=== PATIENT | male | born 1940 | race Caucasian/White ===

== ENCOUNTER 2017-09-17 17:07 | Emergency (ER) | payer MEDICARE, OTHER, SELFPAY ==
[2017-09-17 17:09] VITALS: BP 180/98; PULSE 87; RESP 18; TEMP 36.3; O2SAT 99; BMI 24.8
--- NOTE | 2017-09-17 17:24 | CT_ITS ---
CT facial bones wo con CLINICAL INDICATION: Facial pain and swelling/laceration following injury ITS.REASON: fall ORDERING PHYSICIAN: Ulises Melara MD PATIENT AGE: 77 years COMPARISON: None TECHNIQUE:Axial, sagittal, and coronal images are generated and reviewed without contrast FINDINGS: Comminuted nasal bone fracture is present with mild depression of the fracture fragments. The nasal bones are slightly angled toward the left. The left nasal bone slightly displaced laterally at the nasal maxillary junction There is buckling of the bony nasal septum with the mid anterior aspect of the nasal septum deviated toward the left and mid to posterior aspect of the nasal septum deviated toward the right Intermixed soft tissue and gas density noted in the nasal canals bilaterally consistent with blood somewhat more prominent on the left. Small air-fluid level present in left maxillary sinus. Mucosal thickening involves the maxillary sinuses. There are degenerative changes of the TMJs. The orbits are unremarkable. IMPRESSION: Comminuted nasal bone fracture mildly displaced with buckle fracture of the nasal septum
--- NOTE | 2017-09-17 17:25 | CT_ITS ---
CT cervical spine wo con INDICATION: Neck pain following injury ITS.REASON: fall ORDERING PHYSICIAN: Ulises Melara MD PATIENT AGE: 77 years COMPARISON: None TECHNIQUE: Axial images are obtained without contrast. Sagittal and coronal reformatted images are reviewed as well. FINDINGS: Normal alignment. No fracture or dislocation. There is multilevel spondylosis with degenerative disc disease and facet hypertrophic change. C2-C3: Mild degenerative disc disease. C3-C4: Degenerative disc disease with uncovertebral hypertrophy and bilateral foraminal narrowing. C4-C5: Degenerative disc disease with uncovertebral hypertrophy and bilateral foraminal narrowing. The facets appear fused at C4-C5. C5-C6: Degenerative disc disease with facet hypertrophy and right-sided foraminal narrowing. C6-C7 degenerative disc disease. C7-T1: 3 mm anterolisthesis of C7. Lung apices are clear. IMPRESSION: 1. No acute fracture. 2. Multilevel cervical spondylosis with degenerative disc disease and facet arthritic changes as detailed above
--- NOTE | 2017-09-17 17:27 | CT_ITS ---
CT head/brain wo con HISTORY: Headache/pain, laceration, contusion following injury, abrasion ITS.REASON: fall ORDERING PHYSICIAN: Ulises Melara MD PATIENT AGE: 77 years COMPARISON: None TECHNIQUE: Axial images obtained without contrast. Brain and bone windows reviewed. FINDINGS: No midline shift, mass effect, intracranial hemorrhage, hydrocephalus, or extra-axial fluid collection is evident. There is atrophy with chronic ischemic gliotic changes. The calvarium has an unremarkable appearance. No mastoid effusion. Mucosal thickening is present in the ethmoid sinuses.. IMPRESSION: No acute intracranial findings. Mild sinus disease.
--- NOTE | 2017-09-17 17:29 | HMH.EDFALL ---
ED Disposition Clinical Impression: Nasal fracture Qualifiers: Encounter type: initial encounter Fracture type: closed Qualified Code(s): S02.2XXA - Fracture of nasal bones, initial encounter for closed fracture Disposition: Home, Self-Care Condition on Discharge: Good Instructions: DI for Nose Fracture Additional Instructions: Tylenol for pain. Ice pack to the nose 20 minutes 3-4 times a day. Keep head of bed elevated for first 3 nights. Use Afrin spray 1 spray in each nostril every 12 hours for 3 days. Return to the emergency department if any heavy bleeding. Prescriptions: Amoxicillin [Amoxicillin 500mg Cap] 500 mg PO TID #30 cap Referrals: Shubham Watkins MD [Primary Care Provider] - Tobias Arteaga MD [Staff Physician] - 3 days (call on wednesday for earliest available appointment) - Critical Care Critical Care Time: No Attestation: On 09/17/17, the high probability of a clinically significant, sudden or life threatening deterioration of the following system(s) required my full and direct attention, intervention and personal management. The time I documented below is in addition to time spent performing reported procedures but includes the following listed in this critical care notation. Medical Decision Making Vital Signs: 09/17/17 17:09 Temperature 97.4 F L Temperature Source Temporal Artery Scan Pulse Rate [Right Brachial] 87 Respiratory Rate 18 Blood Pressure [Right Arm] 180/98 Blood Pressure Mean [Right Arm] 125 Blood Pressure Source [Right Arm] Manual Cuff/ Auscultation Blood Pressure Position [Right Arm] Sitting 02 Sat by Pulse Oximetry 99 Oxygen Delivery Method Room Air Orders (Tests/Meds): ED MEDICATIONS Discontinued Medications Generic Name Dose Route Start Last Admin Trade Name Freq PRN Reason Stop Dose Admin Oxymetazoline HCl 1 ml 09/17/17 17:55 09/17/17 18:16 Afrin Nasal [place] 15ml NS 09/17/17 17:56 1 spray ONCE ONE Administration - CT Data CT Scan: Head, C-Spine, Other (facial) Time Received: 18:[address] Reviewed: Yes: I have viewed the radiologist's interpretation Findings Narrative: Head: No acute process. Mild sinus disease. Cervical spine: No acute fracture or dislocation. Degenerative changes. Facial bone: Comminuted nasal fracture with a buckle fracture of the nasal septum. - Mehul Inquiry Pt receiving controlled substance: No Fall HPI - General Chief Complaint: Fall Stated Complaint: S/P FALL/NOSE BLEED Mode of Arrival: Family Vehicle Limitations: No Limitations Description of Symptoms (Recalled from ER Triage Doc. by RN): S/P FALL AND HIT NOSE. ALSO C/O NOSE BLEED - History of Present Illness HPI Narrative: The patient tripped and fell and hit his nose. He felt it pop. He has some slight bleeding from the nostrils. Nasal congestion bilaterally. No loss of consciousness. No headache. No neck pain. No other injuries. He is on Coumadin, gets his pro time checked regularly. No recent problems. - Related Data Home Medications Medication Instructions Recorded Confirmed aspirin 81 mg tablet,delayed 81 mg PO QDAY 09/14/17 09/17/17 release finasteride 5 mg tablet 5 mg PO QDAY 09/14/17 09/17/17 metoprolol tartrate 50 mg tablet 50 mg PO BID 09/14/17 09/17/17 nitroglycerin 0.4 mg sublingual 0.4 mg SUBLINGUAL Q5M PRN 09/14/17 09/17/17 tablet tamsulosin 0.4 mg capsule 0.4 mg PO DAILY cap 09/14/17 09/17/17 warfarin 2.5 mg tablet 2.5 mg PO QDAY 09/14/17 09/17/17 Isosorbide Mononitrate [Imdur 30mg 30 mg PO DAILY 09/17/17 09/17/17 ER tablet] Lisinopril [Lisinopril 5mg Tablet] 5 mg PO DAILY 09/17/17 09/17/17 Previous Rx's Medication Instructions Recorded Amoxicillin [Amoxicillin 500mg 500 mg PO TID #30 cap 09/17/17 Cap] Allergies Allergy/AdvReac Type Severity Reaction Status Date / Time No Known Allergies Allergy Verified 09/17/17 17:22 [facility] History I have reviewed the patient's
--- NOTE | 2017-09-17 17:43 | PC.NURSE ---
TO RADIOLOGY PER W/C FOR CT HEAD
[2017-09-17 18:56] VITALS: BP 160/100; PULSE 82; RESP 20; TEMP 36.6; O2SAT 96
== END 2017-09-17 18:57 | disposition home or self-care (01) ==
PROVIDERS: Emergency Provider Emergency Medicine; Family Provider Family Medicine; PCP Family Medicine
DX: S02.2XXA Fracture of nasal bones, initial encounter for closed fracture (principal); W19.XXXA Unspecified fall, initial encounter
CPT/HCPCS: 70450; 70486; 72125; 99282

== ENCOUNTER 2017-11-10 23:13 | Inpatient (IN) | payer MEDICARE, OTHER, SELFPAY ==
[2017-11-10 23:14] VITALS: BP 204/148; PULSE 91; RESP 14; TEMP 36.5; O2SAT 97; BMI 25.6
--- NOTE | 2017-11-10 23:22 | PC.NURSE ---
dr Vasquez speaking with .
--- NOTE | 2017-11-10 23:23 | PC.NURSE ---
Aspirin and Nitro given.
[2017-11-10 23:25] VITALS: BP 168/140; O2SAT 96
--- NOTE | 2017-11-10 23:26 | XR_ITS ---
XR chest portable HISTORY: ITS.REASON: chest pain ORDERING PHYSICIAN: Shubham Watkins MD PATIENT AGE: 77 years COMPARISON: 01/18/2017 FINDINGS: There is cardiomegaly without failure. There is mild chronic coarsening of the bronchovascular markings. No lobar consolidation or collapse. No acute bony anomalies. IMPRESSION: Cardiomegaly with chronic changes. No acute finding.
[2017-11-10 23:32] LABS: Basophils # 0.1 K/mm3 (0-0.2); Basophils % 1.3 % (0.1-2.0); Eosinophils # 0.4 K/mm3 (0.0-0.4); Eosinophils % 3.6 % (0.1-12.0); Lymphocytes % 28.9 K/mm3 (10-50); Mean Corpuscular HGB Conc 32.7 g/dL (31.8-35.4); Mean Corpuscular Hemoglobin 30.4 pg (27.0-31.2); Mean Corpuscular Volume 93.1 fl (80-94); Mean Platelet Volume 6.7 fl (7.4-10.4); Monocytes # 0.6 K/mm3 (0.1-1.0); Monocytes % 5.8 % (1.7-9.3); Neutrophils # 6.2 K/mm3 (1.8-7.8); Neutrophils % 60.4 % (37.0-80.0); Platelet Count 329 K/mm3 (142-424); Red Blood Count 5.26 M/mm3 (4.60-6.20); Red Cell Distribution Width 13.5 % (11.5-17.5); White Blood Count 10.3 K/mm3 (4.8-10.8)
--- NOTE | 2017-11-10 23:34 | HMH.EDCP ---
ED Disposition Clinical Impression: Hypertensive crisis STEMI (ST elevation myocardial infarction) Qualifiers: Involved coronary artery: unspecified coronary artery Qualified Code(s): I21.3 - ST elevation (STEMI) myocardial infarction of unspecified site A-fib Qualifiers: Atrial fibrillation type: chronic Qualified Code(s): I48.2 - Chronic atrial fibrillation Disposition: Admitted As Inpatient Condition on Discharge: Good Referrals: Shubham Watkins MD [Primary Care Provider] - - Critical Care Critical Care Time: Yes Attestation: On , the high probability of a clinically significant, sudden or life threatening deterioration of the following system(s) required my full and direct attention, intervention and personal management. The time I documented below is in addition to time spent performing reported procedures but includes the following listed in this critical care notation. Total Critical Care Time: 60 Vital system(s) involved:: Circulatory Failure My critical care processes included: Assessment & monitoring of V/S, Initial and Re-exams, Data Review/Interpretation, Coordinating Care, Medication Orders and management, Documentation Medical Decision Making - Medical Records Medical records reviewed: Yes: I reviewed the patient's medical records. - Mehul Inquiry Pt receiving controlled substance: No Vital Signs: 11/10/17 23:14 11/10/17 23:25 11/10/17 23:51 Temperature 97.7 F Temperature Source Temporal Artery Scan Pulse Rate [Right Brachial] 91 H 94 H Respiratory Rate 14 18 Blood Pressure [Right Arm] 204/148 168/140 162/123 Blood Pressure Mean [Right Arm] 166 149 136 Blood Pressure Source [Right Arm] Manual Cuff/ Auscultation Automatic Cuff Blood Pressure Position [Right Arm] Sitting Sitting 02 Sat by Pulse Oximetry 97 96 99 Oxygen Delivery Method Room Air Nasal Cannula Oxygen Flow Rate (LPM) 2 2 11/10/17 23:58 Temperature Temperature Source Pulse Rate [Right Brachial] 86 Respiratory Rate 17 Blood Pressure [Right Arm] 179/119 Blood Pressure Mean [Right Arm] 139 Blood Pressure Source [Right Arm] Blood Pressure Position [Right Arm] 02 Sat by Pulse Oximetry 99 Oxygen Delivery Method Nasal Cannula Oxygen Flow Rate (LPM) 2 - Lab Data Lab results reviewed: Yes: I reviewed the patient's lab results. Lab Results 11/10/17 23:23: WBC 10.3, RBC 5.26, Hgb 16.0, Hct 49.0, MCV 93.1, MCH 30.4, MCHC 32.7, RDW 13.5, Plt Count 329, MPV 6.7 L, Neut % (Auto) 60.4, Lymph % (Auto) 28.9, [place] % (Auto) 5.8, Eos % (Auto) 3.6, Baso % (Auto) 1.3, Neut # (Auto) 6.2, Lymph # (Auto) 3.0, [place] # (Auto) 0.6, Eos # (Auto) 0.4, Baso # (Auto) 0.1 11/10/17 23:23: PT 26.1 H, INR 2.39 H, APTT 34.8 H 11/10/17 23:23: Sodium 138, Potassium 3.8, Chloride 104, Carbon Dioxide 25, Anion Gap 12.8, BUN 17, Creatinine 1.22, Estimated Creat Clear 63, Estimated GFR 58 L, Est GFR ( Amer) 70, Glucose 153 H, Total Creatine Kinase 34 L, CK-MB (CK-2) 0.6, CK-MB (CK-2) Rel Index 1.8, Troponin I < 0.02 Result diagrams: 11/10/17 23:23 11/10/17 23:23 Orders (Tests/Meds): ED MEDICATIONS Generic Name Dose Route Start Last Admin Trade Name Freq PRN Reason Stop Dose Admin Nitroglycerin/Dextrose 250 mls @ 3 mls/hr 11/10/17 23:45 11/10/17 23:35 Nitroglycerin 50mg/250ml D5w IV 12/10/17 23:44 10 mcg/min .Q24H AIXA 3 mls/hr Protocol Administration 10 MCG/MIN Discontinued Medications Generic Name Dose Route Start Last Admin Trade Name Freq PRN Reason Stop Dose Admin Aspirin 325 mg 11/10/17 23:30 11/10/17 23:20 Aspirin 325mg Tablet PO 11/10/17 23:31 325 mg ONCE ONE Administration Heparin Sodium (Porcine) 8,600 unit 11/11/17 00:08 Heparin Sodium 5,000 Units/Ml Vial 100 unit/kg (8600 unit) 11/11/17 00:09 IV ONCE ONE Nitroglycerin 0.4 mg 11/10/17 23:42 11/10/17 23:22 Nitrostat 0.4mg Sl Tablet SL 11/10/17 23:43 1 tab ONCE ONE Administration Ticagrel
--- NOTE | 2017-11-10 23:36 | PC.NURSE ---
EVENT SALES MANAGER NOTIFIED TO CONTACT DR. BAUM FOR STAT READ EKG AT 2330 PER RT- NT.
[2017-11-10 23:41] LABS: Activated Partial Thrombo Time 34.8 seconds (23.6-34.0); INR 2.39 (0.9-1.1); Prothrombin Time 26.1 seconds (9.4-11.8)
--- NOTE | 2017-11-10 23:44 | ED_ITS ---
ED Disposition Clinical Impression: Hypertensive crisis STEMI (ST elevation myocardial infarction) Qualifiers: Involved coronary artery: unspecified coronary artery Qualified Code(s): I21.3 - ST elevation (STEMI) myocardial infarction of unspecified site A-fib Qualifiers: Atrial fibrillation type: chronic Qualified Code(s): I48.2 - Chronic atrial fibrillation Disposition: Admitted As Inpatient Condition on Discharge: Good Referrals: Shubham Watkins MD [Primary Care Provider] - - Critical Care Critical Care Time: Yes Attestation: On , the high probability of a clinically significant, sudden or life threatening deterioration of the following system(s) required my full and direct attention, intervention and personal management. The time I documented below is in addition to time spent performing reported procedures but includes the following listed in this critical care notation. Total Critical Care Time: 60 Vital system(s) involved:: Circulatory Failure My critical care processes included: Assessment & monitoring of V/S, Initial and Re-exams, Data Review/Interpretation, Coordinating Care, Medication Orders and management, Documentation Medical Decision Making - Medical Records Medical records reviewed: Yes: I reviewed the patient's medical records. - Mehul Inquiry Pt receiving controlled substance: No Vital Signs: 11/10/17 23:14 11/10/17 23:25 11/10/17 23:51 Temperature 97.7 F Temperature Source Temporal Artery Scan Pulse Rate [Right Brachial] 91 H 94 H Respiratory Rate 14 18 Blood Pressure [Right Arm] 204/148 168/140 162/123 Blood Pressure Mean [Right Arm] 166 149 136 Blood Pressure Source [Right Arm] Manual Cuff/ Auscultation Automatic Cuff Blood Pressure Position [Right Arm] Sitting Sitting 02 Sat by Pulse Oximetry 97 96 99 Oxygen Delivery Method Room Air Nasal Cannula Oxygen Flow Rate (LPM) 2 2 11/10/17 23:58 Temperature Temperature Source Pulse Rate [Right Brachial] 86 Respiratory Rate 17 Blood Pressure [Right Arm] 179/119 Blood Pressure Mean [Right Arm] 139 Blood Pressure Source [Right Arm] Blood Pressure Position [Right Arm] 02 Sat by Pulse Oximetry 99 Oxygen Delivery Method Nasal Cannula Oxygen Flow Rate (LPM) 2 - Lab Data Lab results reviewed: Yes: I reviewed the patient's lab results. Lab Results 11/10/17 23:23: WBC 10.3, RBC 5.26, Hgb 16.0, Hct 49.0, MCV 93.1, MCH 30.4, MCHC 32.7, RDW 13.5, Plt Count 329, MPV 6.7 L, Neut % (Auto) 60.4, Lymph % (Auto ) 28.9, [place] % (Auto) 5.8, Eos % (Auto) 3.6, Baso % (Auto) 1.3, Neut # (Auto) 6.2, Lymph # (Auto) 3.0, [place] # (Auto) 0.6, Eos # (Auto) 0.4, Baso # (Auto) 0.1 11/10/17 23:23: PT 26.1 H, INR 2.39 H, APTT 34.8 H 11/10/17 23:23: Sodium 138, Potassium 3.8, Chloride 104, Carbon Dioxide 25, Anion Gap 12.8, BUN 17, Creatinine 1.22, Estimated Creat Clear 63, Estimated GFR 58 L, Est GFR ( Amer) 70, Glucose 153 H, Total Creatine Kinase 34 L, CK-MB (CK-2) 0.6, CK-MB (CK-2) Rel Index 1.8, Troponin I < 0.02 Result diagrams: 11/10/17 23:23 11/10/17 23:23 Orders (Tests/Meds): ED MEDICATIONS Generic Name Dose Route Start Last Admin Trade Name Freq PRN Reason Stop Dose Admin Nitroglycerin/Dextrose 250 mls @ 3 mls/hr 11/10/17 23:45 11/10/17 23:35 Nitroglycerin 50mg/250ml D5w IV 12/10/17 23:4
--- NOTE | 2017-11-10 23:46 | PC.NURSE ---
Titrated Nitro gtt from 10mcg/kg to 15mcg/kg per MD verbal order. Pt VS at this time: BP: 177/130; P 92; R 18; Sat %: 98% on 2L NC. Pt rating pain 5/10
[2017-11-10 23:51] VITALS: BP 162/123; PULSE 94; RESP 18; O2SAT 99
[2017-11-10 23:57] LABS: Anion Gap 12.8 mEq/L (5-15); Blood Urea Nitrogen 17 mg/dL (7-18); CKMB Relative Index 1.8 U/L (0-4.0); Carbon Dioxide 25 mmol/L (21.0-32.0); Chloride 104 mmol/L (98-107); Creatine Kinase 34 U/L (39-308); Creatine Kinase MB 0.6 ng/ml (0.0-3.6); Creatinine Clearance Estimated 63 mL/min (0-300); Creatinine,Serum 1.22 mg/dL (0.70-1.30); Estimated Glomerular Filt Rate 58 ml/min (>60); GFR (African American) 70 ML/MIN (>60); Glucose 153 mg/dL (74-106); Potassium 3.8 mmoL/L (3.5-5.1); Sodium 138 mmol/L (136-145); Troponin I < 0.02 ng/ml (0.00-0.06)
[2017-11-10 23:58] VITALS: BP 179/119; PULSE 86; RESP 17; O2SAT 99
[2017-11-11] VITALS (41 sets, daily range): BP systolic 106–182; BP diastolic 69–139; PULSE 66–101; RESP 16–24; TEMP 36.4–37; O2SAT 90–99; BMI 25.2
--- NOTE | 2017-11-11 | PC.NURSE ---
Titrated Nitro gtt from 15mcg/kg to 20mcg/kg per MD verbal order. Pt VS at this time: BP: 179/119; P 86; R 17; Sat %: 99% on 2L NC. Pt rating pain 5/10
--- NOTE | 2017-11-11 00:02 | PC.NURSE ---
Md notified that patient stated his pain was worsening despite Nitro gtt being increased to 20mcg/kg. MD speaking to Dr Anthony at this time
--- NOTE | 2017-11-11 00:05 | PC.NURSE ---
Stemi alert called [phone]
--- NOTE | 2017-11-11 00:14 | IR_ITS ---
CARDIAC CATHETERIZATION DATE OF CATHETERIZATION:11/11/2017 1:29 AM PROCEDURES: 1. Left heart catheterization 2. Left ventriculogram 3. Selective coronary angiogram 4. Thrombectomy to the proximal LAD followed by drug-eluting stent deployment to the proximal and mid LAD in a noncontiguous manner 5. Drug-eluting stent deployment to the proximal ramus intermedius 6. Drug-eluting stent deployment to the proximal mid dominant right coronary artery INDICATION FOR TEST: 1. Acute anterior ST elevation myocardial infarction 2. Coronary artery disease 3. Critical disease in the proximal to mid dominant right coronary artery 4. Critical disease in the proximal to mid ramus intermedius 5. Acute ST elevation myocardial infarction involving the proximal LAD with severe mid LAD disease Informed consent was obtained prior to the procedure. COMPLICATIONS: None ESTIMATED BLOOD LOSS: Less than 10 ml. TECHNIQUE: One percent lidocaine used to anesthetize the right anterior aspect of the wrist. The right radial artery was accessed via the Seldinger technique. A 6 [place] sheath was placed in the right radial artery. 2.5 mg of verapamil, 800 mcg of nitroglycerin were given through the arterial sheath. The trap catheter was also used to perform left heart catheterization left ventriculogram and selective coronary angiogram. Patient received Brilinta 180 mg orally in the emergency department along with 8600 units of heparin intravenously. The ACT measured out of range. An Evocha left guide catheter was used intubate the left main artery and a choice PT extra-support wire was placed through the occlusion into the distal LAD. A Punumbra aspiration catheter was placed in the proximal LAD used to aspirate a thrombus restoring YVES I flow up to YVES-3 flow. Following this a 3.5 x 38 mm resolute Soren stent was deployed at 20 tayla reducing the stenosis to 0%. An additional 3.5 x 8 mm resolute Baxter stent was placed distal to the stent and deployed at 20 tayla further reducing the stenosis. This severe mid LAD stenosis was present therefore a 2.5 x 18 mm resolute Soren stent was deployed at 26 tayla reducing the stenosis to 0%. The wire was in placed into the critically tight ramus intermedius and a 2.25 x 34 mm resolute Baxter stent was deployed at 22 tayla reducing this critical stenosis to 0%. The same guide catheter was used intubate the right coronary artery demonstrating a critical 90% stenosis in the proximal to mid right coronary artery. Primary stenting cannot be performed therefore 2.5 x 12 mm noncompliant balloon was deployed at 20 tayla predilate in the stenosis. Following this a 4 mm x 30 mm resolute Soren stent was deployed at 20 tayla reducing the stenosis to 0%. YVES-3 flow was present down the ramus intermedius and the right coronary artery before and after the procedure. Following this the guide catheter was used to perform left ventriculogram and left heart catheterization. At the end of the procedure the sheath was removed good hemostasis was achieved using TR banding patient transferred to the postop holding area in stable condition ANGIOGRAPHIC RESULTS: 1. The left main artery is normal 2. The left anterior descending artery has a proximal critical subtotal occlusion producing YVES I flow followed by a 50% stenosis followed by an additional mid vessel 80% stenosis. 3. The ramus intermedius is a large vessel and has proximal 50 followed by an additional 90% stenosis 4. The circumflex artery is nondominant yet still a large vessel and has proximal 40% stenoses giving rise to 2 obtuse marginal arteries. The second obtuse marginal arteries very large tortuous and has 20% stenoses. The third obtuse marginal artery is proximally occluded and appears to be at least medium in size 5. The right coronary
--- NOTE | 2017-11-11 00:22 | PC.NURSE ---
pt stuart groin shaved.
[2017-11-11 02:15] LABS: CATHL Activated Clotting Time > 400 SEC (74-125)
--- NOTE | 2017-11-11 03:55 | PC.NURSE ---
Cath report given by Cait Gardiner RN approximately 0230, pt had 5 stents: 3-LAD, 1-Ramus, 1-RCA and one balloon. Upon receiving pt to floor, assessment negative except for blood pressure being elevated. Nitro drip at 20mcg upon arrival, blood pressure continues to be elevated see vital signs, but most current 174/109. Nitro drip increased 0300 - from 6ml/hr to 9ml/hr, 0335 - from 9ml/hr to 12ml/hr, 0355 - from 12 ml/hr to 15ml/hr. Air removed from tracelet per order with a decrease currently of 4 with no s/s of bleeding noted. pt is resting quietly with minimal amount of chest pain. Discussed admission folder and [facility] notebook during admission with no questions. Education concerning no use of right arm, pillow placed to rest wrist on for comfort. Granddaughter Monika who was with pt until moments ago left to go home, however voiced she would be returning. Will continue to monitor pt and adjust Nitro drip per protocol. Advised pt of staff availability with call light in pt's hand.
--- NOTE | 2017-11-11 05:18 | PC.NURSE ---
Right hand is warm and pink with 2+ pulses bilaterally. Blood pressure slowly coming down with Nitro drip increasing per protocol. Pt is resting with slight snore noted. Remains controlled afib on tele monitor. Pt alert, pleasant and cooperative with care. Post op vital signs continue, current BP 144/94 with Nitro drip at 70 mcg/kg/min - 21ml/hr. Family returned with pt's phone position classifier and left again per pt request. Will continue to monitor and pt remained safe this shift.
--- NOTE | 2017-11-11 07:23 | HMH.PHAVTE ---
[facility] VTE Monitoring - Patient Demographics Admission date: 11/11/17 Report Date: 11/11/17 Time: 07:24 Allergies/Adverse Reactions: Patient Allergies No Known Allergies Allergy (Verified 11/10/17 23:23) Height: 1.83 m Weight: 84.623 kg Patient Problems: Current Active Problems STEMI (ST elevation myocardial infarction) (Acute) Hypertensive crisis (Acute) A-fib (Acute) - VTE Risk Labs: VTE Related Lab Results Hgb 16.0 g/dL (14.1-18.0) 11/10/17 23:23 Hct 49.0 % (42.0-52.0) 11/10/17 23:23 Plt Count 329 K/mm3 (142-424) 11/10/17 23:23 PT 26.1 seconds (9.4-11.8) H 11/10/17 23:23 INR 2.39 (0.9-1.1) H 11/10/17 23:23 APTT 34.8 seconds (23.6-34.0) H 11/10/17 23:23 BUN 17 mg/dL (7-18) 11/10/17 23:23 Creatinine 1.22 mg/dL (0.70-1.30) 11/10/17 23:23 Estimated Creat Clear 63 mL/min (0-300) 11/10/17 23:23 Was VTE Risk Assessment Performed: Yes VTE Score: 4 VTE Risk Level: Low Risk - Prophylaxis VTE Prophylaxis Ordered?: Yes Types of VTE Prophylaxis: TEDS Knee High Location of Applied Device: Bilateral Lower Extremeties - VTE Diagnosis Confirmed Treatment or plan recommended: Continue Current Treatment
--- NOTE | 2017-11-11 07:24 | PC.NURSE ---
Bedside report given with Joanne Myers RN leaving pt safe and stable.
[2017-11-11 08:14] LABS: Anion Gap 12.2 mEq/L (5-15); Blood Urea Nitrogen 15 mg/dL (7-18); Carbon Dioxide 21 mmol/L (21.0-32.0); Chloride 104 mmol/L (98-107); Creatinine Clearance Estimated 66 mL/min (0-300); Creatinine,Serum 1.15 mg/dL (0.70-1.30); Estimated Glomerular Filt Rate 62 ml/min (>60); GFR (African American) 75 ML/MIN (>60); Glucose 156 mg/dL (74-106); Potassium 4.2 mmoL/L (3.5-5.1); Sodium 133 mmol/L (136-145)
[2017-11-11 08:18] LABS: Basophils # 0.1 K/mm3 (0-0.2); Basophils % 0.8 % (0.1-2.0); Eosinophils # 0.1 K/mm3 (0.0-0.4); Eosinophils % 0.5 % (0.1-12.0); Lymphocytes # 1.5 K/mm3 (0.7-4.5); Lymphocytes % 12.5 K/mm3 (10-50); Mean Corpuscular HGB Conc 32.7 g/dL (31.8-35.4); Mean Corpuscular Hemoglobin 30.6 pg (27.0-31.2); Mean Corpuscular Volume 93.6 fl (80-94); Monocytes # 0.4 K/mm3 (0.1-1.0); Monocytes % 3.5 % (1.7-9.3); Neutrophils # 9.9 K/mm3 (1.8-7.8); Neutrophils % 82.7 % (37.0-80.0); Platelet Count 264 K/mm3 (142-424); Red Blood Count 4.38 M/mm3 (4.60-6.20); Red Cell Distribution Width 13.6 % (11.5-17.5)
[2017-11-11 08:24] LABS: Hemoglobin 13.4 g/dL (14.1-18.0)
--- NOTE | 2017-11-11 08:35 | HMH.HP ---
*Admission Date: 11/11/17 *Chief complaint: CP *History of present illness: Mr. Petersen is a 77-year-old male with a history of previous [place] and stent placement. States he was playing cards at 10:30 PM last night when he began having severe midsternal chest pain and pressure. He became short of breath. He took a nitroglycerin and this did not help, therefore he drove himself to the emergency room. He was evaluated in the ER and found to have an ST elevation [place]. Dr. Anthony was called and the patient was taken emergently to the Galley Worker where 5 stents were placed. This a.m. he feels better. He states his chest pain has almost completely resolved. He is no longer short of breath. Of note he had a heart cath with stents placed in 02/2008, an angioplasty of the ramus intermedius in 01/2009, and a heart cath with stent placement by Dr. Nicholson on 03/10/12. He is in chronic afib and is on coumadin therapy. 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 No: Pacemaker Amputation: No Fractures: No Comment: cystoscopy iwth TURP - *Social History Educational Level: Completed High School Smoking Status: Light tobacco smoker Tobacco Type: smokeless tobacco Alcohol Intake: never Occupational Status: retired Household Members: spouse - Psychiatric History Expresses thoughts of harming self/others: None Suicide Plan Description: No Plan *Family Hx:: Cancer, Heart Attack Review of Systems - Constitutional Reports fever(s), Reports weakness, Denies body ache(s) - Eyes Denies blurry vision, Denies double vision - ENT Denies nasal congestion, Denies sore throat - *Cardiovascular Reports chest pain, Reports shortness of breath, Reports rapid, pounding, or irregular heartbeat - *Respiratory Reports cough, Reports shortness of breath - *Gastrointestinal Reports nausea, Denies abdominal pain, Denies loose stools, Denies vomiting - *Genitourinary Denies painful urination - *Musculoskeletal Denies joint pain - *Neurologic Reports weakness, Denies dizziness, Denies headache(s), Denies seizure-like activity Meds Home Medications Medication Instructions Recorded Confirmed Type aspirin 81 mg tablet,delayed 81 mg PO DAILY 09/14/17 11/11/17 History release finasteride 5 mg tablet 5 mg PO DAILY 09/14/17 11/11/17 History metoprolol tartrate 50 mg tablet 50 mg PO BID 09/14/17 11/10/17 History nitroglycerin 0.4 mg sublingual 0.4 mg SUBLINGUAL Q5MINP PRN 09/14/17 11/11/17 History tablet tamsulosin 0.4 mg capsule 0.4 mg PO DAILY cap 09/14/17 11/11/17 History Isosorbide Mononitrate [Imdur 30mg 30 mg PO DAILY 09/17/17 11/10/17 History ER tablet] Lisinopril [Lisinopril 5mg Tablet] 2.5 mg PO DAILY 09/17/17 11/11/17 History Warfarin Sodium 2.5 mg PO SUTUTHSA 11/11/17 11/11/17 History Warfarin Sodium 5 mg PO MOWEFR 11/11/17 11/11/17 History Allergies Allergy/AdvReac Type Severity Reaction Status Date / Time No Known Allergies Allergy Verified 11/10/17 23:23 Exam Vital signs and Labs for Last 24 Hours: Temp Pulse Resp BP Pulse Ox 97.5 F L 78 20 106/73 98 11/11/17 05:55 11/11/17 07:55 11/11/17 07:55 11/11/17 07:55 11/11/17 07:55 Laboratory Results - last 24 hr 11/11/17 00:53: Activated Clotting Time > 400 H* 11/11/17 07:56: WBC 12.0 H, RBC 4.38 L, Hgb 13.4 L D, Hct 41.0 L, MCV 93.6, MCH 30.6, MCHC 32.7, RDW 13.6, Plt Count 264, MPV 7.0 L, Neut % (Auto) 82.7 H, Lymph % (Auto) 12.5, [place] % (Auto) 3.5, Eos % (Auto) 0.5, Baso % (Auto) 0.8, Neut # (Auto) 9.9 H, Lymph # (Auto) 1.5, [place] # (Auto) 0.4, Eos # (Auto) 0.1,
--- NOTE | 2017-11-11 08:39 | P.HP_ITS ---
*Admission Date: 11/11/17 *Chief complaint: CP *History of present illness: Mr. Petersen is a 77-year-old male with a history of previous [place] and stent placement. States he was playing cards at 10:30 PM last night when he began having severe midsternal chest pain and pressure. He became short of breath. He took a nitroglycerin and this did not help, therefore he drove himself to the emergency room. He was evaluated in the ER and found to have an ST elevation [place]. Dr. Anthony was called and the patient was taken emergently to the Scuba Dive Training Instructor where 5 stents were placed. This a.m. he feels better. He states his chest pain has almost completely resolved. He is no longer short of breath. Of note he had a heart cath with stents placed in 02/2008, an angioplasty of the ramus intermedius in 01/2009, and a heart cath with stent placement by Dr. Nicholson on 03/10/12. He is in chronic afib and is on coumadin therapy. 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 No: Pacemaker Amputation: No Fractures: No Comment: cystoscopy iwth TURP - *Social History Educational Level: Completed High School Smoking Status: Light tobacco smoker Tobacco Type: smokeless tobacco Alcohol Intake: never Occupational Status: retired Household Members: spouse - Psychiatric History Expresses thoughts of harming self/others: None Suicide Plan Description: No Plan *Family Hx:: Cancer, Heart Attack Review of Systems - Constitutional Reports fever(s), Reports weakness, Denies body ache(s) - Eyes Denies blurry vision, Denies double vision - ENT Denies nasal congestion, Denies sore throat - *Cardiovascular Reports chest pain, Reports shortness of breath, Reports rapid, pounding, or irregular heartbeat - *Respiratory Reports cough, Reports shortness of breath - *Gastrointestinal Reports nausea, Denies abdominal pain, Denies loose stools, Denies vomiting - *Genitourinary Denies painful urination - *Musculoskeletal Denies joint pain - *Neurologic Reports weakness, Denies dizziness, Denies headache(s), Denies seizure-like activity Meds Home Medications Medication Instructions Recorded Confirmed Type aspirin 81 mg tablet,delayed 81 mg PO DAILY 09/14/17 11/11/17 History release finasteride 5 mg tablet 5 mg PO DAILY 09/14/17 11/11/17 History metoprolol tartrate 50 mg tablet 50 mg PO BID 09/14/17 11/10/17 History nitroglycerin 0.4 mg sublingual 0.4 mg SUBLINGUAL Q5MINP PRN 09/14/17 11/11/17 History tablet tamsulosin 0.4 mg capsule 0.4 mg PO DAILY cap 09/14/17 11/11/17 History Isosorbide Mononitrate [Imdur 30mg 30 mg PO DAILY 09/17/17 11/10/17 History ER tablet] Lisinopril [Lisinopril 5mg Tablet] 2.5 mg PO DAILY 09/17/17 11/11/17 History Warfarin Sodium 2.5 mg PO SUTUTHSA 11/11/17 11/11/17 History Warfarin Sodium 5 mg PO MOWEFR 11/11/17 11/11/17 History Allergies Allergy/AdvReac Type Severity Reaction Status Date / Time No Known Allergies Allergy Verified 11/10/17 23:23 Exam Vital signs and Labs for Last 24 Hours:
--- NOTE | 2017-11-11 08:54 | XR_ITS ---
XR chest portable HISTORY: Abnormal breath sounds ITS.REASON: rales right lung ORDERING PHYSICIAN: Shubham Watkins MD PATIENT AGE: 77 years COMPARISON: None available FINDINGS: There is continued mild cardiomegaly without failure. The lungs are clear bilaterally. No lobar consolidation or collapse. No acute bony anomalies. IMPRESSION: Cardiomegaly otherwise negative
--- NOTE | 2017-11-11 08:58 | HMH.CNCARD ---
History of Present Illness Consult date: 11/11/17 Requesting physician: Shubham Watkins Consult reason: chest pain Chief complaint: chest pain Additional Medical History:: 1. Coronary artery disease with previous history of myocardial infarction and stent placement. Previous angioplasty and stenting 2007 and 2011 to the ramus and circumflex arteries. Previous netting inspector are Dr. Rodrigues and Dr. Nicholson. A. Anterior ST elevation [place], 11/10/2017 B. Cardiac catheterization 11/10/2017: ANGIOGRAPHIC RESULTS: 1. The left main artery is normal 2. The left anterior descending artery has a proximal critical subtotal occlusion producing YVES I flow followed by a 50% stenosis followed by an additional mid vessel 80% stenosis. 3. The ramus intermedius is a large vessel and has proximal 50 followed by an additional 90% stenosis 4. The circumflex artery is nondominant yet still a large vessel and has proximal 40% stenoses giving rise to 2 obtuse marginal arteries. The second obtuse marginal arteries very large tortuous and has 20% stenoses. The third obtuse marginal artery is proximally occluded and appears to be at least medium in size 5. The right coronary artery is a large caliber dominant vessel and has an ostial 30-40% stenosis followed by a proximal 30% stenosis followed by a very focal greater than 90% stenosis. 6. The FERNANDEZ ventriculogram reveals left ventricular dilatation with severe anterior apical hypokinesis. Estimated ejection fraction is 30-35% 7. The left ventricular end-diastolic pressure 25 mmHg IMPRESSION: 1. Acute anterior ST elevation myocardial infarction 2. Successful stenting of the proximal and mid LAD critical disease reduced to 0% with 3 drug-eluting stents in a noncontiguous manner as described above 3. Critical disease in a large ramus intermedius with successful stenting of the ramus intermedius critical disease reduced to 0% with 1 drug-eluting stent 4. Critical disease in the proximal to mid large dominant right coronary artery with successful stenting of this right coronary artery critical disease reduced to 0% with 1 drug-eluting stent 5. Left ventricular dilatation with regional wall motion abnormality as described above 6. Elevated LVEDP PLAN: 1. Brilinta 90 mg twice a day plus aspirin 81 mg a day for 30 days and then discontinue the aspirin but continued to Brilinta 90 mg twice a day 2. Continue Coumadin for chronic atrial fibrillation goal INR between 1.8 and 2.5 3. Cardiac rehabilitation 4. Carvedilol for hypertension 5. Lisinopril should be started and up titrated as soon is possible 6. Lipitor 80 mg daily with a goal LDL 55 7. Avoidance of tobacco products 8. An echocardiogram should be obtained tomorrow or Kash to better assess ejection fraction and determine if patient requires a lifevest 2. Hypertension 3. Hyperlipidemia 4. Arthritis 5. Chronic atrial fibrillation since at least 2009 with chronic Coumadin therapy. History of present illness: Mr. Petersen is a 77-year-old male with a history of previous [place] and stent placement. States he was playing cards at 10:30 PM last night when he began having severe midsternal chest pain and pressure. He became short of breath. He took a nitroglycerin and this did not help, therefore he drove himself to the emergency room. He was evaluated in the ER and found to have an ST elevation [place]. Dr. Anthony was called and the patient was taken emergently to the Metal Rolling Mill Operator where 5 stents were placed. This a.m. he feels better. He states his chest pain has almost completely resolved. He is no longer short of breath. Of note he had a heart cath with stents placed in 02/2008, an angioplasty of the ramus intermedius in 01/2009, and a heart cath with stent placement by Dr. Nicholson on 03/10/12. He is in chronic afib and is on coumadin therapy. The above per Dipika Gordillo PA-C for Dr. Watkins. [facility] History Medical History: Reports:: Arrhythmia, At
--- NOTE | 2017-11-11 09:01 | P.CONS_ITS ---
History of Present Illness Consult date: 11/11/17 Requesting physician: Shubham Watkins Consult reason: chest pain Chief complaint: chest pain Additional Medical History:: 1. Coronary artery disease with previous history of myocardial infarction and stent placement. Previous angioplasty and stenting 2007 and 2011 to the ramus and circumflex arteries. Previous cooker cleaner are Dr. Rodrigues and Dr. Nicholson. A. Anterior ST elevation [place], 11/10/2017 B. Cardiac catheterization 11/10/2017: ANGIOGRAPHIC RESULTS: 1. The left main artery is normal 2. The left anterior descending artery has a proximal critical subtotal occlusion producing YVES I flow followed by a 50% stenosis followed by an additional mid vessel 80% stenosis. 3. The ramus intermedius is a large vessel and has proximal 50 followed by an additional 90% stenosis 4. The circumflex artery is nondominant yet still a large vessel and has proximal 40% stenoses giving rise to 2 obtuse marginal arteries. The second obtuse marginal arteries very large tortuous and has 20% stenoses. The third obtuse marginal artery is proximally occluded and appears to be at least medium in size 5. The right coronary artery is a large caliber dominant vessel and has an ostial 30-40% stenosis followed by a proximal 30% stenosis followed by a very focal greater than 90% stenosis. 6. The FERNANDEZ ventriculogram reveals left ventricular dilatation with severe anterior apical hypokinesis. Estimated ejection fraction is 30-35% 7. The left ventricular end-diastolic pressure 25 mmHg IMPRESSION: 1. Acute anterior ST elevation myocardial infarction 2. Successful stenting of the proximal and mid LAD critical disease reduced to 0% with 3 drug-eluting stents in a noncontiguous manner as described above 3. Critical disease in a large ramus intermedius with successful stenting of the ramus intermedius critical disease reduced to 0% with 1 drug-eluting stent 4. Critical disease in the proximal to mid large dominant right coronary artery with successful stenting of this right coronary artery critical disease reduced to 0% with 1 drug-eluting stent 5. Left ventricular dilatation with regional wall motion abnormality as described above 6. Elevated LVEDP PLAN: 1. Brilinta 90 mg twice a day plus aspirin 81 mg a day for 30 days and then discontinue the aspirin but continued to Brilinta 90 mg twice a day 2. Continue Coumadin for chronic atrial fibrillation goal INR between 1.8 and 2.5 3. Cardiac rehabilitation 4. Carvedilol for hypertension 5. Lisinopril should be started and up titrated as soon is possible 6. Lipitor 80 mg daily with a goal LDL 55 7. Avoidance of tobacco products 8. An echocardiogram should be obtained tomorrow or Kash to better assess ejection fraction and determine if patient requires a lifevest 2. Hypertension 3. Hyperlipidemia 4. Arthritis 5. Chronic atrial fibrillation since at least 2009 with chronic Coumadin therapy. History of present illness: Mr. Petersen is a 77-year-old male with a history of previous [place] and stent placement. States he was playing cards at 10:30 PM last night when he began having severe midsternal chest pain and pressure. He became short of breath. He took a nitroglycerin and this did not help, therefore he drove himself to the emergency room. He was evaluated in the ER and found to have an ST elevation [place]. Dr. Anthony was called and the patient was taken emergently to the Chemistry Quality Control Technician where 5 stents were placed. This a.m. he feels better. He states his chest pain has almost completely resolved. He is no longer short of breath. Of note he had a heart cath w
--- NOTE | 2017-11-11 09:09 | CA_ITS ---
PROCEDURE: 2-D M-mode and color Doppler study INDICATIONS FOR THE TEST: Chest pain COPD Heart Murmur Tobacco Smoking Palpitations Fatigue Syncope Edema Hypertension Diabetes Mellitus Rheumatic Fever SOB S[place]AGO Obesity Hyperlipidemia Family History HD Additional History CAD STEMI STENTS CHRONIC AF PATIENT INFORMATION HEIGHT: 72 WEIGHT:186 GENDER: Male B/P:110/69 2-D/M-MODE INTERPRETATION: 2-D MEASUREMENTS OBSERVED VALUES IN CMS Right Ventricular Dimension (RVDd) 3.1 Interventricular Septum (Thickness)(IVsd) 1.3 Left Ventricular Internal Dimensions(LVIDd) 5.2 Left Ventricular Posterior Wall (Thickness)(LVPWd) 1.4 Aortic Root 3.5 Aortic Cusp Separation 1.6 Left Atrial Dimensions (LAD) 5.0 2D 1. Atrium is moderately enlarged, left ventricle is normal size, mild concentric left ventricular hypertrophy, visually estimated ejection fraction approximately 40%, there is marked hypokinesis involving mid to distal septum, anterior and anteroapical wall. 2. The right atrium and right ventricle are mildly enlarged with normal contractility. 3. The aortic valve is minimally thickened and fibrosed. 4. The mitral and tricuspid valve leaflets are minimally thickened. 5. The pulmonic valve is poorly visualized 6. No significant pericardial effusion noted. DOPPLER INTERROGATION: Doppler interrogation of the aortic, mitral and tricuspid valvular presence of moderate mitral and mild tricuspid regurgitation, tricuspid and jet velocity insufficient for calculation of the right ventricular systolic pressure. CONCLUSION: 1. Moderately enlarged left atrium, normal left ventricular size, mild concentric left ventricular hypertrophy, visually estimated ejection fraction approximately 40% with segmental wall motion abnormality described above. 2. Mildly enlarged right atrium and right ventricle, contractility of the right ventricle is normal. 3. Moderate mitral and mild tricuspid 4. No significant pericardial effusion noted.
--- NOTE | 2017-11-11 15:54 | SW/DCPLANNER ---
Visited this patient this afternoon to discuss discharge plans. Patient stated that he lives at home with his and he is the caregiver for his . I have discussed the option of home health for this patient and patient did not feel this was necessary. Patient did ask if home health could see his and I explained to patient that home health order would be for him but they could follow up with wifes family doctor to discuss home health. I also explained the benefits of home health services to this patient and services were again denied. I will follow up with this patient at time of discharge to assist with any needs/new orders.
--- NOTE | 2017-11-11 19:03 | PC.NURSE ---
Patient resting majority of the shift. Denies any pain or discomfort at this time. No complaints voiced entire shift. Cardiac Cath site. clean, dry and intact.
[2017-11-12] VITALS (10 sets, daily range): BP systolic 104–126; BP diastolic 54–70; PULSE 70–98; RESP 14–24; TEMP 36.8–37.1; O2SAT 96–98
--- NOTE | 2017-11-12 05:10 | PC.NURSE ---
Nitro drip difficult to titrate for consistent blood pressure. See titration for specifics. Pt remains asymptomatic when BP is high, wnl, or slightly low. Reported his blood pressure does that at home, one time I'll take it and it's fine, then the next time it's high, I don't know why. No c/o pain or any discomfort, voiding well per urinal, sat on side of the bed earlier. Removed R radial cath site dressing with incision remaining closed with no signs of bleeding, pulses palpable, right hand warm and pink. Nothing acute to report this shift and pt remained safe and stable.
--- NOTE | 2017-11-12 07:04 | PC.NURSE ---
Shift report given to Cait Myers RN leaving pt safe and stable.
--- NOTE | 2017-11-12 08:20 | P.PN_ITS ---
Internal Medicine - PN: Subj *Date: 11/12/17 *Time: 08:17 Interval history: Patient is feeling much better today. He denies any pain. He is eating and sleeping well. Exam Vital signs and Labs for Last 24 Hours: Temp Pulse Resp BP Pulse Ox 98.7 F 98 H 19 126/65 98 11/12/17 04:59 11/12/17 06:49 11/12/17 05:59 11/12/17 06:49 11/12/17 05:59 Laboratory Results - last 24 hr 11/11/17 07:56: WBC 12.0 H, RBC 4.38 L, Hgb 13.4 L D, Hct 41.0 L, MCV 93.6, MCH 30.6, MCHC 32.7, RDW 13.6, Plt Count 264, MPV 7.0 L, Neut % (Auto) 82.7 H, Lymph % (Auto) 12.5, [place] % (Auto) 3.5, Eos % (Auto) 0.5, Baso % (Auto) 0.8, Neut # (Auto) 9.9 H, Lymph # (Auto) 1.5, [place] # (Auto) 0.4, Eos # (Auto) 0.1, Baso # (Auto) 0.1 I & O for Last 24 hours: Intake & Output 11/09/17 11/10/17 11/11/17 11/12/17 11:59 11:59 11:59 11:59 Intake Total 498 / 498 1419.2 / 1419.2 Output Total 550 / 550 2775 / 2775 Balance -52 / -52 -1355.8 / -1355.8 Weight 186 lb 9 oz 188 lb 5 oz - Constitutional no acute distress - *Routine Respiratory Exam Present: rales (faint bibasilar) - *Routine Cardiovascular Exam Present: irregularly irregular - *Routine Abdominal Exam Present: soft, normoactive bowel sounds. Absent: tenderness - *Routine Extremities Exam Absent: edema Assessment and Plan (1) STEMI (ST elevation myocardial infarction) Current visit: Yes Status: Acute Qualifiers: Involved coronary artery: unspecified coronary artery Qualified Code(s): I21.3 - ST elevation (STEMI) myocardial infarction of unspecified site Category: Medical Code(s): I21.3 - ST elevation (STEMI) myocardial infarction of unspecified site (2) Hypertensive crisis Current visit: Yes Status: Acute Category: Medical Code(s): I16.9 - Hypertensive crisis, unspecified (3) A-fib Current visit: Yes Status: Chronic Qualifiers: Atrial fibrillation type: chronic Qualified Code(s): I48.2 - Chronic atrial fibrillation Category: Medical Code(s): I48.91 - Unspecified atrial fibrillation (4) Status post coronary artery stent placement Current visit: Yes Status: Acute Category: Surgical Code(s): Z95.5 - Presence of coronary angioplasty implant and graft (5) Rales 2/[address] up posterior chest wall on right side Current visit: Yes Status: Acute Category: Medical Code(s): R09.89 - Other specified symptoms and signs involving the circulatory and respiratory systems - Assessment and plan all Dx Assessment and Plan for all problems:: Patient's ejection fraction was 40%. Cardiology is comfortable with him being discharged home today. They will see him back next week. See cardiology note for discharge medications.
--- NOTE | 2017-11-12 08:33 | HMH.PNCARD ---
Subjective Date: 11/12/17 Time: 08:33 Principal diagnosis: STEMI Interval history: Feeling better. No chest pains. Wants to go home. Echo shows EF of 40% with wall motion abnormalities consistent with location of STEMI. Exam Vital signs and Labs for Last 24 Hours: Temp Pulse Resp BP Pulse Ox 98.7 F 98 H 19 126/65 98 11/12/17 04:59 11/12/17 06:49 11/12/17 05:59 11/12/17 06:49 11/12/17 05:59 I & O for Last 24 hours: Intake & Output 11/09/17 11/10/17 11/11/17 11/12/17 11:59 11:59 11:59 11:59 Intake Total 498 / 498 1419.2 / 1419.2 Output Total 550 / 550 2775 / 2775 Balance -52 / -52 -1355.8 / -1355.8 Weight 186 lb 9 oz 188 lb 5 oz - *Routine Respiratory Exam Present: CTA bilaterally - *Routine Cardiovascular Exam Present: RRR Progress Note: A&P (1) STEMI (ST elevation myocardial infarction) Status: Acute Current Visit: Yes (2) Hypertensive crisis Status: Acute Current Visit: Yes (3) A-fib Status: Chronic Current Visit: Yes (4) Status post coronary artery stent placement Status: Acute Current Visit: Yes (5) Rales 2/3 way up posterior chest wall on right side Status: Acute Current Visit: Yes Assessment and Plan for All Diagnoses:: Home meds: ASA 81 mg daily Brilinta 90 mg BID atorvastatin 40 mg daily lisinopril 20 mg BID coreg 25 mg BID resume warfarin as before Follow up in office next week.
--- NOTE | 2017-11-13 14:08 | [facility].DCSUM ---
General - General Admission date: 11/11/17 Discharge date: 11/12/17 HPI HPI: Mr. Petersen is a 77-year-old male with a history of previous CA and stent placement. He states he was playing cards at 10:30 PM last night when he began having severe midsternal chest pain and pressure. He became short of breath. He took a nitroglycerin and this did not help, therefore he drove himself to the emergency room. He was evaluated in the ER and found to have an ST elevation CA. Dr. Anthony was called and the patient was taken emergently to the [facility] where 5 stents were placed. This a.m. he feels better. He states his chest pain has almost completely resolved. He is no longer short of breath. Of note he had a heart cath with stents placed in 02/2008, an angioplasty of the ramus intermedius in 01/2009, and a heart cath with stent placement by Dr. Nicholson on 03/10/12. He is in chronic afib and is on coumadin therapy. Hospital Course Hospital Course: The patient had some rales in his lungs after stenting, therefore a CXR was ordered as was lasix. The CXR showed cardiomegaly but was otherwise negative. He had an echo showing an EF of 40%. It was recommended by cardiology that patient stay for 48 hours for observation due to an anterior STEMI and potential for post CA sudden cardiac from an arrhythmia. The patient did well throughout his stay and was stable to be discharged home on ASA 81 mg daily, Brilinta 90 mg BID, atorvastatin 40 mg daily, lisinopril 20 mg BID, coreg 25 mg BID, and coumadin. He will f/u with Cardiology and with Dr. Watkins. Objective Vital signs: Temp Pulse Resp BP Pulse Ox 98.3 F 90 19 126/65 98 11/12/17 08:00 11/12/17 08:00 11/12/17 05:59 11/12/17 06:49 11/12/17 05:59 Narrative: - Constitutional no acute distress - *Routine HEENT Exam Head: Present: normocephalic, atraumatic Eye: Present: EOMI, PERRL ENT: Present: mucous membranes moist - *Routine Neck Exam Present: supple, full ROM. Absent: carotid bruit - *Routine Respiratory Exam Present: rales (right posterior chest) - *Routine Cardiovascular Exam Present: irregularly irregular - *Routine Abdominal Exam Present: soft, normoactive bowel sounds. Absent: tenderness - *Routine Extremities Exam Absent: edema - *Routine Skin Exam Present: intact - *Routine Neurological Exam Present: alert, oriented X3 DS: Diagnosis - Discharge Diagnosis (1) STEMI (ST elevation myocardial infarction) Status: Acute (2) Hypertensive crisis Status: Acute (3) A-fib Status: Chronic (4) Status post coronary artery stent placement Status: Acute (5) Rales 2/3 way up posterior chest wall on right side Status: Acute Discharge Plan - Patient Discharge Instructions Patient Instructions: Coumadin Vitamin K/ Diet, Coumadin Therapy Booklet - Follow up Plan Disposition: Home, Self-Custodial Medications: Home Medications Medication Instructions Recorded Confirmed Type aspirin 81 mg tablet,delayed 81 mg PO DAILY 09/14/17 11/11/17 History release finasteride 5 mg tablet 5 mg PO DAILY 09/14/17 11/11/17 History nitroglycerin 0.4 mg sublingual 0.4 mg SUBLINGUAL Q5MINP PRN 09/14/17 11/11/17 History tablet tamsulosin 0.4 mg capsule 0.4 mg PO DAILY cap 09/14/17 11/11/17 History Isosorbide Mononitrate [Imdur 30mg 30 mg PO DAILY 09/17/17 11/10/17 History ER tablet] Warfarin Sodium 2.5 mg PO SUTUTHSA 11/11/17 11/11/17 History Warfarin Sodium 5 mg PO MOWEFR 11/11/17 11/11/17 History Prescriptions/Medication Reconciliation: New Ticagrelor [Brilinta 90mg Tablet] 90 mg PO BID #60 tablet Atorvastatin Calcium [Lipitor 40mg Tablet] 80 mg PO HS #30 tablet Carvedilol [Coreg 25mg Tablet] 25 mg PO BID #60 tablet Lisinopril [Zestril 20mg tab] 20 mg PO BID #60 tablet Continue aspirin 81 mg tablet,delayed release 81 mg PO DAILY finasteride 5 mg tablet 5 mg PO DAILY nitrogl
--- NOTE | 2017-11-13 14:16 | P.DS_ITS ---
General - General Admission date: 11/11/17 Discharge date: 11/12/17 HPI HPI: Mr. Petersen is a 77-year-old male with a history of previous AL and stent placement. He states he was playing cards at 10:30 PM last night when he began having severe midsternal chest pain and pressure. He became short of breath. He took a nitroglycerin and this did not help, therefore he drove himself to the emergency room. He was evaluated in the ER and found to have an ST elevation AL. Dr. Anthony was called and the patient was taken emergently to the [facility] where 5 stents were placed. This a.m. he feels better. He states his chest pain has almost completely resolved. He is no longer short of breath. Of note he had a heart cath with stents placed in 02/2008, an angioplasty of the ramus intermedius in 01/2009, and a heart cath with stent placement by Dr. Nicholson on 03/10/12. He is in chronic afib and is on coumadin therapy. Hospital Course Hospital Course: The patient had some rales in his lungs after stenting, therefore a CXR was ordered as was lasix. The CXR showed cardiomegaly but was otherwise negative. He had an echo showing an EF of 40%. It was recommended by cardiology that patient stay for 48 hours for observation due to an anterior STEMI and potential for post AL sudden cardiac from an arrhythmia. The patient did well throughout his stay and was stable to be discharged home on ASA 81 mg daily , Brilinta 90 mg BID, atorvastatin 40 mg daily, lisinopril 20 mg BID, coreg 25 mg BID, and coumadin. He will f/u with Cardiology and with Dr. Watkins. Objective Vital signs: Temp Pulse Resp BP Pulse Ox 98.3 F 90 19 126/65 98 11/12/17 08:00 11/12/17 08:00 11/12/17 05:59 11/12/17 06:49 11/12/17 05:59 Narrative: - Constitutional no acute distress - *Routine HEENT Exam Head: Present: normocephalic, atraumatic Eye: Present: EOMI, PERRL ENT: Present: mucous membranes moist - *Routine Neck Exam Present: supple, full ROM. Absent: carotid bruit - *Routine Respiratory Exam Present: rales (right posterior chest) - *Routine Cardiovascular Exam Present: irregularly irregular - *Routine Abdominal Exam Present: soft, normoactive bowel sounds. Absent: tenderness - *Routine Extremities Exam Absent: edema - *Routine Skin Exam Present: intact - *Routine Neurological Exam Present: alert, oriented X3 DS: Diagnosis - Discharge Diagnosis (1) STEMI (ST elevation myocardial infarction) Status: Acute (2) Hypertensive crisis Status: Acute (3) A-fib Status: Chronic (4) Status post coronary artery stent placement Status: Acute (5) Rales 2/3 way up posterior chest wall on right side Status: Acute Discharge Plan - Patient Discharge Instructions Patient Instructions: Coumadin Vitamin K/ Diet, Coumadin Therapy Booklet - Follow up Plan Disposition: Home, Self-[facility] Medications: Home Medications Medication Instructions Recorded Confirmed Type aspirin 81 mg tablet,delayed 81 mg PO DAILY 09/14/17 11/11/17 History release finasteride 5 mg tablet 5 mg PO DAILY 09/14/17 11/11/17 History nitroglycerin 0.4 mg sublingual 0.4 mg SUBLINGUAL Q5MINP PRN 09/14/17 11/11/17 History tablet tamsulosin 0.4 mg capsule 0.4 mg PO DAILY cap 09/14/17 11/11/17 History Isosorbide Mononitrate [Imdur 30mg 30 mg PO DAILY 09/17/17 11/10/17 History ER tablet]
== END 2017-11-12 10:15 | disposition home or self-care (01) | DRG 246 ==
LOC: ER 23:59 → 2ND 11-11 00:29
PROVIDERS: Internal Medicine; Admitting Provider Family Medicine; Emergency Provider Emergency Medicine; Family Provider Family Medicine; PCP Family Medicine; Visit Provider Family Medicine
PROC: 027237Z Dilation of Coronary Artery, Three Arteries with Four or More Drug-eluting Intraluminal Devices, Percutaneous Approach (ICD-10-PCS; principal; 2017-11-11 23:20)
DX: I21.02 ST elevation (STEMI) myocardial infarction involving left anterior descending coronary artery (principal); I25.10 Atherosclerotic heart disease of native coronary artery without angina pectoris; I25.2 Old myocardial infarction; I48.2 Chronic atrial fibrillation; Z95.5 Presence of coronary angioplasty implant and graft; Z79.01 Long term (current) use of anticoagulants; Z72.0 Tobacco use
CPT/HCPCS: 36415; 71045; 80048; 82550; 82553; 84484; 85025; 85347; 85610; 85730; 92928; 93005; 93041; 93306; 93458; 96365; 96367; 96374; 96375; 96376; 99152; 99153; 99284; C1725; C1769; C1876; C9600; J1644; Q9967

== ENCOUNTER → 2017-11-25 07:43 | Outpatient (CLI) | payer MEDICARE, OTHER, SELFPAY ==
--- NOTE | 2017-11-25 07:48 | AS_ITS ---
Renal Arterial Duplex Indications: 405.91 Unspecified renovascular hypertension. IMPRESSIONS 1. The right renal artery appears normal. 2. The left renal artery appears normal. 3. No evidence of renal artery stenosis, bilaterally. Complete renal arterial duplex. Duplex scan and Doppler flow study including spectral analysis, color and delgado scale imaging. Height: Height: 182.9cm. Height: 72in. Weight: Weight: 85.7kg. Weight: 188.6lb. Body mass index: BMI: 25.6kg/m^2. Body surface area: BSA: 2.1m^2. Location: Vascular laboratory. Patient status: Outpatient. Tables: Arterial flow: + +--------+--------+ Location V sys V ed + +--------+--------+ Right renal - proximal 111cm/s 44.6cm/s + +--------+--------+ Right renal - mid 46.4cm/s 22cm/s + +--------+--------+ Right renal - distal 67cm/s 20cm/s + +--------+--------+ Left renal - proximal 107cm/s 32cm/s + +--------+--------+ Left renal - mid 70.6cm/s 22.1cm/s + +--------+--------+ Left renal - distal 37.9cm/s 13.7cm/s + +--------+--------+ Right renal - Origin 100cm/s 35cm/s + +--------+--------+ Left renal - Origin 86cm/s 24cm/s + +--------+--------+ Aorta - Mid 77cm/s 8cm/s + +--------+--------+ Artery mapping: + +--------+ Location Diameter + +--------+ Abdominal aorta - mid 2mm + +--------+ Renal anatomy: + +------+-----+ Left Right + +------+-----+ Long axis 10.8cm 8.2cm + +------+-----+ Short axis 3.5cm 4.4cm + +------+-----+ Velocity ratios: + +-----+ V sys + +-----+ Right renal/aortic 1.4 + +-----+ Left renal/aortic 1.4 + +-----+ (Report amended ) Electronically signed by: Van Leija [id number]
== END ==
PROVIDERS: Family Provider Family Medicine; PCP Family Medicine; Visit Provider Internal Medicine
DX: I10 Essential (primary) hypertension (principal); I48.91 Unspecified atrial fibrillation
CPT/HCPCS: 93976

== ENCOUNTER 2017-11-25 12:43 | Outpatient (RCR) | payer MEDICARE, OTHER, SELFPAY | END 2017-11-25 12:44 | disposition home or self-care (01) | LOC: PT 12:43 | PROVIDERS: Family Provider Family Medicine; PCP Family Medicine; Visit Provider Internal Medicine | DX: Z95.5 Presence of coronary angioplasty implant and graft (principal) | CPT/HCPCS: 93798 ==

== ENCOUNTER 2017-11-30 12:59 | Observation (INO) ==
--- NOTE | 2017-11-30 13:04 | Emergency Department Note ---
ED Disposition Clinical Impression: Syncope Qualifiers: Syncope type: unspecified Qualified Code(s): R55 - Syncope and collapse Disposition: Still a Patient Condition on Discharge: Good - Critical Care Critical Care Time: No Attestation: On , the high probability of a clinically significant, sudden or life threatening deterioration of the following system(s) required my full and direct attention, intervention and personal management. The time I documented below is in addition to time spent performing reported procedures but includes the following listed in this critical care notation. Medical Decision Making - Mehul Inquiry Pt receiving controlled substance: No Vital Signs: 11/30/17 13:08 Temperature 98.0 F Temperature Source Temporal Artery Scan Pulse Rate [Right Brachial] 65 Respiratory Rate 18 Blood Pressure [Right Arm] 110/68 Blood Pressure Mean [Right Arm] 82 Blood Pressure Source [Right Arm] Automatic Cuff Blood Pressure Position [Right Arm] Sitting 02 Sat by Pulse Oximetry 98 Oxygen Delivery Method Room Air - Lab Data Lab Results 11/30/17 12:55: WBC 9.9, RBC 4.90, Hgb 15.0, Hct 45.1, MCV 92.1, MCH 30.6, MCHC 33.2, RDW 13.6, Plt Count 239, MPV 7.3 L, Neut % (Auto) 67.4, Lymph % (Auto) 19.1, [place] % (Auto) 8.5, Eos % (Auto) 3.2, Baso % (Auto) 1.8, Neut # (Auto) 6.7 , Lymph # (Auto) 1.9, [place] # (Auto) 0.9, Eos # (Auto) 0.3, Baso # (Auto) 0.2 11/30/17 12:55: PT 28.4 H, INR 2.60 H 11/30/17 12:55: Sodium 139, Potassium 4.0, Chloride 106, Carbon Dioxide 27, Anion Gap 10.0, BUN 14, Creatinine 1.34 H, Estimated Creat Clear 47, Estimated GFR 52 L, Est GFR ( Amer) 63, Glucose 96, Calcium 9.2, Total Bilirubin 2.8 H, AST 14 L, ALT 17, Alkaline Phosphatase 78, Total Creatine Kinase 27 L, CK -MB (CK-2) 0.8 D, CK-MB (CK-2) Rel Index 3.0, Troponin I < 0.02, Total Protein 7.1, Albumin 3.4, Globulin 3.7 H, Albumin/Globulin Ratio 0.9 L Result diagrams: 11/30/17 12:55 11/30/17 12:55 Orders (Tests/Meds): ORDERS Category Date Time Status XR chest AP Stat Exams 11/30/17 13:14 Taken - Radiology Data #1 Image(s): Chest Image Reviewed: Yes I reviewed the patient's radiology image Preliminary Findings: Normal/NAD - ECG Data Tracing #1 EKG interpreted by Ulises Melara MD: Rhythm: Atrial fibrillation Rate: 67 [place]: normal Ectopy: none Conduction: normal ST Segment Changes: none T Wave Changes: Nonspecific Q Waves: none No evidence of acute ischemia or injury General Adult HPI - General Chief complaint: Altered Mental Status Stated complaint: unresponsive Time Seen by Provider: 11/30/17 13:00 - History of Present Illness HPI narrative: The patient is brought over from the waiting room for Dr. Anthony. He was found unresponsive in their waiting room. Dr. Anthony says that he was pulseless and cyanotic and apneic. On arrival here he has begun breathing and is awake and has pulse. He remembers being in the waiting room and getting dizzy, but says he had no chest pain or shortness of breath or palpitations. He says he has gone out like this 5 times in the past couple of years. He states they have done every test possible and do not know why he passes out. He had a STEMI 2 weeks ago and cardiac stents by Dr. Anthony. He has a history of chronic atrial fibrillation. - Related Data Home Medications Medication Instructions Recorded Confirmed finasteride 5 mg tablet 5 mg PO DAILY 09/14/17 11/30/17 nitroglycerin 0.4 mg sublingual 0.4 mg SUBLINGUAL Q5MINP PRN 09/14/17 11/30/17 tablet tamsulosin 0.4 mg capsule 0.4 mg PO DAILY cap 09/14/17 11/30/17 Isosorbide Mononitrate [Imdur 30mg 30 mg PO DAILY 09/17/17 11/30/17 ER tablet] Warfarin Sodium 2.5 mg PO SUTUTHSA 11/11/17 11/30/17 Warfarin Sodium 5 mg PO MOWEFR 11/11/17 11/30/17 lisinopril 5 mg tablet 5 mg PO DAILY tab 11/23/17 11/30/17 Amlodipine Besylate [Norvasc 5mg 5 mg PO DAILY 11/30/17 11/30/17 tablet] Carvedilol [Coreg 25mg Tablet] 25 mg PO BID 11/30/17 11/30/17 Ticagrelor [Brilinta 90mg Tablet] 90 mg PO BID 11/30/17 11/30/17 Allergies Allergy/AdvReac Type Severity Reaction Status Date / Time No Known Allergies Allergy Verified 11/10/17 23:23 [facility] History I have reviewed the patient's past medical history: Yes (STEMI, 4 stents 11/11/17 ) Medical History: Reports:: Arrhythmia, Atrial Fibrillation, BPH, Cancer, Coronary Artery Disease, Hyperlipidemia, Hypertension Denies:: Diabetes Mellitus Type 1, Diabetes Mellitus Type 2, Internal Pacemaker, MRSA Other Medical History: Reports: Arthritis Comment: Gilbert's syndrome Other Surgeries: Yes: Cancer Surgery, Cardiac Catheterization (11/11/17 5 stents) , Colonoscopy, Skin Cancer Excision, Ureter Stent. No: Pacemaker Amputation: No Fractures: No Comment: cystoscopy iwth TURP - Social History Smoking Status: Light tobacco smoker Tobacco Type: smokeless tobacco Alcohol Intake: never Occupational Status: retired Household Members: spouse Family Hx:: Cancer, Heart Attack ROS Obtained: Yes All systems reviewed & no additional complaints - Constitutional Constitutional: Denies fever(s) - Cardiovascular Cardiovascular: Denies chest pain, Denies palpitations, Reports fainting - Respiratory Respiratory: No dyspnea - Gastrointestinal Gastrointestingal: Denies: abdominal pain, vomiting Physical Exam - General General appearance: alert, in no apparent distress - Head Head exam: atraumatic, normocephalic, normal inspection - Eye Eye exam: Present: normal appearance, PERRL, EOMI - ENT ENT exam: Present: normal exam, normal oropharynx, mucous membranes moist, TM's normal bilaterally, normal external ear exam - Neck Neck exam: Present: normal inspection, full ROM, trachea midline. Absent: meningismus, lymphadenopathy - Chest Chest inspection: Present: normal inspection, symmetric chest wall rise. Absent : tenderness - Respiratory Respiratory exam: Present: normal lung sounds bilaterally. Absent: respiratory distress - Cardiovascular Cardiovascular exam: Present: regular rate, irregular rhythm. Absent: JVD - Abdominal Exam Abdominal exam: Present: soft, normal bowel sounds. Absent: distention, tenderness, guarding - Extremities Exam Extremities exam: Present: normal inspection, full ROM, normal capillary refill. Absent: calf tenderness - Neurological Exam Neurological exam: Present: alert, oriented X3 - Psychiatric Psychiatric exam: Present: normal affect, normal mood - Skin Skin exam: Present: warm, dry, intact, normal color
[2017-11-30 13:19] LABS: Basophils # 0.2 K/mm3 (0-0.2); Basophils % 1.8 % (0.1-2.0); Eosinophils # 0.3 K/mm3 (0.0-0.4); Eosinophils % 3.2 % (0.1-12.0); Hematocrit 45.1 % (42.0-52.0); Lymphocytes # 1.9 K/mm3 (0.7-4.5); Lymphocytes % 19.1 K/mm3 (10-50); Mean Corpuscular HGB Conc 33.2 g/dL (31.8-35.4); Mean Corpuscular Hemoglobin 30.6 pg (27.0-31.2); Mean Corpuscular Volume 92.1 fl (80-94); Mean Platelet Volume 7.3 fl (7.4-10.4); Monocytes # 0.9 K/mm3 (0.1-1.0); Monocytes % 8.5 % (1.7-9.3); Neutrophils # 6.7 K/mm3 (1.8-7.8); Neutrophils % 67.4 % (37.0-80.0); Platelet Count 239 K/mm3 (142-424); Red Cell Distribution Width 13.6 % (11.5-17.5); White Blood Count 9.9 K/mm3 (4.8-10.8)
[2017-11-30 13:21] LABS: INR 2.6 (0.9-1.1); Prothrombin Time 28.4 seconds (9.4-11.8)
[2017-11-30 13:30] LABS: Alanine Aminotransferase 17 U/L (12-78); Albumin Level 3.4 gm/dL (3.4-5.0); Albumin/Globulin Ratio 0.9 (1.1-1.8); Alkaline Phosphatase 78 U/L (46-116); Aspartate Amino Transferase 14 U/L (15-37); Bilirubin,Total 2.8 mg/dL (0.2-1.0); Blood Urea Nitrogen 14 mg/dL (7-18); Calcium 9.2 mg/dL (8.5-10.1); Carbon Dioxide 27 mmol/L (21.0-32.0); Chloride 106 mmol/L (98-107); Creatine Kinase 27 U/L (39-308); Globulin 3.7 gm/dl (1.3-3.2); Glucose 96 mg/dL (74-106); Sodium 139 mmol/L (136-145); Total Protein,Serum 7.1 gm/dL (6.4-8.2)
--- NOTE | 2017-11-30 15:41 | History & Physical Report ---
*Admission Date: 11/30/17 *Chief complaint: passed out *History of present illness: Mr Petersen is a 77 year old male with a history of HTN, ASCVD, CAD with stents, BPH, and OA who when sitting in Dr. Anthony's waiting area was found to be unresponsive. He was reported to have no pulse and no respiratory effort. The nurse reported that when lifting him up on the stretcher from the chair he became alert. He was then taken to the ER for further evaluation. Monitor showed atrial fib with a controlled ventricular response. He was then admitted for further observation. At the time of this exam the patient denies having any CP or SOB before or after the episode. He remembers becoming dizzy after which he passed out. He would like to go home. [facility] History Medical History: Reports:: Arrhythmia, Atrial Fibrillation, BPH, Cancer, Coronary Artery Disease, Hyperlipidemia, Hypertension Denies:: Diabetes Mellitus Type 1, Diabetes Mellitus Type 2, Internal Pacemaker, MRSA Other Medical History: Reports: Arthritis Comment: BPH Other Surgeries: Yes: Cancer Surgery, Cardiac Catheterization (11/11/17 5 stents) , Colonoscopy, Skin Cancer Excision, Ureter Stent. No: Pacemaker Amputation: No Fractures: No Comment: TURP - *Social History Educational Level: Completed High School Smoking Status: Light tobacco smoker Tobacco Type: smokeless tobacco Alcohol Intake: never Occupational Status: retired Household Members: spouse - Psychiatric History Expresses thoughts of harming self/others: None Suicide Plan Description: No Plan *Family Hx:: Cancer, Heart Attack Review of Systems - Constitutional Denies body ache(s), Denies fever(s), Denies headache(s) - Eyes Denies change in vision - ENT Denies sore throat - *Cardiovascular Denies chest pain, Denies shortness of breath, Denies leg swelling - *Respiratory Reports cough (dry), Denies shortness of breath - *Gastrointestinal Denies abdominal pain, Denies change in bowel habits, Denies constipation, Denies heartburn, Denies nausea, Denies vomiting - *Genitourinary Denies difficulty urinating - *Musculoskeletal Reports joint pain (from arthritis), Denies abnormal walking - *Neurologic Reports dizziness, Reports fainting Meds Home Medications Medication Instructions Recorded Confirmed Type finasteride 5 mg tablet 5 mg PO DAILY 09/14/17 11/30/17 History nitroglycerin 0.4 mg sublingual 0.4 mg SUBLINGUAL Q5MINP PRN 09/14/17 11/30/17 History tablet tamsulosin 0.4 mg capsule 0.4 mg PO DAILY cap 09/14/17 11/30/17 History Isosorbide Mononitrate [Imdur 30mg 30 mg PO DAILY 09/17/17 11/30/17 History ER tablet] Warfarin Sodium 2.5 mg PO SUTUTHSA 11/11/17 11/30/17 History Warfarin Sodium 5 mg PO MOWEFR 11/11/17 11/30/17 History lisinopril 5 mg tablet 5 mg PO DAILY tab 11/23/17 11/30/17 History Amlodipine Besylate [Norvasc 5mg 5 mg PO DAILY 11/30/17 11/30/17 History tablet] Carvedilol [Coreg 25mg Tablet] 25 mg PO BID 11/30/17 11/30/17 History Ticagrelor [Brilinta 90mg Tablet] 90 mg PO BID 11/30/17 11/30/17 History Allergies Allergy/AdvReac Type Severity Reaction Status Date / Time No Known Allergies Allergy Verified 11/10/17 23:23 Exam Vital signs and Labs for Last 24 Hours: Temp Pulse Resp BP Pulse Ox 98.0 F 65 18 110/68 98 11/30/17 13:08 11/30/17 13:08 11/30/17 13:08 11/30/17 13:08 11/30/17 13:08 Laboratory Tests 11/30/17 11/30/17 11/30/17 12:55 12:55 12:55 WBC 9.9 RBC 4.90 Hgb 15.0 Hct 45.1 MCV 92.1 MCH 30.6 MCHC 33.2 RDW 13.6 Plt Count 239 Neut % (Auto) 67.4 Lymph % (Auto) 19.1 [place] % (Auto) 8.5 Eos % (Auto) 3.2 PT 28.4 H INR 2.60 H Sodium 139 Potassium 4.0 Chloride 106 Carbon Dioxide 27 Anion Gap 10.0 BUN 14 Creatinine 1.34 H Estimated Creat Clear 47 Estimated GFR 52 L Est GFR ( Amer) 63 Glucose 96 Calcium 9.2 Total Bilirubin 2.8 H AST 14 L ALT 17 Alkaline Phosphatase 78 Total Creatine Kinase 27 L CK-MB (CK-2) 0.8 D CK-MB (CK-2) Rel Index 3.0 Troponin I < 0.02 Total Protein 7.1 Albumin 3.4 Globulin 3.7 H Albumin/Globulin Ratio 0.9 L Radiology Reports for the Last 24 Hours: 11/30/17 CXR IMPRESSION: Mild cardiomegaly otherwise negative - Constitutional no acute distress Comments: pale - *Routine HEENT Exam Head: Present: normocephalic, atraumatic Eye: Present: PERRL ENT: Present: mucous membranes moist - *Routine Neck Exam Present: supple. Absent: carotid bruit, lymphadenopathy, thyromegaly - *Routine Respiratory Exam Present: CTA bilaterally (A&P) - *Routine Cardiovascular Exam Present: irregular rhythm Comments: AFIB on the monitor with a controlled ventricular rate in the 70's - *Routine Abdominal Exam Present: soft, normoactive bowel sounds. Absent: tenderness, distended, organomegaly, mass - *Routine Extremities Exam Absent: edema, calf tenderness - *Routine Skin Exam Present: dry, pallor - *Routine Neurological Exam Present: alert, oriented X3 Assessment and Plan (1) Syncope Current visit: Yes Status: Acute Qualifiers: Syncope type: unspecified Qualified Code(s): R55 - Syncope and collapse Category: Medical Code(s): R55 - Syncope and collapse (2) A-fib Current visit: No Status: Chronic Qualifiers: Atrial fibrillation type: chronic Qualified Code(s): I48.2 - Chronic atrial fibrillation Category: Medical Code(s): I48.91 - Unspecified atrial fibrillation (3) CAD (coronary artery disease) Current visit: No Status: Chronic Qualifiers: Coronary Disease-Associated Artery/Lesion type: [place] artery [place] vs. transplanted heart: [place] heart Associated angina: without angina Qualified Code(s): I25.10 - Atherosclerotic heart disease of [place] coronary artery without angina pectoris Category: Medical Code(s): I25.10 - Atherosclerotic heart disease of [place] coronary artery without angina pectoris (4) HTN (hypertension) Current visit: No Status: Chronic Qualifiers: Hypertension type: essential hypertension Qualified Code(s): I10 - Essential (primary) hypertension Category: Medical Code(s): I10 - Essential (primary) hypertension (5) Status post coronary artery stent placement Current visit: No Status: Chronic Category: Surgical Code(s): Z95.5 - Presence of coronary angioplasty implant and graft - Assessment and plan all Dx Assessment and Plan for all problems:: Cardiology to see; will continue to monitor heart rhythm; home meds have been ordered
--- NOTE | 2017-11-30 16:50 | Consult Report ---
History of Present Illness Consult date: 11/30/17 Requesting physician: Shubham Watkins Consult reason: atrial fibrillation Chief complaint: Syncope Additional Medical History:: 1. Atrial fibrillation 2. Coronary artery disease involving tribal coronary artery with tribal heart without angina pectoris. 3. Recent ST elevation myocardial infarction (STEMI). a. Left heart catheterization on 11/11/[address] elevation myocardial infarction. Successful stenting of the proximal and mid LAD critical disease reduce to 0% with 3 drug eluting stents. b. DAPT. (Brilinta and Coumadin) 4. Moderate mitral and mild tricuspid regurgitation. a. Last echocardiogram was on 11/11/2017. EF 40% 5. Essential hypertension a. uncontrolled History of present illness: 77-year-old white male presented in the emergency room with a syncopal episode. Patient was currently at Dr. Anthony's office when he passed out. Patient was taken to the emergency room unresponsive. Patient gained responsiveness after a few seconds. Monitor revealed atrial fibrillation with controlled ventricular response. Patient denied chest pain or shortness of breath. Patient stated that he has had several of these episodes in the last 5 years. He says he becomes dizzy and then passes out. Patient recently had an ST elevation myocardial infarction on 11/11/2017. He underwent heart catheterization which required 3 drug-eluting stents. Acute ST elevation myocardial infarction involving the proximal LAD with severe mid LAD disease. Patient also noted to have elevated LVEDP. Patient currently being treated with Coumadin for his atrial fib and coronary artery disease. Patient is unsure if he has been taking his Brilinta. last echocardiogram on 11/11/2017 revealed an EF of 40% with moderate mitral and mild tricuspid regurgitation. Initial EKG revealed atrial fibrillation at a controlled ventricular rate. Baseline lab unremarkable with the exception of INR at 2.60, PT 28.4, troponin was 0.02 and creatinine was 1.34. Chest x-ray revealed mild cardiomegaly otherwise negative, no acute anomalies. [facility] History Medical History: Reports:: Arrhythmia, Atrial Fibrillation, BPH, Cancer, Coronary Artery Disease, Hyperlipidemia, Hypertension Denies:: Diabetes Mellitus Type 1, Diabetes Mellitus Type 2, Internal Pacemaker, MRSA Other Medical History: Reports: Arthritis Other Surgeries: Yes: Cancer Surgery, Cardiac Catheterization (11/11/17 5 stents) , Colonoscopy, Skin Cancer Excision, Ureter Stent. No: Pacemaker Amputation: No Fractures: No - *Social History Educational Level: Completed High School Smoking Status: Light tobacco smoker Tobacco Type: smokeless tobacco Alcohol Intake: never Occupational Status: retired Household Members: spouse - Psychiatric History Expresses thoughts of harming self/others: None Suicide Plan Description: No Plan *Family Hx:: Cancer, Heart Attack Meds Home Medications Medication Instructions Recorded Confirmed Type finasteride 5 mg tablet 5 mg PO DAILY 09/14/17 11/30/17 History nitroglycerin 0.4 mg sublingual 0.4 mg SUBLINGUAL Q5MINP PRN 09/14/17 11/30/17 History tablet tamsulosin 0.4 mg capsule 0.4 mg PO DAILY cap 09/14/17 11/30/17 History Isosorbide Mononitrate [Imdur 30mg 30 mg PO DAILY 09/17/17 11/30/17 History ER tablet] Warfarin Sodium 2.5 mg PO SUTUTHSA 11/11/17 11/30/17 History Warfarin Sodium 5 mg PO MOWEFR 11/11/17 11/30/17 History lisinopril 5 mg tablet 5 mg PO DAILY tab 11/23/17 11/30/17 History Amlodipine Besylate [Norvasc 5mg 5 mg PO DAILY 11/30/17 11/30/17 History tablet] Carvedilol [Coreg 25mg Tablet] 25 mg PO BID 11/30/17 11/30/17 History Ticagrelor [Brilinta 90mg Tablet] 90 mg PO BID 11/30/17 11/30/17 History Allergies Allergy/AdvReac Type Severity Reaction Status Date / Time No Known Allergies Allergy Verified 11/10/17 23:23 Review of Systems - Constitutional Reports weakness - *Cardiovascular Reports irregular heart rhythm, Reports lightheadedness, Denies chest pain, Denies chest pain at rest, Denies chest pain with activity, Denies shortness of breath, Denies radiating jaw, neck or arm pain - *Respiratory Reports cough, Reports shortness of breath, Reports shortness of breath with activity - *Gastrointestinal Denies abdominal pain, Denies heartburn - *Musculoskeletal Denies muscle weakness - *Neurologic Reports dizziness, Reports fainting, Reports dizziness, Denies abnormal walking , Denies headache(s) Exam Vital signs and Labs for Last 24 Hours: Temp Pulse Resp BP Pulse Ox 97.5 F L 74 18 145/96 96 11/30/17 16:31 11/30/17 16:31 11/30/17 16:31 11/30/17 16:31 11/30/17 16:24 I & O for Last 24 hours: Intake & Output 11/27/17 11/28/17 11/29/17 11/30/17 23:59 23:59 23:59 23:59 Weight 177 lb 8 oz - Constitutional no acute distress, average body habitus, cooperative - *Routine Neck Exam Present: supple, full ROM, normal carotid upstroke, trachea midline. Absent: JVD, carotid bruit, swelling - *Routine Respiratory Exam Present: CTA bilaterally. Absent: rhonchi, stridor, wheezes - *Routine Cardiovascular Exam Present: RRR, Normal S1, Normal S2, irregular rhythm. Absent: murmur, gallop, rubs, JVD - *Routine Abdominal Exam Present: soft. Absent: distended, guarding, firm - *Routine Extremities Exam Present: full ROM, pulses intact. Absent: cyanosis, clubbing, edema, calf tenderness - *Routine Neurological Exam Present: alert, oriented X3, CN II-XII intact, moving all extremities, normal speech Assessment and Plan (1) Syncope Current visit: Yes Status: Acute Qualifiers: Syncope type: unspecified Qualified Code(s): R55 - Syncope and collapse Category: Medical Code(s): R55 - Syncope and collapse (2) A-fib Current visit: No Status: Chronic Qualifiers: Atrial fibrillation type: chronic Qualified Code(s): I48.2 - Chronic atrial fibrillation Category: Medical Code(s): I48.91 - Unspecified atrial fibrillation (3) CAD (coronary artery disease) Current visit: No Status: Chronic Qualifiers: Coronary Disease-Associated Artery/Lesion type: tribal artery [place] vs. transplanted heart: tribal heart Associated angina: without angina Qualified Code(s): I25.10 - Atherosclerotic heart disease of tribal coronary artery without angina pectoris Category: Medical Code(s): I25.10 - Atherosclerotic heart disease of tribal coronary artery without angina pectoris (4) HTN (hypertension) Current visit: No Status: Chronic Qualifiers: Hypertension type: essential hypertension Qualified Code(s): I10 - Essential (primary) hypertension Category: Medical Code(s): I10 - Essential (primary) hypertension (5) Status post coronary artery stent placement Current visit: No Status: Chronic Category: Surgical Code(s): Z95.5 - Presence of coronary angioplasty implant and graft - Assessment and plan all Dx Assessment and Plan for all problems:: Plan: 1. Continue current medical regimen per PCP. 2. Add Plavix 75 mg one p.o. daily. 3. Obtain an echocardiogram to assess for LV function,valvular status and elevated LVEDP. 4. Continue the Coumadin as prescribed. 5. Will defer placement of pacemaker/defibrillator pending on the results of the echocardiogram.
--- NOTE | 2017-12-01 07:44 | Pharmacy Consult Notes ---
[facility] Pharmacy VTE Monitoring - Patient Demographics Admission date: 11/30/17 Report Date: 12/01/17 Time: 07:43 Allergies/Adverse Reactions: Patient Allergies No Known Allergies Allergy (Verified 11/10/17 23:23) Height: 1.83 m Weight: 80.513 kg Patient Problems: Current Active Problems Syncope (Acute) - VTE Risk Labs: VTE Related Lab Results Hgb 15.0 g/dL (14.1-18.0) 11/30/17 12:55 Hct 45.1 % (42.0-52.0) 11/30/17 12:55 Plt Count 239 K/mm3 (142-424) 11/30/17 12:55 PT 28.4 seconds (9.4-11.8) H 11/30/17 12:55 INR 2.60 (0.9-1.1) H 11/30/17 12:55 BUN 14 mg/dL (7-18) 11/30/17 12:55 Creatinine 1.34 mg/dL (0.70-1.30) H 11/30/17 12:55 Estimated Creat Clear 47 mL/min (0-300) 11/30/17 12:55 Was VTE Risk Assessment Performed: Yes VTE Risk Level: Very Low Risk - Prophylaxis VTE Prophylaxis Ordered?: Yes Types of VTE Prophylaxis: TEDS Knee High Location of Applied Device: Bilateral Lower Extremeties Pharmacologic Type: Warfarin
--- NOTE | 2017-12-01 08:03 | Progress Note ---
Internal Medicine - PN: Subj *Date: 12/01/17 *Time: 08:00 Interval history: Patient had a good night. Short of breath with exertion which is his usual. He denies chest pain. He is hungry and would like breakfast. Currently he is n.p.o. for possible pacemaker placement dependent on echo results. Exam Vital signs and Labs for Last 24 Hours: Temp Pulse Resp BP Pulse Ox 98.3 F 80 17 149/68 96 12/01/17 07:49 12/01/17 07:49 12/01/17 07:49 12/01/17 07:49 12/01/17 07:49 I & O for Last 24 hours: Intake & Output 11/28/17 11/29/17 11/30/17 12/01/17 11:59 11:59 11:59 11:59 Intake Total 240 / 240 Output Total 0 / 0 Balance 240 / 240 Weight 177 lb 8 oz - Constitutional no acute distress Comments: Appears comfortable - *Routine Respiratory Exam Present: CTA bilaterally (Anteriorly and posteriorly) - *Routine Cardiovascular Exam Present: irregular rhythm Comments: Monitor showing atrial fibrillation - *Routine Abdominal Exam Present: soft, normoactive bowel sounds. Absent: tenderness - *Routine Extremities Exam Absent: edema, calf tenderness - *Routine Neurological Exam Present: alert, oriented X3 Assessment and Plan (1) Syncope Current visit: Yes Status: Acute Qualifiers: Syncope type: unspecified Qualified Code(s): R55 - Syncope and collapse Category: Medical Code(s): R55 - Syncope and collapse (2) A-fib Current visit: No Status: Chronic Qualifiers: Atrial fibrillation type: chronic Qualified Code(s): I48.2 - Chronic atrial fibrillation Category: Medical Code(s): I48.91 - Unspecified atrial fibrillation (3) CAD (coronary artery disease) Current visit: No Status: Chronic Qualifiers: Coronary Disease-Associated Artery/Lesion type: [place] artery [place] vs. transplanted heart: [place] heart Associated angina: without angina Qualified Code(s): I25.10 - Atherosclerotic heart disease of [place] coronary artery without angina pectoris Category: Medical Code(s): I25.10 - Atherosclerotic heart disease of [place] coronary artery without angina pectoris (4) HTN (hypertension) Current visit: No Status: Chronic Qualifiers: Hypertension type: essential hypertension Qualified Code(s): I10 - Essential (primary) hypertension Category: Medical Code(s): I10 - Essential (primary) hypertension (5) Status post coronary artery stent placement Current visit: No Status: Chronic Category: Surgical Code(s): Z95.5 - Presence of coronary angioplasty implant and graft - Assessment and plan all Dx Assessment and Plan for all problems:: Has had an echo completed. Results are pending. N.p.o. for possible pacemaker insertion.
--- NOTE | 2017-12-01 20:17 | Cardiology Report ---
PROCEDURE: 2-D M-mode and color Doppler study INDICATIONS FOR THE TEST: Chest pain COPD Heart Murmur Tobacco Smoking Palpitations Fatigue Syncope+ Edema Hypertension+Diabetes Mellitus Rheumatic Fever SOB [place] Obesity Hyperlipidemia+ Family History HD Additional History EF EVAL FOR PACER PLACEMENT PATIENT INFORMATION HEIGHT: 72 WEIGHT:177 GENDER: Male B/P:145/96 2-D/M-MODE INTERPRETATION: 2-D MEASUREMENTS OBSERVED VALUES IN CMS Right Ventricular Dimension (RVDd) 2.1 Interventricular Septum (Thickness)(IVsd) 1.4 Left Ventricular Internal Dimensions(LVIDd) 4.4 Left Ventricular Posterior Wall (Thickness)(LVPWd) 1.1 Aortic Root 4.4 Aortic Cusp Separation 1.9 Left Atrial Dimensions (LAD) 5.5 2D 1. Left atrium is moderately enlarged, left ventricle is normal size, there is mild concentric left ventricular hypertrophy, visually estimated ejection fraction 50% with no obvious regional wall motion abnormality. 2. The right atrium and right ventricle are normal size and contractility. 3. The aortic valve is minimally thickened and fibrosed, aortic root is mildly enlarged. 4. The mitral and tricuspid valve leaflets are minimally thickened. 5. The pulmonic valve is poorly visualized 6. No significant pericardial effusion noted. DOPPLER INTERROGATION: Doppler interrogation of the aortic, mitral and tricuspid valve reveals presence of mild aortic, moderate to severe mitral and mild tricuspid regurgitation, tricuspid regurgitant jet velocity insufficient for calculation of the right ventricular systolic pressure, diastolic parameters are inconclusive. CONCLUSION: 1. Moderately enlarged left atrium, normal left ventricular size, mild concentric left ventricular hypertrophy, visually estimated ejection fraction 50% with no obvious regional wall motion abnormality. Diastolic parameters are inconclusive. 2. Mild aortic, moderate to severe mitral and mild tricuspid regurgitation 3. No significant pericardial effusion noted.
--- NOTE | 2017-12-02 09:12 | Progress Note ---
[facility] Anesthesia Checklist - Structural Data Admitted From: Inpatient Planned Operative Procedure/s: aicd Verified Documents: Surgical Consent - Airway Assessment C-Spine Mobility Assessed: Yes TMJ Mobility Assessed: Yes Dentition: Good Dentition - Neurological Assessment Level of Consciousness: Awake, Alert, Appropriate - Anesthesia Plan Anesthesia Risk discussed: Yes Anesthesia Plan: Verified ASA Class: III Anesthesia Type: [facility] Anesthesia HX I have reviewed the patient's past medical history: Yes Medical History: Reports:: Arrhythmia, Atrial Fibrillation, BPH, Cancer, Coronary Artery Disease, Hyperlipidemia, Hypertension Denies:: Diabetes Mellitus Type 1, Diabetes Mellitus Type 2, Internal Pacemaker, MRSA Other Medical History: Reports: Arthritis Other Surgeries: Yes: Cancer Surgery, Cardiac Catheterization (11/11/17 5 stents) , Colonoscopy, Skin Cancer Excision, Ureter Stent. No: Pacemaker Amputation: No Fractures: No *Family Hx:: Cancer, Heart Attack
--- NOTE | 2017-12-02 09:13 | Progress Note ---
[place] Anesthesia Record Part I Intake, IV Amount: 1,000 Estimated blood loss (mL): 10 Urine output (mL): 0 Blood Pressure: 112/80 SaO2: 95 Pulse Rate: 70 Respiratory Rate: 12 Temperature: 97 F Patient is:: Awake, Stable Stable to PACU at:: 09:10
--- NOTE | 2017-12-02 09:13 | Progress Note ---
[facility] Anesthesia Record Part II Discharge Time: 09:40 Destination: floor PACU nurse assessment reviewed?: Yes Patient Condition:: Good Anesthesia Complications:: None
--- NOTE | 2017-12-02 09:59 | Procedure Note ---
[facility] AICD - AICD Date: 12/02/17 Procedures:: 1. Pocket formation for AICD. 2. Placement of atrial sensing and pacing coil into the right atrial appendage. 3. Placement of a ventricular sensing pacing and shocking coil in the right ventricular apex. 4. Permanent AICD placement Indications for test:: Clinical history: pt with witnessed cardiac arrest in clinic requiring resuscitation. sudden cardiac ischemic CHF recent acute myocardial infarction Informed consent:: Obtained prior to procedure. EBL:: Less than 10 ml. Technique:: 1% lidocaine with epinephrine used to anesthetize the left anterior aspect of chest. Scalpel was used to make the initial cutaneous incision wall electrocautery was used to dissect down into the fascia. The fascia was lifted off the pectoralis muscle and digitally manipulated creating a pocket for the defibrillator. The patient was then placed in Trendelenburg position and the subclavian vein was accessed via the Seldinger technique. A 7 [place] sheath was placed under fluoroscopic guidance into the subclavian vein. Following this , an additional wire was placed into the sheath. Now, with 2 wires inside the 7 Jordanian sheath, this sheath was removed, maintaining the 2 wires in the subclavian vein. This shift and dilator was then placed over 1 of the wires while keeping the other wire in place within the subclavian vein. The dilator was removed from the sheath. Using fluoroscopic guidance, the ventricular lead was placed into the right ventricular apex, screwed and secured into place. Electronic interrogation proved acceptable thresholds and voltage within the lead. Using 3-0 silk, the ventricular lead was then secured into place. Lead was secured to the fascia using the 3-0 silk. Following this, the sheath was peeled away. An additional 7 [place] fresh sheath and dilator was placed over the existing wire. Using fluoroscopic guidance, the atrial lead was then placed into the right atrial appendage and screwed and secured in place. Electrical interrogation demonstrated acceptable thresholds and voltage number. The atrial lead was then secured into place using 3-0 silk. 1 g of Ancef was used to flush the pocket. Following the defibrillator being secured to the fascia and in place, Monocryl was used to close subcutaneous layer mouna were used to close the cutaneous layer. A pressure dressing was placed and the patient was transferred to the postop holding area in stable condition for postoperative care. Impression:: 1. Successful pocket formation for permanent defibrillator placement. 2. Successful placement of an atrial sensing pacing lead into the right atrial appendage. 3. Successful placement of a ventricular sensing, pacing, and shocking lead in the right ventricular apex. 4. Successful permanent defibrillator placement. Interrogation:: Generator model number 2411-36Q serial [id number] Atrial lead model number serial number [id number] model number [id number] Right Ventricular lead model number [id number] serial number [id number] RA: P wave 1.9 mV Threshold 530 Ohms Impedance RVA: R wave 11.8 mV Threshold 530 Ohms Impedance <0.25 V pulse width 0.5ms MODE: DDD BASE: 60/120 Plan:: 1.Post-op wound care.
--- NOTE | 2017-12-02 13:40 | Progress Note ---
Internal Medicine - PN: Subj *Date: 12/02/17 *Time: 13:38 Interval history: Pt doing well s/p pacemaker placement. He did have to have a sandbag placed d/ t swelling. He states at this time, he has no pain. He is eating his lunch and is anxious to get home tomorrow. Exam Vital signs and Labs for Last 24 Hours: Temp Pulse Resp BP Pulse Ox 97.2 F L 71 16 112/68 99 12/02/17 10:35 12/02/17 10:35 12/02/17 10:35 12/02/17 10:35 12/02/17 10:35 I & O for Last 24 hours: Intake & Output 11/30/17 12/01/17 12/02/17 12/03/17 11:59 11:59 11:59 11:59 Intake Total 240 / 240 1645 / 1645 Output Total 0 / 0 1350 / 1350 Balance 240 / 240 295 / 295 Weight 177 lb 8 oz - Constitutional no acute distress - *Routine Respiratory Exam Present: CTA bilaterally - *Routine Cardiovascular Exam Present: irregular rhythm - *Routine Abdominal Exam Present: soft, normoactive bowel sounds. Absent: tenderness - *Routine Extremities Exam Absent: edema - *Routine Skin Exam Comments: pacemaker in place with dressing, ecchymosis and swelling around the incision site Assessment and Plan (1) Syncope Current visit: Yes Status: Acute Qualifiers: Syncope type: unspecified Qualified Code(s): R55 - Syncope and collapse Category: Medical Code(s): R55 - Syncope and collapse (2) A-fib Current visit: No Status: Chronic Qualifiers: Atrial fibrillation type: chronic Qualified Code(s): I48.2 - Chronic atrial fibrillation Category: Medical Code(s): I48.91 - Unspecified atrial fibrillation (3) CAD (coronary artery disease) Current visit: No Status: Chronic Qualifiers: Coronary Disease-Associated Artery/Lesion type: [place] artery [place] vs. transplanted heart: [place] heart Associated angina: without angina Qualified Code(s): I25.10 - Atherosclerotic heart disease of [place] coronary artery without angina pectoris Category: Medical Code(s): I25.10 - Atherosclerotic heart disease of [place] coronary artery without angina pectoris (4) HTN (hypertension) Current visit: No Status: Chronic Qualifiers: Hypertension type: essential hypertension Qualified Code(s): I10 - Essential (primary) hypertension Category: Medical Code(s): I10 - Essential (primary) hypertension (5) Status post coronary artery stent placement Current visit: No Status: Chronic Category: Surgical Code(s): Z95.5 - Presence of coronary angioplasty implant and graft (6) Status post cardiac pacemaker procedure Current visit: Yes Status: Acute Category: Surgical Code(s): Z95.0 - Presence of cardiac pacemaker - Assessment and plan all Dx Assessment and Plan for all problems:: Continue current care. Cardiology to follow.
--- NOTE | 2017-12-03 08:22 | Progress Note ---
Internal Medicine - PN: Subj *Date: 12/03/17 *Time: 08:20 Interval history: Patient states he is feeling well this a.m. He does have some soreness with the pacemaker was placed. He states he does get slightly dizzy if he stands up. He slept well last night and ate most of his breakfast. He is anxious to go home today. Exam Vital signs and Labs for Last 24 Hours: Temp Pulse Resp BP Pulse Ox 98.4 F 70 20 139/89 94 L 12/03/17 03:27 12/03/17 04:00 12/03/17 03:27 12/03/17 03:27 12/03/17 03:27 I & O for Last 24 hours: Intake & Output 11/30/17 12/01/17 12/02/17 12/03/17 11:59 11:59 11:59 11:59 Intake Total 240 / 240 1645 / 1645 840 / 840 Output Total 0 / 0 1350 / 1350 1250 / 1250 Balance 240 / 240 295 / 295 -410 / -410 Weight 177 lb 8 oz - Constitutional no acute distress - *Routine Respiratory Exam Present: CTA bilaterally - *Routine Cardiovascular Exam Present: irregularly irregular - *Routine Abdominal Exam Present: soft, normoactive bowel sounds. Absent: tenderness - *Routine Extremities Exam Absent: edema - *Routine Skin Exam Comments: ecchymosis and edema at the pacemaker placement site, sling in place on the left arm Assessment and Plan (1) Syncope Current visit: Yes Status: Acute Qualifiers: Syncope type: unspecified Qualified Code(s): R55 - Syncope and collapse Category: Medical Code(s): R55 - Syncope and collapse (2) A-fib Current visit: No Status: Chronic Qualifiers: Atrial fibrillation type: chronic Qualified Code(s): I48.2 - Chronic atrial fibrillation Category: Medical Code(s): I48.91 - Unspecified atrial fibrillation (3) CAD (coronary artery disease) Current visit: No Status: Chronic Qualifiers: Coronary Disease-Associated Artery/Lesion type: [place] artery [place] vs. transplanted heart: [place] heart Associated angina: without angina Qualified Code(s): I25.10 - Atherosclerotic heart disease of [place] coronary artery without angina pectoris Category: Medical Code(s): I25.10 - Atherosclerotic heart disease of [place] coronary artery without angina pectoris (4) HTN (hypertension) Current visit: No Status: Chronic Qualifiers: Hypertension type: essential hypertension Qualified Code(s): I10 - Essential (primary) hypertension Category: Medical Code(s): I10 - Essential (primary) hypertension (5) Status post coronary artery stent placement Current visit: No Status: Chronic Category: Surgical Code(s): Z95.5 - Presence of coronary angioplasty implant and graft (6) Status post cardiac pacemaker procedure Current visit: Yes Status: Acute Category: Surgical Code(s): Z95.0 - Presence of cardiac pacemaker - Assessment and plan all Dx Assessment and Plan for all problems:: Cardiology states patient can be discharged home today and will need to follow- up in the pacemaker clinic. They will discuss patient's restrictions with him.
--- NOTE | 2017-12-03 09:38 | Progress Note ---
Subjective Date: 12/03/17 Time: 08:30 Principal diagnosis: Syncope Interval history: 77-year-old white male admitted to facility with syncopal episode days ago. Patient underwent permanent pacemaker placement 1 day ago. Patient is doing well. Monitor reveals sinus rhythm with paced beats with a heart rate in the 70s. Patient denies chest pain or shortness of breath. Pacemaker site noted with slight swelling and bruising. Patient stated the only time he has pain at the pacemaker site is when he is moved his arm. Arm sling noted of the left arm. Patient instructed not to move left arm above his head. Patient also advised to wear sling for at least 5-7 days. Patient is to follow-up and cardiology office on Wednesday for pacemaker site check. Patient will then be set up for pacemaker clinic. Exam Vital signs and Labs for Last 24 Hours: Temp Pulse Resp BP Pulse Ox 97.5 F L 77 16 133/76 97 12/03/17 08:00 12/03/17 08:00 12/03/17 08:00 12/03/17 08:00 12/03/17 08:00 I & O for Last 24 hours: Intake & Output 11/30/17 12/01/17 12/02/17 12/03/17 23:59 23:59 23:59 23:59 Intake Total 240 / 240 600 / 600 1525 / 1525 360 / 360 Output Total 800 / 800 1050 / 1050 750 / 750 Balance 240 / 240 -200 / -200 475 / 475 -390 / -390 Weight 177 lb 8 oz 177 lb 8 oz - Constitutional no acute distress, average body habitus, cooperative - *Routine Neck Exam Present: supple, full ROM, normal carotid upstroke, trachea midline. Absent: JVD, carotid bruit, swelling - *Routine Respiratory Exam Present: CTA bilaterally. Absent: respiratory distress, rhonchi, wheezes, crackles - *Routine Cardiovascular Exam Present: RRR, Normal S1, Normal S2. Absent: murmur, gallop, rubs, JVD - *Routine Abdominal Exam Present: soft. Absent: distended, guarding, firm - *Routine Extremities Exam Present: full ROM, pulses intact, normal capillary refill. Absent: cyanosis, clubbing, edema - *Routine Skin Exam Present: intact, dry. Absent: cyanosis, erythema Comments: Pacemaker site noted of the left subclavian area. Pressure dressing intact and dry. Slight swelling and bruising noted at the site. Tenderness noted when touch. - *Routine Neurological Exam Present: alert, oriented X3, CN II-XII intact, moving all extremities, normal speech Progress Note: A&P (1) Syncope Start date: 11/30/17 Status: Acute Current Visit: Yes (2) A-fib Status: Chronic Current Visit: No (3) CAD (coronary artery disease) Status: Chronic Current Visit: No (4) HTN (hypertension) Status: Chronic Current Visit: No (5) Status post coronary artery stent placement Status: Chronic Current Visit: No (6) Status post cardiac pacemaker procedure Status: Acute Current Visit: Yes Assessment and Plan for All Diagnoses:: Plan: 1. Agreeable to discharge pt home. 2. No heavy lifting or raising left arm above his head. 3. Wear arm sling for 5-7 days. 4. Cardiology clinic follow up in one week for pacemaker site check. 5. Schedule pt for pacemaker clinic at Cardiology follow up.
[2017-12-03 09:40] LABS: INR 2.06 (0.9-1.1); Prothrombin Time 22.4 seconds (9.4-11.8)
--- NOTE | 2017-12-05 15:22 | Discharge Summary ---
General - General Admission date: 11/30/17 Discharge date: 12/03/17 HPI HPI: Mr Petersen is a 77 year old male with a history of HTN, ASCVD, CAD with stents, BPH, and OA who when sitting in Dr. Anthony's waiting area was found to be unresponsive. He was reported to have no pulse and no respiratory effort. The nurse reported that when lifting him up on the stretcher from the chair he became alert. He was then taken to the ER for further evaluation. Monitor showed atrial fib with a controlled ventricular response. He was then admitted for further observation. Hospital Course Hospital Course: Cardiology saw the patient and started him on plavix. They ordered an echo. It showed an EF of 50%. 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 He had this placed and tolerated the procedure well. The monitor revealed sinus rhythm with paced beats with a heart rate in the 70s. He denied chest pain or shortness of breath. Pacemaker site was noted with slight swelling and bruising. The patient stated the only time he had pain at the pacemaker site was when he moved his arm. He was placed in an arm sling and was instructed not to move the left arm above his head. He was advised to wear the sling for at least 5-7 days. He is to follow-up in the cardiology office on Wednesday for pacemaker site check. He will then be set up for pacemaker clinic. Objective Vital signs: Temp Pulse Resp BP Pulse Ox 97.5 F L 79 16 133/76 97 12/03/17 12:00 12/03/17 12:12/03/17 12:12/03/17 12:12/03/17 12:00 Narrative: - Constitutional no acute distress Comments: pale - *Routine HEENT Exam Head: Present: normocephalic, atraumatic Eye: Present: PERRL ENT: Present: mucous membranes moist - *Routine Neck Exam Present: supple. Absent: carotid bruit, lymphadenopathy, thyromegaly - *Routine Respiratory Exam Present: CTA bilaterally (A&P) - *Routine Cardiovascular Exam Present: irregular rhythm Comments: AFIB on the monitor with a controlled ventricular rate in the 70's - *Routine Abdominal Exam Present: soft, normoactive bowel sounds. Absent: tenderness, distended, organomegaly, mass - *Routine Extremities Exam Absent: edema, calf tenderness - *Routine Skin Exam Present: dry, pallor - *Routine Neurological Exam Present: alert, oriented X3 DS: Diagnosis - Discharge Diagnosis (1) Syncope Status: Acute (2) A-fib Status: Chronic (3) CAD (coronary artery disease) Status: Chronic (4) HTN (hypertension) Status: Chronic (5) Status post coronary artery stent placement Status: Chronic (6) Status post cardiac pacemaker procedure Status: Acute Discharge Plan - Patient Discharge Instructions ACTIVITY: Limited activity DIET: continue same diet Patient Instructions: DI for Syncope in Adults (Fainting), DI for Heart Attack , Coronary Artery Disease, Atrial Fibrillation, High Blood Pressure, DI for Surgical Site Infection, Surgical Site Infection, Warfarin, Coumadin Vitamin K/ Diet, Coumadin Therapy Booklet - Follow up Plan Follow up with: Shubham Watkins MD [Primary Care Provider] - 12/08/17 Disposition: Home, Self-Intermediate Medications: Home Medications Medication Instructions Recorded Confirmed Type finasteride 5 mg tablet 5 mg PO HS 09/14/17 11/30/17 History nitroglycerin 0.4 mg sublingual 0.4 mg SUBLINGUAL Q5MINP PRN 09/14/17 11/30/17 History tablet tamsulosin 0.4 mg capsule 0.4 mg PO HS cap 09/14/17 11/30/17 History Isosorbide Mononitrate [Imdur 30mg 30 mg PO DAILY 09/17/17 11/30/17 History ER tablet] Warfarin Sodium 2.5 mg PO SUTUTHSA 11/11/17 11/30/17 History Warfarin Sodium 5 mg PO MOWEFR 11/11/17 11/30/17 History lisinopril 5 mg tablet 5 mg PO HS tab 11/23/17 11/30/17 History Amlodipine Besylate [Norvasc 5mg 5 mg PO HS 11/30/17 11/30/17 History tablet] Carvedilol [Coreg 25mg Tablet] 25 mg PO BID 11/30/17 11/30/17 History Ticagrelor [Brilinta 90mg Tablet] 90 mg PO BID 11/30/17 11/30/17 History Ubidecarenone [Co Q-10] 200 mg PO DAILY 11/30/17 11/30/17 History Prescriptions/Medication Reconciliation: Continue finasteride 5 mg tablet 5 mg PO HS nitroglycerin 0.4 mg sublingual tablet 0.4 mg SUBLINGUAL Q5MINP PRN PRN Reason: Chest Pain lisinopril 5 mg tablet 5 mg PO HS tab tamsulosin 0.4 mg capsule 0.4 mg PO HS cap Isosorbide Mononitrate [Imdur 30mg ER tablet] 30 mg PO DAILY Warfarin Sodium 2.5 mg PO SUTUTHSA Ticagrelor [Brilinta 90mg Tablet] 90 mg PO BID Amlodipine Besylate [Norvasc 5mg tablet] 5 mg PO HS Ubidecarenone [Co Q-10] 200 mg PO DAILY Warfarin Sodium 5 mg PO MOWEFR Carvedilol [Coreg 25mg Tablet] 25 mg PO BID
== END 2017-12-03 11:00 | disposition home or self-care (01) ==
LOC: 2ND 12:59 → ER 12:59 → 2ND 16:32
PROVIDERS: ADMIT Family Medicine; ATTEND Family Medicine

== ENCOUNTER 2018-01-27 00:09 | Inpatient (IN) ==
[2018-01-27 00:30] LABS: Basophils # 0.5 K/mm3 (0-0.2); Basophils % 1.6 % (0.1-2.0); Eosinophils # 0.5 K/mm3 (0.0-0.4); Eosinophils % 1.7 % (0.1-12.0); Hematocrit 44.7 % (42.0-52.0); Lymphocytes # 2.4 K/mm3 (0.7-4.5); Lymphocytes % 8.2 K/mm3 (10-50); Mean Corpuscular HGB Conc 31.2 g/dL (31.8-35.4); Mean Corpuscular Hemoglobin 28.7 pg (27.0-31.2); Mean Corpuscular Volume 91.8 fl (80-94); Mean Platelet Volume 7.1 fl (7.4-10.4); Monocytes # 0.8 K/mm3 (0.1-1.0); Monocytes % 2.7 % (1.7-9.3); Neutrophils # 24.8 K/mm3 (1.8-7.8); Neutrophils % 85.7 % (37.0-80.0); Platelet Count 268 K/mm3 (142-424); Red Blood Count 4.87 M/mm3 (4.60-6.20); Red Cell Distribution Width 15.4 % (11.5-17.5); White Blood Count 28.9 K/mm3 (4.8-10.8)
[2018-01-27 00:36] LABS: INR 3.09 (0.9-1.1); Prothrombin Time 30.8 seconds (9.4-11.8)
[2018-01-27 00:37] LABS: Anion Gap 14.1 mEq/L (5-15); Calcium 9.5 mg/dL (8.5-10.1); Potassium 4.1 mmoL/L (3.5-5.1)
--- NOTE | 2018-01-27 01:10 | Emergency Department Note ---
ED Disposition Clinical Impression: Epistaxis Nasal fracture Qualifiers: Encounter type: initial encounter Fracture type: closed Qualified Code(s): S02.2XXA - Fracture of nasal bones, initial encounter for closed fracture Leukocytosis Qualifiers: Leukocytosis type: bandemia Qualified Code(s): D72.825 - Bandemia Disposition: Admitted as Observation Condition on Discharge: Good Instructions: DI for Nosebleed Referrals: Shubham Watkins MD [Primary Care Provider] - - Critical Care Critical Care Time: No Attestation: On 01/27/18, the high probability of a clinically significant, sudden or life threatening deterioration of the following system(s) required my full and direct attention, intervention and personal management. The time I documented below is in addition to time spent performing reported procedures but includes the following listed in this critical care notation. Medical Decision Making - Medical Records Medical records reviewed: Yes: I reviewed the patient's medical records. - Mehul Inquiry Pt receiving controlled substance: No Vital Signs: 01/27/18 00:16 01/27/18 00:40 01/27/18 01:05 Temperature 98.2 F Temperature Source Oral Pulse Rate [Right Brachial] 97 H 67 88 Respiratory Rate 20 18 16 Blood Pressure [Right Arm] 123/73 106/41 148/85 Blood Pressure Mean [Right Arm] 89 62 106 Blood Pressure Source [Right Arm] Automatic Cuff Blood Pressure Position [Right Arm] Sitting 02 Sat by Pulse Oximetry 96 96 100 - Lab Data Lab results reviewed: Yes: I reviewed the patient's lab results. Lab Results 01/27/18 00:20: WBC 28.9 H*, RBC 4.87, Hgb 14.0 L, Hct 44.7, MCV 91.8, MCH 28.7 , MCHC 31.2 L, RDW 15.4, Plt Count 268, MPV 7.1 L, Neut % (Auto) 85.7 H, Lymph % (Auto) 8.2 L, Person % (Auto) 2.7, Eos % (Auto) 1.7, Baso % (Auto) 1.6, Neut # ( Auto) 24.8 H, Lymph # (Auto) 2.4, Person # (Auto) 0.8, Eos # (Auto) 0.5 H, Baso # (Auto) 0.5 H 01/27/18 00:20: PT 30.8 H, INR 3.09 H 01/27/18 00:20: Sodium 143, Potassium 4.1, Chloride 105, Carbon Dioxide 28, Anion Gap 14.1, BUN 26 H, Creatinine 1.49 H, Estimated Creat Clear 51, Estimated GFR 46 L, Est GFR ( Amer) 56 L, Glucose 117 H, Calcium 9.5 Result diagrams: 01/27/18 00:20 01/27/18 00:20 Orders (Tests/Meds): ED MEDICATIONS Generic Name Dose Route Start Last Admin Trade Name Freq PRN Reason Stop Dose Admin Sodium Chloride 1,000 mls @ 999 mls/hr 01/27/18 01:15 Sod Chlor 0.9% 1000ml Bag IV 01/27/18 02:15 .Q1H1M AIXA Discontinued Medications Generic Name Dose Route Start Last Admin Trade Name Freq PRN Reason Stop Dose Admin Cocaine HCl 4 ml 01/27/18 01:00 01/27/18 00:40 Cocaine 4% Topical Soln 4ml Bottle TP 01/27/18 01:01 4 ml ONCE ONE Administration Cocaine HCl 4 ml 01/27/18 01:03 01/27/18 00:50 Cocaine 4% Topical Soln 4ml Bottle TP 01/27/18 01:04 4 ml ONCE ONE Administration Oxymetazoline HCl 1 ml 01/27/18 00:59 01/27/18 00:40 Afrin Nasal [place] 15ml NS 01/27/18 01:00 2 spray ONCE ONE Administration ORDERS Category Date Time Status Complete Blood Count Auto Diff Stat Lab 01/27/18 00:20 Results - Physician Consults Physician Consulted: donis Reason -: Admission Epistaxis HPI - General Chief complaint: Epistaxis Stated complaint: Nose bleeding from fall Time Seen by Provider: 01/27/18 00:25 Mode of Arrival: Wheelchair Source of Information: Patient, Relative, Medical Record ( ) Limitations: No Limitations Description of Symptoms (Recalled from ER Triage Doc. by RN): Seen in [facility] earlier for broken nose and nose bleed. Reports his nose started bleeding again at home and he couldn't get it to stop. Pt takes coumadin. - History of Present Illness HPI Narrative: pt with trip fall earlier with acute nasal fx - MD complaint: epistaxis Location: bilateral nostril Onset (ago): hour(s) Duration: intermittent Context: warfarin use, other anticoagulant use, trauma - Related Data Home Medications Medication Instructions Recorded Confirmed finasteride 5 mg tablet 5 mg PO HS 09/14/17 01/27/18 nitroglycerin 0.4 mg sublingual 0.4 mg SUBLINGUAL Q5MINP PRN 09/14/17 01/27/18 tablet tamsulosin 0.4 mg capsule 0.4 mg PO HS cap 09/14/17 01/27/18 Warfarin Sodium 2.5 mg PO SUTUTHSA 11/11/17 01/27/18 Warfarin Sodium 5 mg PO MOWEFR 11/11/17 01/27/18 Amlodipine Besylate [Norvasc 5mg 5 mg PO HS 11/30/17 01/27/18 tablet] Ticagrelor [Brilinta 90mg Tablet] 90 mg PO BID 11/30/17 01/27/18 Ubidecarenone [Co Q-10] 200 mg PO DAILY 11/30/17 01/27/18 carvedilol 25 mg tablet 12.5 mg PO BID tab 01/04/18 01/27/18 Amlodipine Besylate [Norvasc 10mg 10 mg PO DAILY 01/26/18 01/27/18 tablet] Allergies Allergy/AdvReac Type Severity Reaction Status Date / Time No Known Allergies Allergy Verified 11/10/17 23:23 [facility] History I have reviewed the patient's past medical history: Yes Medical History: Reports:: Arrhythmia, Atrial Fibrillation, BPH, Coronary Artery Disease, Hyperlipidemia, Hypertension, Internal Pacemaker (11/2017) Denies:: Cancer, Diabetes Mellitus Type 1, Diabetes Mellitus Type 2, MRSA Other Medical History: Reports: Arthritis Comment: BPH Other Surgeries: Yes: Cancer Surgery, Cardiac Catheterization (11/11/17 5 stents) , Colonoscopy, Pacemaker (11/2017), Skin Cancer Excision, Ureter Stent Amputation: No Fractures: No Comment: TURP - Social History Smoking Status: Light tobacco smoker Tobacco Type: smokeless tobacco Alcohol Intake: current Alcohol Intake Frequency:: a few times a week Occupational Status: retired Housing: house Household Members: spouse - Psychiatric History Expresses thoughts of harming self/others: None Suicide Plan Description: No Plan Family Hx:: Cancer, Heart Attack ROS Obtained: Yes All systems reviewed & no additional complaints - Constitutional Constitutional: Denies fever(s) - Eyes Eyes: Denies change in vision - ENT Ears, Nose, Mouth, and Throat: Reports as per HPI, Reports epistaxis, Reports sore throat - Cardiovascular Cardiovascular: Reports chest pain at rest - Respiratory Respiratory: No cough - Gastrointestinal Gastrointestingal: Denies: black, tarry stools, nausea - Genitourinary Male Genitourinary: Denies hematuria Female Genitourinary: Denies hematuria - Musculoskeletal Musculoskeletal: Denies joint pain, Denies joint swelling - Integumentary/Breasts Skin/Breast: Denies rash - Neurologic Neurologic: Denies headache(s), Denies seizure-like activity Physical Exam - General General appearance: in no apparent distress - Head Head exam: normocephalic - Eye Eye exam: Present: PERRL, EOMI - ENT ENT exam: Absent: mucous membranes moist - Expanded ENT Exam Nose exam: Present: abrasion Nasal speculum exam: Bilateral: epistaxis - Neck Neck exam: Present: trachea midline - Respiratory Respiratory exam: Absent: respiratory distress - Cardiovascular Cardiovascular exam: Present: regular rate, systolic murmur - Abdominal Exam Abdominal exam: Present: soft - Extremities Exam Extremities exam: Absent: tenderness - Neurological Exam Neurological exam: Present: alert, oriented X3, CN II-XII intact - Psychiatric Psychiatric exam: Present: normal affect - Skin Skin exam: Absent: rash Procedures - Epistaxis Control Time Out Performed: Yes Nostril: bilateral Nose Prepped With: cocaine, phenylephrine Direct Inspection: yes Clots Removed by: blowing nose Device Inserted: nasal tampon Patient Tolerated Procedure: well Complications: continued epistaxis
[2018-01-27 01:26] LABS: Eosinophils % 5 % (0-3); Lymphocytes % 8 % (10-50); Monocytes % 5 % (2-9); Neutrophils % 80 % (42-76); Total Cells Counted 100
[2018-01-27 01:27] LABS: RBC Morphology Normal
[2018-01-27 01:57] LABS: Appearance,Urine CLEAR (Clear); Bilirubin,Urine Negative (Negative); Blood, Urine Negative (Negative); Color,Urine YELLOW (Yellow); Glucose,Urine (UA) Negative (Negative); Ketones,Urine TRACE (Negative); Leukocyte Esterase,Urine Negative (Negative); Microscopic, Urine URINE MICROSCOPIC (MICROSCOPIC); Protein,Urine Negative (Negative); Specific Gravity, Urine 1.015 (1.005-1.030)
[2018-01-27 02:12] LABS: Bacteria,Urine Trace /lpf; RBC,Urine Occasional #/hpf (0-3); Sperm,Urine 1+ /lpf
[2018-01-27 07:11] LABS: INR 2.68 (0.9-1.1); Prothrombin Time 26.8 seconds (9.4-11.8)
[2018-01-27 07:13] LABS: Basophils # 0.6 K/mm3 (0-0.2); Eosinophils # 0.1 K/mm3 (0.0-0.4); Eosinophils % 0.5 % (0.1-12.0); Lymphocytes # 2.1 K/mm3 (0.7-4.5); Lymphocytes % 7.2 K/mm3 (10-50); Mean Corpuscular Hemoglobin 28.8 pg (27.0-31.2); Mean Corpuscular Volume 93.1 fl (80-94); Mean Platelet Volume 7.1 fl (7.4-10.4); Monocytes # 1.2 K/mm3 (0.1-1.0); Monocytes % 4.2 % (1.7-9.3); Neutrophils # 24.5 K/mm3 (1.8-7.8); Neutrophils % 86.1 % (37.0-80.0); Platelet Count 253 K/mm3 (142-424); Red Blood Count 4.26 M/mm3 (4.60-6.20); Red Cell Distribution Width 15.4 % (11.5-17.5)
[2018-01-27 07:17] LABS: Anion Gap 15.2 mEq/L (5-15); Calcium 8.6 mg/dL (8.5-10.1); Potassium 4.2 mmoL/L (3.5-5.1)
[2018-01-27 07:39] LABS: Hematocrit 39.9 % (42.0-52.0); Hemoglobin 12.3 g/dL (14.1-18.0)
--- NOTE | 2018-01-27 07:56 | Pharmacy Consult Notes ---
[facility] Pharmacy VTE Monitoring - Patient Demographics Admission date: 01/27/18 Report Date: 01/27/18 Time: 07:56 Allergies/Adverse Reactions: Patient Allergies No Known Allergies Allergy (Verified 11/10/17 23:23) Height: 1.83 m Weight: 83.234 kg Patient Problems: Current Active Problems Nasal fracture (Acute) Epistaxis (Acute) Leukocytosis (Acute) - VTE Risk Labs: VTE Related Lab Results Hgb 12.3 g/dL (14.1-18.0) L D 01/27/18 06:20 Hct 39.9 % (42.0-52.0) L 01/27/18 06:20 Plt Count 253 K/mm3 (142-424) 01/27/18 06:20 PT 26.8 seconds (9.4-11.8) H 01/27/18 06:20 INR 2.68 (0.9-1.1) H 01/27/18 06:20 BUN 35 mg/dL (7-18) H D 01/27/18 06:20 Creatinine 1.21 mg/dL (0.70-1.30) 01/27/18 06:20 Estimated Creat Clear 62 mL/min (0-300) 01/27/18 06:20 Was VTE Risk Assessment Performed: Yes VTE Score: 1 VTE Risk Level: Very Low Risk - Prophylaxis VTE Prophylaxis Ordered?: Yes Types of VTE Prophylaxis: TEDS Knee High Location of Applied Device: Bilateral Lower Extremeties - VTE Diagnosis Confirmed Treatment or plan recommended: Continue Current Treatment
--- NOTE | 2018-01-27 09:16 | History & Physical Report ---
*Admission Date: 01/27/18 *Chief complaint: Epistaxis *History of present illness: Mr. Petersen is a 77yo WM with a history of HTN, OA, ASCVD, CAD with stents, BPH , Afib, and PPM. He was seen at [facility] yesterday for a nose bleed resulting from a nasal fracture following a fall at home. After returning home, he was unable to slow the bleeding and presented to the ED overnight for evaluation. He was treated with cocaine and phenylephrine nasally and nasal tampon was placed. His coumadin was held. He was admitted for monitoring and ENT consultation. This morning, the patient reports continued nasal bleeding overnight. He notes minimal facial discomfort. He has been up to the bathroom and is voiding normally. He denies any chest pain or SOB. [facility] History I have reviewed the patient's past medical history: Yes Medical History: Reports:: Arrhythmia, Atherosclerotic Heart Disease, Atrial Fibrillation, BPH, Cancer, Coronary Artery Disease, Hyperlipidemia, Hypertension , Internal Pacemaker (11/2017) Denies:: Diabetes Mellitus Type 1, Diabetes Mellitus Type 2, MRSA Other Medical History: Reports: Arthritis Other Surgeries: Yes: Cancer Surgery, Cardiac Catheterization (11/11/17 5 stents) , Colonoscopy, Pacemaker (11/2017), Skin Cancer Excision, Ureter Stent, Other Amputation: No Fractures: No Comment: TURP - *Social History Educational Level: Attended High School Smoking Status: Never smoker Tobacco Type: smokeless tobacco #Yrs smoked (if former smoker): 50 Alcohol Intake: never Alcohol Intake Frequency:: a few times a week Occupational Status: retired Housing: house Household Members: spouse - Psychiatric History Expresses thoughts of harming self/others: None Suicide Plan Description: No Plan *Family Hx:: Cancer, Heart Attack Review of Systems - Review of Systems Review of systems:: pertinent systems reviewed and negative unless documented below - ENT Reports nosebleed, Reports facial pain, Reports nasal congestion, Reports nasal trauma, Reports sore throat - *Neurologic Denies headache(s), Denies seizure-like activity Meds Home Medications Medication Instructions Recorded Confirmed Type finasteride 5 mg tablet 5 mg PO HS 09/14/17 01/27/18 History nitroglycerin 0.4 mg sublingual 0.4 mg SUBLINGUAL Q5MINP PRN 09/14/17 01/27/18 History tablet Warfarin Sodium 2.5 mg PO SUTUTHSA 11/11/17 01/27/18 History Warfarin Sodium 5 mg PO MOWEFR 11/11/17 01/27/18 History Amlodipine Besylate [Norvasc 5mg 5 mg PO HS 11/30/17 01/27/18 History tablet] Ticagrelor [Brilinta 90mg Tablet] 90 mg PO BID 11/30/17 01/27/18 History Ubidecarenone [Co Q-10] 200 mg PO DAILY 11/30/17 01/27/18 History carvedilol 25 mg tablet 12.5 mg PO BID tab 01/04/18 01/27/18 History Atorvastatin Calcium [Atorvastatin 20 mg PO MOWEFR 01/27/18 01/27/18 History 20mg Tab] Tamsulosin HCl [Flomax 0.4mg 0.4 mg PO HS 01/27/18 01/27/18 History capsule] Allergies Allergy/AdvReac Type Severity Reaction Status Date / Time No Known Allergies Allergy Verified 11/10/17 23:23 Exam Vital signs and Labs for Last 24 Hours: Temp Pulse Resp BP Pulse Ox 97.3 F L 76 18 117/73 95 01/27/18 07:43 01/27/18 07:43 01/27/18 07:43 01/27/18 07:43 01/27/18 07:43 Laboratory Results - last 24 hr 01/27/18 00:20: WBC 28.9 H*, RBC 4.87, Hgb 14.0 L, Hct 44.7, MCV 91.8, MCH 28.7 , MCHC 31.2 L, RDW 15.4, Plt Count 268, MPV 7.1 L, Neut % (Auto) 85.7 H, Lymph % (Auto) 8.2 L, [place] % (Auto) 2.7, Eos % (Auto) 1.7, Baso % (Auto) 1.6, Neut # ( Auto) 24.8 H, Lymph # (Auto) 2.4, [place] # (Auto) 0.8, Eos # (Auto) 0.5 H, Baso # (Auto) 0.5 H, Total Counted 100, Neutrophils % (Manual) 80 H, Lymphocytes % ( Manual) 8 L, Monocytes % (Manual) 5, Eosinophils % (Manual) 5 H, Metamyelocytes % 2.0 H, Platelet Estimate Normal, RBC Morphology Normal 01/27/18 00:20: PT 30.8 H, INR 3.09 H 01/27/18 00:20: Sodium 143, Potassium 4.1, Chloride 105, Carbon Dioxide 28, Anion Gap 14.1, BUN 26 H, Creatinine 1.49 H, Estimated Creat Clear 51, Estimated GFR 46 L, Est GFR ( Amer) 56 L, Glucose 117 H, Calcium 9.5 01/27/18 01:34: Lactic Acid 0.9 01/27/18 01:38: Urine Color Yellow, Urine Appearance Clear, Urine pH 6.0, Ur Specific [place] 1.015, Urine Protein Negative, Urine Glucose (UA) Negative, Urine Ketones Trace, Urine Blood Negative, Urine Nitrate Negative, Urine Bilirubin Negative, Urine Urobilinogen 1.0, Ur Leukocyte Esterase Negative, Urine RBC Occasional, Urine WBC 3-5, Ur Squamous Epith Cells 3-5, Urine Bacteria Trace, Urine Sperm 1+ 01/27/18 06:20: WBC 28.0 H*, RBC 4.26 L, Hgb 12.3 L D, Hct 39.9 L, MCV 93.1, MCH 28.8, MCHC 31.0 L, RDW 15.4, Plt Count 253, MPV 7.1 L, Neut % (Auto) 86.1 H , Lymph % (Auto) 7.2 L, [place] % (Auto) 4.2, Eos % (Auto) 0.5, Baso % (Auto) 2.0, Neut # (Auto) 24.5 H, Lymph # (Auto) 2.1, [place] # (Auto) 1.2 H, Eos # (Auto) 0.1 , Baso # (Auto) 0.6 H 01/27/18 06:20: PT 26.8 H, INR 2.68 H 01/27/18 06:20: Sodium 144, Potassium 4.2, Chloride 109 H, Carbon Dioxide 24, Anion Gap 15.2 H, BUN 35 H D, Creatinine 1.21, Estimated Creat Clear 62, Estimated GFR 58 L, Est GFR ( Amer) 71 D, Glucose 115 H, Calcium 8.6 I & O for Last 24 hours: Intake & Output 01/24/18 01/25/18 01/26/18 01/27/18 11:59 11:59 11:59 11:59 Intake Total 1627 / 1627 Output Total 400 / 400 Balance 1227 / 1227 Weight 183 lb 8 oz - Constitutional no acute distress - *Routine HEENT Exam Head: Present: normocephalic, facial swelling Eye: Present: EOMI, PERRL, normal accommodation ENT: Present: mucous membranes moist Comments: bilateral periorbital and nasal ecchymosis with minimal active bleeding - *Routine Neck Exam Present: supple, full ROM. Absent: lymphadenopathy - *Routine Respiratory Exam Comments: coarse breath sounds bilaterally with scattered expiratory wheeze - *Routine Cardiovascular Exam Present: irregular rhythm - *Routine Abdominal Exam Present: soft, normoactive bowel sounds. Absent: tenderness, distended, rebound , guarding, organomegaly, mass - *Routine Extremities Exam Present: full ROM, pulses intact, normal capillary refill. Absent: edema, calf tenderness - *Routine Neurological Exam Present: oriented X3, moving all extremities, normal speech H&P: Result - Labs Labs: Short CBC 01/27/18 01/27/18 Range/Units 00:20 06:20 WBC 28.9 H* 28.0 H* (4.8-10.8) K/mm3 Hgb 14.0 L 12.3 L D (14.1-18.0) g/dL Hct 44.7 39.9 L (42.0-52.0) % Plt Count 268 253 (142-424) K/mm3 [facility] 01/27/18 01/27/18 00:20 06:20 Sodium 143 144 Potassium 4.1 4.2 Chloride 105 109 H Carbon Dioxide 28 24 BUN 26 H 35 H D Creatinine 1.49 H 1.21 Glucose 117 H 115 H Calcium 9.5 8.6 Urine 01/27/18 Range/Units 01:38 Urine Color Yellow (Yellow) Urine Appearance Clear (Clear) Urine pH 6.0 (5.0-8.5) Ur Specific [place] 1.015 (1.005-1.030) Urine Protein Negative (Negative) Urine Glucose (UA) Negative (Negative) - Imaging and Cardiology Chest x-ray Status: final report (nothing acute) Assessment and Plan (1) Epistaxis Current visit: Yes Status: Acute Category: Medical Code(s): R04.0 - Epistaxis (2) Leukocytosis Current visit: Yes Status: Acute Qualifiers: Leukocytosis type: bandemia Qualified Code(s): D72.825 - Bandemia Category: Medical Code(s): D72.829 - Elevated white blood cell count, unspecified (3) Nasal fracture Current visit: Yes Status: Acute Qualifiers: Encounter type: initial encounter Fracture type: closed Qualified Code(s) : S02.2XXA - Fracture of nasal bones, initial encounter for closed fracture Category: Medical Code(s): S02.2XXA - Fracture of nasal bones, initial encounter for closed fracture - Assessment and plan all Dx Assessment and Plan for all problems:: continue current care, await ENT input.
[2018-01-27 09:24] LABS: Basophils # 0.4 K/mm3 (0-0.2); Basophils % 1.3 % (0.1-2.0); Eosinophils # 0.1 K/mm3 (0.0-0.4); Eosinophils % 0.5 % (0.1-12.0); Hematocrit 39.1 % (42.0-52.0); Hemoglobin 12.1 g/dL (14.1-18.0); Lymphocytes # 2.2 K/mm3 (0.7-4.5); Lymphocytes % 7.7 K/mm3 (10-50); Mean Corpuscular HGB Conc 30.9 g/dL (31.8-35.4); Mean Corpuscular Hemoglobin 28.7 pg (27.0-31.2); Mean Corpuscular Volume 92.8 fl (80-94); Mean Platelet Volume 7.5 fl (7.4-10.4); Monocytes # 1.3 K/mm3 (0.1-1.0); Monocytes % 4.4 % (1.7-9.3); Neutrophils # 24.2 K/mm3 (1.8-7.8); Neutrophils % 86.2 % (37.0-80.0); Platelet Count 288 K/mm3 (142-424); Red Blood Count 4.21 M/mm3 (4.60-6.20); Red Cell Distribution Width 15.2 % (11.5-17.5); White Blood Count 28.1 K/mm3 (4.8-10.8)
[2018-01-27 09:29] LABS: INR 2.53 (0.9-1.1); Prothrombin Time 25.4 seconds (9.4-11.8)
[2018-01-27 10:10] LABS: Lymphocytes % 9 % (10-50); Monocytes % 2 % (2-9); Neutrophils % 86 % (42-76); Total Cells Counted 100
[2018-01-27 10:11] LABS: RBC Morphology Normal
--- NOTE | 2018-01-27 18:03 | Consult Report ---
*Admission Date: 01/27/18 *Chief complaint: nasal trauma/epistaxis *History of present illness: Mr. Petersen is a 77yo WM with a history of HTN, OA, ASCVD, CAD with stents, BPH , Afib, and PPM. He was seen at [facility] yesterday for a nose bleed resulting from a nasal fracture following a fall at home. After returning home, he was unable to slow the bleeding and presented to the ED overnight for evaluation. He was treated with cocaine and phenylephrine nasally and nasal tampon was placed. His coumadin was held. He was admitted for monitoring and ENT consultation. This morning, the patient reports continued nasal bleeding overnight. He notes minimal facial discomfort. He has been up to the bathroom and is voiding normally. He denies any chest pain or SOB. Review of Systems - ENT Reports nasal trauma, Reports other - *Neurologic Denies headache(s), Denies seizure-like activity [facility] History Medical History: Reports:: Arrhythmia, Atherosclerotic Heart Disease, Atrial Fibrillation, BPH, Cancer, Coronary Artery Disease, Hyperlipidemia, Hypertension , Internal Pacemaker (11/2017) Denies:: Diabetes Mellitus Type 1, Diabetes Mellitus Type 2, MRSA Other Medical History: Reports: Arthritis Other Surgeries: Yes: Cancer Surgery, Cardiac Catheterization (11/11/17 5 stents) , Colonoscopy, Pacemaker (11/2017), Skin Cancer Excision, Ureter Stent, Other Amputation: No Fractures: No - *Social History Educational Level: Attended High School Smoking Status: Never smoker Tobacco Type: smokeless tobacco #Yrs smoked (if former smoker): 50 Alcohol Intake: never Alcohol Intake Frequency:: a few times a week Occupational Status: retired Housing: house Household Members: spouse - Psychiatric History Expresses thoughts of harming self/others: None Suicide Plan Description: No Plan *Family Hx:: Cancer, Heart Attack Meds Home Medications Medication Instructions Recorded Confirmed Type finasteride 5 mg tablet 5 mg PO HS 09/14/17 01/27/18 History nitroglycerin 0.4 mg sublingual 0.4 mg SUBLINGUAL Q5MINP PRN 09/14/17 01/27/18 History tablet Warfarin Sodium 2.5 mg PO SUTUTHSA 11/11/17 01/27/18 History Warfarin Sodium 5 mg PO MOWEFR 11/11/17 01/27/18 History Amlodipine Besylate [Norvasc 5mg 5 mg PO HS 11/30/17 01/27/18 History tablet] Ticagrelor [Brilinta 90mg Tablet] 90 mg PO BID 11/30/17 01/27/18 History Ubidecarenone [Co Q-10] 200 mg PO DAILY 11/30/17 01/27/18 History carvedilol 25 mg tablet 12.5 mg PO BID tab 01/04/18 01/27/18 History Atorvastatin Calcium [Atorvastatin 20 mg PO MOWEFR 01/27/18 01/27/18 History 20mg Tab] Tamsulosin HCl [Flomax 0.4mg 0.4 mg PO HS 01/27/18 01/27/18 History capsule] Allergies Allergy/AdvReac Type Severity Reaction Status Date / Time No Known Allergies Allergy Verified 11/10/17 23:23 Exam Vital signs and Labs for Last 24 Hours: Temp Pulse Resp BP Pulse Ox 98.5 F 99 H 18 113/57 96 01/27/18 15:33 01/27/18 15:33 01/27/18 15:33 01/27/18 15:33 01/27/18 15:33 Laboratory Results - last 24 hr 01/27/18 00:20: WBC 28.9 H*, RBC 4.87, Hgb 14.0 L, Hct 44.7, MCV 91.8, MCH 28.7 , MCHC 31.2 L, RDW 15.4, Plt Count 268, MPV 7.1 L, Neut % (Auto) 85.7 H, Lymph % (Auto) 8.2 L, [place] % (Auto) 2.7, Eos % (Auto) 1.7, Baso % (Auto) 1.6, Neut # ( Auto) 24.8 H, Lymph # (Auto) 2.4, [place] # (Auto) 0.8, Eos # (Auto) 0.5 H, Baso # (Auto) 0.5 H, Total Counted 100, Neutrophils % (Manual) 80 H, Lymphocytes % ( Manual) 8 L, Monocytes % (Manual) 5, Eosinophils % (Manual) 5 H, Metamyelocytes % 2.0 H, Platelet Estimate Normal, RBC Morphology Normal 01/27/18 00:20: PT 30.8 H, INR 3.09 H 01/27/18 00:20: Sodium 143, Potassium 4.1, Chloride 105, Carbon Dioxide 28, Anion Gap 14.1, BUN 26 H, Creatinine 1.49 H, Estimated Creat Clear 51, Estimated GFR 46 L, Est GFR ( Amer) 56 L, Glucose 117 H, Calcium 9.5 01/27/18 01:34: Lactic Acid 0.9 01/27/18 01:38: Urine Color Yellow, Urine Appearance Clear, Urine pH 6.0, Ur Specific [place] 1.015, Urine Protein Negative, Urine Glucose (UA) Negative, Urine Ketones Trace, Urine Blood Negative, Urine Nitrate Negative, Urine Bilirubin Negative, Urine Urobilinogen 1.0, Ur Leukocyte Esterase Negative, Urine RBC Occasional, Urine WBC 3-5, Ur Squamous Epith Cells 3-5, Urine Bacteria Trace, Urine Sperm 1+ 01/27/18 06:20: WBC 28.0 H*, RBC 4.26 L, Hgb 12.3 L D, Hct 39.9 L, MCV 93.1, MCH 28.8, MCHC 31.0 L, RDW 15.4, Plt Count 253, MPV 7.1 L, Neut % (Auto) 86.1 H , Lymph % (Auto) 7.2 L, [place] % (Auto) 4.2, Eos % (Auto) 0.5, Baso % (Auto) 2.0, Neut # (Auto) 24.5 H, Lymph # (Auto) 2.1, [place] # (Auto) 1.2 H, Eos # (Auto) 0.1 , Baso # (Auto) 0.6 H 01/27/18 06:20: PT 26.8 H, INR 2.68 H 01/27/18 06:20: Sodium 144, Potassium 4.2, Chloride 109 H, Carbon Dioxide 24, Anion Gap 15.2 H, BUN 35 H D, Creatinine 1.21, Estimated Creat Clear 62, Estimated GFR 58 L, Est GFR ( Amer) 71 D, Glucose 115 H, Calcium 8.6 01/27/18 09:10: WBC 28.1 H*, RBC 4.21 L, Hgb 12.1 L, Hct 39.1 L, MCV 92.8, MCH 28.7, MCHC 30.9 L, RDW 15.2, Plt Count 288, MPV 7.5, Neut % (Auto) 86.2 H, Lymph % (Auto) 7.7 L, [place] % (Auto) 4.4, Eos % (Auto) 0.5, Baso % (Auto) 1.3, Neut # (Auto) 24.2 H, Lymph # (Auto) 2.2, [place] # (Auto) 1.3 H, Eos # (Auto) 0.1 , Baso # (Auto) 0.4 H, Total Counted 100, Neutrophils % (Manual) 86 H, Lymphocytes % (Manual) 9 L, Atypical Lymphs % 3.0, Monocytes % (Manual) 2, Platelet Estimate Normal, RBC Morphology Normal 01/27/18 09:10: PT 25.4 H, INR 2.53 H I & O for Last 24 hours: Intake & Output 01/24/18 01/25/18 01/26/18 01/27/18 23:59 23:59 23:59 23:59 Intake Total 1747 / 1747 Output Total 400 / 400 Balance 1347 / 1347 Weight 183 lb 8 oz - *Routine HEENT Exam Comments: This patient was examined at 8:50 AM on January 27 2618 because of persistent and recurrent severe nasal bleeding. He had sustained a fall within the previous 24 hours and it been to the urgent treatment center on at least 2 occasions for treatment as well as to the emergency department before he was admitted. He had uncontrolled bleeding from both nasal fossae well as from the abrasion on the nasal dorsum. He was on Coumadin and his INR done initially after the injury was significantly elevated at 3.9. When I examined him he was having profuse active bleeding from the left nasal fossa and a lesser degree of bleeding from the right nasal fossa. He had anterior and posterior packing done in the left nasal fossa with Surgicel snow and in the anterior middle portion of the right nasal fossa with Surgicel snow. As well the abrasion and laceration on the nasal dorsum was cleansed with antiseptic Bacitracin and ointment was placed on the, and required Surgicel snow to be placed over the abrasions and laceration before the Band-Aid was applied in order to stop the active bleeding. All of the bleeding was brought under control with the treatment that was provided. I also ordered that he stop his Coumadin. Until all of the bleeding was under control. Fisher that need will only be for 24-48 hours. I will leave it up to Dr. Watkins's discretion as to when he restarts the Coumadin. The patient was also given 10 mg of vitamin K subcutaneously in order to control the hemorrhaging. Condition stabilized and when last reviewed approximately 2 hours after the treatment he was started on oral feedings and I advised that he remain in hospital for at least 24 hours. And I advised that I will follow-up and examined him on January 28, 2018. His vitals and general condition was stable during all the treatment procedure. Should note that he does have a severe leukocytosis with his white blood count at 28,000 and I will draw that to Dr. Watkins's attention for treatment. Results - Labs 01/27/18 09:10 01/27/18 06:20 Laboratory Results - last 24 hr 01/27/18 00:20: WBC 28.9 H*, RBC 4.87, Hgb 14.0 L, Hct 44.7, MCV 91.8, MCH 28.7 , MCHC 31.2 L, RDW 15.4, Plt Count 268, MPV 7.1 L, Neut % (Auto) 85.7 H, Lymph % (Auto) 8.2 L, [place] % (Auto) 2.7, Eos % (Auto) 1.7, Baso % (Auto) 1.6, Neut # ( Auto) 24.8 H, Lymph # (Auto) 2.4, [place] # (Auto) 0.8, Eos # (Auto) 0.5 H, Baso # (Auto) 0.5 H, Total Counted 100, Neutrophils % (Manual) 80 H, Lymphocytes % ( Manual) 8 L, Monocytes % (Manual) 5, Eosinophils % (Manual) 5 H, Metamyelocytes % 2.0 H, Platelet Estimate Normal, RBC Morphology Normal 01/27/18 00:20: PT 30.8 H, INR 3.09 H 01/27/18 00:20: Sodium 143, Potassium 4.1, Chloride 105, Carbon Dioxide 28, Anion Gap 14.1, BUN 26 H, Creatinine 1.49 H, Estimated Creat Clear 51, Estimated GFR 46 L, Est GFR ( Amer) 56 L, Glucose 117 H, Calcium 9.5 01/27/18 01:34: Lactic Acid 0.9 01/27/18 01:38: Urine Color Yellow, Urine Appearance Clear, Urine pH 6.0, Ur Specific [place] 1.015, Urine Protein Negative, Urine Glucose (UA) Negative, Urine Ketones Trace, Urine Blood Negative, Urine Nitrate Negative, Urine Bilirubin Negative, Urine Urobilinogen 1.0, Ur Leukocyte Esterase Negative, Urine RBC Occasional, Urine WBC 3-5, Ur Squamous Epith Cells 3-5, Urine Bacteria Trace, Urine Sperm 1+ 01/27/18 06:20: WBC 28.0 H*, RBC 4.26 L, Hgb 12.3 L D, Hct 39.9 L, MCV 93.1, MCH 28.8, MCHC 31.0 L, RDW 15.4, Plt Count 253, MPV 7.1 L, Neut % (Auto) 86.1 H , Lymph % (Auto) 7.2 L, [place] % (Auto) 4.2, Eos % (Auto) 0.5, Baso % (Auto) 2.0, Neut # (Auto) 24.5 H, Lymph # (Auto) 2.1, [place] # (Auto) 1.2 H, Eos # (Auto) 0.1 , Baso # (Auto) 0.6 H 01/27/18 06:20: PT 26.8 H, INR 2.68 H 01/27/18 06:20: Sodium 144, Potassium 4.2, Chloride 109 H, Carbon Dioxide 24, Anion Gap 15.2 H, BUN 35 H D, Creatinine 1.21, Estimated Creat Clear 62, Estimated GFR 58 L, Est GFR ( Amer) 71 D, Glucose 115 H, Calcium 8.6 01/27/18 09:10: WBC 28.1 H*, RBC 4.21 L, Hgb 12.1 L, Hct 39.1 L, MCV 92.8, MCH 28.7, MCHC 30.9 L, RDW 15.2, Plt Count 288, MPV 7.5, Neut % (Auto) 86.2 H, Lymph % (Auto) 7.7 L, [place] % (Auto) 4.4, Eos % (Auto) 0.5, Baso % (Auto) 1.3, Neut # (Auto) 24.2 H, Lymph # (Auto) 2.2, [place] # (Auto) 1.3 H, Eos # (Auto) 0.1 , Baso # (Auto) 0.4 H, Total Counted 100, Neutrophils % (Manual) 86 H, Lymphocytes % (Manual) 9 L, Atypical Lymphs % 3.0, Monocytes % (Manual) 2, Platelet Estimate Normal, RBC Morphology Normal 01/27/18 09:10: PT 25.4 H, INR 2.53 H Assessment and Plan (1) Epistaxis Current visit: Yes Status: Acute Category: Medical Code(s): R04.0 - Epistaxis (2) Leukocytosis Current visit: Yes Status: Acute Qualifiers: Leukocytosis type: bandemia Qualified Code(s): D72.825 - Bandemia Category: Medical Code(s): D72.829 - Elevated white blood cell count, unspecified (3) Nasal fracture Current visit: Yes Status: Acute Qualifiers: Encounter type: initial encounter Fracture type: closed Qualified Code(s) : S02.2XXA - Fracture of nasal bones, initial encounter for closed fracture Category: Medical Code(s): S02.2XXA - Fracture of nasal bones, initial encounter for closed fracture
--- NOTE | 2018-01-28 08:23 | Progress Note ---
Internal Medicine - PN: Subj *Date: 01/28/18 *Time: 08:27 Interval history: Pt is sitting up in bed, reports that he rested very well overnight and tolerated breakfast without difficulty this morning. He notes a scant amount of continued nasal bleeding and denies any pain this morning. He has been up to the bathroom and is voiding normally. He is asking if he will be discharged today. Nursing has initiated sepsis protocol due to preliminary blood culture being positive for staphylococcus. Exam Vital signs and Labs for Last 24 Hours: Temp Pulse Resp BP Pulse Ox 98.0 F 89 18 131/89 95 01/28/18 08:00 01/28/18 08:00 01/28/18 08:00 01/28/18 08:00 01/28/18 08:00 Laboratory Results - last 24 hr 01/27/18 09:10: WBC 28.1 H*, RBC 4.21 L, Hgb 12.1 L, Hct 39.1 L, MCV 92.8, MCH 28.7, MCHC 30.9 L, RDW 15.2, Plt Count 288, MPV 7.5, Neut % (Auto) 86.2 H, Lymph % (Auto) 7.7 L, [place] % (Auto) 4.4, Eos % (Auto) 0.5, Baso % (Auto) 1.3, Neut # (Auto) 24.2 H, Lymph # (Auto) 2.2, [place] # (Auto) 1.3 H, Eos # (Auto) 0.1 , Baso # (Auto) 0.4 H, Total Counted 100, Neutrophils % (Manual) 86 H, Lymphocytes % (Manual) 9 L, Atypical Lymphs % 3.0, Monocytes % (Manual) 2, Platelet Estimate Normal, RBC Morphology Normal 01/27/18 09:10: PT 25.4 H, INR 2.53 H I & O for Last 24 hours: Intake & Output 01/25/18 01/26/18 01/27/18 01/28/18 11:59 11:59 11:59 11:59 Intake Total 1627 / 1627 840 / 840 Output Total 400 / 400 Balance 1227 / 1227 840 / 840 Weight 183 lb 8 oz Microbiology Reports for the Last 24 Hours: Microbiology 01/27/18 01:34 Blood Blood Culture - Preliminary Staphylococcus - Constitutional no acute distress - *Routine HEENT Exam Head: Present: normocephalic, facial swelling ENT: Present: mucous membranes moist Comments: bilateral periorbital and nasal ecchymosis with no current active bleeding - *Routine Respiratory Exam Comments: coarse breath sounds bilaterally with few expiratory wheezes - *Routine Cardiovascular Exam Present: irregular rhythm - *Routine Abdominal Exam Present: soft, normoactive bowel sounds. Absent: tenderness, distended, rebound , guarding, organomegaly, mass - *Routine Extremities Exam Present: full ROM, pulses intact. Absent: edema, calf tenderness - *Routine Neurological Exam Present: alert, oriented X3, normal speech Assessment and Plan (1) Epistaxis Current visit: Yes Status: Acute Category: Medical Code(s): R04.0 - Epistaxis (2) Leukocytosis Current visit: Yes Status: Acute Qualifiers: Leukocytosis type: bandemia Qualified Code(s): D72.825 - Bandemia Category: Medical Code(s): D72.829 - Elevated white blood cell count, unspecified (3) Nasal fracture Current visit: Yes Status: Acute Qualifiers: Encounter type: initial encounter Fracture type: closed Qualified Code(s) : S02.2XXA - Fracture of nasal bones, initial encounter for closed fracture Category: Medical Code(s): S02.2XXA - Fracture of nasal bones, initial encounter for closed fracture (4) Bacteremia due to Staphylococcus Current visit: Yes Status: Acute Category: Medical Code(s): R78.81 - Bacteremia - Assessment and plan all Dx Assessment and Plan for all problems:: ENT note seen and appreciated. Further orders per Dr. Watkins.
--- NOTE | 2018-01-28 08:55 | Pharmacy Consult Notes ---
- Pharmacy Consult Date: 01/28/18 Time: 08:53 Referring provider: DR. SRINIVASAN Reason for Consult:: VANCOMYCIN DOSING Allergies and ADEs:: Allergies Allergy/AdvReac Type Severity Reaction Status Date / Time No Known Allergies Allergy Verified 11/10/17 23:23 Home Medications:: Home Medications Medication Instructions Recorded Confirmed Type finasteride 5 mg tablet 5 mg PO HS 09/14/17 01/27/18 History nitroglycerin 0.4 mg sublingual 0.4 mg SUBLINGUAL Q5MINP PRN 09/14/17 01/27/18 History tablet Warfarin Sodium 2.5 mg PO SUTUTHSA 11/11/17 01/27/18 History Warfarin Sodium 5 mg PO MOWEFR 11/11/17 01/27/18 History Amlodipine Besylate [Norvasc 5mg 5 mg PO HS 11/30/17 01/27/18 History tablet] Ticagrelor [Brilinta 90mg Tablet] 90 mg PO BID 11/30/17 01/27/18 History Ubidecarenone [Co Q-10] 200 mg PO DAILY 11/30/17 01/27/18 History carvedilol 25 mg tablet 12.5 mg PO BID tab 01/04/18 01/27/18 History Atorvastatin Calcium [Atorvastatin 20 mg PO MOWEFR 01/27/18 01/27/18 History 20mg Tab] Tamsulosin HCl [Flomax 0.4mg 0.4 mg PO HS 01/27/18 01/27/18 History capsule] Height: 1.83 m Weight: 83.234 kg Laboratory Results:: Laboratory Results - last 24 hr 01/27/18 09:10: WBC 28.1 H*, RBC 4.21 L, Hgb 12.1 L, Hct 39.1 L, MCV 92.8, MCH 28.7, MCHC 30.9 L, RDW 15.2, Plt Count 288, MPV 7.5, Neut % (Auto) 86.2 H, Lymph % (Auto) 7.7 L, [place] % (Auto) 4.4, Eos % (Auto) 0.5, Baso % (Auto) 1.3, Neut # (Auto) 24.2 H, Lymph # (Auto) 2.2, [place] # (Auto) 1.3 H, Eos # (Auto) 0.1 , Baso # (Auto) 0.4 H, Total Counted 100, Neutrophils % (Manual) 86 H, Lymphocytes % (Manual) 9 L, Atypical Lymphs % 3.0, Monocytes % (Manual) 2, Platelet Estimate Normal, RBC Morphology Normal 01/27/18 09:10: PT 25.4 H, INR 2.53 H Medical History: Reports:: Arrhythmia, Atherosclerotic Heart Disease, Atrial Fibrillation, BPH, Cancer, Coronary Artery Disease, Hyperlipidemia, Hypertension , Internal Pacemaker (11/2017) Denies:: Diabetes Mellitus Type 1, Diabetes Mellitus Type 2, MRSA Assessment and Plan (1) Epistaxis Current visit: Yes Status: Acute Category: Medical Code(s): R04.0 - Epistaxis (2) Leukocytosis Current visit: Yes Status: Acute Qualifiers: Leukocytosis type: bandemia Qualified Code(s): D72.825 - Bandemia Category: Medical Code(s): D72.829 - Elevated white blood cell count, unspecified (3) Nasal fracture Current visit: Yes Status: Acute Qualifiers: Encounter type: initial encounter Fracture type: closed Qualified Code(s) : S02.2XXA - Fracture of nasal bones, initial encounter for closed fracture Category: Medical Code(s): S02.2XXA - Fracture of nasal bones, initial encounter for closed fracture (4) Bacteremia due to Staphylococcus Current visit: Yes Status: Acute Category: Medical Code(s): R78.81 - Bacteremia - Assessment and plan all Dx Assessment and Plan for all problems:: BASED ON PATIENT FACTORS, RECOMMEND INITIATING VANCOMYCIN IV 1,750MG Q24H FOR BLOODSTREAM INFECTION. PHARMACY WILL OBTAIN A TROUGH LEVEL PRIOR TO THE FOURTH DOSE AND WILL ADJUST DOSE APPROPRIATE. -SOLANGE MARTÍNEZD
[2018-01-28 09:19] LABS: Basophils # 0.4 K/mm3 (0-0.2); Basophils % 2.4 % (0.1-2.0); Eosinophils # 0.2 K/mm3 (0.0-0.4); Eosinophils % 1.3 % (0.1-12.0); Lymphocytes # 2.2 K/mm3 (0.7-4.5); Lymphocytes % 11.8 K/mm3 (10-50); Mean Corpuscular HGB Conc 31.5 g/dL (31.8-35.4); Mean Corpuscular Hemoglobin 29.6 pg (27.0-31.2); Mean Platelet Volume 7.7 fl (7.4-10.4); Monocytes # 0.8 K/mm3 (0.1-1.0); Monocytes % 4.4 % (1.7-9.3); Neutrophils # 14.6 K/mm3 (1.8-7.8); Neutrophils % 80.2 % (37.0-80.0); Red Blood Count 3.25 M/mm3 (4.60-6.20); Red Cell Distribution Width 15.4 % (11.5-17.5); White Blood Count 18.2 K/mm3 (4.8-10.8)
[2018-01-28 09:21] LABS: Anion Gap 9.5 mEq/L (5-15); Calcium 8.2 mg/dL (8.5-10.1); Potassium 3.5 mmoL/L (3.5-5.1)
--- NOTE | 2018-01-28 09:49 | Consult Report ---
History of Present Illness Consult date: 01/28/18 Requesting physician: Shubham Watkins Chief complaint: nose bleeding Additional Medical History:: 1. Atrial fibrillation, chronic A. Chronic Coumadin therapy 2. Coronary artery disease involving [place] coronary artery with [place] heart without angina pectoris. A. Anterior ST elevation myocardial infarction (STEMI), 11/11/2017. 1. Left heart catheterization on 11/11/[address] elevation myocardial infarction. Successful stenting of the proximal and mid LAD critical disease reduce to 0% with 3 drug eluting stents, one drug-eluting stent placed to ramus and one drug-eluting stent placed to dominant RCA. Ejection fraction estimated at 30-35% with left ventricular end-diastolic pressure at 25 mmHg. 3. Hypertension A. Echo, 10/2017, EF 40% with moderate MR/TR B. Echo, 11/2017, EF 50% with mod-severe MR/TR and mild AR C. Renal duplex, 11/25/17, normal 4. Syncope, 11/30/[address] [place] ICD implanted 5. Hyperlipidemia History of present illness: Mr. Petersen is a 77yo WM with a history of HTN, OA, ASCVD, CAD with stents, BPH , Afib, and AICD. He was seen at [facility] [place] for a nose bleed resulting from a nasal fracture following a fall at home. After returning home, he was unable to slow the bleeding and presented to the ED overnight for evaluation. He was treated with cocaine and phenylephrine nasally and nasal tampon was placed. His coumadin was held. He was admitted for monitoring and ENT consultation. The patient reports continued nasal bleeding overnight requiring additional treatment yesterday. He notes minimal facial discomfort. He has been up to the bathroom and is voiding normally. He denies any chest pain or SOB. The above per Rosamaria Perez APRN for Dr. Watkins. Cardiology asked to see the patient for recommendations on medications. Patient denies any chest pain, chest pressure or tightness with activity recently. He denies any significant change in shortness of breath with activity. He denies blacking out or passing out as a source for his recent fall. He states his feet got tangled up and he fell. [facility] History Medical History: Reports:: Arrhythmia, Atherosclerotic Heart Disease, Atrial Fibrillation, BPH, Cancer, Coronary Artery Disease, Hyperlipidemia, Hypertension , Internal Pacemaker (11/2017) Denies:: Diabetes Mellitus Type 1, Diabetes Mellitus Type 2, MRSA Other Medical History: Reports: Arthritis Other Surgeries: Yes: Cancer Surgery, Cardiac Catheterization (11/11/17 5 stents) , Colonoscopy, Pacemaker (11/2017), Skin Cancer Excision, Ureter Stent, Other Amputation: No Fractures: No - *Social History Educational Level: Attended High School Smoking Status: Never smoker Tobacco Type: smokeless tobacco #Yrs smoked (if former smoker): 50 Alcohol Intake: never Alcohol Intake Frequency:: a few times a week Occupational Status: retired Housing: house Household Members: spouse - Psychiatric History Expresses thoughts of harming self/others: None Suicide Plan Description: No Plan *Family Hx:: Cancer, Heart Attack Meds Home Medications Medication Instructions Recorded Confirmed Type finasteride 5 mg tablet 5 mg PO HS 09/14/17 01/27/18 History nitroglycerin 0.4 mg sublingual 0.4 mg SUBLINGUAL Q5MINP PRN 09/14/17 01/27/18 History tablet Warfarin Sodium 2.5 mg PO SUTUTHSA 11/11/17 01/27/18 History Warfarin Sodium 5 mg PO MOWEFR 11/11/17 01/27/18 History Amlodipine Besylate [Norvasc 5mg 5 mg PO HS 11/30/17 01/27/18 History tablet] Ticagrelor [Brilinta 90mg Tablet] 90 mg PO BID 11/30/17 01/27/18 History Ubidecarenone [Co Q-10] 200 mg PO DAILY 11/30/17 01/27/18 History carvedilol 25 mg tablet 12.5 mg PO BID tab 01/04/18 01/27/18 History Atorvastatin Calcium [Atorvastatin 20 mg PO MOWEFR 01/27/18 01/27/18 History 20mg Tab] Tamsulosin HCl [Flomax 0.4mg 0.4 mg PO HS 01/27/18 01/27/18 History capsule] Allergies Allergy/AdvReac Type Severity Reaction Status Date / Time No Known Allergies Allergy Verified 11/10/17 23:23 Review of Systems - *Cardiovascular Denies chest pain, Denies shortness of breath - *Respiratory Denies cough - *Gastrointestinal Denies abdominal pain - *Musculoskeletal Reports joint pain - *Neurologic Denies headache(s), Denies seizure-like activity Exam Vital signs and Labs for Last 24 Hours: Temp Pulse Resp BP Pulse Ox 98.0 F 89 18 131/89 95 01/28/18 08:00 01/28/18 08:00 01/28/18 08:00 01/28/18 08:00 01/28/18 08:00 Laboratory Results - last 24 hr 01/27/18 09:10: Total Counted 100, Neutrophils % (Manual) 86 H, Lymphocytes % ( Manual) 9 L, Atypical Lymphs % 3.0, Monocytes % (Manual) 2, Platelet Estimate Normal, RBC Morphology Normal 01/28/18 09:00: Sodium 146 H, Potassium 3.5, Chloride 114 H, Carbon Dioxide 26, Anion Gap 9.5, BUN 29 H, Creatinine 1.09, Estimated Creat Clear 69, Estimated GFR 66, Est GFR ( Amer) 80, Glucose 112 H, Calcium 8.2 L I & O for Last 24 hours: Intake & Output 01/25/18 01/26/18 01/27/18 01/28/18 11:59 11:59 11:59 11:59 Intake Total 1627 / 1627 840 / 840 Output Total 400 / 400 Balance 1227 / 1227 840 / 840 Weight 183 lb 8 oz 183 lb 8 oz Microbiology Reports for the Last 24 Hours: Microbiology 01/27/18 01:34 Blood Blood Culture - Preliminary - *Routine HEENT Exam Comments: Hematoma/bruising under both eyes with dressing over the nasal bridge. - *Routine Neck Exam Absent: JVD, carotid bruit - *Routine Respiratory Exam Present: CTA bilaterally - *Routine Cardiovascular Exam Present: irregular rhythm - *Routine Extremities Exam Absent: edema - *Routine Neurological Exam Present: alert, oriented X3, moving all extremities Assessment and Plan (1) Epistaxis Current visit: Yes Status: Acute Category: Medical Code(s): R04.0 - Epistaxis (2) Leukocytosis Current visit: Yes Status: Acute Qualifiers: Leukocytosis type: bandemia Qualified Code(s): D72.825 - Bandemia Category: Medical Code(s): D72.829 - Elevated white blood cell count, unspecified (3) Nasal fracture Current visit: Yes Status: Acute Qualifiers: Encounter type: initial encounter Fracture type: closed Qualified Code(s) : S02.2XXA - Fracture of nasal bones, initial encounter for closed fracture Category: Medical Code(s): S02.2XXA - Fracture of nasal bones, initial encounter for closed fracture (4) Bacteremia due to Staphylococcus Current visit: Yes Status: Acute Category: Medical Code(s): R78.81 - Bacteremia (5) Automatic implantable cardioverter-defibrillator in situ Current visit: No Status: Acute Category: Medical Code(s): Z95.810 - Presence of automatic (implantable) cardiac defibrillator (6) A-fib Current visit: No Status: Chronic Qualifiers: Atrial fibrillation type: chronic Qualified Code(s): I48.2 - Chronic atrial fibrillation Category: Medical Code(s): I48.91 - Unspecified atrial fibrillation (7) CAD (coronary artery disease) Current visit: No Status: Chronic Qualifiers: Coronary Disease-Associated Artery/Lesion type: [place] artery [place] vs. transplanted heart: [place] heart Associated angina: without angina Qualified Code(s): I25.10 - Atherosclerotic heart disease of [place] coronary artery without angina pectoris Category: Medical Code(s): I25.10 - Atherosclerotic heart disease of [place] coronary artery without angina pectoris (8) HTN (hypertension) Current visit: No Status: Chronic Qualifiers: Hypertension type: essential hypertension Qualified Code(s): I10 - Essential (primary) hypertension Category: Medical Code(s): I10 - Essential (primary) hypertension (9) Status post coronary artery stent placement Current visit: No Status: Chronic Category: Surgical Code(s): Z95.5 - Presence of coronary angioplasty implant and graft - Assessment and plan all Dx Assessment and Plan for all problems:: 1. Add digoxin 0.125 mg daily for rate control 2. Due to recent anterior STEMI, and multivessel stenting, patient must remain on antiplatelet therapy for at least one year. We will switch his Brilinta to Plavix 75 mg daily without aspirin due to concomitant use of Coumadin therapy for atrial fibrillation. 3. Due to nonsustained ventricular tachycardia and chronic A. fib with some rapid Ventricular rates noted on AICD interrogation today, will discontinue Coreg and switch to bisoprolol 5 mg daily, and titrate up as able, which should give better arrhythmia coverage with less blood pressure effect. Norvasc could be reduced or discontinued as needed to allow more beta-saritha therapy for the nonsustained ventricular tachycardia. 4. Discussed with Dr. Anthony
[2018-01-28 09:57] LABS: Hematocrit 30.5 % (42.0-52.0); Hemoglobin 9.6 g/dL (14.1-18.0); Platelet Count 208 K/mm3 (142-424)
[2018-01-28 11:32] LABS: Lymphocytes % 9 % (10-50); Monocytes % 10 % (2-9); Neutrophils % 81 % (42-76); RBC Morphology Normal; Total Cells Counted 68
[2018-01-29 09:47] LABS: Basophils # 0.5 K/mm3 (0-0.2); Basophils % 2.6 % (0.1-2.0); Eosinophils # 0.5 K/mm3 (0.0-0.4); Eosinophils % 2.6 % (0.1-12.0); Hematocrit 29.8 % (42.0-52.0); Hemoglobin 9.3 g/dL (14.1-18.0); Lymphocytes # 2.6 K/mm3 (0.7-4.5); Lymphocytes % 13.2 K/mm3 (10-50); Mean Corpuscular HGB Conc 31.2 g/dL (31.8-35.4); Mean Corpuscular Volume 92.7 fl (80-94); Mean Platelet Volume 7.4 fl (7.4-10.4); Monocytes # 0.9 K/mm3 (0.1-1.0); Monocytes % 4.5 % (1.7-9.3); Neutrophils # 15.2 K/mm3 (1.8-7.8); Neutrophils % 77.1 % (37.0-80.0); Platelet Count 202 K/mm3 (142-424); Red Blood Count 3.22 M/mm3 (4.60-6.20); Red Cell Distribution Width 15.7 % (11.5-17.5); White Blood Count 19.7 K/mm3 (4.8-10.8)
[2018-01-29 09:50] LABS: Anion Gap 9.5 mEq/L (5-15); Calcium 8.7 mg/dL (8.5-10.1); Potassium 3.5 mmoL/L (3.5-5.1)
[2018-01-29 11:44] LABS: Eosinophils % 5 % (0-3); Lymphocytes % 14 % (10-50); Monocytes % 10 % (2-9); Neutrophils % 67 % (42-76); Total Cells Counted 100
[2018-01-29 11:46] LABS: RBC Morphology Normal
--- NOTE | 2018-01-29 13:47 | Progress Note ---
Internal Medicine - PN: Subj *Date: 01/29/18 *Time: 14:11 Interval history: He is anxious to be discharged to home. His H&H shows further decline, perhaps equilibrating. His nasal airways are improved in patency, along with less facial edema and improvement in eccymoses. The cardiology note is appreciated. Digoxin has been added to control rate and carvedilol switched to Bisoprolol. Cardilogy suggests trans fusion if Hgb drops below 9 due to recent stenting and cardiomyopathy. The patient c/o ankle pain and swelling secondary to his fall, but does not want an x-ray. Exam Vital signs and Labs for Last 24 Hours: Temp Pulse Resp BP Pulse Ox 98.1 F 88 20 121/79 97 01/29/18 07:11 01/29/18 08:01 01/29/18 07:11 01/29/18 07:11 01/29/18 07:53 Laboratory Results - last 24 hr 01/29/18 09:29: WBC 19.7 H, RBC 3.22 L, Hgb 9.3 L, Hct 29.8 L, MCV 92.7, MCH 29.0, MCHC 31.2 L, RDW 15.7, Plt Count 202, MPV 7.4, Neut % (Auto) 77.1, Lymph % (Auto) 13.2, [place] % (Auto) 4.5, Eos % (Auto) 2.6, Baso % (Auto) 2.6 H, Neut # (Auto) 15.2 H, Lymph # (Auto) 2.6, [place] # (Auto) 0.9, Eos # (Auto) 0.5 H, Baso # (Auto) 0.5 H, Total Counted 100, Neutrophils % (Manual) 67, Lymphocytes % ( Manual) 14, Monocytes % (Manual) 10 H, Eosinophils % (Manual) 5 H, Basophils % ( Manual) 1.0, Metamyelocytes % 3.0 H, Platelet Estimate Normal, RBC Morphology Normal 01/29/18 09:29: Sodium 144, Potassium 3.5, Chloride 111 H, Carbon Dioxide 27, Anion Gap 9.5, BUN 18 D, Creatinine 1.19, Estimated Creat Clear 63, Estimated GFR 60, Est GFR ( Amer) 72, Glucose 113 H, Calcium 8.7 I & O for Last 24 hours: Intake & Output 01/27/18 01/28/18 01/29/18 01/30/18 11:59 11:59 11:59 11:59 Intake Total 1627 / 1627 840 / 840 480 / 480 Output Total 400 / 400 1312 / 1312 Balance 1227 / 1227 840 / 840 -832 / -832 Weight 183 lb 8 oz 185 lb 14.4 oz 184 lb 4 oz Microbiology Reports for the Last 24 Hours: Microbiology 01/27/18 01:34 Blood Blood Culture - Preliminary NO GROWTH AFTER 48 HOURS - Constitutional no acute distress - *Routine HEENT Exam Comments: Improved as described above. - *Routine Respiratory Exam Present: CTA bilaterally - *Routine Cardiovascular Exam Present: RRR - *Routine Abdominal Exam Present: soft - *Routine Extremities Exam Comments: Some edema at lateral malleolus Assessment and Plan (1) Epistaxis Current visit: Yes Status: Acute Category: Medical Code(s): R04.0 - Epistaxis (2) Leukocytosis Current visit: Yes Status: Acute Qualifiers: Leukocytosis type: bandemia Qualified Code(s): D72.825 - Bandemia Category: Medical Code(s): D72.829 - Elevated white blood cell count, unspecified (3) Nasal fracture Current visit: Yes Status: Acute Qualifiers: Encounter type: initial encounter Fracture type: closed Qualified Code(s) : S02.2XXA - Fracture of nasal bones, initial encounter for closed fracture Category: Medical Code(s): S02.2XXA - Fracture of nasal bones, initial encounter for closed fracture (4) Bacteremia due to Staphylococcus Current visit: Yes Status: Acute Category: Medical Code(s): R78.81 - Bacteremia (5) Automatic implantable cardioverter-defibrillator in situ Current visit: No Status: Acute Category: Medical Code(s): Z95.810 - Presence of automatic (implantable) cardiac defibrillator (6) A-fib Current visit: No Status: Chronic Qualifiers: Atrial fibrillation type: chronic Qualified Code(s): I48.2 - Chronic atrial fibrillation Category: Medical Code(s): I48.91 - Unspecified atrial fibrillation (7) CAD (coronary artery disease) Current visit: No Status: Chronic Qualifiers: Coronary Disease-Associated Artery/Lesion type: [place] artery [place] vs. transplanted heart: [place] heart Associated angina: without angina Qualified Code(s): I25.10 - Atherosclerotic heart disease of [place] coronary artery without angina pectoris Category: Medical Code(s): I25.10 - Atherosclerotic heart disease of [place] coronary artery without angina pectoris (8) HTN (hypertension) Current visit: No Status: Chronic Qualifiers: Hypertension type: essential hypertension Qualified Code(s): I10 - Essential (primary) hypertension Category: Medical Code(s): I10 - Essential (primary) hypertension (9) Status post coronary artery stent placement Current visit: No Status: Chronic Category: Surgical Code(s): Z95.5 - Presence of coronary angioplasty implant and graft (10) Anemia due to acute blood loss Current visit: Yes Status: Acute Category: Medical Code(s): D62 - Acute posthemorrhagic anemia - Assessment and plan all Dx Assessment and Plan for all problems:: 1 unit of packed red blood cells will be transfused. Patient needs additional IV antibiotics. He needs to be up in the room to check stability.
[2018-01-29 19:34] LABS: Hematocrit 29.5 % (42.0-52.0); Hemoglobin 10.4 g/dL (14.1-18.0)
[2018-01-30 06:52] LABS: Basophils # 0.4 K/mm3 (0-0.2); Eosinophils # 0.7 K/mm3 (0.0-0.4); Eosinophils % 3.7 % (0.1-12.0); Hemoglobin 9.5 g/dL (14.1-18.0); Lymphocytes # 2.5 K/mm3 (0.7-4.5); Lymphocytes % 14.1 K/mm3 (10-50); Mean Corpuscular HGB Conc 32.1 g/dL (31.8-35.4); Mean Corpuscular Hemoglobin 29.6 pg (27.0-31.2); Mean Platelet Volume 7.4 fl (7.4-10.4); Monocytes # 0.9 K/mm3 (0.1-1.0); Monocytes % 4.9 % (1.7-9.3); Neutrophils # 13.4 K/mm3 (1.8-7.8); Neutrophils % 75.3 % (37.0-80.0); Platelet Count 196 K/mm3 (142-424); Red Blood Count 3.22 M/mm3 (4.60-6.20); White Blood Count 17.7 K/mm3 (4.8-10.8)
[2018-01-30 07:00] LABS: Hematocrit 29.6 % (42.0-52.0)
[2018-01-30 07:11] LABS: Eosinophils % 6 % (0-3); Hypochromasia 2+; Lymphocytes % 24 % (10-50); Monocytes % 2 % (2-9); Neutrophils % 67 % (42-76); Polychromasia 1+; Rouleaux 1+; Total Cells Counted 100
--- NOTE | 2018-01-30 09:49 | Progress Note ---
Internal Medicine - PN: Subj *Date: 01/30/18 *Time: 09:49 Exam Vital signs and Labs for Last 24 Hours: Temp Pulse Resp BP Pulse Ox 97.8 F 70 18 128/81 96 01/30/18 07:39 01/30/18 08:23 01/30/18 07:39 01/30/18 07:39 01/30/18 07:39 Laboratory Results - last 24 hr 01/29/18 09:29: WBC 19.7 H, RBC 3.22 L, Hgb 9.3 L, Hct 29.8 L, MCV 92.7, MCH 29.0, MCHC 31.2 L, RDW 15.7, Plt Count 202, MPV 7.4, Neut % (Auto) 77.1, Lymph % (Auto) 13.2, [place] % (Auto) 4.5, Eos % (Auto) 2.6, Baso % (Auto) 2.6 H, Neut # (Auto) 15.2 H, Lymph # (Auto) 2.6, [place] # (Auto) 0.9, Eos # (Auto) 0.5 H, Baso # (Auto) 0.5 H, Total Counted 100, Neutrophils % (Manual) 67, Lymphocytes % ( Manual) 14, Monocytes % (Manual) 10 H, Eosinophils % (Manual) 5 H, Basophils % ( Manual) 1.0, Metamyelocytes % 3.0 H, Platelet Estimate Normal, RBC Morphology Normal 01/29/18 09:29: Sodium 144, Potassium 3.5, Chloride 111 H, Carbon Dioxide 27, Anion Gap 9.5, BUN 18 D, Creatinine 1.19, Estimated Creat Clear 63, Estimated GFR 60, Est GFR ( Amer) 72, Glucose 113 H, Calcium 8.7 01/29/18 14:28: Blood Type O Positive, Antibody Screen Negative, Crossmatch ([facility] ) See Detail 01/29/18 14:55: Blood Type Confirm O Positive 01/29/18 19:20: Hgb 10.4 L D, Hct 29.5 L 01/30/18 06:22: WBC 17.7 H, RBC 3.22 L, Hgb 9.5 L, Hct 29.6 L, MCV 92.0, MCH 29.6, MCHC 32.1, RDW 16.0, Plt Count 196, MPV 7.4, Neut % (Auto) 75.3, Lymph % ( Auto) 14.1, [place] % (Auto) 4.9, Eos % (Auto) 3.7, Baso % (Auto) 2.0, Neut # (Auto ) 13.4 H, Lymph # (Auto) 2.5, [place] # (Auto) 0.9, Eos # (Auto) 0.7 H, Baso # ( Auto) 0.4 H, Total Counted 100, Neutrophils % (Manual) 67, Lymphocytes % (Manual ) 24, Monocytes % (Manual) 2, Eosinophils % (Manual) 6 H, Basophils % (Manual) 1.0, Platelet Estimate Normal, Polychromasia 1+, Hypochromasia 2+, [place]le[place] 1+ I & O for Last 24 hours: Intake & Output 01/27/18 01/28/18 01/29/18 01/30/18 23:59 23:59 23:59 23:59 Intake Total 1747 / 1747 1200 / 1200 2030 / 2030 1204 / 1204 Output Total 400 / 400 412 / 412 2250 / 2250 1100 / 1100 Balance 1347 / 1347 788 / 788 -220 / -220 104 / 104 Weight 83.234 kg 84.323 kg 83.574 kg 85.077 kg Microbiology Reports for the Last 24 Hours: Microbiology 01/27/18 01:34 Blood Blood Culture - Final Staphylococcus capitis Assessment and Plan (1) Epistaxis Current visit: Yes Status: Acute Category: Medical Code(s): R04.0 - Epistaxis (2) Leukocytosis Current visit: Yes Status: Acute Qualifiers: Leukocytosis type: bandemia Qualified Code(s): D72.825 - Bandemia Category: Medical Code(s): D72.829 - Elevated white blood cell count, unspecified (3) Nasal fracture Current visit: Yes Status: Acute Qualifiers: Encounter type: initial encounter Fracture type: closed Qualified Code(s) : S02.2XXA - Fracture of nasal bones, initial encounter for closed fracture Category: Medical Code(s): S02.2XXA - Fracture of nasal bones, initial encounter for closed fracture (4) Bacteremia due to Staphylococcus Current visit: Yes Status: Acute Category: Medical Code(s): R78.81 - Bacteremia (5) Automatic implantable cardioverter-defibrillator in situ Current visit: No Status: Acute Category: Medical Code(s): Z95.810 - Presence of automatic (implantable) cardiac defibrillator (6) A-fib Current visit: No Status: Chronic Qualifiers: Atrial fibrillation type: chronic Qualified Code(s): I48.2 - Chronic atrial fibrillation Category: Medical Code(s): I48.91 - Unspecified atrial fibrillation (7) CAD (coronary artery disease) Current visit: No Status: Chronic Qualifiers: Coronary Disease-Associated Artery/Lesion type: [place] artery [place] vs. transplanted heart: [place] heart Associated angina: without angina Qualified Code(s): I25.10 - Atherosclerotic heart disease of [place] coronary artery without angina pectoris Category: Medical Code(s): I25.10 - Atherosclerotic heart disease of [place] coronary artery without angina pectoris (8) HTN (hypertension) Current visit: No Status: Chronic Qualifiers: Hypertension type: essential hypertension Qualified Code(s): I10 - Essential (primary) hypertension Category: Medical Code(s): I10 - Essential (primary) hypertension (9) Status post coronary artery stent placement Current visit: No Status: Chronic Category: Surgical Code(s): Z95.5 - Presence of coronary angioplasty implant and graft (10) Anemia due to acute blood loss Current visit: Yes Status: Acute Category: Medical Code(s): D62 - Acute posthemorrhagic anemia The patient's infection will respond to the chosen ABx?: Yes Is the patient receiving the right drug, dose, and route?: Yes Could a more targeted ABx be ordered?: No
--- NOTE | 2018-01-30 13:52 | Progress Note ---
Internal Medicine - PN: Subj *Date: 01/30/18 *Time: 13:49 Interval history: The patient received 1 unit of packed red blood cells transfused last evening. He remained stable overnight. His hemoglobin went from 9.3-10.4 after transfusion. This morning his hemoglobin is 9.5. His vital signs are stable. He is anxious for discharge. Exam Vital signs and Labs for Last 24 Hours: Temp Pulse Resp BP Pulse Ox 97.8 F 70 18 128/81 96 01/30/18 07:39 01/30/18 08:23 01/30/18 07:39 01/30/18 07:39 01/30/18 07:39 Laboratory Results - last 24 hr 01/29/18 14:28: Blood Type O Positive, Antibody Screen Negative, Crossmatch ([facility] ) See Detail 01/29/18 14:55: Blood Type Confirm O Positive 01/29/18 19:20: Hgb 10.4 L D, Hct 29.5 L 01/30/18 06:22: WBC 17.7 H, RBC 3.22 L, Hgb 9.5 L, Hct 29.6 L, MCV 92.0, MCH 29.6, MCHC 32.1, RDW 16.0, Plt Count 196, MPV 7.4, Neut % (Auto) 75.3, Lymph % ( Auto) 14.1, [place] % (Auto) 4.9, Eos % (Auto) 3.7, Baso % (Auto) 2.0, Neut # (Auto ) 13.4 H, Lymph # (Auto) 2.5, [place] # (Auto) 0.9, Eos # (Auto) 0.7 H, Baso # ( Auto) 0.4 H, Total Counted 100, Neutrophils % (Manual) 67, Lymphocytes % (Manual ) 24, Monocytes % (Manual) 2, Eosinophils % (Manual) 6 H, Basophils % (Manual) 1.0, Platelet Estimate Normal, Polychromasia 1+, Hypochromasia 2+, [place]le[place] 1+ I & O for Last 24 hours: Intake & Output 01/28/18 01/29/18 01/30/18 01/31/18 11:59 11:59 11:59 11:59 Intake Total 840 / 840 480 / 480 3234 / 3234 Output Total 1312 / 1312 2450 / 2450 Balance 840 / 840 -832 / -832 784 / 784 Weight 185 lb 14.4 oz 184 lb 4 oz 187 lb 9 oz Microbiology Reports for the Last 24 Hours: Microbiology 01/27/18 01:34 Blood Blood Culture - Final Staphylococcus capitis - Constitutional no acute distress - *Routine HEENT Exam Comments: Ecchymoses periorbitally are prominent but resolving. There is much less facial edema. His nares are patent. - Routine Chest/Breast/Axilla Exam Comments: The battery site is nontender with no erythema or edema - *Routine Respiratory Exam Present: CTA bilaterally - *Routine Cardiovascular Exam Present: RRR - *Routine Abdominal Exam Present: soft. Absent: tenderness - *Routine Extremities Exam Comments: The left ankle has good range of motion and is less tender. - *Routine Neurological Exam Present: alert, oriented X3 Assessment and Plan (1) Epistaxis Current visit: Yes Status: Acute Category: Medical Code(s): R04.0 - Epistaxis (2) Leukocytosis Current visit: Yes Status: Acute Qualifiers: Leukocytosis type: bandemia Qualified Code(s): D72.825 - Bandemia Category: Medical Code(s): D72.829 - Elevated white blood cell count, unspecified (3) Nasal fracture Current visit: Yes Status: Acute Qualifiers: Encounter type: initial encounter Fracture type: closed Qualified Code(s) : S02.2XXA - Fracture of nasal bones, initial encounter for closed fracture Category: Medical Code(s): S02.2XXA - Fracture of nasal bones, initial encounter for closed fracture (4) Bacteremia due to Staphylococcus Current visit: Yes Status: Acute Category: Medical Code(s): R78.81 - Bacteremia (5) Automatic implantable cardioverter-defibrillator in situ Current visit: No Status: Acute Category: Medical Code(s): Z95.810 - Presence of automatic (implantable) cardiac defibrillator (6) A-fib Current visit: No Status: Chronic Qualifiers: Atrial fibrillation type: chronic Qualified Code(s): I48.2 - Chronic atrial fibrillation Category: Medical Code(s): I48.91 - Unspecified atrial fibrillation (7) CAD (coronary artery disease) Current visit: No Status: Chronic Qualifiers: Coronary Disease-Associated Artery/Lesion type: [place] artery [place] vs. transplanted heart: [place] heart Associated angina: without angina Qualified Code(s): I25.10 - Atherosclerotic heart disease of [place] coronary artery without angina pectoris Category: Medical Code(s): I25.10 - Atherosclerotic heart disease of [place] coronary artery without angina pectoris (8) HTN (hypertension) Current visit: No Status: Chronic Qualifiers: Hypertension type: essential hypertension Qualified Code(s): I10 - Essential (primary) hypertension Category: Medical Code(s): I10 - Essential (primary) hypertension (9) Status post coronary artery stent placement Current visit: No Status: Chronic Category: Surgical Code(s): Z95.5 - Presence of coronary angioplasty implant and graft (10) Anemia due to acute blood loss Current visit: Yes Status: Acute Category: Medical Code(s): D62 - Acute posthemorrhagic anemia (11) Left ankle sprain Current visit: Yes Status: Acute Category: Medical Code(s): S93.402A - Sprain of unspecified ligament of left ankle, initial encounter - Assessment and plan all Dx Assessment and Plan for all problems:: The patient will be discharged. His white count remains elevated. He will be continued on an antibiotic, clindamycin 300 mg by mouth 4 times a day is selected. This will cause no interference with blood thinning his culture proved to be staph capitis which is suspect as a pathogen in my opinion. But with the elevated white count we are obligated to continue antibiotic treatment. His CBC will be followed up in the office probably Wednesday
--- NOTE | 2018-01-31 04:30 | Discharge Summary ---
General - General Admission date:: 01/28/18 Discharge date: 01/30/18 HPI HPI: Mr. Petersen is a 77yo WM with a history of HTN, OA, ASCVD, CAD with stents, BPH , Afib, and PPM. He was seen at [facility] [place] for a nose bleed resulting from a nasal fracture following a fall at home. After returning home, he was unable to slow the bleeding and presented to the ED overnight for evaluation. He was treated with cocaine and phenylephrine nasally and nasal tampon was placed. His coumadin was held. He was admitted for monitoring and ENT consultation. The morning after admission the patient reported continued nasal bleeding overnight. He noted minimal facial discomfort. He had been up to the bathroom and was voiding normally. He denied any chest pain or SOB. Hospital Course Hospital Course: Patient was seen by Dr Chandler CONWAY of 01/27/18 for persistent and severe nasal bleeding. Bleeding was brought under control with surgical snow in left and right nasal fossa. He was also started on Afrin nasal spray tid and given vitamin K for elevated INR of 3.9. Patient had no further excessive bleeding. On admission he was noted to have an elevated WBC at 28,000. He was started on sepsis protocol and given fluid boluses and started on ABX. CXR and UA were negative. Blood culture then did reveal staphococcus capitis and was started on IV Vancomycin. Patient did have a syncopal episode which was thought to be a vasovagal episode with exacerbation due to straining and BP meds. Cardiology was consulted for this and also anticoagulation. AICD interrogation was noted to be negative during the episode. As per cardiology patient was started on Digoxin 0.125 for rated control and due to recent anterior STEMI and multivessel stenting patient was to remain on antiplatelet therapy for at least one year with switching Brilinta to Plavix 75mg daily without ASA due to concomitant use of Coumadin therapy for atrial fibrillation. Also due to nonsustained ventricular tachcardia and chronic A. fib with some rapid Ventricular response noted on AICD interrogation, Coreg was switched to Bisoprolol in order to give better arrhythmia coverage and less BP effect. Norvasc was to be reduced or discontinued in order to allow for more Beta-saritha therapy for the nonsustained ventricular tachycardia. With a decline of H&H, patient did receive 1 unit of PRBC and discharge HGB was 9.5. Patency of nasal airways, ecchymosis and facial edema did improve. Diet was gradually advanced to a soft diet which he tolerated well. He did ambulate in his room without further problems. On 01/30/18 Patient was stable for discharge. WBC's did decrease but remained elevated at 17,700. Thus he was to continue with ABX treatment with Clindamycin. H&H was to be monitored at followup in the office of [facility]. Medications to be continued as listed. Objective Vital signs: Temp Pulse Resp BP Pulse Ox 97.8 F 70 18 128/81 96 01/30/18 07:39 01/30/18 08:23 01/30/18 07:39 01/30/18 07:39 01/30/18 07:39 Narrative: Constitutional no acute distress - *Routine HEENT Exam Comments: Ecchymoses periorbitally are prominent but resolving. There is much less facial edema. His nares are patent. - Routine Chest/Breast/Axilla Exam Comments: The battery site is nontender with no erythema or edema - *Routine Respiratory Exam Present: CTA bilaterally - *Routine Cardiovascular Exam Present: RRR - *Routine Abdominal Exam Present: soft. Absent: tenderness - *Routine Extremities Exam Comments: The left ankle has good range of motion and is less tender. - *Routine Neurological Exam Present: alert, oriented X3 Results Completed studies during hospitalization [Text1]: Laboratory Tests 01/27/18 01/27/18 01/27/18 00:20 00:20 01:38 WBC RBC Hgb Hct MCV MCH MCHC RDW Plt Count MPV Neut % (Auto) Lymph % (Auto) Kleberg % (Auto) Eos % (Auto) Baso % (Auto) Neut # (Auto) Lymph # (Auto) Kleberg # (Auto) Eos # (Auto) Baso # (Auto) PT 30.8 H INR 3.09 H Sodium 143 Potassium 4.1 Chloride 105 Carbon Dioxide 28 Anion Gap 14.1 BUN 26 H Creatinine 1.49 H Estimated Creat Clear 51 Estimated GFR 46 L Est GFR ( Amer) 56 L Glucose 117 H Calcium 9.5 Urine Color Yellow Urine Appearance Clear Urine pH 6.0 Ur Specific [place] 1.015 Urine Protein Negative Urine Glucose (UA) Negative Urine Ketones Trace Urine Blood Negative Urine Nitrate Negative Urine Bilirubin Negative Urine Urobilinogen 1.0 Ur Leukocyte Esterase Negative Urine RBC Occasional Urine WBC 3-5 Ur Squamous Epith Cells 3-5 Urine Bacteria Trace Urine Sperm 1+ 01/27/18 01/27/18 01/27/18 06:20 06:20 09:10 WBC 28.0 H* RBC 4.26 L Hgb 12.3 L D Hct 39.9 L MCV 93.1 MCH 28.8 MCHC 31.0 L RDW 15.4 Plt Count 253 MPV 7.1 L Neut % (Auto) 86.1 H Lymph % (Auto) 7.2 L Kleberg % (Auto) 4.2 Eos % (Auto) 0.5 Baso % (Auto) 2.0 Neut # (Auto) 24.5 H Lymph # (Auto) 2.1 Kleberg # (Auto) 1.2 H Eos # (Auto) 0.1 Baso # (Auto) 0.6 H PT 26.8 H 25.4 H INR 2.68 H 2.53 H Sodium Potassium Chloride Carbon Dioxide Anion Gap BUN Creatinine Estimated Creat Clear Estimated GFR Est GFR ( Amer) Glucose Calcium Urine Color Urine Appearance Urine pH Ur Specific [place] Urine Protein Urine Glucose (UA) Urine Ketones Urine Blood Urine Nitrate Urine Bilirubin Urine Urobilinogen Ur Leukocyte Esterase Urine RBC Urine WBC Ur Squamous Epith Cells Urine Bacteria Urine Sperm 01/29/18 09:29 WBC RBC Hgb Hct MCV MCH MCHC RDW Plt Count MPV Neut % (Auto) Lymph % (Auto) Kleberg % (Auto) Eos % (Auto) Baso % (Auto) Neut # (Auto) Lymph # (Auto) Kleberg # (Auto) Eos # (Auto) Baso # (Auto) PT INR Sodium 144 Potassium 3.5 Chloride 111 H Carbon Dioxide 27 Anion Gap 9.5 BUN 18 D Creatinine 1.19 Estimated Creat Clear 63 Estimated GFR 60 Est GFR ( Amer) 72 Glucose 113 H Calcium 8.7 Urine Color Urine Appearance Urine pH Ur Specific [place] Urine Protein Urine Glucose (UA) Urine Ketones Urine Blood Urine Nitrate Urine Bilirubin Urine Urobilinogen Ur Leukocyte Esterase Urine RBC Urine WBC Ur Squamous Epith Cells Urine Bacteria Urine Sperm 01/27/18 CXR IMPRESSION: No change with no acute finding. Mild cardiomegaly Blood culture: staphlococcus capitis Labs on day of discharge: Labs from last 24 hours 01/30/18 06:22 WBC 17.7 H RBC 3.22 L Hgb 9.5 L Hct 29.6 L MCV 92.0 MCH 29.6 MCHC 32.1 RDW 16.0 Plt Count 196 MPV 7.4 Neut % (Auto) 75.3 Lymph % (Auto) 14.1 Kleberg % (Auto) 4.9 Eos % (Auto) 3.7 Baso % (Auto) 2.0 Neut # (Auto) 13.4 H Lymph # (Auto) 2.5 Kleberg # (Auto) 0.9 Eos # (Auto) 0.7 H Baso # (Auto) 0.4 H Total Counted 100 Neutrophils % (Manual) 67 Lymphocytes % (Manual) 24 Monocytes % (Manual) 2 Eosinophils % (Manual) 6 H Basophils % (Manual) 1.0 Platelet Estimate Normal Polychromasia 1+ Hypochromasia 2+ Rouleaux 1+ Preliminary micro results at discharge 01/27/18 01:34 Blood Culture - Preliminary Blood NO GROWTH AFTER 48 HOURS DS: Diagnosis - Discharge Diagnosis (1) Epistaxis Status: Acute (2) Leukocytosis Status: Acute (3) Nasal fracture Status: Acute (4) Bacteremia due to Staphylococcus Status: Acute (5) Automatic implantable cardioverter-defibrillator in situ Status: Chronic (6) A-fib Status: Chronic (7) CAD (coronary artery disease) Status: Chronic (8) HTN (hypertension) Status: Chronic (9) Status post coronary artery stent placement Status: Chronic (10) Anemia due to acute blood loss Status: Acute (11) Left ankle sprain Status: Acute (12) Syncope Status: Resolved Discharge Plan - Patient Discharge Instructions ACTIVITY: Limited activity DIET: continue same diet Patient Instructions: Nosebleed - Follow up Plan Follow up with: Shubham Watkins MD [Primary Care Provider] - (Appointment suggested Wednesday or Wednesday. CBC will be rechecked.) Disposition: Home, Self-[facility] Medications: Home Medications Medication Instructions Recorded Confirmed Type finasteride 5 mg tablet 5 mg PO HS 09/14/17 01/27/18 History nitroglycerin 0.4 mg sublingual 0.4 mg SUBLINGUAL Q5MINP PRN 09/14/17 01/27/18 History tablet Ubidecarenone [Co Q-10] 200 mg PO DAILY 11/30/17 01/27/18 History Prescriptions/Medication Reconciliation: New Atorvastatin Calcium [Lipitor 40mg Tablet] 40 mg PO HS #30 tab Bisoprolol Fumarate [Zebeta 5mg tablet] 5 mg PO DAILY #30 tab Clindamycin HCl [Cleocin HCl] 300 mg PO QID 10 Days #40 cap Clopidogrel Bisulfate [Plavix 75mg Tab] 75 mg PO DAILY #30 tab Digoxin [Digoxin 0.125mg Tablet] 125 mcg PO DAILY #30 tab Continue finasteride 5 mg tablet 5 mg PO HS nitroglycerin 0.4 mg sublingual tablet 0.4 mg SUBLINGUAL Q5MINP PRN PRN Reason: Chest Pain Ubidecarenone [Co Q-10] 200 mg PO DAILY Discontinued carvedilol 25 mg tablet 12.5 mg PO BID tab Warfarin Sodium 2.5 mg PO SUTUTHSA Ticagrelor [Brilinta 90mg Tablet] 90 mg PO BID Amlodipine Besylate [Norvasc 5mg tablet] 5 mg PO HS Tamsulosin HCl [Flomax 0.4mg capsule] 0.4 mg PO HS Atorvastatin Calcium [Atorvastatin 20mg Tab] 20 mg PO MOWEFR Warfarin Sodium 5 mg PO MOWEFR
== END 2018-01-30 14:49 | disposition home or self-care (01) ==
LOC: 2ND 00:09 → ER 00:09 → 2ND 02:15
PROVIDERS: ADMIT Family Medicine; ATTEND Family Medicine
CPT/HCPCS: 36415; 70160; 71010; 71045; 80048; 81001; 83605; 85007; 85014; 85018; 85025; 85610; 86850; 87040; 87186; 96365; 96367; 99201; 99285; G0378; J3370; P9016

== ENCOUNTER → 2018-02-02 17:54 | Outpatient (CLI) | payer MEDICARE, OTHER, SELFPAY ==
[2018-02-02 17:58] LABS: MANUAL DIFFERENTIAL MANUAL DIFFERENTIAL (MANUAL DIFF)
[2018-02-02 18:55] LABS: Basophils # 0.7 K/mm3 (0-0.2); Basophils % 2.6 % (0.1-2.0); Eosinophils # 0.7 K/mm3 (0.0-0.4); Eosinophils % 2.7 % (0.1-12.0); Hematocrit 34.3 % (42.0-52.0); Hemoglobin 10.8 g/dL (14.1-18.0); Lymphocytes # 2.6 K/mm3 (0.7-4.5); Lymphocytes % 9.7 K/mm3 (10-50); Mean Corpuscular HGB Conc 31.5 g/dL (31.8-35.4); Mean Corpuscular Hemoglobin 29.4 pg (27.0-31.2); Mean Corpuscular Volume 93.3 fl (80-94); Monocytes # 1.2 K/mm3 (0.1-1.0); Monocytes % 4.5 % (1.7-9.3); Neutrophils # 21.5 K/mm3 (1.8-7.8); Neutrophils % 80.6 % (37.0-80.0); Platelet Count 319 K/mm3 (142-424); Red Blood Count 3.68 M/mm3 (4.60-6.20); Red Cell Distribution Width 16.1 % (11.5-17.5); White Blood Count 26.7 K/mm3 (4.8-10.8)
[2018-02-02 19:26] LABS: Eosinophils % 3 % (0-3); Lymphocytes % 18 % (10-50); Monocytes % 13 % (2-9); Neutrophils % 63 % (42-76); Nucleated Red Blood Cells 3; Total Cells Counted 100
[2018-02-02 19:27] LABS: Platelet Estimate Normal; RBC Morphology Normal
== END ==
PROVIDERS: Visit Provider Family Medicine
DX: R78.81 Bacteremia (principal); B95.7 Other staphylococcus as the cause of diseases classified elsewhere
CPT/HCPCS: 36415; 85007; 85014; 85018; 85048; 85049; 87040; 87077

== ENCOUNTER 2018-02-03 12:58 | Outpatient (CLI) | payer MEDICARE, OTHER, SELFPAY ==
[2018-02-03 13:57] VITALS: BMI 25.4
--- NOTE | 2018-02-03 13:57 | XR_ITS ---
XR chest portable PICC plac Ordering Physician: Shubham Watkins MD Patient Age: 77 years: Male HISTORY: ITS.REASON: PICC line placement TECHNIQUE: AP lateral upright chest 2:00 PM COMPARISON :01/27/2018 CXR FINDINGS PICC line enters from the right arm transverse and right subclavian with tip at the SVC just above junction with right atria. The lungs are clear no active disease. Heart is normal in size. Mariya and mediastinal structures satisfactory. Tortuous aorta. Calcified aortic knob Pacemaker overlying the left chest with atrial and ventricular leads intact IMPRESSION: PICC line enters from right. With tip in Good satisfactory position. No active disease in the chest. Lungs clear . Pacemaker.
[2018-02-03 14:30] VITALS: BP 128/81; PULSE 69; RESP 18; TEMP 36.8; O2SAT 99
[2018-02-03 15:00] VITALS: BP 130/86; PULSE 71; RESP 18
[2018-02-03 16:00] VITALS: BP 123/75; PULSE 71; RESP 16
[2018-02-03 16:35] VITALS: BP 143/98; PULSE 72; RESP 18
== END 2018-02-03 16:50 | disposition home or self-care (01) ==
PROVIDERS: PCP Family Medicine; Visit Provider Family Medicine
DX: R78.81 Bacteremia (principal); B95.7 Other staphylococcus as the cause of diseases classified elsewhere
CPT/HCPCS: 36569; 71045; 96365; 96366; C1751; J3370

== ENCOUNTER 2018-02-04 08:20 | Outpatient (CLI) | payer MEDICARE, OTHER, SELFPAY ==
[2018-02-04 08:25] VITALS: BMI 24.8
[2018-02-04 09:08] LABS: Creatinine Clearance Estimated 65 mL/min (0-300); Creatinine,Serum 1.15 mg/dL (0.70-1.30); Estimated Glomerular Filt Rate 62 ml/min (>60); GFR (African American) 75 ML/MIN (>60)
--- NOTE | 2018-02-04 09:39 | P.CONPHA_ITS ---
- Pharmacy Consult Date: 02/04/18 Time: 09:36 Referring provider: DR. SRINIVASAN Reason for Consult:: VANCOMYCIN DOSING Allergies and ADEs:: Allergies Allergy/AdvReac Type Severity Reaction Status Date / Time No Known Allergies Allergy Verified 02/03/18 14:20 Home Medications:: Home Medications Medication Instructions Recorded Confirmed Type finasteride 5 mg tablet 5 mg PO HS 09/14/17 02/04/18 History nitroglycerin 0.4 mg sublingual 0.4 mg SUBLINGUAL Q5MINP PRN 09/14/17 02/04/18 History tablet Ubidecarenone [Co Q-10] 200 mg PO DAILY 11/30/17 02/04/18 History Atorvastatin Calcium [Lipitor 40mg 40 mg PO HS 02/03/18 02/04/18 History Tablet] Bisoprolol Fumarate [Zebeta 5mg 5 mg PO DAILY 02/03/18 02/04/18 History tablet] Clopidogrel Bisulfate [Plavix 75mg 75 mg PO DAILY 02/03/18 02/04/18 History Tab] Digoxin [Digoxin 0.125mg Tablet] 125 mcg PO DAILY 02/03/18 02/04/18 History Tamsulosin HCl [Flomax 0.4mg 30 mg PO HS 02/04/18 02/04/18 History capsule] Height: 1.83 m Weight: 83.007 kg Laboratory Results:: Laboratory Results - last 24 hr 02/04/18 08:30: Creatinine 1.15, Estimated Creat Clear 65, Estimated GFR 62, Est GFR ( Amer) 75 Medical History: Reports:: Arrhythmia, Atherosclerotic Heart Disease, Atrial Fibrillation, BPH, Cancer, Coronary Artery Disease, Hyperlipidemia, Hypertension , Internal Pacemaker (11/2017) Denies:: Diabetes Mellitus Type 1, Diabetes Mellitus Type 2, MRSA Assessment and Plan - Assessment and plan all Dx Assessment and Plan for all problems:: BASED ON PATIENT FACTORS, RECOMMEND VANCOMYCIN 1750 MG (21 MG/KG) IV Q24H. VANCOMYCIN TROUGH LEVEL TO BE DRAWN ON 02/08/18 PRIOR TO DOSE. PHARMACY WILL FOLLOW DAILY AND ADJUST APPROPRIATE.
[2018-02-04 09:45] VITALS: BP 123/72; PULSE 72; RESP 18; TEMP 36.3; O2SAT 98
[2018-02-04 10:15] VITALS: BP 128/79; PULSE 69; RESP 18
[2018-02-04 10:45] VITALS: BP 121/65; PULSE 69; RESP 18
[2018-02-04 11:15] VITALS: BP 134/83; PULSE 69; RESP 18
[2018-02-04 11:45] VITALS: BP 144/84; PULSE 71; RESP 18
[2018-02-04 12:00] VITALS: BP 135/83; PULSE 69; RESP 18
== END 2018-02-04 12:00 | disposition home or self-care (01) ==
LOC: INF 08:24
PROVIDERS: Family Provider Family Medicine; PCP Family Medicine; Visit Provider Family Medicine
DX: R78.81 Bacteremia (principal); B95.7 Other staphylococcus as the cause of diseases classified elsewhere
CPT/HCPCS: 82565; 96365; 96366; J3370

== ENCOUNTER 2018-02-05 08:16 | Outpatient (CLI) | payer MEDICARE, OTHER, SELFPAY ==
[2018-02-05 08:27] VITALS: BMI 25.0
[2018-02-05 08:34] VITALS: BP 145/81; PULSE 72; RESP 18; TEMP 36.6; O2SAT 98
[2018-02-05 09:30] VITALS: BP 138/84; PULSE 74; RESP 18; TEMP 36.6; O2SAT 98
--- NOTE | 2018-02-05 09:46 | PC.NURSE ---
PATIENT PROVIDED WITH A BREAKFAST TRAY. 100% OF MEAL CONSUMED.
--- NOTE | 2018-02-05 09:46 | PC.NURSE ---
ICE WATER GIVEN. PATIENT HAS NO COMPLAINTS OR REQUESTS AT THIS TIME.
[2018-02-05 10:37] VITALS: BP 142/80; PULSE 76; RESP 18; TEMP 36.7; O2SAT 98
== END 2018-02-05 10:41 | disposition home or self-care (01) ==
LOC: INF 08:16
PROVIDERS: Family Provider Family Medicine; PCP Family Medicine; Visit Provider Family Medicine
DX: R78.81 Bacteremia (principal); B95.7 Other staphylococcus as the cause of diseases classified elsewhere
CPT/HCPCS: 96365; 96366; J3370

== ENCOUNTER 2018-02-06 08:13 | Outpatient (CLI) | payer MEDICARE, OTHER, SELFPAY ==
[2018-02-06 08:46] VITALS: BP 134/68; PULSE 72; RESP 18; TEMP 36.5; O2SAT 99
[2018-02-06 10:58] VITALS: BP 121/82; PULSE 79; RESP 18; TEMP 36.4; O2SAT 95
== END 2018-02-06 10:58 | disposition home or self-care (01) ==
LOC: INF 08:13
PROVIDERS: Family Provider Family Medicine; PCP Family Medicine; Visit Provider Family Medicine
DX: R78.81 Bacteremia (principal); B95.7 Other staphylococcus as the cause of diseases classified elsewhere
CPT/HCPCS: 96365; 96366; J3370

== ENCOUNTER 2018-02-07 08:15 | Outpatient (CLI) | payer MEDICARE, OTHER, SELFPAY ==
[2018-02-07 08:31] VITALS: BMI 25.4
[2018-02-07 08:56] LABS: Anion Gap 8.5 mEq/L (5-15); Blood Urea Nitrogen 11 mg/dL (7-18); Calcium 8.1 mg/dL (8.5-10.1); Carbon Dioxide 29 mmol/L (21.0-32.0); Chloride 107 mmol/L (98-107); Creatinine Clearance Estimated 64 mL/min (0-300); Creatinine,Serum 1.21 mg/dL (0.70-1.30); Estimated Glomerular Filt Rate 58 ml/min (>60); GFR (African American) 71 ML/MIN (>60); Glucose 127 mg/dL (74-106); Potassium 3.5 mmoL/L (3.5-5.1); Sodium 141 mmol/L (136-145); Vancomycin,Trough 12.4 mcg/ml (10.0-20.0)
--- NOTE | 2018-02-07 09:03 | P.CONPHA_ITS ---
- Pharmacy Consult Date: 02/07/18 Time: 09:01 Referring provider: DR. SRINIVASAN Reason for Consult:: VANCOMYCIN TROUGH LEVEL Allergies and ADEs:: Allergies Allergy/AdvReac Type Severity Reaction Status Date / Time No Known Allergies Allergy Verified 02/03/18 14:20 Home Medications:: Home Medications Medication Instructions Recorded Confirmed Type finasteride 5 mg tablet 5 mg PO HS 09/14/17 02/07/18 History nitroglycerin 0.4 mg sublingual 0.4 mg SUBLINGUAL Q5MINP PRN 09/14/17 02/07/18 History tablet Ubidecarenone [Co Q-10] 200 mg PO DAILY 11/30/17 02/07/18 History Atorvastatin Calcium [Lipitor 40mg 40 mg PO HS 02/03/18 02/07/18 History Tablet] Bisoprolol Fumarate [Zebeta 5mg 5 mg PO DAILY 02/03/18 02/07/18 History tablet] Clopidogrel Bisulfate [Plavix 75mg 75 mg PO DAILY 02/03/18 02/07/18 History Tab] Digoxin [Digoxin 0.125mg Tablet] 125 mcg PO DAILY 02/03/18 02/07/18 History Tamsulosin HCl [Flomax 0.4mg 30 mg PO HS 02/04/18 02/07/18 History capsule] Height: 1.83 m Weight: 85.275 kg Laboratory Results:: Laboratory Results - last 24 hr 02/07/18 08:30: Sodium 141, Potassium 3.5, Chloride 107, Carbon Dioxide 29, Anion Gap 8.5, BUN 11, Creatinine 1.21, Estimated Creat Clear 64, Estimated GFR 58 L, Est GFR ( Amer) 71, Glucose 127 H, Calcium 8.1 L, Vancomycin Trough 12.4 Medical History: Reports:: Arrhythmia, Atherosclerotic Heart Disease, Atrial Fibrillation, BPH, Cancer, Coronary Artery Disease, Hyperlipidemia, Hypertension , Internal Pacemaker (11/2017) Denies:: Diabetes Mellitus Type 1, Diabetes Mellitus Type 2, MRSA Assessment and Plan - Assessment and plan all Dx Assessment and Plan for all problems:: BASED ON PATIENT FACTORS AND VANCOMYCIN TROUGH LEVEL, RECOMMEND CONTINUING VANCOMYCIN 1750 MG IV Q24H. PHARMACY WILL CONTINUE TO FOLLOW DAILY AND ADJUST APPROPRIATE.
[2018-02-07 09:50] VITALS: BP 118/73; PULSE 69; RESP 18; TEMP 36.7
[2018-02-07 10:20] VITALS: BP 109/69; PULSE 70; RESP 18
[2018-02-07 10:50] VITALS: BP 117/72; PULSE 70; RESP 16
[2018-02-07 11:20] VITALS: BP 128/74; PULSE 71; RESP 16
[2018-02-07 11:50] VITALS: BP 129/83; PULSE 71; RESP 18
== END 2018-02-07 12:00 | disposition home or self-care (01) ==
LOC: INF 08:42
PROVIDERS: Family Provider Family Medicine; PCP Family Medicine; Visit Provider Family Medicine
DX: R78.81 Bacteremia (principal); B95.7 Other staphylococcus as the cause of diseases classified elsewhere
CPT/HCPCS: 80048; 80202; 96365; 96366; J3370

== ENCOUNTER 2018-02-08 08:25 | Outpatient (CLI) | payer MEDICARE, OTHER, SELFPAY ==
[2018-02-08 08:53] VITALS: BP 124/71; PULSE 69; RESP 18; TEMP 36.8; O2SAT 98
[2018-02-08 09:23] VITALS: BP 121/78; PULSE 65; RESP 18; O2SAT 97
[2018-02-08 09:53] VITALS: BP 120/74; PULSE 67; RESP 18; O2SAT 97
[2018-02-08 10:23] VITALS: BP 118/71; PULSE 69; RESP 18; O2SAT 96
[2018-02-08 10:53] VITALS: BP 125/70; PULSE 64; RESP 18; O2SAT 97
[2018-02-08 11:06] VITALS: BP 125/79; PULSE 71; RESP 18; TEMP 36.6; O2SAT 97
== END 2018-02-08 11:08 | disposition home or self-care (01) ==
LOC: INF 08:26
PROVIDERS: Family Provider Family Medicine; PCP Family Medicine; Visit Provider Family Medicine
DX: R78.81 Bacteremia (principal); B95.7 Other staphylococcus as the cause of diseases classified elsewhere
CPT/HCPCS: 96365; 96366; J3370

== ENCOUNTER 2018-02-09 08:15 | Outpatient (CLI) | payer MEDICARE, SELFPAY ==
[2018-02-09 08:33] VITALS: BP 119/72; PULSE 67; RESP 18; TEMP 36.7; O2SAT 98
[2018-02-09 09:03] VITALS: BP 121/70; PULSE 69; RESP 18; O2SAT 97
[2018-02-09 09:33] VITALS: BP 118/69; PULSE 64; RESP 18; O2SAT 97
[2018-02-09 10:03] VITALS: BP 120/67; PULSE 68; RESP 18; O2SAT 98
[2018-02-09 10:33] VITALS: BP 122/71; PULSE 69; RESP 18; O2SAT 97
== END 2018-02-09 10:55 | disposition home or self-care (01) ==
LOC: INF 08:24
PROVIDERS: Family Provider Family Medicine; PCP Family Medicine; Visit Provider Family Medicine
DX: R78.81 Bacteremia (principal); B95.7 Other staphylococcus as the cause of diseases classified elsewhere
CPT/HCPCS: 96365; 96366; J3370

== ENCOUNTER → 2018-02-09 12:48 | Outpatient (CLI) | payer MEDICARE, OTHER, SELFPAY ==
[2018-02-09 13:42] LABS: Basophils # 0.6 K/mm3 (0-0.2); Basophils % 2.3 % (0.1-2.0); Eosinophils # 0.7 K/mm3 (0.0-0.4); Eosinophils % 2.6 % (0.1-12.0); Hemoglobin 10.5 g/dL (14.1-18.0); Lymphocytes % 11.7 K/mm3 (10-50); Mean Corpuscular Hemoglobin 28.2 pg (27.0-31.2); Mean Corpuscular Volume 93.9 fl (80-94); Monocytes # 1.3 K/mm3 (0.1-1.0); Neutrophils % 78.4 % (37.0-80.0); Platelet Count 369 K/mm3 (142-424); Red Blood Count 3.73 M/mm3 (4.60-6.20); Red Cell Distribution Width 15.6 % (11.5-17.5); White Blood Count 25.6 K/mm3 (4.8-10.8)
[2018-02-09 13:44] LABS: MANUAL DIFFERENTIAL MANUAL DIFFERENTIAL (MANUAL DIFF)
[2018-02-09 20:09] LABS: Eosinophils % 5 % (0-3); Lymphocytes % 23 % (10-50); Monocytes % 3 % (2-9); Neutrophils % 69 % (42-76); Total Cells Counted 100
[2018-02-09 20:11] LABS: Hypochromasia 1+; Platelet Estimate Normal; RBC Morphology Normal
[2018-02-09 20:12] LABS: Microcytosis 1+
== END ==
PROVIDERS: Family Medicine; Visit Provider Family Medicine
DX: D72.825 Bandemia (principal); R78.81 Bacteremia; B95.7 Other staphylococcus as the cause of diseases classified elsewhere
CPT/HCPCS: 85007; 85025; 96365; 96366; J3370

== ENCOUNTER 2018-02-10 08:15 | Outpatient (CLI) | payer MEDICARE, OTHER, SELFPAY ==
[2018-02-10 08:44] VITALS: BP 115/81; PULSE 69; RESP 18; TEMP 36.5; O2SAT 98
[2018-02-10 09:14] VITALS: BP 118/74; PULSE 71; RESP 18; O2SAT 97
[2018-02-10 09:44] VITALS: BP 116/78; PULSE 68; RESP 18; O2SAT 98
[2018-02-10 10:14] VITALS: BP 119/75; PULSE 69; RESP 18; O2SAT 97
[2018-02-10 10:50] VITALS: BP 122/69; PULSE 71; RESP 18; O2SAT 98
== END 2018-02-10 10:50 | disposition home or self-care (01) ==
LOC: INF 08:23
PROVIDERS: Family Provider Family Medicine; PCP Family Medicine; Visit Provider Family Medicine
DX: R78.81 Bacteremia (principal); B95.7 Other staphylococcus as the cause of diseases classified elsewhere
CPT/HCPCS: 96365; 96366; J3370

== ENCOUNTER 2018-02-11 08:28 | Outpatient (CLI) | payer MEDICARE, OTHER, SELFPAY ==
[2018-02-11 08:50] VITALS: BP 156/89; PULSE 76; RESP 18; TEMP 36.3; O2SAT 97
[2018-02-11 09:20] VITALS: BP 149/84; PULSE 78; RESP 18; O2SAT 98
[2018-02-11 09:50] VITALS: BP 135/93; PULSE 70; RESP 18; O2SAT 97
[2018-02-11 10:20] VITALS: BP 129/87; PULSE 74; RESP 18; O2SAT 97
[2018-02-11 10:55] VITALS: BP 127/77; PULSE 70; RESP 18; O2SAT 98
== END 2018-02-11 11:00 | disposition home or self-care (01) ==
LOC: INF 08:28
PROVIDERS: Family Provider Family Medicine; PCP Family Medicine; Visit Provider Family Medicine
DX: R78.81 Bacteremia (principal); B95.7 Other staphylococcus as the cause of diseases classified elsewhere
CPT/HCPCS: 96365; 96366; J3370

== ENCOUNTER 2018-02-12 08:19 | Outpatient (CLI) | payer MEDICARE, OTHER, SELFPAY ==
[2018-02-12 08:30] VITALS: BP 136/76; PULSE 70; RESP 18; TEMP 36.4; O2SAT 99; BMI 25.4
[2018-02-12 10:40] VITALS: BP 135/87; PULSE 72; RESP 18; TEMP 36.4; O2SAT 99
== END 2018-02-12 10:40 | disposition home or self-care (01) ==
LOC: INF 08:20
PROVIDERS: Family Provider Family Medicine; PCP Family Medicine; Visit Provider Family Medicine
DX: R78.81 Bacteremia (principal); B95.7 Other staphylococcus as the cause of diseases classified elsewhere
CPT/HCPCS: 96365; 96366; J3370

== ENCOUNTER → 2018-02-17 08:30 | Outpatient (CLI) | payer MEDICARE, OTHER, SELFPAY ==
[2018-02-17 09:10] VITALS: BP 136/96; PULSE 71; RESP 18; TEMP 36.4
--- NOTE | 2018-02-17 16:45 | XR_ITS ---
EXAM: XR thoracic spine 3V HISTORY: Right-sided back pain ITS.REASON: BANDEMIA Comparison: None FINDINGS: Normal alignment. No fracture or dislocation. No lytic or blastic change. No significant degenerative change. The disc spaces are preserved. IMPRESSION: Negative thoracic spine
--- NOTE | 2018-02-17 16:45 | XR_ITS ---
EXAM: XR lumbar spine min 4V HISTORY: Left-sided low back pain with bilateral leg pain ITS.REASON: BANDEMIA ORDERING PHYSICIAN: Shubham Watkins MD PATIENT AGE: 77 years COMPARISON: None FINDINGS: There is mild degenerative disc disease at L3-L4 with endplate osteophytes. No fracture or dislocation. No lytic or blastic change. Atherosclerotic calcification involves the aortoiliac vessels. There is mild decrease in height of the right lateral aspect of L1. IMPRESSION: Degenerative disc disease L3-L4 with small osteophytes. No acute finding
== END ==
LOC: INF 08:37 → RAD 16:41
PROVIDERS: Family Provider Family Medicine; PCP Family Medicine; Visit Provider Family Medicine
DX: D72.825 Bandemia (principal)
CPT/HCPCS: 72072; 72110; 96523

== ENCOUNTER 2018-02-24 08:40 | Outpatient (CLI) | payer MEDICARE, OTHER, SELFPAY | END 2018-02-24 09:20 | disposition home or self-care (01) | LOC: INF 08:45 | PROVIDERS: Family Provider Family Medicine; PCP Family Medicine; Visit Provider Family Medicine | DX: Z45.2 Encounter for adjustment and management of vascular access device (principal) | CPT/HCPCS: 96523 ==

== ENCOUNTER 2018-03-03 08:30 | Outpatient (CLI) | payer MEDICARE, OTHER, SELFPAY | END 2018-03-03 09:00 | disposition home or self-care (01) | LOC: INF 08:30 | PROVIDERS: Family Provider Family Medicine; PCP Family Medicine; Visit Provider Family Medicine | DX: Z45.2 Encounter for adjustment and management of vascular access device (principal) | CPT/HCPCS: 96523 ==

== ENCOUNTER 2018-03-10 08:36 | Outpatient (CLI) | payer MEDICARE, OTHER, SELFPAY ==
[2018-03-10 08:44] VITALS: BP 152/68; PULSE 73; RESP 20; TEMP 36.6; O2SAT 96
[2018-03-10 13:33] VITALS: BMI 25.2
[2018-03-10 14:05] LABS: Basophils # 0.8 K/mm3 (0-0.2); Eosinophils # 0.9 K/mm3 (0.0-0.4); Eosinophils % 3.4 % (0.1-12.0); Hematocrit 35.9 % (42.0-52.0); Lymphocytes # 2.6 K/mm3 (0.7-4.5); Mean Corpuscular HGB Conc 30.6 g/dL (31.8-35.4); Mean Corpuscular Hemoglobin 26.8 pg (27.0-31.2); Mean Corpuscular Volume 87.7 fl (80-94); Mean Platelet Volume 6.9 fl (7.4-10.4); Monocytes # 1.6 K/mm3 (0.1-1.0); Monocytes % 5.9 % (1.7-9.3); Neutrophils # 20.5 K/mm3 (1.8-7.8); Neutrophils % 77.7 % (37.0-80.0); Platelet Count 437 K/mm3 (142-424); Red Blood Count 4.09 M/mm3 (4.60-6.20); Red Cell Distribution Width 15.6 % (11.5-17.5); White Blood Count 26.4 K/mm3 (4.8-10.8)
[2018-03-10 14:09] LABS: MANUAL DIFFERENTIAL MANUAL DIFFERENTIAL (MANUAL DIFF)
[2018-03-10 15:02] LABS: Eosinophils % 2 % (0-3); Lymphocytes % 14 % (10-50); Monocytes % 7 % (2-9); Neutrophils % 76 % (42-76); Nucleated Red Blood Cells 1; Total Cells Counted 100
[2018-03-10 15:03] LABS: Hypochromasia 2+; Platelet Estimate Normal
[2018-03-10 15:51] LABS: Erythrocyte Sedimentation Rate 9 mm/hr (0-20)
[2018-03-10 15:52] LABS: C-Reactive Protein < 0.2 mg/L (0.0-0.9)
[2018-03-16 18:13] LABS: e14a2 (b3a2) transcript 85.7402 % (.)
[2018-03-16 19:15] LABS: e13a2 (b2a2) transcript Comment: % (.)
[2018-05-04 15:55] LABS: JAK2 Mutation Analysis, Qual NEGATIVE
== END 2018-03-10 08:49 | disposition home or self-care (01) ==
LOC: INF 08:36
PROVIDERS: Internal Medicine Medical Oncology; Family Provider Family Medicine; PCP Family Medicine; Visit Provider Family Medicine
DX: Z45.2 Encounter for adjustment and management of vascular access device (principal); D72.9 Disorder of white blood cells, unspecified; D46.4 Refractory anemia, unspecified
CPT/HCPCS: 81206; 81270; 85007; 85025; 85651; 86140; 96523

== ENCOUNTER 2018-03-14 14:20 | Outpatient (CLI) | payer MEDICARE, OTHER, SELFPAY | END 2018-03-14 14:30 | disposition home or self-care (01) | LOC: INF 14:20 | PROVIDERS: Family Provider Family Medicine; PCP Family Medicine; Visit Provider Family Medicine | DX: R78.81 Bacteremia (principal); B95.7 Other staphylococcus as the cause of diseases classified elsewhere | CPT/HCPCS: G0463 ==

== ENCOUNTER 2018-04-05 13:41 | Day surgery (SDC) | payer MEDICARE, OTHER, SELFPAY ==
[2018-04-05 14:00] VITALS: BP 138/90; PULSE 78; RESP 18; TEMP 36.6; O2SAT 92; BMI 25.0
[2018-04-05 14:50] VITALS: BP 130/91; PULSE 70; RESP 18; TEMP 36.7; O2SAT 94
[2018-04-05 15:05] VITALS: BP 159/70; PULSE 74; RESP 18; O2SAT 94
[2018-04-05 15:20] VITALS: BP 146/91; PULSE 70; RESP 18; O2SAT 94
== END 2018-04-05 15:20 | disposition home or self-care (01) ==
PROVIDERS: Family Provider Family Medicine; PCP Family Medicine; Visit Provider Pathology Anatomic Pathology & Clinical Pathology
DX: Z86.79 Personal history of other diseases of the circulatory system (principal); Z80.42 Family history of malignant neoplasm of prostate; I10 Essential (primary) hypertension; C92.10 Chronic myeloid leukemia, BCR/ABL-positive, not having achieved remission
CPT/HCPCS: 38221; 85060; 85097; 88184; 88185; 88305; 88311; 88313; 88342

== ENCOUNTER → 2018-04-21 14:48 | Outpatient (CLI) | payer MEDICARE, OTHER, SELFPAY ==
[2018-04-21 15:07] LABS: Basophils # 0.3 K/mm3 (0-0.2); Basophils % 2.5 % (0.1-2.0); Eosinophils # 0.4 K/mm3 (0.0-0.4); Eosinophils % 3.4 % (0.1-12.0); Hematocrit 36.8 % (42.0-52.0); Hemoglobin 11.2 g/dL (14.1-18.0); Lymphocytes # 1.6 K/mm3 (0.7-4.5); Lymphocytes % 14.4 K/mm3 (10-50); Mean Corpuscular HGB Conc 30.4 g/dL (31.8-35.4); Mean Corpuscular Hemoglobin 24.8 pg (27.0-31.2); Mean Corpuscular Volume 81.7 fl (80-94); Mean Platelet Volume 7.5 fl (7.4-10.4); Monocytes # 0.6 K/mm3 (0.1-1.0); Monocytes % 5.6 % (1.7-9.3); Neutrophils # 8.1 K/mm3 (1.8-7.8); Neutrophils % 74.1 % (37.0-80.0); Platelet Count 285 K/mm3 (142-424); Red Cell Distribution Width 18.5 % (11.5-17.5)
== END ==
PROVIDERS: PCP Internal Medicine Adolescent Medicine; Visit Provider Internal Medicine Adolescent Medicine
DX: D72.829 Elevated white blood cell count, unspecified (principal)
CPT/HCPCS: 36415; 85025

== ENCOUNTER → 2018-04-25 15:18 | Outpatient (CLI) | payer MEDICARE, OTHER, SELFPAY ==
--- NOTE | 2018-04-25 15:22 | XR_ITS ---
XR chest 2V HISTORY: ITS.REASON: SOB ORDERING PHYSICIAN: Shubham Watkins MD PATIENT AGE: 77 years COMPARISON: 02/03/2018 FINDINGS: There is mild cardiomegaly without failure. Bipolar pacemaker is present from left subclavian approach. No lobar consolidation or collapse is evident. There are small bilateral pleural effusions. No acute bony anomalies. Coronary artery stents are present IMPRESSION: Cardiomegaly with small bilateral pleural effusions
== END ==
PROVIDERS: PCP Family Medicine; Visit Provider Family Medicine
DX: R06.02 Shortness of breath (principal)
CPT/HCPCS: 71046

== ENCOUNTER → 2018-04-28 09:46 | Outpatient (CLI) | payer MEDICARE, OTHER, SELFPAY ==
[2018-04-28 10:35] LABS: Basophils # 0.1 K/mm3 (0-0.2); Basophils % 1.9 % (0.1-2.0); Eosinophils # 0.3 K/mm3 (0.0-0.4); Eosinophils % 4.4 % (0.1-12.0); Hematocrit 37.6 % (42.0-52.0); Hemoglobin 11.1 g/dL (14.1-18.0); Lymphocytes # 0.8 K/mm3 (0.7-4.5); Lymphocytes % 11.6 K/mm3 (10-50); Mean Corpuscular HGB Conc 29.5 g/dL (31.8-35.4); Mean Corpuscular Hemoglobin 24.7 pg (27.0-31.2); Mean Corpuscular Volume 83.6 fl (80-94); Mean Platelet Volume 7.3 fl (7.4-10.4); Monocytes # 0.3 K/mm3 (0.1-1.0); Monocytes % 4.5 % (1.7-9.3); Neutrophils # 5.6 K/mm3 (1.8-7.8); Neutrophils % 77.6 % (37.0-80.0); Platelet Count 191 K/mm3 (142-424); Red Cell Distribution Width 19.7 % (11.5-17.5); White Blood Count 7.3 K/mm3 (4.8-10.8)
[2018-04-28 11:42] LABS: Alanine Aminotransferase 26 U/L (12-78); Albumin Level 3.5 gm/dL (3.4-5.0); Albumin/Globulin Ratio 1.2 (1.1-1.8); Alkaline Phosphatase 122 U/L (46-116); Anion Gap 12.4 mEq/L (5-15); Aspartate Amino Transferase 22 U/L (15-37); Blood Urea Nitrogen 14 mg/dL (7-18); Calcium 8.6 mg/dL (8.5-10.1); Carbon Dioxide 25 mmol/L (21.0-32.0); Chloride 111 mmol/L (98-107); Creatinine,Serum 1.43 mg/dL (0.70-1.30); Estimated Glomerular Filt Rate 48 ml/min (>60); GFR (African American) 58 ML/MIN (>60); Glucose 113 mg/dL (74-106); Magnesium 1.9 mg/dL (1.4-2.2); Potassium 3.4 mmoL/L (3.5-5.1); Sodium 145 mmol/L (136-145); Total Protein,Serum 6.5 gm/dL (6.4-8.2)
== END ==
PROVIDERS: PCP Family Medicine; Visit Provider Internal Medicine Medical Oncology
DX: C92.10 Chronic myeloid leukemia, BCR/ABL-positive, not having achieved remission (principal)
CPT/HCPCS: 36415; 80053; 83735; 85025

== ENCOUNTER → 2018-05-12 12:39 | Outpatient (CLI) | payer MEDICARE, OTHER, SELFPAY ==
[2018-05-12 13:30] LABS: Basophils # 0.1 K/mm3 (0-0.2); Basophils % 1.8 % (0.1-2.0); Eosinophils # 0.2 K/mm3 (0.0-0.4); Eosinophils % 5.4 % (0.1-12.0); Hematocrit 34.6 % (42.0-52.0); Hemoglobin 10.5 g/dL (14.1-18.0); Lymphocytes # 0.8 K/mm3 (0.7-4.5); Lymphocytes % 21.7 K/mm3 (10-50); Mean Corpuscular HGB Conc 30.4 g/dL (31.8-35.4); Mean Corpuscular Hemoglobin 25.8 pg (27.0-31.2); Mean Corpuscular Volume 84.9 fl (80-94); Mean Platelet Volume 7.5 fl (7.4-10.4); Monocytes # 0.3 K/mm3 (0.1-1.0); Neutrophils # 2.3 K/mm3 (1.8-7.8); Neutrophils % 63.2 % (37.0-80.0); Platelet Count 132 K/mm3 (142-424); Red Blood Count 4.08 M/mm3 (4.60-6.20); Red Cell Distribution Width 21.9 % (11.5-17.5); White Blood Count 3.6 K/mm3 (4.8-10.8)
== END ==
PROVIDERS: PCP Family Medicine; Visit Provider Internal Medicine Medical Oncology
DX: C92.10 Chronic myeloid leukemia, BCR/ABL-positive, not having achieved remission (principal)
CPT/HCPCS: 36415; 85025

== ENCOUNTER → 2018-05-26 10:13 | Outpatient (CLI) | payer MEDICARE, OTHER, SELFPAY ==
[2018-05-26 12:01] LABS: Basophils # 0.1 K/mm3 (0-0.2); Basophils % 1.2 % (0.1-2.0); Eosinophils % 0.5 % (0.1-12.0); Hematocrit 34.2 % (42.0-52.0); Hemoglobin 10.6 g/dL (14.1-18.0); Lymphocytes # 1.1 K/mm3 (0.7-4.5); Lymphocytes % 21.6 K/mm3 (10-50); Mean Corpuscular Hemoglobin 26.2 pg (27.0-31.2); Mean Corpuscular Volume 84.4 fl (80-94); Monocytes # 0.5 K/mm3 (0.1-1.0); Monocytes % 8.8 % (1.7-9.3); Neutrophils # 3.5 K/mm3 (1.8-7.8); Neutrophils % 67.8 % (37.0-80.0); Platelet Count 182 K/mm3 (142-424); Red Blood Count 4.05 M/mm3 (4.60-6.20); Red Cell Distribution Width 24.7 % (11.5-17.5); White Blood Count 5.2 K/mm3 (4.8-10.8)
[2018-05-26 12:03] LABS: Alanine Aminotransferase 39 U/L (12-78); Albumin Level 3.2 gm/dL (3.4-5.0); Alkaline Phosphatase 122 U/L (46-116); Aspartate Amino Transferase 19 U/L (15-37); Bilirubin,Indirect 4.8 mg/dL (0.0-0.9); Bilirubin,Total 5.8 mg/dL (0.2-1.0)
[2018-05-27 11:27] LABS: Blood Urea Nitrogen 17 mg/dL (7-18); Calcium 8.7 mg/dL (8.5-10.1); Carbon Dioxide 30 mmol/L (21.0-32.0); Chloride 105 mmol/L (98-107); Creatinine,Serum 1.43 mg/dL (0.70-1.30); Estimated Glomerular Filt Rate 48 ml/min (>60); GFR (African American) 58 ML/MIN (>60); Glucose,Random 113 mg/dL (70-110); Potassium 3.2 mmoL/L (3.5-5.1); Sodium 142 mmol/L (136-145)
== END ==
PROVIDERS: PCP Family Medicine; Visit Provider Internal Medicine Medical Oncology
DX: C92.10 Chronic myeloid leukemia, BCR/ABL-positive, not having achieved remission (principal)
CPT/HCPCS: 36415; 80076; 82310; 82374; 82435; 82565; 82947; 84132; 84295; 84520; 85025

== ENCOUNTER → 2018-06-08 10:52 | Outpatient (CLI) | payer MEDICARE, OTHER, SELFPAY ==
[2018-06-08 11:17] LABS: Basophils # 0.1 K/mm3 (0-0.2); Basophils % 1.5 % (0.1-2.0); Eosinophils # 0.1 K/mm3 (0.0-0.4); Eosinophils % 1.1 % (0.1-12.0); Hematocrit 38.1 % (42.0-52.0); Hemoglobin 11.5 g/dL (14.1-18.0); Lymphocytes # 1.5 K/mm3 (0.7-4.5); Lymphocytes % 20.6 K/mm3 (10-50); Mean Corpuscular HGB Conc 30.1 g/dL (31.8-35.4); Mean Corpuscular Hemoglobin 25.7 pg (27.0-31.2); Mean Corpuscular Volume 85.5 fl (80-94); Mean Platelet Volume 7.1 fl (7.4-10.4); Monocytes # 0.4 K/mm3 (0.1-1.0); Monocytes % 5.6 % (1.7-9.3); Neutrophils # 5.3 K/mm3 (1.8-7.8); Neutrophils % 71.1 % (37.0-80.0); Platelet Count 249 K/mm3 (142-424); Red Blood Count 4.46 M/mm3 (4.60-6.20); Red Cell Distribution Width 24.3 % (11.5-17.5); White Blood Count 7.4 K/mm3 (4.8-10.8)
[2018-06-08 12:08] LABS: Alanine Aminotransferase 20 U/L (12-78); Albumin Level 3.4 gm/dL (3.4-5.0); Albumin/Globulin Ratio 1.1 (1.1-1.8); Alkaline Phosphatase 129 U/L (46-116); Anion Gap 13.8 mEq/L (5-15); Aspartate Amino Transferase 20 U/L (15-37); Bilirubin,Total 4.4 mg/dL (0.2-1.0); Blood Urea Nitrogen 13 mg/dL (7-18); Carbon Dioxide 28 mmol/L (21.0-32.0); Chloride 107 mmol/L (98-107); Creatinine,Serum 1.48 mg/dL (0.70-1.30); Estimated Glomerular Filt Rate 46 ml/min (>60); GFR (African American) 56 ML/MIN (>60); Glucose 87 mg/dL (74-106); Potassium 3.8 mmoL/L (3.5-5.1); Sodium 145 mmol/L (136-145); Total Protein,Serum 6.4 gm/dL (6.4-8.2)
[2018-06-09 11:23] VITALS: BMI 25.2
[2018-06-10 18:07] LABS: Haptoglobin 129 mg/dL (34-200)
== END ==
PROVIDERS: PCP Family Medicine; Visit Provider Internal Medicine Medical Oncology
DX: C92.10 Chronic myeloid leukemia, BCR/ABL-positive, not having achieved remission (principal)
CPT/HCPCS: 36415; 80053; 83010; 85025

== ENCOUNTER → 2018-06-09 12:00 | Outpatient (CLI) | payer MEDICARE, OTHER, SELFPAY ==
--- NOTE | 2018-06-09 13:00 | CT_ITS ---
CT chest wo con HISTORY: ITS.REASON: CML , LEUKEMIA, multiple myeloma ORDERING PHYSICIAN: Rebeca Jackson MD PATIENT AGE: 77 years COMPARISON: None Technique: Axial images obtained with sagittal and coronal reformats. All CT scans at the facility use one or more dose reduction, viz: automated exposure control, ma/kV adjustment per patient size (including targeted exams where dose is matched to indication, i.e. head), or iterative reconstruction technique. FINDINGS: Cardiac pacemaker device is present from left subclavian approach. There are scattered small nodes in the mediastinum. There are dense coronary artery calcifications and/or stents noted with mild cardiomegaly and minimal thickening of the pericardium. There are small bilateral pleural effusions right slightly larger than left. A noncalcified 4 mm nodule in the right middle lobe laterally nonspecific. There are atelectatic changes in the lung bases. A 4 mm nodule is present in the left apex nonspecific in the subpleural region posteriorly 3 mm noncalcified nodule left upper lobe laterally in the subpleural area. No central obstructing lesions. There is a lucency involving the lower aspect of the body of the sternum at 6 mm. An additional lucent area involves the manubrium on the right at 6 mm. There is an old right third rib fracture laterally. IMPRESSION: 1. Bilateral pleural effusions with atelectatic changes in the lung bases and nonspecific small pulmonary nodular densities 4 mm or less. 2. There are 2 lucencies of the sternum. These are nonspecific. Multiple myeloma would be a consideration. Consider follow-up in 3 months to confirm stability.
--- NOTE | 2018-06-09 13:00 | CT_ITS ---
CT abdomen pelvis wo con CLINICAL INDICATION: Multiple myeloma ITS.REASON: CML , LEUKEMIA ORDERING PHYSICIAN: Rebeca Jackson MD PATIENT AGE: 77 years COMPARISON: 03/28/2016 TECHNIQUE: Axial images obtained with sagittal and coronal reformats. All CT scans at the facility use one or more dose reduction, viz: automated exposure control, ma/kV adjustment per patient size (including targeted exams where dose is matched to indication, i.e. head), or iterative reconstruction technique. PROCEDURE: Oral Contrast: None IV Contrast: None . FINDINGS: Lung base images show small medium-sized bilateral pleural effusions. There is a small amount of perihepatic and perisplenic fluid. The liver margin is slightly irregular. This is nonspecific but may be seen with early cirrhosis. No focal liver lesions evident on this unenhanced exam The spleen has an unremarkable appearance. The adrenal glands and pancreas have an unremarkable appearance. No renal or ureteral calculi or hydronephrosis. There is mild stranding of the perinephric renal fat. Scattered small lymph nodes are present in the mesentery's. No dominant adenopathy is evident. There is mild stranding of the fat of the peritoneum. This is nonspecific. There is stranding of the fat and paracolic gutters on both sides extending into the pelvis. Mild subcutaneous edema also noted. The urinary bladder wall is thickened with multiple bladder diverticula. The largest is along the posterior and right aspect of the urinary bladder measuring 5.8 x 4 cm. There is mild thickening of the presacral fat. No abdominal or pelvic adenopathy or mass. No evidence of appendicitis or diverticulitis. There is diverticulosis of the descending and sigmoid colon. There is a well-circumscribed lucency involving the right ilium at 16 mm unchanged from 03/28/2016. In addition, there is a well-circumscribed lucency of the right femoral head posteriorly also unchanged consistent with a subarticular cyst 2 cm. No aggressive lytic lesions are evident. IMPRESSION: 1. Small amount of ascites with mild edema of the peritoneal fat with stranding of the fat in the paracolic gutters as well as presacral thickening of the fat. These findings may be related to the ascites or mild generalized anasarca as there is some subcutaneous edema is well. 2. Colonic diverticulosis. 3. Thickening of the urinary bladder with multiple bladder diverticula suggesting chronic bladder outlet obstruction 4. No change lucent lesions of the right ilium and right femoral head
== END ==
PROVIDERS: PCP Family Medicine; Visit Provider Internal Medicine Medical Oncology
DX: C92.10 Chronic myeloid leukemia, BCR/ABL-positive, not having achieved remission (principal)
CPT/HCPCS: 71250; 74176

== ENCOUNTER → 2018-06-16 11:55 | Outpatient (CLI) | payer MEDICARE, OTHER, SELFPAY ==
[2018-06-16 12:46] LABS: Basophils # 0.1 K/mm3 (0-0.2); Basophils % 1.1 % (0.1-2.0); Eosinophils # 0.2 K/mm3 (0.0-0.4); Eosinophils % 2.6 % (0.1-12.0); Hematocrit 37.9 % (42.0-52.0); Hemoglobin 11.6 g/dL (14.1-18.0); Lymphocytes # 1.2 K/mm3 (0.7-4.5); Lymphocytes % 18.1 K/mm3 (10-50); Mean Corpuscular HGB Conc 30.5 g/dL (31.8-35.4); Mean Corpuscular Hemoglobin 26.2 pg (27.0-31.2); Mean Corpuscular Volume 85.8 fl (80-94); Mean Platelet Volume 7.1 fl (7.4-10.4); Monocytes # 0.4 K/mm3 (0.1-1.0); Monocytes % 6.3 % (1.7-9.3); Neutrophils # 4.7 K/mm3 (1.8-7.8); Neutrophils % 71.8 % (37.0-80.0); Platelet Count 227 K/mm3 (142-424); Red Blood Count 4.42 M/mm3 (4.60-6.20); Red Cell Distribution Width 23.4 % (11.5-17.5); White Blood Count 6.5 K/mm3 (4.8-10.8)
[2018-06-16 14:12] LABS: Alanine Aminotransferase 14 U/L (12-78); Albumin Level 3.2 gm/dL (3.4-5.0); Alkaline Phosphatase 117 U/L (46-116); Anion Gap 12.5 mEq/L (5-15); Aspartate Amino Transferase 16 U/L (15-37); Bilirubin,Total 5.8 mg/dL (0.2-1.0); Blood Urea Nitrogen 13 mg/dL (7-18); Carbon Dioxide 28 mmol/L (21.0-32.0); Chloride 107 mmol/L (98-107); Creatinine,Serum 1.38 mg/dL (0.70-1.30); Estimated Glomerular Filt Rate 50 ml/min (>60); GFR (African American) 61 ML/MIN (>60); Globulin 3.2 gm/dl (1.3-3.2); Glucose 87 mg/dL (74-106); Potassium 3.5 mmoL/L (3.5-5.1); Sodium 144 mmol/L (136-145); Total Protein,Serum 6.4 gm/dL (6.4-8.2)
== END ==
PROVIDERS: Visit Provider Internal Medicine Medical Oncology
DX: C92.10 Chronic myeloid leukemia, BCR/ABL-positive, not having achieved remission (principal)
CPT/HCPCS: 36415; 80053; 85025

== ENCOUNTER → 2018-06-20 12:16 | Outpatient (POV) | payer MEDICARE, OTHER, SELFPAY | PROVIDERS: Visit Provider Nurse Practitioner Acute Care | DX: Z00.00 Encounter for general adult medical examination without abnormal findings (principal) ==

== ENCOUNTER → 2018-06-28 12:35 | Outpatient (CLI) | payer MEDICARE, OTHER, SELFPAY ==
--- NOTE | 2018-06-28 12:42 | CA_ITS ---
PROCEDURE: Limited echocardiogram was performed. INDICATIONS FOR THE TEST: Chest pain COPD Heart Murmur Tobacco Smoking Palpitations Fatigue Syncope Edema HypertensionXDiabetes Mellitus Rheumatic Fever SOBXDOEXObesity Hyperlipidemia Family History HD Additional History EF CHECK PATIENT INFORMATION HEIGHT: 72 WEIGHT:177 GENDER: Male B/P:140/90 2-D/M-MODE INTERPRETATION: 2-D MEASUREMENTS OBSERVED VALUES IN CMS Right Ventricular Dimension (RVDd) 2.3 Interventricular Septum (Thickness)(IVsd) 1.0 Left Ventricular Internal Dimensions(LVIDd) 6.0 Left Ventricular Posterior Wall (Thickness)(LVPWd) 1.1 Aortic Root 3.8 Aortic Cusp Separation 2.1 Left Atrial Dimensions (LAD) 4.6 2D 1. Left atrium is moderately enlarged, left ventricle is mildly dilated, there is mild concentric left ventricular hypertrophy, visually estimated ejection fraction approximately 40-45%, there is abnormal septal motion. 2. The right atrium and right ventricle are mildly enlarged with normal contractility. There is a pacemaker lead seen right atrium and right ventricle. 3. The aortic valve is minimally thickened and calcified. 4. The mitral valve leaflets have degenerative changes, there is no mitral stenosis 5. The tricuspid valve leaflets are minimally thickened. 6. The pulmonic valve is poorly visualized. 7. No significant pericardial effusion noted. DOPPLER INTERROGATION: Doppler interrogation of the aortic, mitral and tricuspid valvular presence of severe mitral and mild to moderate tricuspid regurgitation, calculated right ventricular systolic pressure is 96 mmHg consistent with severe pulmonary hypertension, diastolic parameters are inconclusive. CONCLUSION: 1. Moderately enlarged left atrium, mildly dilated left ventricle, mild concentric left ventricular hypertrophy, visually estimated ejection fraction approximately 40-45%, there is abnormal septal motion. Diastolic parameters are inconclusive. 2. Mildly enlarged right ventricle with normal contractility. 3. Abnormal mitral valve with degenerative changes involving both anterior and posterior mitral leaflet, there is no mitral stenosis, there is severe mitral regurgitation. 4. Mild to moderate tricuspid regurgitation, calculated right ventricular systolic pressure 96 mmHg consistent with severe pulmonary hypertension. 5. No significant pericardial effusion noted.
== END ==
PROVIDERS: PCP Family Medicine; Visit Provider Internal Medicine
DX: R06.02 Shortness of breath (principal)
CPT/HCPCS: 93308

== ENCOUNTER → 2018-06-29 07:44 | Outpatient (CLI) | payer MEDICARE, OTHER, SELFPAY ==
--- NOTE | 2018-06-29 07:46 | US_ITS ---
US abdomen limited HISTORY:Patient on chemotherapy for leukemia. Has become jaundiced. ORDERING PHYSICIAN: Mee Petty PATIENT AGE: 78 years Comparison: 01/14/2017. Procedure: Sagittal, transverse and decubitus imaging of the right upper quadrant organ FINDINGS PANCREAS. Not well visualized. Grossly unremarkable head body & medial tail. No pancreatic ductal dilatation. Right Pleural Effusion incidentally noted. This was noted on 06/09/2018 CT abdomen as well. Warrants CXR 2 view film follow-up LIVER. Coarse echogenicity pattern. Could reflect cirrhosis Also question trace, mild periportal edema Portal vein normal caliber and normal direction flow. Minimal, scant fluid is seen is seen overlying and surrounding liver.-appears similar to the CT 06/09/2018. Minimal ascites as was seen on 06/09/2018 CT. GALLBLADDER -. Diffuse wall thickening at the gallbladder.. Measuring 6-8 mm thickness. This may reflect diffuse edematous a changes gallbladder wall//as might be seen with hyperproteinemia. Difficult to exclude inflammatory changes. Gallbladder Tiny echogenic focus along posterior wall gallbladder may reflect small nonshadowing stone rather than polyp, as it does not seem to change position.. It measures 3 mm size COMMON DUCT: Normal caliber measuring 3.5 mm at hilum of liver. Liver: Unremarkable . Right kidney: Right renal cyst lower pole right kidney measures 2.4X 1.7 cm... No hydronephrosis nor solid mass.. Borderline cortical thinning only scant if any fluid at [place]. ... IMPRESSION:.... RUQ ultrasound. 1.. Gallbladder. ... Prominent gallbladder wall thickening. Edematous state vs GB inflammation. ... Tiny 3 mm possible nonshadowing stone posterior gallbladder noted.. Less likely polyp, 2. Common duct normal diameter These latter features were seen on recent CT 06/09/2018 as well: 3. Coarse texture of liver May reflect cirrhosis. Also Question mild periportal edema. 4.. Minimal fluid surrounding the dome and lateral liver. 5.. Right pleural effusion incidentally noted.
== END ==
PROVIDERS: PCP Family Medicine; Visit Provider Nurse Practitioner Acute Care
DX: E80.6 Other disorders of bilirubin metabolism (principal)
CPT/HCPCS: 76705

== ENCOUNTER → 2018-07-05 14:30 | Outpatient (CLI) | payer MEDICARE, OTHER, SELFPAY ==
[2018-07-05 15:37] LABS: Basophils # 0.2 K/mm3 (0-0.2); Basophils % 2.3 % (0.1-2.0); Eosinophils # 0.3 K/mm3 (0.0-0.4); Eosinophils % 2.8 % (0.1-12.0); Hematocrit 42.4 % (42.0-52.0); Hemoglobin 12.4 g/dL (14.1-18.0); Lymphocytes # 1.7 K/mm3 (0.7-4.5); Lymphocytes % 16.1 % (10-50); Mean Corpuscular HGB Conc 29.2 g/dL (31.8-35.4); Mean Corpuscular Hemoglobin 24.9 pg (27.0-31.2); Mean Corpuscular Volume 85.1 fl (80-94); Mean Platelet Volume 6.7 fl (7.4-10.4); Monocytes # 0.6 K/mm3 (0.1-1.0); Neutrophils # 7.6 K/mm3 (1.8-7.8); Neutrophils % 72.8 % (37.0-80.0); Platelet Count 364 K/mm3 (142-424); Red Blood Count 4.99 M/mm3 (4.60-6.20); Red Cell Distribution Width 20.8 % (11.5-17.5); White Blood Count 10.4 K/mm3 (4.8-10.8)
[2018-07-05 15:47] LABS: Alanine Aminotransferase 13 U/L (12-78); Albumin Level 3.2 gm/dL (3.4-5.0); Albumin/Globulin Ratio 0.9 (1.1-1.8); Alkaline Phosphatase 111 U/L (46-116); Anion Gap 11.5 mEq/L (5-15); Aspartate Amino Transferase 14 U/L (15-37); Bilirubin,Total 3.9 mg/dL (0.2-1.0); Blood Urea Nitrogen 10 mg/dL (7-18); Carbon Dioxide 32 mmol/L (21.0-32.0); Chloride 103 mmol/L (98-107); Creatinine,Serum 1.25 mg/dL (0.70-1.30); Estimated Glomerular Filt Rate 56 ml/min (>60); GFR (African American) 68 ML/MIN (>60); Globulin 3.4 gm/dl (1.3-3.2); Glucose 138 mg/dL (74-106); Potassium 3.5 mmoL/L (3.5-5.1); Sodium 143 mmol/L (136-145); Total Protein,Serum 6.6 gm/dL (6.4-8.2)
== END ==
PROVIDERS: Visit Provider Nurse Practitioner Acute Care
DX: E80.6 Other disorders of bilirubin metabolism (principal)
CPT/HCPCS: 36415; 80053; 85025

== ENCOUNTER → 2018-07-15 13:54 | Outpatient (CLI) | payer MEDICARE, OTHER, SELFPAY ==
[2018-07-15 14:47] LABS: Reticulocyte % (Auto) 1.4 % (0.9-3.2)
[2018-07-15 16:03] LABS: Bilirubin,Direct 0.8 mg/dL (0.0-0.2); Bilirubin,Indirect 1.2 mg/dL (0.0-0.9); Lactate Dehydrogenase 234 U/L (82-234)
[2018-07-18 10:33] LABS: Haptoglobin 185 mg/dL (34-200)
== END ==
PROVIDERS: Visit Provider Nurse Practitioner Acute Care
DX: E80.6 Other disorders of bilirubin metabolism (principal)
CPT/HCPCS: 36415; 82247; 82248; 83010; 83615; 85044

== ENCOUNTER → 2018-08-11 10:12 | Outpatient (CLI) | payer MEDICARE, OTHER, SELFPAY ==
[2018-08-11 11:20] LABS: Basophils % 6.6 % (0.1-2.0); Eosinophils # 1.1 K/mm3 (0.0-0.4); Eosinophils % 3.5 % (0.1-12.0); Hematocrit 43.1 % (42.0-52.0); Lymphocytes # 4.7 K/mm3 (0.7-4.5); Lymphocytes % 15.2 % (10-50); Mean Corpuscular HGB Conc 30.2 g/dL (31.8-35.4); Mean Corpuscular Hemoglobin 25.2 pg (27.0-31.2); Mean Corpuscular Volume 83.4 fl (80-94); Monocytes # 1.4 K/mm3 (0.1-1.0); Monocytes % 4.6 % (1.7-9.3); Neutrophils # 23.6 K/mm3 (1.8-7.8); Neutrophils % 76.6 % (37.0-80.0); Platelet Count 415 K/mm3 (142-424); Red Blood Count 5.17 M/mm3 (4.60-6.20); Red Cell Distribution Width 19.4 % (11.5-17.5); White Blood Count 30.8 K/mm3 (4.8-10.8)
[2018-08-11 11:32] LABS: MANUAL DIFFERENTIAL MANUAL DIFFERENTIAL (MANUAL DIFF)
[2018-08-11 12:34] LABS: Eosinophils % 3 % (0-3); Hypochromasia 2+; Lymphocytes % 19 % (10-50); Monocytes % 2 % (2-9); Neutrophils % 72 % (42-76); Platelet Estimate Normal; Total Cells Counted 100
[2018-08-11 13:02] LABS: Alanine Aminotransferase 21 U/L (12-78); Albumin Level 3.3 gm/dL (3.4-5.0); Alkaline Phosphatase 96 U/L (46-116); Anion Gap 15.2 mEq/L (5-15); Aspartate Amino Transferase 25 U/L (15-37); Bilirubin,Total 1.6 mg/dL (0.2-1.0); Blood Urea Nitrogen 14 mg/dL (7-18); Calcium 9.2 mg/dL (8.5-10.1); Carbon Dioxide 27 mmol/L (21.0-32.0); Chloride 106 mmol/L (98-107); Creatinine,Serum 1.24 mg/dL (0.70-1.30); Estimated Glomerular Filt Rate 57 ml/min (>60); GFR (African American) 69 ML/MIN (>60); Globulin 3.2 gm/dl (1.3-3.2); Glucose 111 mg/dL (74-106); Potassium 4.2 mmoL/L (3.5-5.1); Sodium 144 mmol/L (136-145); Total Protein,Serum 6.5 gm/dL (6.4-8.2)
[2018-08-13 10:16] LABS: Peripheral Smear Review Scanned Result
== END ==
PROVIDERS: PCP Family Medicine; Visit Provider Internal Medicine Medical Oncology
DX: C92.10 Chronic myeloid leukemia, BCR/ABL-positive, not having achieved remission (principal)
CPT/HCPCS: 36415; 80053; 85007; 85025

== ENCOUNTER → 2018-08-15 13:14 | Outpatient (POV) | payer MEDICARE, OTHER, SELFPAY | PROVIDERS: Visit Provider Nurse Practitioner Acute Care | DX: Z00.00 Encounter for general adult medical examination without abnormal findings (principal) ==

== ENCOUNTER → 2018-08-30 14:01 | Outpatient (CLI) | payer MEDICARE, OTHER, SELFPAY ==
[2018-08-30 15:10] LABS: Basophils # 0.8 K/mm3 (0-0.2); Basophils % 5.3 % (0.1-2.0); Eosinophils # 0.5 K/mm3 (0.0-0.4); Eosinophils % 3.4 % (0.1-12.0); Hematocrit 44.1 % (42.0-52.0); Hemoglobin 13.3 g/dL (14.1-18.0); Lymphocytes # 2.9 K/mm3 (0.7-4.5); Lymphocytes % 18.7 % (10-50); Mean Corpuscular HGB Conc 30.1 g/dL (31.8-35.4); Mean Corpuscular Hemoglobin 25.4 pg (27.0-31.2); Mean Corpuscular Volume 84.3 fl (80-94); Mean Platelet Volume 6.9 fl (7.4-10.4); Monocytes # 0.7 K/mm3 (0.1-1.0); Monocytes % 4.4 % (1.7-9.3); Neutrophils # 11.3 K/mm3 (1.8-7.8); Neutrophils % 73.5 % (37.0-80.0); Platelet Count 392 K/mm3 (142-424); Red Blood Count 5.24 M/mm3 (4.60-6.20); Red Cell Distribution Width 19.6 % (11.5-17.5); White Blood Count 15.4 K/mm3 (4.8-10.8)
[2018-08-30 15:16] LABS: Alanine Aminotransferase 21 U/L (12-78); Albumin Level 3.5 gm/dL (3.4-5.0); Albumin/Globulin Ratio 1.1 (1.1-1.8); Alkaline Phosphatase 81 U/L (46-116); Anion Gap 11.3 mEq/L (5-15); Aspartate Amino Transferase 18 U/L (15-37); Bilirubin,Total 2.4 mg/dL (0.2-1.0); Blood Urea Nitrogen 15 mg/dL (7-18); Calcium 9.5 mg/dL (8.5-10.1); Carbon Dioxide 30 mmol/L (21.0-32.0); Chloride 103 mmol/L (98-107); Creatinine,Serum 1.39 mg/dL (0.70-1.30); Estimated Glomerular Filt Rate 50 ml/min (>60); GFR (African American) 60 ML/MIN (>60); Globulin 3.3 gm/dl (1.3-3.2); Glucose 101 mg/dL (74-106); Potassium 4.3 mmoL/L (3.5-5.1); Sodium 140 mmol/L (136-145); Total Protein,Serum 6.8 gm/dL (6.4-8.2)
[2018-08-30 15:17] LABS: MANUAL DIFFERENTIAL MANUAL DIFFERENTIAL (MANUAL DIFF)
[2018-08-30 19:37] LABS: Eosinophils % 7 % (0-3); Hypochromasia 2+; Lymphocytes % 13 % (10-50); Monocytes % 2 % (2-9); Neutrophils % 75 % (42-76); Platelet Estimate Normal; Total Cells Counted 100
== END ==
PROVIDERS: Visit Provider Internal Medicine Medical Oncology
DX: C92.10 Chronic myeloid leukemia, BCR/ABL-positive, not having achieved remission (principal)
CPT/HCPCS: 36415; 80053; 85007; 85025

== ENCOUNTER → 2018-09-13 12:51 | Outpatient (CLI) | payer MEDICARE, OTHER, SELFPAY ==
[2018-09-13 14:05] LABS: Alanine Aminotransferase 24 U/L (12-78); Albumin Level 3.7 gm/dL (3.4-5.0); Albumin/Globulin Ratio 1.2 (1.1-1.8); Alkaline Phosphatase 79 U/L (46-116); Anion Gap 10.9 mEq/L (5-15); Aspartate Amino Transferase 22 U/L (15-37); Bilirubin,Total 3.2 mg/dL (0.2-1.0); Blood Urea Nitrogen 16 mg/dL (7-18); Calcium 9.3 mg/dL (8.5-10.1); Carbon Dioxide 30 mmol/L (21.0-32.0); Chloride 106 mmol/L (98-107); Creatinine,Serum 1.27 mg/dL (0.70-1.30); Estimated Glomerular Filt Rate 55 ml/min (>60); GFR (African American) 67 ML/MIN (>60); Globulin 3.1 gm/dl (1.3-3.2); Glucose 111 mg/dL (74-106); Potassium 3.9 mmoL/L (3.5-5.1); Sodium 143 mmol/L (136-145); Total Protein,Serum 6.8 gm/dL (6.4-8.2)
[2018-09-13 14:17] LABS: Basophils # 0.1 K/mm3 (0-0.2); Basophils % 1.7 % (0.1-2.0); Eosinophils # 0.4 K/mm3 (0.0-0.4); Eosinophils % 4.8 % (0.1-12.0); Hematocrit 45.1 % (42.0-52.0); Hemoglobin 13.3 g/dL (14.1-18.0); Lymphocytes # 1.6 K/mm3 (0.7-4.5); Lymphocytes % 20.1 % (10-50); Mean Corpuscular HGB Conc 29.4 g/dL (31.8-35.4); Mean Corpuscular Hemoglobin 25.5 pg (27.0-31.2); Mean Corpuscular Volume 86.6 fl (80-94); Mean Platelet Volume 7.3 fl (7.4-10.4); Monocytes # 0.3 K/mm3 (0.1-1.0); Monocytes % 4.2 % (1.7-9.3); Neutrophils # 5.4 K/mm3 (1.8-7.8); Neutrophils % 69.3 % (37.0-80.0); Platelet Count 261 K/mm3 (142-424); Red Cell Distribution Width 19.5 % (11.5-17.5); White Blood Count 7.8 K/mm3 (4.8-10.8)
== END ==
PROVIDERS: Visit Provider Internal Medicine Medical Oncology
DX: C92.10 Chronic myeloid leukemia, BCR/ABL-positive, not having achieved remission (principal)
CPT/HCPCS: 36415; 80053; 85025

== ENCOUNTER → 2018-10-04 13:43 | Outpatient (CLI) | payer MEDICARE, OTHER, SELFPAY ==
[2018-10-04 14:35] LABS: Basophils # 0.4 K/mm3 (0-0.2); Basophils % 3.9 % (0.1-2.0); Eosinophils # 0.3 K/mm3 (0.0-0.4); Eosinophils % 2.3 % (0.1-12.0); Hematocrit 44.1 % (42.0-52.0); Hemoglobin 14.1 g/dL (14.1-18.0); Lymphocytes # 1.6 K/mm3 (0.7-4.5); Lymphocytes % 14.4 % (10-50); Mean Corpuscular HGB Conc 31.9 g/dL (31.8-35.4); Mean Corpuscular Hemoglobin 26.9 pg (27.0-31.2); Mean Corpuscular Volume 84.3 fl (80-94); Mean Platelet Volume 6.8 fl (7.4-10.4); Monocytes # 0.4 K/mm3 (0.1-1.0); Monocytes % 3.5 % (1.7-9.3); Neutrophils # 8.3 K/mm3 (1.8-7.8); Neutrophils % 75.9 % (37.0-80.0); Platelet Count 266 K/mm3 (142-424); Red Blood Count 5.24 M/mm3 (4.60-6.20); Red Cell Distribution Width 17.7 % (11.5-17.5)
[2018-10-04 20:04] LABS: Alanine Aminotransferase 32 U/L (12-78); Albumin Level 3.8 gm/dL (3.4-5.0); Albumin/Globulin Ratio 1.2 (1.1-1.8); Alkaline Phosphatase 98 U/L (46-116); Anion Gap 12.8 mEq/L (5-15); Aspartate Amino Transferase 21 U/L (15-37); Bilirubin,Total 2.2 mg/dL (0.2-1.0); Blood Urea Nitrogen 12 mg/dL (7-18); Calcium 9.4 mg/dL (8.5-10.1); Carbon Dioxide 31 mmol/L (21.0-32.0); Chloride 106 mmol/L (98-107); Creatinine,Serum 1.26 mg/dL (0.70-1.30); Estimated Glomerular Filt Rate 56 ml/min (>60); GFR (African American) 67 ML/MIN (>60); Globulin 3.3 gm/dl (1.3-3.2); Glucose 97 mg/dL (74-106); Potassium 4.8 mmoL/L (3.5-5.1); Sodium 145 mmol/L (136-145); Total Protein,Serum 7.1 gm/dL (6.4-8.2)
== END ==
PROVIDERS: Visit Provider Internal Medicine Medical Oncology
DX: C92.10 Chronic myeloid leukemia, BCR/ABL-positive, not having achieved remission (principal)
CPT/HCPCS: 36415; 80053; 81206; 85025

== ENCOUNTER → 2018-11-16 09:40 | Outpatient (CLI) | payer MEDICARE, OTHER, SELFPAY ==
[2018-11-16 09:54] LABS: Basophils # 0.5 K/mm3 (0-0.2); Basophils % 3.4 % (0.1-2.0); Eosinophils # 0.6 K/mm3 (0.0-0.4); Eosinophils % 4.1 % (0.1-12.0); Hematocrit 46.1 % (42.0-52.0); Hemoglobin 14.5 g/dL (14.1-18.0); Lymphocytes # 1.8 K/mm3 (0.7-4.5); Lymphocytes % 13.4 % (10-50); Mean Corpuscular HGB Conc 31.5 g/dL (31.8-35.4); Mean Corpuscular Hemoglobin 27.2 pg (27.0-31.2); Mean Corpuscular Volume 86.3 fl (80-94); Mean Platelet Volume 7.2 fl (7.4-10.4); Monocytes # 0.5 K/mm3 (0.1-1.0); Monocytes % 3.6 % (1.7-9.3); Neutrophils # 10.2 K/mm3 (1.8-7.8); Neutrophils % 75.5 % (37.0-80.0); Platelet Count 342 K/mm3 (142-424); Red Blood Count 5.35 M/mm3 (4.60-6.20); Red Cell Distribution Width 16.2 % (11.5-17.5); White Blood Count 13.5 K/mm3 (4.8-10.8)
[2018-11-16 10:39] LABS: Alanine Aminotransferase 22 U/L (12-78); Albumin Level 3.8 gm/dL (3.4-5.0); Albumin/Globulin Ratio 1.1 (1.1-1.8); Alkaline Phosphatase 81 U/L (46-116); Anion Gap 14.3 mEq/L (5-15); Aspartate Amino Transferase 19 U/L (15-37); Bilirubin,Total 2.4 mg/dL (0.2-1.0); Blood Urea Nitrogen 15 mg/dL (7-18); Calcium 9.8 mg/dL (8.5-10.1); Carbon Dioxide 29 mmol/L (21.0-32.0); Chloride 107 mmol/L (98-107); Creatinine,Serum 1.46 mg/dL (0.70-1.30); Estimated Glomerular Filt Rate 47 ml/min (>60); GFR (African American) 57 ML/MIN (>60); Globulin 3.4 gm/dl (1.3-3.2); Glucose 113 mg/dL (74-106); Potassium 4.3 mmoL/L (3.5-5.1); Sodium 146 mmol/L (136-145); Total Protein,Serum 7.2 gm/dL (6.4-8.2)
== END ==
PROVIDERS: Visit Provider Internal Medicine Medical Oncology
DX: C92.10 Chronic myeloid leukemia, BCR/ABL-positive, not having achieved remission (principal)
CPT/HCPCS: 36415; 80053; 85025

== ENCOUNTER → 2018-12-15 09:37 | Outpatient (CLI) | payer MEDICARE, OTHER, SELFPAY ==
[2018-12-15 11:17] LABS: Basophils # 0.5 K/mm3 (0-0.2); Basophils % 3.1 % (0.1-2.0); Eosinophils # 0.7 K/mm3 (0.0-0.4); Eosinophils % 4.1 % (0.1-12.0); Hematocrit 47.8 % (42.0-52.0); Hemoglobin 15.1 g/dL (14.1-18.0); Lymphocytes # 2.3 K/mm3 (0.7-4.5); Lymphocytes % 13.9 % (10-50); Mean Corpuscular HGB Conc 31.7 g/dL (31.8-35.4); Mean Corpuscular Hemoglobin 26.7 pg (27.0-31.2); Mean Corpuscular Volume 84.2 fl (80-94); Monocytes # 0.7 K/mm3 (0.1-1.0); Neutrophils # 12.3 K/mm3 (1.8-7.8); Neutrophils % 74.9 % (37.0-80.0); Platelet Count 419 K/mm3 (142-424); Red Blood Count 5.67 M/mm3 (4.60-6.20); Red Cell Distribution Width 15.6 % (11.5-17.5); White Blood Count 16.4 K/mm3 (4.8-10.8)
[2018-12-15 11:20] LABS: MANUAL DIFFERENTIAL MANUAL DIFFERENTIAL (MANUAL DIFF)
[2018-12-15 11:30] LABS: Alanine Aminotransferase 25 U/L (12-78); Albumin Level 3.9 gm/dL (3.4-5.0); Albumin/Globulin Ratio 1.2 (1.1-1.8); Alkaline Phosphatase 77 U/L (46-116); Aspartate Amino Transferase 16 U/L (15-37); Bilirubin,Total 2.5 mg/dL (0.2-1.0); Blood Urea Nitrogen 16 mg/dL (7-18); Calcium 9.9 mg/dL (8.5-10.1); Carbon Dioxide 30 mmol/L (21.0-32.0); Chloride 106 mmol/L (98-107); Creatinine,Serum 1.34 mg/dL (0.70-1.30); Estimated Glomerular Filt Rate 52 ml/min (>60); GFR (African American) 63 ML/MIN (>60); Globulin 3.2 gm/dl (1.3-3.2); Glucose 67 mg/dL (74-106); Sodium 145 mmol/L (136-145); Total Protein,Serum 7.1 gm/dL (6.4-8.2)
[2018-12-15 13:51] LABS: Eosinophils % 4 % (0-3); Lymphocytes % 12 % (10-50); Monocytes % 1 % (2-9); Neutrophils % 83 % (42-76); Platelet Estimate Normal; RBC Morphology Normal; Total Cells Counted 100
== END ==
PROVIDERS: Visit Provider Internal Medicine Medical Oncology
DX: C92.10 Chronic myeloid leukemia, BCR/ABL-positive, not having achieved remission (principal)
CPT/HCPCS: 36415; 80053; 81206; 85007; 85025

== ENCOUNTER → 2019-01-25 09:50 | Outpatient (CLI) | payer MEDICARE, OTHER, SELFPAY ==
[2019-01-25 10:17] LABS: Basophils # 1.5 K/mm3 (0-0.2); Basophils % 3.4 % (0.1-2.0); Eosinophils # 1.2 K/mm3 (0.0-0.4); Eosinophils % 2.8 % (0.1-12.0); Hematocrit 47.2 % (42.0-52.0); Hemoglobin 14.4 g/dL (14.1-18.0); Lymphocytes # 3.9 K/mm3 (0.7-4.5); Lymphocytes % 9.1 % (10-50); Mean Corpuscular HGB Conc 30.6 g/dL (31.8-35.4); Mean Corpuscular Hemoglobin 25.4 pg (27.0-31.2); Mean Corpuscular Volume 82.9 fl (80-94); Mean Platelet Volume 6.7 fl (7.4-10.4); Monocytes # 3.2 K/mm3 (0.1-1.0); Monocytes % 7.5 % (1.7-9.3); Neutrophils # 34.8 K/mm3 (1.8-7.8); Neutrophils % 80.7 % (37.0-80.0); Platelet Count 599 K/mm3 (142-424); Red Blood Count 5.69 M/mm3 (4.60-6.20); Red Cell Distribution Width 15.6 % (11.5-17.5)
[2019-01-25 10:58] LABS: White Blood Count 43.1 K/mm3 (4.8-10.8)
[2019-01-25 11:00] LABS: MANUAL DIFFERENTIAL MANUAL DIFFERENTIAL (MANUAL DIFF)
[2019-01-25 11:23] LABS: Alanine Aminotransferase 37 U/L (12-78); Albumin Level 3.6 gm/dL (3.4-5.0); Albumin/Globulin Ratio 1.1 (1.1-1.8); Alkaline Phosphatase 112 U/L (46-116); Anion Gap 12.2 mEq/L (5-15); Aspartate Amino Transferase 33 U/L (15-37); Bilirubin,Total 1.9 mg/dL (0.2-1.0); Blood Urea Nitrogen 15 mg/dL (7-18); Calcium 9.5 mg/dL (8.5-10.1); Carbon Dioxide 30 mmol/L (21.0-32.0); Chloride 105 mmol/L (98-107); Creatinine,Serum 1.38 mg/dL (0.70-1.30); Estimated Glomerular Filt Rate 50 ml/min (>60); GFR (African American) 61 ML/MIN (>60); Globulin 3.3 gm/dl (1.3-3.2); Glucose 112 mg/dL (74-106); Potassium 4.2 mmoL/L (3.5-5.1); Sodium 143 mmol/L (136-145); Total Protein,Serum 6.9 gm/dL (6.4-8.2)
[2019-01-25 14:56] LABS: Eosinophils % 2 % (0-3); Lymphocytes % 9 % (10-50); Monocytes % 5 % (2-9); Myelocytes % 9 (0-1); Neutrophils % 64 % (42-76); Total Cells Counted 100
[2019-01-25 14:57] LABS: Hypochromasia 1+; Platelet Estimate Moderate Increase
== END ==
PROVIDERS: Visit Provider Internal Medicine Medical Oncology
DX: C92.10 Chronic myeloid leukemia, BCR/ABL-positive, not having achieved remission (principal)
CPT/HCPCS: 36415; 80053; 85007; 85025

== ENCOUNTER → 2019-02-08 09:33 | Outpatient (CLI) | payer MEDICARE, OTHER, SELFPAY ==
[2019-02-08 09:58] LABS: Basophils % 3.1 % (0.1-2.0); Eosinophils # 1.5 K/mm3 (0.0-0.4); Eosinophils % 4.6 % (0.1-12.0); Hematocrit 48.4 % (42.0-52.0); Hemoglobin 14.8 g/dL (14.1-18.0); Lymphocytes # 3.6 K/mm3 (0.7-4.5); Lymphocytes % 10.7 % (10-50); Mean Corpuscular HGB Conc 30.5 g/dL (31.8-35.4); Mean Corpuscular Hemoglobin 26.3 pg (27.0-31.2); Mean Corpuscular Volume 86.3 fl (80-94); Mean Platelet Volume 7.4 fl (7.4-10.4); Monocytes # 1.5 K/mm3 (0.1-1.0); Monocytes % 4.5 % (1.7-9.3); Neutrophils # 26.9 K/mm3 (1.8-7.8); Neutrophils % 80.2 % (37.0-80.0); Red Blood Count 5.61 M/mm3 (4.60-6.20); Red Cell Distribution Width 16.2 % (11.5-17.5); White Blood Count 33.6 K/mm3 (4.8-10.8)
[2019-02-08 11:52] LABS: Platelet Count 583 K/mm3 (142-424)
[2019-02-08 11:55] LABS: MANUAL DIFFERENTIAL MANUAL DIFFERENTIAL (MANUAL DIFF)
[2019-02-08 12:03] LABS: Alanine Aminotransferase 29 U/L (12-78); Albumin Level 3.9 gm/dL (3.4-5.0); Albumin/Globulin Ratio 1.2 (1.1-1.8); Alkaline Phosphatase 102 U/L (46-116); Anion Gap 15.2 mEq/L (5-15); Aspartate Amino Transferase 23 U/L (15-37); Bilirubin,Total 1.9 mg/dL (0.2-1.0); Blood Urea Nitrogen 24 mg/dL (7-18); Calcium 9.6 mg/dL (8.5-10.1); Carbon Dioxide 29 mmol/L (21.0-32.0); Chloride 104 mmol/L (98-107); Creatinine,Serum 1.49 mg/dL (0.70-1.30); Estimated Glomerular Filt Rate 46 ml/min (>60); GFR (African American) 55 ML/MIN (>60); Globulin 3.2 gm/dl (1.3-3.2); Glucose 73 mg/dL (74-106); Potassium 4.2 mmoL/L (3.5-5.1); Sodium 144 mmol/L (136-145); Total Protein,Serum 7.1 gm/dL (6.4-8.2)
[2019-02-08 15:07] LABS: Basophilic Stippling 1+; Eosinophils % 6 % (0-3); Lymphocytes % 7 % (10-50); Monocytes % 3 % (2-9); Myelocytes % 2 (0-1); Neutrophils % 68 % (42-76); Platelet Estimate Moderate Increase; RBC Morphology Normal; Total Cells Counted 100
[2019-02-13 20:08] LABS: e1a2 transcript 0.0901 % (.)
== END ==
PROVIDERS: Internal Medicine Hematology & Oncology; Visit Provider Internal Medicine Medical Oncology
DX: C92.10 Chronic myeloid leukemia, BCR/ABL-positive, not having achieved remission (principal)
CPT/HCPCS: 80053; 81206; 85007; 85025

== ENCOUNTER → 2019-03-08 09:34 | Outpatient (CLI) | payer MEDICARE, OTHER, SELFPAY ==
[2019-03-08 10:34] LABS: Basophils # 0.5 K/mm3 (0-0.2); Basophils % 2.6 % (0.1-2.0); Eosinophils # 0.9 K/mm3 (0.0-0.4); Eosinophils % 4.6 % (0.1-12.0); Hematocrit 46.3 % (42.0-52.0); Hemoglobin 14.2 g/dL (14.1-18.0); Lymphocytes % 10.1 % (10-50); Mean Corpuscular HGB Conc 30.6 g/dL (31.8-35.4); Mean Corpuscular Hemoglobin 26.2 pg (27.0-31.2); Mean Corpuscular Volume 85.5 fl (80-94); Monocytes # 1.3 K/mm3 (0.1-1.0); Monocytes % 6.4 % (1.7-9.3); Neutrophils # 15.3 K/mm3 (1.8-7.8); Neutrophils % 76.3 % (37.0-80.0); Platelet Count 527 K/mm3 (142-424); Red Blood Count 5.41 M/mm3 (4.60-6.20)
[2019-03-08 10:38] LABS: MANUAL DIFFERENTIAL MANUAL DIFFERENTIAL (MANUAL DIFF)
[2019-03-08 11:57] LABS: Alanine Aminotransferase 24 U/L (12-78); Albumin Level 3.6 gm/dL (3.4-5.0); Albumin/Globulin Ratio 1.2 (1.1-1.8); Alkaline Phosphatase 93 U/L (46-116); Anion Gap 11.9 mEq/L (5-15); Aspartate Amino Transferase 19 U/L (15-37); Bilirubin,Total 2.5 mg/dL (0.2-1.0); Blood Urea Nitrogen 16 mg/dL (7-18); Calcium 9.3 mg/dL (8.5-10.1); Carbon Dioxide 29 mmol/L (21.0-32.0); Chloride 106 mmol/L (98-107); Creatinine,Serum 1.43 mg/dL (0.70-1.30); Estimated Glomerular Filt Rate 48 ml/min (>60); GFR (African American) 58 ML/MIN (>60); Globulin 3.1 gm/dl (1.3-3.2); Glucose 105 mg/dL (74-106); Potassium 3.9 mmoL/L (3.5-5.1); Sodium 143 mmol/L (136-145); Total Protein,Serum 6.7 gm/dL (6.4-8.2)
[2019-03-08 14:26] LABS: Eosinophils % 4 % (0-3); Hypochromasia 1+; Lymphocytes % 8 % (10-50); Monocytes % 1 % (2-9); Neutrophils % 84 % (42-76); Platelet Estimate Slight Increase; Total Cells Counted 100
== END ==
PROVIDERS: Visit Provider Internal Medicine Medical Oncology
DX: C91.10 Chronic lymphocytic leukemia of B-cell type not having achieved remission (principal)
CPT/HCPCS: 36415; 80053; 85007; 85025

== ENCOUNTER → 2019-04-19 11:48 | Outpatient (CLI) | payer MEDICARE, OTHER, SELFPAY ==
[2019-04-19 12:16] LABS: Basophils # 0.3 K/mm3 (0-0.2); Basophils % 2.1 % (0.1-2.0); Eosinophils # 0.7 K/mm3 (0.0-0.4); Eosinophils % 5.8 % (0.1-12.0); Hemoglobin 14.9 g/dL (14.1-18.0); Lymphocytes # 1.6 K/mm3 (0.7-4.5); Lymphocytes % 13.5 % (10-50); Mean Corpuscular HGB Conc 31.7 g/dL (31.8-35.4); Mean Corpuscular Hemoglobin 27.8 pg (27.0-31.2); Mean Corpuscular Volume 87.7 fl (80-94); Mean Platelet Volume 6.7 fl (7.4-10.4); Monocytes # 0.9 K/mm3 (0.1-1.0); Monocytes % 7.2 % (1.7-9.3); Neutrophils # 8.6 K/mm3 (1.8-7.8); Neutrophils % 71.3 % (37.0-80.0); Platelet Count 332 K/mm3 (142-424); Red Blood Count 5.36 M/mm3 (4.60-6.20); Red Cell Distribution Width 15.8 % (11.5-17.5); White Blood Count 12.1 K/mm3 (4.8-10.8)
[2019-04-19 14:30] LABS: Alanine Aminotransferase 22 U/L (12-78); Albumin Level 3.7 gm/dL (3.4-5.0); Albumin/Globulin Ratio 1.2 (1.1-1.8); Alkaline Phosphatase 78 U/L (46-116); Anion Gap 13.8 mEq/L (5-15); Aspartate Amino Transferase 19 U/L (15-37); Bilirubin,Total 2.8 mg/dL (0.2-1.0); Blood Urea Nitrogen 10 mg/dL (7-18); Calcium 9.5 mg/dL (8.5-10.1); Carbon Dioxide 28 mmol/L (21.0-32.0); Chloride 108 mmol/L (98-107); Creatinine,Serum 1.18 mg/dL (0.70-1.30); Estimated Glomerular Filt Rate 60 ml/min (>60); GFR (African American) 73 ML/MIN (>60); Glucose 109 mg/dL (74-106); Potassium 3.8 mmoL/L (3.5-5.1); Sodium 146 mmol/L (136-145); Total Protein,Serum 6.7 gm/dL (6.4-8.2)
== END ==
PROVIDERS: Visit Provider Internal Medicine Hematology & Oncology
DX: C91.10 Chronic lymphocytic leukemia of B-cell type not having achieved remission (principal)
CPT/HCPCS: 36415; 80053; 85025

== ENCOUNTER → 2019-06-21 08:50 | Outpatient (CLI) | payer MEDICARE, OTHER, SELFPAY ==
[2019-06-21 09:21] LABS: Basophils # 0.3 K/mm3 (0-0.2); Basophils % 2.7 % (0.1-2.0); Eosinophils # 0.8 K/mm3 (0.0-0.4); Eosinophils % 6.4 % (0.1-12.0); Hematocrit 46.4 % (42.0-52.0); Hemoglobin 14.8 g/dL (14.1-18.0); Lymphocytes # 1.5 K/mm3 (0.7-4.5); Lymphocytes % 12.5 % (10-50); Mean Corpuscular HGB Conc 31.9 g/dL (31.8-35.4); Mean Corpuscular Hemoglobin 28.8 pg (27.0-31.2); Mean Corpuscular Volume 90.5 fl (80-94); Mean Platelet Volume 7.6 fl (7.4-10.4); Monocytes # 0.5 K/mm3 (0.1-1.0); Monocytes % 4.3 % (1.7-9.3); Neutrophils # 9.1 K/mm3 (1.8-7.8); Neutrophils % 74.2 % (37.0-80.0); Platelet Count 296 K/mm3 (142-424); Red Blood Count 5.13 M/mm3 (4.60-6.20); Red Cell Distribution Width 14.6 % (11.5-17.5); White Blood Count 12.3 K/mm3 (4.8-10.8)
[2019-06-21 10:29] LABS: Alanine Aminotransferase 24 U/L (12-78); Albumin Level 3.5 gm/dL (3.4-5.0); Albumin/Globulin Ratio 1.3 (1.1-1.8); Alkaline Phosphatase 84 U/L (46-116); Anion Gap 10.8 mEq/L (5-15); Aspartate Amino Transferase 17 U/L (15-37); Bilirubin,Total 2.9 mg/dL (0.2-1.0); Blood Urea Nitrogen 12 mg/dL (7-18); Calcium 9.4 mg/dL (8.5-10.1); Carbon Dioxide 29 mmol/L (21.0-32.0); Chloride 107 mmol/L (98-107); Creatinine,Serum 1.41 mg/dL (0.70-1.30); Estimated Glomerular Filt Rate 49 ml/min (>60); GFR (African American) 59 ML/MIN (>60); Globulin 2.7 gm/dl (1.3-3.2); Glucose 104 mg/dL (74-106); Potassium 3.8 mmoL/L (3.5-5.1); Sodium 143 mmol/L (136-145); Total Protein,Serum 6.2 gm/dL (6.4-8.2)
== END ==
PROVIDERS: Visit Provider Internal Medicine Medical Oncology
DX: C95.90 Leukemia, unspecified not having achieved remission (principal)
CPT/HCPCS: 36415; 80053; 85025

== ENCOUNTER → 2019-08-01 12:58 | Outpatient (CLI) | payer MEDICARE, OTHER, SELFPAY ==
[2019-08-01 13:25] LABS: Basophils # 0.3 K/mm3 (0-0.2); Basophils % 2.3 % (0.1-2.0); Eosinophils # 0.5 K/mm3 (0.0-0.4); Eosinophils % 3.7 % (0.1-12.0); Hematocrit 48.7 % (42.0-52.0); Hemoglobin 15.7 g/dL (14.1-18.0); Lymphocytes # 1.8 K/mm3 (0.7-4.5); Lymphocytes % 12.4 % (10-50); Mean Corpuscular HGB Conc 32.2 g/dL (31.8-35.4); Mean Corpuscular Hemoglobin 28.5 pg (27.0-31.2); Mean Corpuscular Volume 88.6 fl (80-94); Mean Platelet Volume 7.4 fl (7.4-10.4); Monocytes # 0.8 K/mm3 (0.1-1.0); Monocytes % 5.8 % (1.7-9.3); Neutrophils # 10.9 K/mm3 (1.8-7.8); Neutrophils % 75.8 % (37.0-80.0); Platelet Count 332 K/mm3 (142-424); Red Cell Distribution Width 14.6 % (11.5-17.5); White Blood Count 14.4 K/mm3 (4.8-10.8)
[2019-08-01 15:44] LABS: Alanine Aminotransferase 23 U/L (12-78); Albumin Level 3.7 gm/dL (3.4-5.0); Albumin/Globulin Ratio 1.3 (1.1-1.8); Alkaline Phosphatase 77 U/L (46-116); Anion Gap 10.3 mEq/L (5-15); Aspartate Amino Transferase 17 U/L (15-37); Bilirubin,Total 3.1 mg/dL (0.2-1.0); Blood Urea Nitrogen 13 mg/dL (7-18); Calcium 9.2 mg/dL (8.5-10.1); Carbon Dioxide 32 mmol/L (21.0-32.0); Chloride 106 mmol/L (98-107); Creatinine,Serum 1.36 mg/dL (0.70-1.30); Estimated Glomerular Filt Rate 51 ml/min (>60); GFR (African American) 61 ML/MIN (>60); Globulin 2.9 gm/dl (1.3-3.2); Glucose 112 mg/dL (74-106); Potassium 4.3 mmoL/L (3.5-5.1); Sodium 144 mmol/L (136-145); Total Protein,Serum 6.6 gm/dL (6.4-8.2)
== END ==
PROVIDERS: Visit Provider Internal Medicine Hematology & Oncology
DX: C95.90 Leukemia, unspecified not having achieved remission (principal)
CPT/HCPCS: 36415; 80053; 85025

== ENCOUNTER → 2019-09-26 08:51 | Outpatient (CLI) | payer MEDICARE, OTHER, SELFPAY ==
[2019-09-26 09:45] LABS: Basophils # 0.4 K/mm3 (0-0.2); Basophils % 2.8 % (0.1-2.0); Eosinophils # 0.9 K/mm3 (0.0-0.4); Eosinophils % 6.4 % (0.1-12.0); Hematocrit 48.2 % (42.0-52.0); Hemoglobin 15.1 g/dL (14.1-18.0); Lymphocytes # 1.7 K/mm3 (0.7-4.5); Lymphocytes % 12.2 % (10-50); Mean Corpuscular HGB Conc 31.3 g/dL (31.8-35.4); Mean Corpuscular Hemoglobin 27.7 pg (27.0-31.2); Mean Corpuscular Volume 88.4 fl (80-94); Monocytes # 0.6 K/mm3 (0.1-1.0); Monocytes % 4.4 % (1.7-9.3); Neutrophils # 10.3 K/mm3 (1.8-7.8); Neutrophils % 74.1 % (37.0-80.0); Platelet Count 372 K/mm3 (142-424); Red Blood Count 5.45 M/mm3 (4.60-6.20); Red Cell Distribution Width 15.2 % (11.5-17.5); White Blood Count 13.9 K/mm3 (4.8-10.8)
[2019-09-26 10:05] LABS: Alanine Aminotransferase 23 U/L (21-72); Albumin Level 3.4 g/dL (3.4-5.0); Albumin/Globulin Ratio 1.2 (1.1-1.8); Alkaline Phosphatase 87 U/L (46-116); Anion Gap 10.2 mEq/L (5-15); Aspartate Amino Transferase 22 U/L (15-37); Bilirubin,Total 2.3 mg/dL (0.2-1.0); Blood Urea Nitrogen 16 mg/dL (7-18); Calcium 9.4 mg/dL (8.5-10.1); Carbon Dioxide 31 mmol/L (21.0-32.0); Chloride 110 mmol/L (98-107); Creatinine,Serum 1.34 mg/dL (0.70-1.30); Estimated Glomerular Filt Rate 52 ml/min (>60); GFR (African American) 63 ML/MIN (>60); Globulin 2.8 gm/dl (1.3-3.2); Glucose 104 mg/dL (74-106); Potassium 4.2 mmoL/L (3.5-5.1); Sodium 147 mmol/L (137-145); Total Protein,Serum 6.2 g/dL (6.4-8.2)
== END ==
PROVIDERS: Visit Provider Internal Medicine Medical Oncology
DX: C92.10 Chronic myeloid leukemia, BCR/ABL-positive, not having achieved remission (principal)
CPT/HCPCS: 36415; 80053; 81206; 85025

== ENCOUNTER → 2019-12-04 10:18 | Outpatient (CLI) | payer MEDICARE, OTHER, SELFPAY ==
[2019-12-04 10:59] LABS: Basophils # 0.3 K/mm3 (0-0.2); Basophils % 2.5 % (0.1-2.0); Eosinophils # 0.5 K/mm3 (0.0-0.4); Eosinophils % 4.1 % (0.1-12.0); Hematocrit 47.5 % (42.0-52.0); Lymphocytes # 1.7 K/mm3 (0.7-4.5); Lymphocytes % 14.1 % (10-50); Mean Corpuscular HGB Conc 31.6 g/dL (31.8-35.4); Mean Corpuscular Hemoglobin 28.7 pg (27.0-31.2); Mean Corpuscular Volume 90.7 fl (80-94); Mean Platelet Volume 7.6 fl (7.4-10.4); Monocytes # 0.3 K/mm3 (0.1-1.0); Monocytes % 2.7 % (1.7-9.3); Neutrophils # 9.1 K/mm3 (1.8-7.8); Neutrophils % 76.5 % (37.0-80.0); Platelet Count 288 K/mm3 (142-424); Red Blood Count 5.24 M/mm3 (4.60-6.20); Red Cell Distribution Width 15.4 % (11.5-17.5); White Blood Count 11.9 K/mm3 (4.8-10.8)
[2019-12-04 11:24] LABS: Alanine Aminotransferase 19 U/L (12-78); Albumin Level 4.2 g/dl (3.5-5.0); Albumin/Globulin Ratio 1.6 (1.1-1.8); Alkaline Phosphatase 60 U/L (38-126); Anion Gap 9.1 mEq/L (5-15); Aspartate Amino Transferase 28 U/L (17-59); Bilirubin,Total 3.2 mg/dl (0.2-1.3); Blood Urea Nitrogen 14 mg/dl (9-20); Calcium 10.1 mg/dl (8.4-10.2); Carbon Dioxide 34 mmol/L (22.0-30.0); Chloride 104 mmol/L (98-107); Estimated Glomerular Filt Rate 59 ml/min (>60); GFR (African American) 71 ML/MIN (>60); Globulin 2.6 g/dL (1.3-3.2); Glucose 93 mg/dl (74-100); Potassium 4.1 mmoL/L (3.5-5.1); Sodium 143 mmol/L (136-145); Total Protein,Serum 6.8 g/dl (6.3-8.2)
== END ==
PROVIDERS: Visit Provider Internal Medicine Medical Oncology
DX: C92.10 Chronic myeloid leukemia, BCR/ABL-positive, not having achieved remission (principal)
CPT/HCPCS: 36415; 80053; 85025

== ENCOUNTER → 2020-01-16 08:20 | Outpatient (CLI) | payer MEDICARE, OTHER, SELFPAY ==
[2020-01-16 08:59] LABS: Basophils # 0.3 K/mm3 (0-0.2); Basophils % 2.1 % (0.1-2.0); Eosinophils # 0.5 K/mm3 (0.0-0.4); Eosinophils % 3.8 % (0.1-12.0); Hematocrit 49.5 % (42.0-52.0); Hemoglobin 15.9 g/dL (14.1-18.0); Lymphocytes # 1.9 K/mm3 (0.7-4.5); Lymphocytes % 14.3 % (10-50); Mean Corpuscular HGB Conc 32.1 g/dL (31.8-35.4); Mean Corpuscular Hemoglobin 29.8 pg (27.0-31.2); Mean Corpuscular Volume 92.8 fl (80-94); Mean Platelet Volume 7.5 fl (7.4-10.4); Monocytes # 0.6 K/mm3 (0.1-1.0); Monocytes % 4.3 % (1.7-9.3); Neutrophils # 9.8 K/mm3 (1.8-7.8); Neutrophils % 75.5 % (37.0-80.0); Platelet Count 298 K/mm3 (142-424); Red Blood Count 5.33 M/mm3 (4.60-6.20); Red Cell Distribution Width 14.7 % (11.5-17.5)
[2020-01-16 10:25] LABS: Chloride 103 mmol/L (98-107); Potassium 4.1 mmoL/L (3.5-5.1); Sodium 141 mmol/L (136-145)
[2020-01-16 10:27] LABS: Blood Urea Nitrogen 17 mg/dl (9-20); Estimated Glomerular Filt Rate 54 ml/min (>60); GFR (African American) 65 ML/MIN (>60)
[2020-01-16 10:28] LABS: Alanine Aminotransferase 18 U/L (12-78); Albumin/Globulin Ratio 1.6 (1.1-1.8); Alkaline Phosphatase 58 U/L (38-126); Anion Gap 10.1 mEq/L (5-15); Aspartate Amino Transferase 28 U/L (17-59); Bilirubin,Total 3.3 mg/dl (0.2-1.3); Calcium 9.8 mg/dl (8.4-10.2); Carbon Dioxide 32 mmol/L (22.0-30.0); Globulin 2.5 g/dL (1.3-3.2); Glucose 127 mg/dl (74-100); Total Protein,Serum 6.5 g/dl (6.3-8.2)
== END ==
PROVIDERS: Visit Provider Internal Medicine Medical Oncology
DX: C92.10 Chronic myeloid leukemia, BCR/ABL-positive, not having achieved remission (principal)
CPT/HCPCS: 36415; 80053; 85025

== ENCOUNTER → 2020-04-16 08:50 | Outpatient (CLI) | payer MEDICARE, OTHER, SELFPAY ==
[2020-04-16 09:23] LABS: Basophils # 0.5 K/mm3 (0-0.2); Basophils % 2.8 % (0.1-2.0); Eosinophils # 0.8 K/mm3 (0.0-0.4); Eosinophils % 4.5 % (0.1-12.0); Hematocrit 52.2 % (42.0-52.0); Hemoglobin 17.2 g/dL (14.1-18.0); Lymphocytes # 2.3 K/mm3 (0.7-4.5); Lymphocytes % 13.4 % (10-50); Mean Corpuscular HGB Conc 32.9 g/dL (31.8-35.4); Mean Corpuscular Hemoglobin 30.2 pg (27.0-31.2); Mean Corpuscular Volume 91.7 fl (80-94); Mean Platelet Volume 7.6 fl (7.4-10.4); Monocytes # 0.6 K/mm3 (0.1-1.0); Monocytes % 3.8 % (1.7-9.3); Neutrophils # 12.7 K/mm3 (1.8-7.8); Neutrophils % 75.5 % (37.0-80.0); Platelet Count 352 K/mm3 (142-424); Red Blood Count 5.69 M/mm3 (4.60-6.20); Red Cell Distribution Width 14.7 % (11.5-17.5); White Blood Count 16.8 K/mm3 (4.8-10.8)
[2020-04-16 09:29] LABS: MANUAL DIFFERENTIAL MANUAL DIFFERENTIAL (MANUAL DIFF)
[2020-04-16 09:50] LABS: Eosinophils % 6 % (0-3); Hypochromasia 1+; Lymphocytes % 12 % (10-50); Monocytes % 2 % (2-9); Neutrophils % 79 % (42-76); Platelet Estimate Normal; Total Cells Counted 100
[2020-04-16 10:15] LABS: Alanine Aminotransferase 19 U/L (12-78); Albumin Level 4.2 g/dl (3.5-5.0); Albumin/Globulin Ratio 1.6 (1.1-1.8); Alkaline Phosphatase 69 U/L (38-126); Anion Gap 15.1 mEq/L (5-15); Aspartate Amino Transferase 26 U/L (17-59); Bilirubin,Total 2.7 mg/dl (0.2-1.3); Blood Urea Nitrogen 17 mg/dl (9-20); Calcium 10.5 mg/dl (8.4-10.2); Carbon Dioxide 32 mmol/L (22.0-30.0); Chloride 100 mmol/L (98-107); Estimated Glomerular Filt Rate 49 ml/min (>60); GFR (African American) 59 ML/MIN (>60); Globulin 2.7 g/dL (1.3-3.2); Glucose 128 mg/dl (74-100); Potassium 4.1 mmoL/L (3.5-5.1); Sodium 143 mmol/L (136-145); Total Protein,Serum 6.9 g/dl (6.3-8.2)
== END ==
PROVIDERS: Visit Provider Internal Medicine Medical Oncology
DX: C92.10 Chronic myeloid leukemia, BCR/ABL-positive, not having achieved remission; Z79.899 Other long term (current) drug therapy
CPT/HCPCS: 36415; 80053; 81206; 85007; 85025

== ENCOUNTER 2020-05-03 14:00 | Outpatient (RCR) | payer MEDICARE, OTHER, SELFPAY ==
--- NOTE | 2020-03-26 14:43 | HMH.PTOPEV ---
PT Outpatient Evaluation Rehab PT Outpatient Evaluation Start: 03/26/20 13:49 Freq: Status: Active Protocol: Document 03/26/20 13:54 DOMIJOSEPH (Rec: 03/26/20 14:42 [email or web address] [id number]) Electronically Signed By Tristan Tubbs PT 03/26/20 13:54 Outpatient Therapy Subjective History Subjective History This is the initial Physical Therapy evaluation for Michael Petersen. Pt is a 79 y/o male referred to PT for c/o weakness, pain, and imbalance. Pt reports c/o poor balance for years. Pt reports towards end of last year he fell causing facial fractures twice in 3 months. Pt reports he has made a concerted effort to pick his feet up and has not fallen this year. Pt reports c/o pain across low back and posterior hips/ SIJ. Pt reports he kneows he has had arthritis for twenty years and he's sure that is what is causing his pain. Chief Complaint Pain,Stiff Symptom Type Ache,Sharp Symptoms Relieved By Nothing Symptoms Aggravated By Standing,Physical Activity, Walking Prior Functional Limitations Squatting,Recreation Activity, Walking,Bending/Stooping Current Functional Limitations Standing,Sitting,Squatting, Recreation Activity,Stairs, Balance Symptom Description Constant but Variable Balance Eval Chief Complaint vertigo No Did you feel dizzy, unsteady or faint? Yes Hx of Falls Hx Falls Yes: 2x end of last year Number in last 6 months 0 Gait/Posture Asssessment General Gait Observation Shuffling Step Assistive Devices None / NA Level of Transfer Assist Independent Ankle/Foot Observation in Gait Stance Flatfoot Contact Body Alignment Posture Rigid Timed Up and Go Test 1. Is the Timed Up and Go test result > yes or = to 12 seconds? [place] Feet Together/Eyes open/Stable Surface pass Feet Together/Eyes Closed/Stable Surface pass Feet Together/Eyes open/Unstable Surface fail Feet Together/Eyes Closed/Unstable fail Surface Outpatient Therapy Assessment Impairments Problems/Impairmments Impaired Transfers,Impaired Gait Pattern,Impaired Walking,
== END 2020-05-03 15:03 | disposition home or self-care (01) ==
LOC: PT 14:00
PROVIDERS: PCP Family Medicine; Visit Provider Family Medicine
DX: R26.89 Other abnormalities of gait and mobility (principal); R53.1 Weakness
CPT/HCPCS: 97010; 97110; 97112; 97163; 97530

== ENCOUNTER → 2020-10-28 11:39 | Outpatient (CLI) | payer MEDICARE, OTHER, SELFPAY ==
--- NOTE | 2020-10-28 11:56 | ECG_ITS ---
APPROVED REPORT Exam: Resting ECG HR:80 bpm ECG Measurements Heart Rate 80 AXES QRSd 158 QRS 256 QT 434 T 71 QTc 500 Conclusion Wide QRS rhythm Right bundle branch block Septal infarct, age undetermined Possible Lateral infarct, age undetermined Abnormal ECG Electronically signed by : Tariq Lopez, 10/28/2020 13:56:33
== END ==
PROVIDERS: PCP Family Medicine; Visit Provider Family Medicine
DX: R10.13 Epigastric pain (principal)
CPT/HCPCS: 93005

== ENCOUNTER → 2020-11-01 07:45 | Outpatient (CLI) | payer MEDICARE, OTHER, SELFPAY ==
--- NOTE | 2020-11-01 08:01 | FL_ITS ---
PROCEDURE: FL BARIUM SWALLOW CLINICAL INDICATION: DYSPHAGIA COMPARISON: No exams were available for comparison TECHNIQUE: In the upright position the patient was observed to swallow barium in both the AP and lateral view. The cervical esophagus was examined under fluoroscopy with images obtained. The patient was then placed prone in the right anterior oblique position and was observed to swallow barium with Valsalva technique . FLUOROSCOPY TIME: 56 seconds FINDINGS: There was no evidence of aspiration. There was normal peristalsis. No filling defects or mucosal abnormalities. No masses or strictures. IMPRESSION: Negative barium swallow. Dictated by: Van Leija MD 11/01/2020 17:01 Van Leija MD in [place] 11/01/2020 17:01
--- NOTE | 2020-11-01 08:01 | US_ITS ---
PROCEDURE: US ABDOMEN LIMITED CLINICAL INDICATION: ABD DISCOMFORT Right-sided abdominal pain with bloating COMPARISON: US ABDLM US abdomen limited from 06/29/2018 FINDINGS: PANCREAS: Unremarkable. No obvious mass or abnormal fluid collection. No ductal dilatation LIVER: No focal liver lesions demonstrated. Homogeneous echogenicity. No intrahepatic biliary ductal dilatation evident. There is appropriate direction of blood flow within a non dilated portal vein RIGHT KIDNEY: There is a 2 cm right renal cyst. No hydronephrosis. GALLBLADDER: There is a hyperechoic focus in the fundus of the gallbladder. This measures approximately 13 mm and does not shadow but is mobile and may represent a sludge ball or nonshadowing stone.. IMPRESSION: 13 mm hyperechoic structure within the gallbladder which is mobile and may be due to sludge ball or nonshadowing stone. No shadowing stones evident. Dictated by: Van Leija MD 11/01/2020 17:25 Van Leija MD in [place] 11/01/2020 17:25
== END ==
PROVIDERS: PCP Family Medicine; Visit Provider Family Medicine
DX: R10.13 Epigastric pain (principal); R13.10 Dysphagia, unspecified
CPT/HCPCS: 74220; 76705

== ENCOUNTER → 2020-11-11 09:57 | Outpatient (CLI) | payer MEDICARE, OTHER, SELFPAY ==
[2020-11-11 10:20] LABS: Basophils # 0.3 K/mm3 (0-0.2); Basophils % 2.3 % (0.1-2.0); Eosinophils # 0.5 K/mm3 (0.0-0.4); Eosinophils % 4.1 % (0.1-12.0); Hematocrit 48.4 % (42.0-52.0); Hemoglobin 15.3 g/dL (14.1-18.0); Lymphocytes # 1.7 K/mm3 (0.7-4.5); Lymphocytes % 15.3 % (10-50); Mean Corpuscular HGB Conc 31.7 g/dL (31.8-35.4); Mean Corpuscular Hemoglobin 29.1 pg (27.0-31.2); Mean Platelet Volume 7.3 fl (7.4-10.4); Monocytes # 0.4 K/mm3 (0.1-1.0); Monocytes % 3.6 % (1.7-9.3); Neutrophils # 8.5 K/mm3 (1.8-7.8); Neutrophils % 74.7 % (37.0-80.0); Platelet Count 306 K/mm3 (142-424); Red Blood Count 5.26 M/mm3 (4.60-6.20); Red Cell Distribution Width 15.2 % (11.5-17.5); White Blood Count 11.4 K/mm3 (4.8-10.8)
[2020-11-11 10:52] LABS: Chloride 107 mmol/L (98-107); Potassium 4.3 mmoL/L (3.5-5.1); Sodium 144 mmol/L (136-145)
[2020-11-11 10:55] LABS: Alanine Aminotransferase 19 U/L (12-78); Albumin Level 4.3 g/dl (3.5-5.0); Albumin/Globulin Ratio 1.8 (1.1-1.8); Alkaline Phosphatase 74 U/L (38-126); Anion Gap 11.3 mEq/L (5-15); Aspartate Amino Transferase 32 U/L (17-59); Bilirubin,Total 3.8 mg/dl (0.2-1.3); Blood Urea Nitrogen 13 mg/dl (9-20); Calcium 10.1 mg/dl (8.4-10.2); Carbon Dioxide 30 mmol/L (22.0-30.0); Estimated Glomerular Filt Rate 59 ml/min (>60); GFR (African American) 71 ML/MIN (>60); Globulin 2.4 g/dL (1.3-3.2); Glucose 111 mg/dl (74-100); Total Protein,Serum 6.7 g/dl (6.3-8.2)
[2020-11-16 19:11] LABS: Interpretation: Positive (.)
== END ==
PROVIDERS: Visit Provider Internal Medicine Medical Oncology
DX: C92.10 Chronic myeloid leukemia, BCR/ABL-positive, not having achieved remission (principal)
CPT/HCPCS: 36415; 80053; 81206; 85025

== ENCOUNTER 2021-02-11 15:11 | Inpatient (IN) | payer MEDICARE, OTHER, SELFPAY ==
--- NOTE | 2021-02-11 15:25 | PC.NURSE ---
pt arrived to the floor. Is a direct admit from Dr. Watkins's office.
--- NOTE | 2021-02-11 15:26 | PC.NURSE ---
pT ARRIVED TO THE FLOOR AT THIS TIME
[2021-02-11 15:27] VITALS: BP 143/89; PULSE 83; RESP 18; TEMP 36.6; O2SAT 99; BMI 20.5
[2021-02-11 16:13] LABS: Alanine Aminotransferase 25 U/L (12-78); Albumin Level 3.8 g/dl (3.5-5.0); Albumin/Globulin Ratio 1.5 (1.1-1.8); Alkaline Phosphatase 70 U/L (38-126); Anion Gap 10.8 mEq/L (5-15); Aspartate Amino Transferase 29 U/L (17-59); Bilirubin,Total 2.8 mg/dl (0.2-1.3); Blood Urea Nitrogen 56 mg/dl (9-20); Calcium 9.4 mg/dl (8.4-10.2); Carbon Dioxide 30 mmol/L (22.0-30.0); Chloride 104 mmol/L (98-107); Creatinine Clearance Estimated 59 mL/min (50-200); Estimated Glomerular Filt Rate 72 ml/min (>60); GFR (African American) 87 ML/MIN (>60); Globulin 2.5 g/dL (1.3-3.2); Glucose 108 mg/dl (74-100); Potassium 3.8 mmoL/L (3.5-5.1); Sodium 141 mmol/L (136-145); Total Protein,Serum 6.3 g/dl (6.3-8.2)
[2021-02-11 16:14] LABS: Basophils # 0.5 K/mm3 (0-0.2); Basophils % 1.9 % (0.1-2.0); Eosinophils # 0.9 K/mm3 (0.0-0.4); Eosinophils % 3.4 % (0.1-12.0); Hematocrit 44.8 % (42.0-52.0); Hemoglobin 14.5 g/dL (14.1-18.0); Lymphocytes # 2.9 K/mm3 (0.7-4.5); Lymphocytes % 11.3 % (10-50); Mean Corpuscular HGB Conc 32.4 g/dL (31.8-35.4); Mean Corpuscular Hemoglobin 29.5 pg (27.0-31.2); Mean Corpuscular Volume 91.1 fl (80-94); Mean Platelet Volume 7.8 fl (7.4-10.4); Monocytes # 0.7 K/mm3 (0.1-1.0); Monocytes % 2.8 % (1.7-9.3); Neutrophils # 20.6 K/mm3 (1.8-7.8); Neutrophils % 80.6 % (37.0-80.0); Platelet Count 521 K/mm3 (142-424); Red Blood Count 4.92 M/mm3 (4.60-6.20); Red Cell Distribution Width 14.7 % (11.5-17.5); White Blood Count 25.6 K/mm3 (4.8-10.8)
[2021-02-11 16:18] LABS: MANUAL DIFFERENTIAL MANUAL DIFFERENTIAL (MANUAL DIFF)
[2021-02-11 16:24] LABS: Coronavirus 19, PCR Not Detected (NotDetected); Influenza A, PCR Not Detected (NotDetected); Influenza B, PCR Not Detected (NotDetected)
[2021-02-11 16:30] LABS: INR 1.02 (0.9-1.1)
--- NOTE | 2021-02-11 16:49 | XR_ITS ---
PROCEDURE: XR CHEST 2V CLINICAL HISTORY: GI bleed, leukemia COMPARISON: CR [id number] XR chest portable PICC plac from 02/03/2018 CR CXR2V XR chest 2V from 04/25/[address] chest wo con from 06/09/2018 CR CXR2 XR chest AP from 07/01/2018 FINDINGS: There is mild cardiomegaly without failure. Biventricular and right atrial pacemaker wires are present from the left subclavian approach. Coronary artery calcifications and/or stents noted. The lungs are clear without infiltrates, suspicious nodules, or pleural effusions. No acute bony abnormalities. IMPRESSION: Cardiomegaly. No change with no acute finding Dictated by: Van Leija MD 02/13/2021 13:15 Van Leija MD in [place] 02/13/2021 13:15
--- NOTE | 2021-02-11 17:01 | HMH.HP ---
*Admission Date: 02/11/21 *Chief complaint: Black stools *History of present illness: 80 y.o. WM with Chronic Myeloid Leukemia noticed black tarry stools starting 2 days ago. Weak and does not feel well. States 10 pound weight loss since 02/03/2021. Presented in [facility] and was examined there. Rectal exam reveals black, tarry stool, soft abdomen with some RIGHT sided tenderness. Hgb=14.4/ Hct=43.3. Admitted for likely EGD and surgical consult. NOTE: 11/01/2020 Cologard NEGATIVE. 11/01/2020 Barium Swallow NEGATIVE. [facility] History Medical History: Reports:: Arrhythmia, Atherosclerotic Heart Disease, Atrial Fibrillation, BPH, Cancer (leukemia), Cardiomyopathy, Coronary Artery Disease, Hyperlipidemia, Hypertension, Internal Pacemaker, Myocardial Infarction Denies:: Diabetes Mellitus Type 1, Diabetes Mellitus Type 2, Lung Disease, MRSA, Seizures (past syncopal episodes) *Have you ever received a pneumonia vaccine?: Yes *Have you received a flu vaccine this season?: No Other Medical History: Reports: Arthritis, Chemotherapy (Gleevec 100mg bid). Denies: Blood Transfusion Reaction Other Surgeries: Yes: Cancer Surgery, Cardiac Catheterization (2008, 11/10/2017 with 5 stents placed), Colonoscopy, Coronary Stent, Pacemaker (10/31/17, upgrade BiV/defib 07/01/18), Skin Cancer Excision, Ureter Stent, Other (Cystoscopy, TURP 03/29/16, cystoscopy for bladder neck contracture 01/20/17) Amputation: No Fractures: No - *Social History Smoking Status: Never smoker Tobacco Type: smokeless tobacco #Yrs smoked (if former smoker): 50 Alcohol Intake: never Alcohol Intake Frequency:: other Substance Use Type: denies use *Occupational Status:: retired Housing: house Household Members: other () *Travel in the last 8 weeks: None Family Hx:: Cancer, Heart Attack Review of Systems - Constitutional Reports anorexia, Reports fatigue, Reports lack of energy, Reports weakness, Reports weight loss - Eyes Denies change in vision - ENT Denies bleeding gums, Denies difficulty swallowing - *Cardiovascular Reports shortness of breath with activity, Denies chest pain - *Respiratory Denies cough - *Gastrointestinal Reports abdominal pain (Some right flank discomfort) - *Genitourinary Reports difficulty urinating, Reports urinary hesitancy - *Musculoskeletal Reports joint pain, Reports muscle weakness, Reports body aches - *Neurologic Reports abnormal walking, Reports unsteadiness, Denies seizure-like activity - Hematologic/Lymphatic Reports easy bruising Meds Home Medications Medication Instructions Recorded Confirmed Type finasteride 5 mg tablet 5 mg PO HS 09/14/17 02/11/21 History nitroglycerin 0.4 mg sublingual 0.4 mg SUBLINGUAL Q5MINP PRN 09/14/17 02/11/21 History tablet RX: Clopidogrel Bisulfate [Plavix 75 mg PO DAILY 02/03/18 02/11/21 History 75mg Tab] RX: Digoxin [Digoxin 0.125mg 125 mcg PO DAILY 02/03/18 02/11/21 History Tablet] RX: bisoproloL fumarate [Zebeta 5 mg PO HS 02/03/18 02/11/21 History 5mg tablet] tamsulosin 0.4 mg capsule 0.4 mg PO HS cap 03/29/18 02/11/21 History imatinib 100 mg tablet 100 mg PO DAILY 09/13/18 02/11/21 History potassium chloride 10 mEq 10 meq PO DAILY PRN #30 tab 04/10/19 02/11/21 Rx tablet,extended release furosemide 20 mg tablet 20 mg PO DAILY PRN #30 tab 03/15/20 02/11/21 Rx lisinopril 2.5 mg tablet 2.5 mg PO DAILY 11/14/20 02/11/21 History Allergies Allergy/AdvReac Type Severity Reaction Status Date / Time No Known Allergies Allergy Verified 07/30/20 10:55 Exam Vital signs and Labs for Last 24 Hours: Temp Pulse Resp BP Pulse Ox 97.9 F 83 18 143/89 H 99 02/11/21 15:27 02/11/21 15:27 02/11/21 15:27 02/11/21 15:27 02/11/21 15:27 Laboratory Results - last 24 hr 02/11/21 15:40: WBC 25.6 H*, RBC 4.92, Hgb 14.5, Hct 44.8, MCV 91.1, MCH 29.5, MCHC 32.4, RDW 14.7, Plt Count 521 H, MPV 7.8, Neut % (Auto) 80.6 H, Lymph % (Auto) 11.3, [place] % (Auto
[2021-02-11 17:08] LABS: Eosinophils % 2 % (0-3); Lymphocytes % 15 % (10-50); Monocytes % 4 % (2-9); Neutrophils % 77 % (42-76); RBC Morphology Normal; Total Cells Counted 100
[2021-02-11 17:09] LABS: Platelet Estimate Normal
[2021-02-11 17:57] LABS: Lactic Acid 0.9 mmol/L (0.7-2.1)
[2021-02-11 17:58] LABS: Prothrombin Time 12.2 seconds (10.1-12.5)
[2021-02-11 18:07] LABS: INR 1.04 (0.9-1.1)
--- NOTE | 2021-02-11 18:09 | PC.NURSE ---
spoke to Dr. Kasper. Notified him of the general surgery consult that Dr. Watkins entered.
--- NOTE | 2021-02-11 18:14 | ECG_ITS ---
APPROVED REPORT Exam: Resting ECG HR:80 bpm ECG Measurements Heart Rate 80 AXES QRSd 154 QRS 242 QT 440 T 39 QTc 507 Conclusion Electronic ventricular pacemaker Electronically signed by : Tariq Lopez, 02/11/2021 21:16:39
--- NOTE | 2021-02-11 18:19 | PC.WOUNDNOTE ---
paged Dr. Mcguire regarding the 2 units of PRBSc. H/H is stable. No s/s of active bleeding @ this time. Dr. Mcguire ordered to HOLD the 2 units and to contact him if pt develops s/s bleeding. Called lab ([facility]) and updated her. Dr. Kasper called secondary to his phone cutting out on prior call. He ordered to make pt NPO @ [place] and he will plan to scope him tomorrow.
[2021-02-11 19:10] LABS: Chloride 103 mmol/L (98-107)
[2021-02-11 19:11] LABS: Sodium 143 mmol/L (136-145)
[2021-02-11 19:13] LABS: Alanine Aminotransferase 23 U/L (12-78); Aspartate Amino Transferase 25 U/L (17-59); Blood Urea Nitrogen 56 mg/dl (9-20); Carbon Dioxide 30 mmol/L (22.0-30.0); Creatinine Clearance Estimated 59 mL/min (50-200); Estimated Glomerular Filt Rate 72 ml/min (>60); GFR (African American) 87 ML/MIN (>60)
[2021-02-11 19:14] LABS: Albumin Level 4.1 g/dl (3.5-5.0); Albumin/Globulin Ratio 1.7 (1.1-1.8); Alkaline Phosphatase 79 U/L (38-126); Calcium 9.9 mg/dl (8.4-10.2); Globulin 2.4 g/dL (1.3-3.2); Glucose 95 mg/dl (74-100); Magnesium 1.9 mg/dl (1.6-2.3); Total Protein,Serum 6.5 g/dl (6.3-8.2)
[2021-02-11 20:00] VITALS: BP 128/77; PULSE 88; RESP 16; TEMP 37.1; O2SAT 99
--- NOTE | 2021-02-11 22:59 | HMH.PHAVTE ---
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) CAD (coronary artery disease) (Chronic) Status post coronary artery stent placement (Chronic) - VTE Risk Labs: VTE Related Lab Results Hgb 14.5 g/dL (14.1-18.0) 02/11/21 15:40 Hct 44.8 % (42.0-52.0) 02/11/21 15:40 Plt Count 521 K/mm3 (142-424) H 02/11/21 15:40 PT 12.2 seconds (10.1-12.5) 02/11/21 17:27 INR 1.04 (0.9-1.1) 02/11/21 17:27 BUN 56 mg/dl (9-20) H 02/11/21 17:27 Creatinine 1.00 mg/dl (0.66-1.25) 02/11/21 17:27 Estimated Creat Clear 59 mL/min (50-200) 02/11/21 17:27 Was VTE Risk Assessment Performed: Yes VTE Score: 3 VTE Risk Level: Low Risk Clinical Trial Participant: No - Prophylaxis VTE Prophylaxis Ordered?: Yes Types of VTE Prophylaxis: TEDS Knee High
--- NOTE | 2021-02-11 23:07 | HMH.PHAINT ---
clarified home medication list with list from [facility]
[2021-02-12] VITALS (22 sets, daily range): BP systolic 87–133; BP diastolic 44–80; PULSE 79–89; RESP 16–18; TEMP 36.3–36.9; O2SAT 93–100; BMI 20.6
--- NOTE | 2021-02-12 02:52 | PC.NURSE ---
A&OX4. TOLERATING RA WELL. PT STANDBY ASSIST, USING URINAL IN ROOM. PT HAS HAD NO BM THUS FAR THIS SHIFT. NO S/S OF BLEEDING. PT STATES HE DOES FEEL WEAK. NO OTHER C/O THUS FAR. PT RESTING IN BED T/O MAJORITY OF SHIFT. VSS WILL CONTINUE TO MONITOR.
--- NOTE | 2021-02-12 07:15 | HMH.GSCON ---
*Admission Date: 02/11/21 *Reason for consult:: GI bleed, possible EGD *History of present illness: Patient is a 80-year-old white male with history of chronic myeloid leukemia, atherosclerotic heart disease with previous myocardial infarction, cardiomyopathy, hypertension, atrial fibrillation with pacemaker on Plavix. Patient states that he recently had a steroid Dosepak for arthritis. Several days ago he had noticed black tarry stool consistent with melena. Patient has been weak with no energy and states that he does not feel well. He has had recent 10 pound weight loss. Denies any significant abdominal pain other than some right lower quadrant discomfort. Of note, patient underwent Cologuard on 11/01/2020 which was negative. Has had a barium swallow as well which was negative. Patient was admitted for inpatient management and surgical consultation for EGD. Hemoglobin is 14.5 which is essentially recent baseline. BUN is 56 with creatinine of 1.0. Of note, bilirubin 3.0. Patient had undergone colonoscopy many years ago. Review of Systems - Review of Systems Review of systems:: pertinent systems reviewed and negative unless documented below - *Neurologic Reports abnormal walking, Reports unsteadiness, Reports weakness, Denies seizure-like activity [facility] History Medical History: Reports:: Arrhythmia, Atherosclerotic Heart Disease, Atrial Fibrillation, BPH, Cancer (leukemia), Cardiomyopathy, Coronary Artery Disease, Hyperlipidemia, Hypertension, Internal Pacemaker (10/31/17, upgrade BiV/defib 07/01/18), Myocardial Infarction Denies:: Diabetes Mellitus Type 1, Diabetes Mellitus Type 2, Lung Disease, MRSA, Seizures (past syncopal episodes) *Have you ever received a pneumonia vaccine?: Yes *Have you received a flu vaccine this season?: No Other Medical History: Reports: Arthritis, Chemotherapy (Gleevec 100mg bid). Denies: Blood Transfusion Reaction Other Surgeries: Yes: Cancer Surgery, Cardiac Catheterization (2008, 11/10/2017 with 5 stents placed), Colonoscopy, Coronary Stent, Pacemaker (10/31/17, upgrade BiV/defib 07/01/18), Skin Cancer Excision, Ureter Stent, Other (Cystoscopy, TURP 03/29/16, cystoscopy for bladder neck contracture 01/20/17) Amputation: No Fractures: No - *Social History Smoking Status: Never smoker Tobacco Type: smokeless tobacco #Yrs smoked (if former smoker): 50 Alcohol Intake: never Alcohol Intake Frequency:: other Substance Use Type: denies use *Occupational Status:: retired Housing: house Household Members: other () *Travel in the last 8 weeks: None Family Hx:: Cancer, Heart Attack Meds Home Medications Medication Instructions Recorded Confirmed Type finasteride 5 mg tablet 5 mg PO HS 09/14/17 02/11/21 History nitroglycerin 0.4 mg sublingual 0.4 mg SUBLINGUAL Q5MINP PRN 09/14/17 02/11/21 History tablet Clopidogrel Bisulfate [Plavix 75mg 75 mg PO DAILY 02/03/18 02/11/21 History Tab] Digoxin [Digoxin 0.125mg Tablet] 125 mcg PO DAILY 02/03/18 02/11/21 History bisoproloL fumarate [Zebeta 5mg 5 mg PO HS 02/03/18 02/11/21 History tablet] tamsulosin 0.4 mg capsule 0.4 mg PO BID cap 03/29/18 02/11/21 History imatinib 100 mg tablet 100 mg PO DIRECTED 09/13/18 02/11/21 History lisinopril 2.5 mg tablet 2.5 mg PO DAILY 11/14/20 02/11/21 History Furosemide [Furosemide 20mg Tab*] 20 mg PO DAILYP PRN 02/11/21 02/11/21 History Potassium Chloride [K-Tab ER 10 10 meq PO DAILYP PRN 02/11/21 02/11/21 History mEq] Allergies Allergy/AdvReac Type Severity Reaction Status Date / Time No Known Allergies Allergy Verified 07/30/20 10:55 Exam Vital signs and Labs for Last 24 Hours: Temp Pulse Resp BP Pulse Ox 98.7 F 88 16 128/77 99 02/11/21 20:00 02/11/21 20:00 02/11/21 20:00 02/11/21 20:00 02/11/21 20:00 Laboratory Results - last 24 hr 02/11/21 15:40: WBC 25.6 H*, RBC 4.92, Hgb 14.5, Hct 44.8, MCV 91.1, MCH 29.5, MCHC 32.4, RDW 14.7, Plt Count 521 H, MPV 7.8, Neut %
[2021-02-12 07:43] LABS: Basophils # 0.3 K/mm3 (0-0.2); Basophils % 1.2 % (0.1-2.0); Eosinophils % 4.1 % (0.1-12.0); Hematocrit 37.3 % (42.0-52.0); Lymphocytes % 12.6 % (10-50); Mean Corpuscular HGB Conc 33.1 g/dL (31.8-35.4); Mean Corpuscular Hemoglobin 29.8 pg (27.0-31.2); Mean Corpuscular Volume 90.1 fl (80-94); Mean Platelet Volume 7.2 fl (7.4-10.4); Monocytes # 0.6 K/mm3 (0.1-1.0); Monocytes % 2.5 % (1.7-9.3); Neutrophils # 19.2 K/mm3 (1.8-7.8); Neutrophils % 79.6 % (37.0-80.0); Platelet Count 455 K/mm3 (142-424); Red Blood Count 4.13 M/mm3 (4.60-6.20); Red Cell Distribution Width 14.6 % (11.5-17.5); White Blood Count 24.1 K/mm3 (4.8-10.8)
[2021-02-12 07:44] LABS: Anion Gap 8.9 mEq/L (5-15); Blood Urea Nitrogen 57 mg/dl (9-20); Calcium 9.3 mg/dl (8.4-10.2); Carbon Dioxide 30 mmol/L (22.0-30.0); Chloride 107 mmol/L (98-107); Creatinine Clearance Estimated 59 mL/min (50-200); Estimated Glomerular Filt Rate 72 ml/min (>60); GFR (African American) 87 ML/MIN (>60); Glucose 94 mg/dl (74-100); Potassium 3.9 mmoL/L (3.5-5.1); Sodium 142 mmol/L (136-145)
--- NOTE | 2021-02-12 07:47 | HMH.ACPN2 ---
Internal Medicine - PN: Subj *Date: 02/12/21 *Time: 07:47 Interval history: Patient does not feel well today. He feels weak. He did sleep during the night. He is n.p.o. He has had no stools since admission. He is somewhat nauseated. He has had no vomiting. He states his stools yesterday were black. He is somewhat short of breath and denies chest pain. He is voiding QS. CBC completed yesterday showed a white count of 25,600 with a hemoglobin of 14.5 and hematocrit of 44.8. Blood chemistries this morning show normal left electrolytes with a BUN of 57 and creatinine of 1. Patient has been seen by Dr. Kasper with plans for an EGD today. Exam Vital signs and Labs for Last 24 Hours: Temp Pulse Resp BP Pulse Ox 98.7 F 88 16 128/77 99 02/11/21 20:00 02/11/21 20:00 02/11/21 20:00 02/11/21 20:00 02/11/21 20:00 Laboratory Results - last 24 hr 02/11/21 15:40: WBC 25.6 H*, RBC 4.92, Hgb 14.5, Hct 44.8, MCV 91.1, MCH 29.5, MCHC 32.4, RDW 14.7, Plt Count 521 H, MPV 7.8, Neut % (Auto) 80.6 H, Lymph % (Auto) 11.3, [place] % (Auto) 2.8, Eos % (Auto) 3.4, Baso % (Auto) 1.9, Neut # (Auto) 20.6 H, Lymph # (Auto) 2.9, [place] # (Auto) 0.7, Eos # (Auto) 0.9 H, Baso # (Auto) 0.5 H, Total Counted 100, Neutrophils % (Manual) 77 H, Lymphocytes % (Manual) 15, Monocytes % (Manual) 4, Eosinophils % (Manual) 2, Basophils % (Manual) 2.0 H, Platelet Estimate Normal, RBC Morphology Normal 02/11/21 15:40: PT 12.0, INR 1.02 02/11/21 15:40: Sodium 141, Potassium 3.8, Chloride 104, Carbon Dioxide 30, Anion Gap 10.8, BUN 56 H, Creatinine 1.00, Estimated Creat Clear 59, Estimated GFR 72, Est GFR ( Amer) 87, Glucose 108 H, Calcium 9.4, Total Bilirubin 2.8 H, AST 29, ALT 25, Alkaline Phosphatase 70, Total Protein 6.3, Albumin 3.8, Globulin 2.5, Albumin/Globulin Ratio 1.5 02/11/21 16:18: SARS-CoV-2 (PCR) Not detected, Influenza A Untype (PCR) Not detected, Influenza Type B (PCR) Not detected 02/11/21 17:27: PT 12.2, INR 1.04 02/11/21 17:27: Sodium 143, Potassium 4.0, Chloride 103, Carbon Dioxide 30, Anion Gap 14.0, BUN 56 H, Creatinine 1.00, Estimated Creat Clear 59, Estimated GFR 72, Est GFR ( Amer) 87, Glucose 95, Calcium 9.9, Magnesium 1.9, Total Bilirubin 3.0 H, AST 25, ALT 23, Alkaline Phosphatase 79, Total Protein 6.5, Albumin 4.1, Globulin 2.4, Albumin/Globulin Ratio 1.7 02/11/21 17:27: Lactate 0.9 02/11/21 17:27: Blood Type O Positive, Antibody Screen Negative, Crossmatch (AHG) See Detail I & O for Last 24 hours: Intake & Output 02/09/21 02/10/21 02/11/21 02/12/21 11:59 11:59 11:59 11:59 Intake Total 480 / 480 Balance 480 / 480 Weight 151 lb 7 oz - Constitutional no acute distress, thin Comments: Sitting in recliner and has been sleeping - *Routine Respiratory Exam Present: diminished air movement (Bilaterally posteriorly) - *Routine Cardiovascular Exam Present: RRR - *Routine Abdominal Exam Present: soft, normoactive bowel sounds, tenderness (Pressure-like discomfort in right lower quadrant) - *Routine Extremities Exam Absent: edema, calf tenderness - *Routine Neurological Exam Present: alert, oriented X3 Assessment and Plan (1) GI bleed Status: Acute Category: Medical Code(s): K92.2 - Gastrointestinal hemorrhage, unspecified (2) Melena Status: Acute Category: Medical Code(s): K92.1 - Melena (3) Leukemia Status: Chronic Qualifiers: Leukemia type: myeloid Myeloid leukemia type: unspecified myeloid Leukemia Active/Remission status: without remission Qualified Code(s): C92.90 - Myeloid leukemia, unspecified, not having achieved remission Category: Medical Code(s): C95.90 - Leukemia, unspecified not having achieved remission (4) Leukocytosis Status: Acute Qualifiers: Leukocytosis type: bandemia Qualified Code(s): D72.825 - Bandemia Category: Medical Code(s): D72.829 - Elevated white blood cell count, unspecified (5) Automatic implantable cardioverter-d
[2021-02-12 07:58] LABS: MANUAL DIFFERENTIAL MANUAL DIFFERENTIAL (MANUAL DIFF)
[2021-02-12 08:08] LABS: Hemoglobin 12.3 g/dL (14.1-18.0)
--- NOTE | 2021-02-12 08:19 | HMH.ANESCL ---
[facility] Anesthesia Checklist - Patient Identification Patient Identification: Arm Band - Structural Data Admitted From: Home Planned Operative Procedure/s: egd Consent for Planned Operative Procedure(s) Verified: Yes Verified Documents: Surgical Consent, History and Physical - NPO Status Verified Time NPO: 00:00 - Additional verifications Anesthesia Reactions: No Hx Blood Transfusions: No Blood Transfusion Reaction: No - Airway Assessment C-Spine Mobility Assessed: Yes (mp2) TMJ Mobility Assessed: Yes Dentition: Edentulous - Neurological Assessment Level of Consciousness: Awake, Alert - Anesthesia Plan Anesthesia Risk discussed: Yes Anesthesia Plan: Verified ASA Class: III Anesthesia Type: MAC [facility] History I have reviewed the patient's past medical history: Yes Medical History: Reports:: Arrhythmia, Atherosclerotic Heart Disease, Atrial Fibrillation, BPH, Cancer (leukemia), Cardiomyopathy, Coronary Artery Disease, Hyperlipidemia, Hypertension, Internal Pacemaker (10/31/17, upgrade BiV/defib 07/01/18), Myocardial Infarction Denies:: Diabetes Mellitus Type 1, Diabetes Mellitus Type 2, Lung Disease, MRSA, Seizures (past syncopal episodes) *Have you ever received a pneumonia vaccine?: Yes *Have you received a flu vaccine this season?: No Other Medical History: Reports: Arthritis, Chemotherapy (Gleevec 100mg bid). Denies: Blood Transfusion Reaction Anesthesia experience/problems:: nac Other Surgeries: Yes: Cancer Surgery, Cardiac Catheterization (2008, 11/10/2017 with 5 stents placed), Colonoscopy, Coronary Stent, Pacemaker (10/31/17, upgrade BiV/defib 07/01/18), Skin Cancer Excision, Ureter Stent, Other (Cystoscopy, TURP 03/29/16, cystoscopy for bladder neck contracture 01/20/17) Amputation: No Fractures: No - *Social History Smoking Status: Never smoker Tobacco Type: smokeless tobacco #Yrs smoked (if former smoker): 50 Alcohol Intake: never Alcohol Intake Frequency:: other Substance Use Type: denies use *Occupational Status:: retired Housing: house Household Members: other () *Travel in the last 8 weeks: None Family Hx:: Cancer, Heart Attack
[2021-02-12 08:47] LABS: Eosinophils % 5 % (0-3); Hypochromasia 1+; Lymphocytes % 10 % (10-50); Monocytes % 7 % (2-9); Neutrophils % 78 % (42-76); Nucleated Red Blood Cells 2; Platelet Estimate Normal; Total Cells Counted 100
[2021-02-12 08:51] LABS: Microcytosis 1+
--- NOTE | 2021-02-12 09:18 | HMH.SCOPE ---
- Procedure: Date: 02/12/21 Patient Date of :: 1940 Procedure Performed:: Esophagogastroduodenoscopy with control of bleeding using injection of epinephrine and application of Hemoclip x2 Indications:: Patient is a 80-year-old white male with history of chronic myeloid leukemia, atherosclerotic heart disease with previous myocardial infarction, cardiomyopathy, hypertension, atrial fibrillation with pacemaker on Plavix. Patient states that he recently had a steroid Dosepak for arthritis. Several days ago he had noticed black tarry stool consistent with melena. Patient has been weak with no energy and states that he does not feel well. He has had recent 10 pound weight loss. Denies any significant abdominal pain other than some right lower quadrant discomfort. Of note, patient underwent Cologuard on 11/01/2020 which was negative. Has had a barium swallow as well which was negative. Patient was admitted for inpatient management and surgical consultation for EGD. Hemoglobin is 14.5 which is essentially recent baseline. BUN is 56 with creatinine of 1.0. Of note, bilirubin 3.0. Patient had undergone colonoscopy many years ago. Performing Provider:: Jose Kasper MD Referring Provider:: Speedy Watkins MD Sedation:: Propofol Procedure:: Patient was taken to endoscopy procedure room. He was positioned in lateral decubitus position. Adequate intravenous sedation was achieved with anesthesia titration of propofol. Olympus endoscope was inserted via the oropharynx and advanced through the esophagus. Esophagus appeared relatively unremarkable. Stomach was cannulated. There was a large amount of old blood within the stomach which was suctioned free. Irrigation was performed. Ultimately with retroflexion there was noted to be a punctate area with some persistent active bleeding high in the cardia. Additional irrigation and suctioning was performed to allow for visualization. Ultimately there was noted to be a ulcer in the mid body of the stomach with a clean base and no active bleeding. There was some diffuse gastritis. Pylorus was traversed and the duodenal bulb and duodenal sweep appeared unremarkable. At this time attention was readdressed to the area of bleeding high in the cardia. This was very difficult area on which to intervene due to its location high in the cardia of the stomach. Ultimately with retroflexion and manipulation of the endoscope epinephrine was able to be injected in the surrounding mucosa. A total of 15.5 of epinephrine was injected. A couple of hemoclips were able to be deployed endoscopically at the site. This was observed for some time. Irrigation was performed. There was no active bleeding at the time of the completion of the procedure. The stomach was desufflated and the endoscope was withdrawn. Findings:: Punctate area with active bleeding high in the cardia, hemostasis achieved with injection of epinephrine and Hemoclip deployment Diffuse gastritis Moderate ulcer in the mid body of the stomach with clean base no active bleeding Recommendations:: Hold antiplatelet agents Monitor serial hemoglobin hematocrit Proton pump inhibitors Complications:: None immediately apparent Estimated blood obtained (mL): 25
--- NOTE | 2021-02-12 09:45 | PC.NURSE ---
received report from HEALTH SPECIALIST (Alice)
--- NOTE | 2021-02-12 09:55 | PC.NURSE ---
pt arrived to the floor from the PACU. Is now in room 219 SD.
--- NOTE | 2021-02-12 10:25 | CA_ITS ---
APPROVED REPORT EXAM: Comprehensive 2D, Doppler, and color-flow Echocardiogram Excavation Laborer: LUCIA Hoyos, RVS Ht: 6 ft 0 in Wt: 151lbs BSA: 1.89 BP: 143/89 mmHg Indications: A-Fib, SOA, CAD, Pacemaker, chronic myeloid leukemia, Hx-MO, Weakness, Hx-CM 2D Dimensions IVSd 0.91 cm LVEF (Visual) 52.40 % PWd 1.10 cm LA Volume 164.10 mL LVDd 5.10 cm LA Volume Index 86.80 mL/m2 (M/F) 16-34 LVDs 3.72 cm Aortic Root 3.04 cm Left Atrium 6.15 cm LVOT 1.78 cm (M/F) 1.5-2.5 M-Mode Dimensions LA Diam 6.05 cm (1.9-4.0) Ao Diam 3.47 cm (2.0-3.7) EPSs 0.48 cm LV Diastology E Decel Time 257.00 (160-240 msec) E/A Ratio 2.77 MED E' 9.80 (< 7 cm/sec) E'/MED E' Ratio 8.41 (>14) LAT E' 10.50 (<10 cm/sec) E/LAT E' Ratio 7.85 (>14) Aortic Valve LVOT Max 75.00 (70-110 cm/s) LVOT VTI 10.71 cm AoV Peak Denys. 116.00 (50-130 cm/s) AO Peak GR. 5.40 mmHg AO Mean GR. 2.70 (<5 mmHg) AO VTI 18.24 (18-25 cm) ANA (VTI) 1.46 (2.5-4.5 cm2) Mitral Valve MV A Velocity 30.00 (40-130 cm/s) E/A Ratio 2.77 MV Decel. Time 257.00 (160-240 ms) MV Mean Gr. 1.40 (<2mmHg) Pulmonary Valve PV Peak Velocity 82.00 (50-150 cm/s) Tricuspid Valve TR P. Velocity 245.00 cm/s RAP Estimate 10.00 mmHg RVSP 34.00 mmHg Left Ventricle Left atrium is moderately enlarged, left ventricle is normal size, mild concentric left ventricular hypertrophy, visually estimated ejection fraction 50% with no regional wall motion abnormality, diastolic parameters are inconclusive. Right Ventricle Right atrium and right ventricle are mildly enlarged with normal contractility, there is pacemaker leads in right atrium and right ventricle. Aortic Valve Aortic valve is minimally thickened and fibrosed, there is no aortic stenosis or aortic insufficiency. Mitral Valve Mitral valve leaflets are minimally thickened, there is moderate mitral regurgitation. Tricuspid Valve Tricuspid valve grossly normal, there is mild tricuspid regurgitation, tricuspid regurgitation jet velocity is inadequate for calculation of the right ventricular systolic pressure. Pulmonic Valve Pulmonic valve is poorly visualized. Great Vessels Aortic root is normal size. Pericardium No significant pericardial effusion noted. Conclusion 1. Biatrial enlargement, normal left ventricular size, mild concentric left ventricular hypertrophy, visually estimated ejection fraction 50% with no regional wall motion abnormality, diastolic parameters are inconclusive. 2. Moderate mitral and mild tricuspid regurgitation. 3. No significant pericardial effusion noted. Electronically signed by : Dwayne Loredo, 02/13/2021 16:12:34
--- NOTE | 2021-02-12 10:39 | HMH.CNCARD ---
History of Present Illness Consult date: 02/12/21 Requesting physician: Shubham Watkins Consult reason: atrial fibrillation, known to you, shortness of breath Chief complaint: fatigue, soa History of present illness: This is a 80-year-old white male who was admitted to the hospital with black tarry stools that started approximately 2 days prior to his admission. He has chronic myeloid leukemia as well as a history of coronary artery disease, [place], cardiomyopathy status post AICD placement, hypertension and chronic atrial fibrillation. The patient has historically always refused oral anticoagulation for his atrial fibrillation due to a history of falling and he also refused his left atrial appendage ligation/watchman's device. The patient states that approximately 2 days prior to admission he started having black tarry stools. He had no energy and did not feel well. He states prior to this he was able to mow his grass and do his own housework but he became significantly more weak and had lack of energy and was not able to do any of his own housework. He states that the symptoms have also been associated with shortness of breath with very minimal exertion. He states that this improves with rest. He denies any chest pain or pressure. He did have some discomfort in the right lower quadrant upon admission but no real pain per his H&P. The patient states that he does not feel well today. He states he did not sleep well during the night last night. He is a little bit nauseated today and states that he just feels very weak and tired. He denies any vomiting. He states that he continues to have black tarry stools but has not had a bowel movement this morning. The patient underwent EGD this morning and was found to have a punctate area with active bleeding high in the cardia. Hemostasis was achieved with injection of epinephrine and a Hemoclip. Antiplatelet therapy has been stopped due to his GI bleed and proton pump inhibitors have been started. The patient denies any fever, chills, vomiting, diarrhea, PND or orthopnea. The patient is lying flat when I walk in the room without any complaints of shortness of breath. [facility] History I have reviewed the patient's past medical history: Yes Medical History: Reports:: Arrhythmia, Atherosclerotic Heart Disease, Atrial Fibrillation, BPH, Cancer (leukemia), Cardiomyopathy, Coronary Artery Disease, Gastrointestinal Bleed, Hyperlipidemia, Hypertension, Internal Pacemaker (10/31/17, upgrade BiV/defib 07/01/18), Myocardial Infarction Denies:: Diabetes Mellitus Type 1, Diabetes Mellitus Type 2, Lung Disease, MRSA, Seizures (past syncopal episodes) *Have you ever received a pneumonia vaccine?: Yes *Have you received a flu vaccine this season?: No Other Medical History: Reports: Arthritis, Chemotherapy (Gleevec 100mg bid). Denies: Blood Transfusion Reaction Anesthesia experience/problems:: nac Other Surgeries: Yes: Cancer Surgery, Cardiac Catheterization (2008, 11/10/2017 with 5 stents placed), Colonoscopy, Coronary Stent, Pacemaker (10/31/17, upgrade BiV/defib 07/01/18), Skin Cancer Excision, Ureter Stent, Other (Cystoscopy, TURP 03/29/16, cystoscopy for bladder neck contracture 01/20/17) Amputation: No Fractures: No - *Social History Smoking Status: Never smoker Tobacco Type: smokeless tobacco #Yrs smoked (if former smoker): 50 Alcohol Intake: never Alcohol Intake Frequency:: other Substance Use Type: denies use *Occupational Status:: retired Housing: house Household Members: other () *Travel in the last 8 weeks: None Family Hx:: Cancer, Heart Attack Meds Home Medications Medication Instructions Recorded Confirmed Type finasteride 5 mg tablet 5 mg PO HS 09/14/17 02/11/21 History nitroglycerin 0.4 mg sublingual 0.4 mg SUBLINGUAL Q5MINP PRN 09/14/17 02/11/21 History tablet Clopidogrel Bisulfate [Plavix 75mg 75 mg PO DAILY 02/03/18 02/11/21 History Tab] Digoxin [Digoxin 0.125mg Tablet] 125 mcg PO
--- NOTE | 2021-02-12 18:55 | HMH.ACPN2 ---
Internal Medicine - PN: Subj *Date: 02/12/21 *Time: 18:55 Interval history: The patient was seen this evening. He complains of weakness. He is alert and oriented. His daughter is present. Exam Vital signs and Labs for Last 24 Hours: Temp Pulse Resp BP Pulse Ox 98.1 F 80 16 103/71 L 99 02/12/21 16:00 02/12/21 18:00 02/12/21 18:00 02/12/21 18:00 02/12/21 18:00 Laboratory Results - last 24 hr 02/11/21 17:27: Sodium 143, Potassium 4.0, Chloride 103, Carbon Dioxide 30, Anion Gap 14.0, BUN 56 H, Creatinine 1.00, Estimated Creat Clear 59, Estimated GFR 72, Est GFR ( Amer) 87, Glucose 95, Calcium 9.9, Magnesium 1.9, Total Bilirubin 3.0 H, AST 25, ALT 23, Alkaline Phosphatase 79, Total Protein 6.5, Albumin 4.1, Globulin 2.4, Albumin/Globulin Ratio 1.7 02/11/21 17:27: Blood Type O Positive, Antibody Screen Negative, Crossmatch (AHG) See Detail 02/12/21 06:50: WBC 24.1 H*, RBC 4.13 L, Hgb 12.3 L D, Hct 37.3 L, MCV 90.1, MCH 29.8, MCHC 33.1, RDW 14.6, Plt Count 455 H, MPV 7.2 L, Neut % (Auto) 79.6, Lymph % (Auto) 12.6, [place] % (Auto) 2.5, Eos % (Auto) 4.1, Baso % (Auto) 1.2, Neut # (Auto) 19.2 H, Lymph # (Auto) 3.0, [place] # (Auto) 0.6, Eos # (Auto) 1.0 H, Baso # (Auto) 0.3 H, Total Counted 100, Neutrophils % (Manual) 78 H, Lymphocytes % (Manual) 10, Monocytes % (Manual) 7, Eosinophils % (Manual) 5 H, Nucleated RBCs 2, Platelet Estimate Normal, RBC Morphology Not Reportable, Hypochromasia 1+, Microcytosis 1+ 02/12/21 06:50: Sodium 142, Potassium 3.9, Chloride 107, Carbon Dioxide 30, Anion Gap 8.9, BUN 57 H, Creatinine 1.00, Estimated Creat Clear 59, Estimated GFR 72, Est GFR ( Amer) 87, Glucose 94, Calcium 9.3 I & O for Last 24 hours: Intake & Output 02/10/21 02/11/21 02/12/21 02/13/21 11:59 11:59 11:59 11:59 Intake Total 480 / 480 480 / 480 Output Total 1025 / 1025 Balance 480 / 480 -545 / -545 Weight 151 lb 7 oz 152 lb 1.903 oz - Constitutional no acute distress, chronically ill appearing - *Routine HEENT Exam Head: Present: normocephalic Eye: Present: PERRL - Routine Chest/Breast/Axilla Exam Chest wall: Present: pacemaker. Absent: tenderness (He appears cachectic) - *Routine Respiratory Exam Present: CTA bilaterally - *Routine Cardiovascular Exam Present: irregular rhythm - *Routine Abdominal Exam Present: soft (Scaphoid). Absent: tenderness - *Routine Extremities Exam Absent: edema - *Routine Neurological Exam Present: alert, oriented X3 Assessment and Plan (1) GI bleed Status: Acute Category: Medical Code(s): K92.2 - Gastrointestinal hemorrhage, unspecified (2) Melena Status: Acute Category: Medical Code(s): K92.1 - Melena (3) Leukemia Status: Chronic Qualifiers: Leukemia type: myeloid Myeloid leukemia type: unspecified myeloid Leukemia Active/Remission status: without remission Qualified Code(s): C92.90 - Myeloid leukemia, unspecified, not having achieved remission Category: Medical Code(s): C95.90 - Leukemia, unspecified not having achieved remission (4) Leukocytosis Status: Acute Qualifiers: Leukocytosis type: bandemia Qualified Code(s): D72.825 - Bandemia Category: Medical Code(s): D72.829 - Elevated white blood cell count, unspecified (5) Automatic implantable cardioverter-defibrillator in situ Status: Chronic Category: Medical Code(s): Z95.810 - Presence of automatic (implantable) cardiac defibrillator (6) CAD (coronary artery disease) Status: Chronic Qualifiers: Coronary Disease-Associated Artery/Lesion type: [place] artery [place] vs. transplanted heart: [place] heart Associated angina: without angina Qualified Code(s): I25.10 - Atherosclerotic heart disease of [place] coronary artery without angina pectoris Category: Medical Code(s): I25.10 - Atherosclerotic heart disease of [place] coronary artery without angina pectoris (7) Status post coronary artery stent placement Status: C
[2021-02-13] VITALS (11 sets, daily range): BP systolic 91–138; BP diastolic 55–84; PULSE 70–89; RESP 16–20; TEMP 35.6–37.3; O2SAT 92–100; BMI 19.8
--- NOTE | 2021-02-13 06:06 | PC.NURSE ---
patient has rested well thoughout shift. denied nausea, vomiting, soa or diarrhea.monitor technician has shown a paced rhythm at 80. blood pressures have read low when taken automatically, manual pressures taken several times throughout shift, all reading appropriate. patient has been easy to arouse, alert and oriented. breath sounds clear with sats 99% on r/a. no bloody stools noted..
[2021-02-13 06:26] LABS: Basophils # 0.3 K/mm3 (0-0.2); Basophils % 1.3 % (0.1-2.0); Eosinophils # 0.7 K/mm3 (0.0-0.4); Eosinophils % 2.8 % (0.1-12.0); Hematocrit 33.4 % (42.0-52.0); Hemoglobin 11.2 g/dL (14.1-18.0); Mean Corpuscular HGB Conc 33.6 g/dL (31.8-35.4); Mean Corpuscular Hemoglobin 30.7 pg (27.0-31.2); Mean Corpuscular Volume 91.3 fl (80-94); Monocytes # 0.8 K/mm3 (0.1-1.0); Neutrophils # 20.4 K/mm3 (1.8-7.8); Neutrophils % 80.9 % (37.0-80.0); Platelet Count 402 K/mm3 (142-424); Red Blood Count 3.66 M/mm3 (4.60-6.20); Red Cell Distribution Width 14.9 % (11.5-17.5); White Blood Count 25.2 K/mm3 (4.8-10.8)
[2021-02-13 06:30] LABS: MANUAL DIFFERENTIAL MANUAL DIFFERENTIAL (MANUAL DIFF)
[2021-02-13 06:31] LABS: Chloride 107 mmol/L (98-107); Potassium 3.9 mmoL/L (3.5-5.1); Sodium 141 mmol/L (136-145)
[2021-02-13 06:34] LABS: Anion Gap 7.9 mEq/L (5-15); Blood Urea Nitrogen 33 mg/dl (9-20); Calcium 8.9 mg/dl (8.4-10.2); Carbon Dioxide 30 mmol/L (22.0-30.0); Creatinine Clearance Estimated 52 mL/min (50-200); Estimated Glomerular Filt Rate 65 ml/min (>60); GFR (African American) 78 ML/MIN (>60); Glucose 86 mg/dl (74-100)
--- NOTE | 2021-02-13 06:47 | HMH.GSPN ---
Subjective Patient reports: no new complaints Narrative: He states he is just feeling worn out . Progress Note: A&P (1) GI bleed Status: Acute (2) Melena Status: Acute (3) Leukemia Status: Chronic (4) Leukocytosis Status: Acute (5) Automatic implantable cardioverter-defibrillator in situ Status: Chronic (6) CAD (coronary artery disease) Status: Chronic (7) Status post coronary artery stent placement Status: Chronic (8) A-fib Status: Chronic (9) Cardiomyopathy Status: Chronic (10) HHD (hypertensive heart disease) Status: Chronic (11) HLD (hyperlipidemia) Status: Chronic (12) HTN (hypertension) Status: Chronic (13) Gastric hemorrhage Status: Acute (14) Gastric ulcer Status: Acute Assessment and Plan for All Diagnoses:: Overall, doing fairly well status post esophagogastroduodenoscopy with epinephrine injection and clip placement. His hemoglobin has decreased slightly this morning; however, this is most likely a combination of equilibration and dilutional effects. PPI ordered Full liquid diet ordered Exam Vital signs and Labs for Last 24 Hours: Temp Pulse Resp BP Pulse Ox 99.2 F 80 19 102/62 L 99 02/13/21 04:00 02/13/21 06:00 02/13/21 06:00 02/13/21 06:00 02/13/21 06:00 Laboratory Results - last 24 hr 02/12/21 06:50: WBC 24.1 H*, RBC 4.13 L, Hgb 12.3 L D, Hct 37.3 L, MCV 90.1, MCH 29.8, MCHC 33.1, RDW 14.6, Plt Count 455 H, MPV 7.2 L, Neut % (Auto) 79.6, Lymph % (Auto) 12.6, [place] % (Auto) 2.5, Eos % (Auto) 4.1, Baso % (Auto) 1.2, Neut # (Auto) 19.2 H, Lymph # (Auto) 3.0, [place] # (Auto) 0.6, Eos # (Auto) 1.0 H, Baso # (Auto) 0.3 H, Total Counted 100, Neutrophils % (Manual) 78 H, Lymphocytes % (Manual) 10, Monocytes % (Manual) 7, Eosinophils % (Manual) 5 H, Nucleated RBCs 2, Platelet Estimate Normal, RBC Morphology Not Reportable, Hypochromasia 1+, Microcytosis 1+ 02/12/21 06:50: Sodium 142, Potassium 3.9, Chloride 107, Carbon Dioxide 30, Anion Gap 8.9, BUN 57 H, Creatinine 1.00, Estimated Creat Clear 59, Estimated GFR 72, Est GFR ( Amer) 87, Glucose 94, Calcium 9.3 02/13/21 05:38: WBC 25.2 H*, RBC 3.66 L, Hgb 11.2 L, Hct 33.4 L, MCV 91.3, MCH 30.7, MCHC 33.6, RDW 14.9, Plt Count 402, MPV 8.0, Neut % (Auto) 80.9 H, Lymph % (Auto) 12.0, [place] % (Auto) 3.0, Eos % (Auto) 2.8, Baso % (Auto) 1.3, Neut # (Auto) 20.4 H, Lymph # (Auto) 3.0, [place] # (Auto) 0.8, Eos # (Auto) 0.7 H, Baso # (Auto) 0.3 H I & O for Last 24 hours: Intake & Output 02/10/21 02/11/21 02/12/21 02/13/21 11:59 11:59 11:59 11:59 Intake Total 480 / 480 480 / 480 Output Total 1625 / 1625 Balance 480 / 480 -1145 / -1145 Weight 151 lb 7 oz 146 lb 8 oz - *Routine Respiratory Exam Absent: respiratory distress - *Routine Cardiovascular Exam Comments: Regular rate - *Routine Neurological Exam Present: alert
[2021-02-13 07:48] LABS: Eosinophils % 5 % (0-3); Lymphocytes % 16 % (10-50); Monocytes % 4 % (2-9); Neutrophils % 75 % (42-76); Platelet Estimate Normal; RBC Morphology Normal; Total Cells Counted 100
--- NOTE | 2021-02-13 08:47 | HMH.ACPN2 ---
Internal Medicine - PN: Subj *Date: 02/13/21 *Time: 08:47 Interval history: The patient states he is very tired this morning. He is complaining of some mild pain in his epigastric area after EGD. He was seen in consultation by Dr. Millan this morning. He is tolerating his current diet. Exam Vital signs and Labs for Last 24 Hours: Temp Pulse Resp BP Pulse Ox 97.8 F 81 20 97/64 L 99 02/13/21 08:00 02/13/21 08:00 02/13/21 08:00 02/13/21 08:00 02/13/21 08:00 Laboratory Results - last 24 hr 02/12/21 06:50: Total Counted 100, Neutrophils % (Manual) 78 H, Lymphocytes % (Manual) 10, Monocytes % (Manual) 7, Eosinophils % (Manual) 5 H, Nucleated RBCs 2, Platelet Estimate Normal, RBC Morphology Not Reportable, Hypochromasia 1+, Microcytosis 1+ 02/13/21 05:38: WBC 25.2 H*, RBC 3.66 L, Hgb 11.2 L, Hct 33.4 L, MCV 91.3, MCH 30.7, MCHC 33.6, RDW 14.9, Plt Count 402, MPV 8.0, Neut % (Auto) 80.9 H, Lymph % (Auto) 12.0, [place] % (Auto) 3.0, Eos % (Auto) 2.8, Baso % (Auto) 1.3, Neut # (Auto) 20.4 H, Lymph # (Auto) 3.0, [place] # (Auto) 0.8, Eos # (Auto) 0.7 H, Baso # (Auto) 0.3 H, Total Counted 100, Neutrophils % (Manual) 75, Lymphocytes % (Manual) 16, Monocytes % (Manual) 4, Eosinophils % (Manual) 5 H, Platelet Estimate Normal, RBC Morphology Normal 02/13/21 05:38: Sodium 141, Potassium 3.9, Chloride 107, Carbon Dioxide 30, Anion Gap 7.9, BUN 33 H D, Creatinine 1.10, Estimated Creat Clear 52, Estimated GFR 65, Est GFR ( Amer) 78, Glucose 86, Calcium 8.9 I & O for Last 24 hours: Intake & Output 02/10/21 02/11/21 02/12/21 07/01/21 11:59 11:59 11:59 11:59 Intake Total 480 / 480 480 / 480 Output Total 1625 / 1625 Balance 480 / 480 -1145 / -1145 Weight 151 lb 7 oz 146 lb 8 oz - Constitutional no acute distress - *Routine Respiratory Exam Present: CTA bilaterally - *Routine Cardiovascular Exam Present: RRR - *Routine Abdominal Exam Present: soft, normoactive bowel sounds, tenderness (Mild in the epigastric area) - *Routine Extremities Exam Absent: cyanosis, clubbing, edema - *Routine Skin Exam Present: warm. Absent: rash - *Routine Neurological Exam Present: alert, oriented X3 Assessment and Plan (1) GI bleed Status: Acute Category: Medical Code(s): K92.2 - Gastrointestinal hemorrhage, unspecified (2) Melena Status: Acute Category: Medical Code(s): K92.1 - Melena (3) Leukemia Status: Chronic Qualifiers: Leukemia type: myeloid Myeloid leukemia type: unspecified myeloid Leukemia Active/Remission status: without remission Qualified Code(s): C92.90 - Myeloid leukemia, unspecified, not having achieved remission Category: Medical Code(s): C95.90 - Leukemia, unspecified not having achieved remission (4) Leukocytosis Status: Acute Qualifiers: Leukocytosis type: bandemia Qualified Code(s): D72.825 - Bandemia Category: Medical Code(s): D72.829 - Elevated white blood cell count, unspecified (5) Automatic implantable cardioverter-defibrillator in situ Status: Chronic Category: Medical Code(s): Z95.810 - Presence of automatic (implantable) cardiac defibrillator (6) CAD (coronary artery disease) Status: Chronic Qualifiers: Coronary Disease-Associated Artery/Lesion type: [place] artery [place] vs. transplanted heart: [place] heart Associated angina: without angina Qualified Code(s): I25.10 - Atherosclerotic heart disease of [place] coronary artery without angina pectoris Category: Medical Code(s): I25.10 - Atherosclerotic heart disease of [place] coronary artery without angina pectoris (7) Status post coronary artery stent placement Status: Chronic Category: Surgical Code(s): Z95.5 - Presence of coronary angioplasty implant and graft (8) A-fib Status: Chronic Qualifiers: Atrial fibrillation type: unspecified chronic Qualified Code(s): I48.20 - Chronic atrial fibrillation, unspecified Category: Medical Code(s)
--- NOTE | 2021-02-13 09:04 | DIET.NUTRFU ---
Addendum entered by Evelina Suresh 02/14/21 09:35: Pt with severe protein calorie malnutrition, has been provided with diet edu/counseling for high calorie/protein diet and nutritional considerations cancer/chemotherapy treatment as well as for altered GI function. He has been encouraged to f/u post dc with any nutritional questions/concerns. He is feeling much better today and ate a great breakfast of advanced diet, tolerated full liquids well. Original Note: Nutrition consult received. Pt diet advanced to full liquid this am. DwellGreen supplement added to lunch since pt has a hard time tolerating boost/ensure. Pt will receive 1 scoop protein powder TID to help supplement diet. Pt has already received diet education but will follow up for further instruction and any questions.
--- NOTE | 2021-02-13 09:48 | HMH.PNCARD ---
Subjective Date: 02/13/21 Time: 09:48 Principal diagnosis: GI bleed Interval history: This is a 72-year-old white gentleman who was admitted to the hospital with a GI bleed. He did undergo EGD yesterday morning was found to have a punctate area with active bleeding, in the cardia. He was treated with epinephrine and a Hemoclip. The patient tolerated this procedure well. This morning he denies any chest pain or pressure. He states that he has some shortness of breath with exertion still but this has improved. He denies any fever, chills, nausea, vomiting, diarrhea, PND or orthopnea. He still states that he feels very weak and has no energy to do anything. Exam Vital signs and Labs for Last 24 Hours: Temp Pulse Resp BP Pulse Ox 97.8 F 83 20 97/64 L 99 02/13/21 08:00 02/13/21 09:44 02/13/21 08:00 02/13/21 08:00 02/13/21 08:00 Laboratory Results - last 24 hr 02/13/21 05:38: WBC 25.2 H*, RBC 3.66 L, Hgb 11.2 L, Hct 33.4 L, MCV 91.3, MCH 30.7, MCHC 33.6, RDW 14.9, Plt Count 402, MPV 8.0, Neut % (Auto) 80.9 H, Lymph % (Auto) 12.0, [place] % (Auto) 3.0, Eos % (Auto) 2.8, Baso % (Auto) 1.3, Neut # (Auto) 20.4 H, Lymph # (Auto) 3.0, [place] # (Auto) 0.8, Eos # (Auto) 0.7 H, Baso # (Auto) 0.3 H, Total Counted 100, Neutrophils % (Manual) 75, Lymphocytes % (Manual) 16, Monocytes % (Manual) 4, Eosinophils % (Manual) 5 H, Platelet Estimate Normal, RBC Morphology Normal 02/13/21 05:38: Sodium 141, Potassium 3.9, Chloride 107, Carbon Dioxide 30, Anion Gap 7.9, BUN 33 H D, Creatinine 1.10, Estimated Creat Clear 52, Estimated GFR 65, Est GFR ( Amer) 78, Glucose 86, Calcium 8.9 I & O for Last 24 hours: Intake & Output 06/28/21 06/29/21 06/30/21 07/01/21 23:59 23:59 23:59 23:59 Intake Total 480 / 480 480 / 480 240 / 240 Output Total 1025 / 1325 600 / 600 Balance 480 / 480 -545 / -845 -360 / -360 Weight 151 lb 7 oz 152 lb 1.903 oz 146 lb 8 oz Narrative: Telemetry strip shows ventricular pacing with a rate of 80, underlying rhythm is atrial fibrillation. - Constitutional no acute distress, thin - *Routine HEENT Exam Head: Present: normocephalic, atraumatic Eye: Present: EOMI, PERRL ENT: Present: mucous membranes moist - *Routine Neck Exam Present: supple, full ROM, normal carotid upstroke. Absent: JVD, carotid bruit, lymphadenopathy - *Routine Respiratory Exam Present: CTA bilaterally - *Routine Cardiovascular Exam Present: RRR, Normal S1, Normal S2. Absent: murmur - *Routine Abdominal Exam Present: soft, normoactive bowel sounds. Absent: tenderness, distended - *Routine Extremities Exam Present: full ROM, pulses intact, normal capillary refill. Absent: cyanosis, clubbing, edema - *Routine Skin Exam Present: intact, warm. Absent: erythema, rash - *Routine Neurological Exam Present: alert, oriented X3, CN II-XII intact. 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 The patient was admitted to the hospital for black tarry stools. The patient was found to have a GI bleed and underwent EGD yesterday. The patient was found to have a punctate area with active bleeding high in the cardia. Hemostasis was achieved with an injection of epinephrine and a Hemoclip deployment. The patient tolerated this
--- NOTE | 2021-02-13 09:49 | PC.NURSE ---
Bisoprolol and Digoxin AM dose given to pt this AM per Keri Menezes,[employer]ACTITIONER
--- NOTE | 2021-02-13 11:48 | HMH.PTEV ---
Physical Therapy Evaluation Rehab PT IP Evaluation Start: 02/13/21 10:07 Freq: ONCE Status: Active Protocol: Document 02/13/21 11:44 KAILEY (Rec: 02/13/21 11:47 KAILEY [id number]) Subjective/History History History 80 y.o. WM with Chronic Myeloid Leukemia noticed black tarry stools starting 2 days ago. Weak and does not feel well. States 10 pound weight loss since 02/03/2021. - copied from H&P Subjective Subjective Pt reports he feels weak but has been independent at home Rehab PT IP Eval Objective Appearance Patient Behavior Appropriate,Cooperative Patient Orientation Person,Place,Time Difficulty following instructions none Speech Pattern Clear,Appropriate Ambulation Patient Able to Ambulate Yes Ambulation Observation IP General Gait Pattern Observation Shuffling Step Ambulation Distance (feet) 5 Ambulation Assistive Device Straight Cane Ambulation Ability Contact Guard/Hand Hold Balance Ability to Arise Able, uses arms to help Sitting Balance Steady, safe Standing Balance Steady, wide stance Dynamic Sitting Balance Ability Good Dynamic Standing Balance Ability Fair Transfers Bed Transfer Ability Independent Chair Transfer Ability Independent Sit to Stand Bed Transfer Ability Supervision/Stand by Sit to Stand Chair Transfer Ability Supervision/Stand by ROM All Extremities PT ROM Status WFL MMT All Extremities PT MMT WFL Rehab PT IP prob,goals,plan Problems Date of Evaluation: 02/13/21 PT IP Problems Gait,Balance Rehab Potential Rehab Potential Good Equipment Needs Assistive Devices Straight Cane Plan PT Intervention Plan Transfers,Gait,Therapeutic Exercise PT Plan Frequency BID Duration LOS Discharge Goals Bed Transfer Ability Independent Sit to Stand Chair Transfer Ability Supervision/Stand by Ambulation Assistive Device Straight Cane Ambulation Distance (feet) 25 Discharge Plan PT Discharge Plan Pt safe to return home once medically stable and dc'd from [facility] - pt would benefit from continued skilled PT at home to help improve level of independence and decrease burden of care. G -code Required
--- NOTE | 2021-02-13 16:11 | PC.NURSE ---
No acute changes. Remains on room air, no s/s of resp distress. Paced on tely, rate in the 80's. He did c/o some dizziness around lunch time today while he was resting in bed and when he was assisted to the side of bed, but since that time he reports it has improved. Pt assisted w/ shower this AM. He does require standby assistance when ambulating w/ his personal cane d/t unsteady gait and weakness. He sat in the recliner two separate times this shift. Pt calls out appropriately and will ask for help w/ adl's. Has tolerated full liquid diet, no complaints voiced. Reports passing flatus, but no BM this shift. Voiding w/o difficulty. Family have been in intermittently to visit. Call claudia w/in reach.
[2021-02-14] VITALS: BP 106/64; PULSE 80; PULSE 82; RESP 18; TEMP 36.5; O2SAT 96
--- NOTE | 2021-02-14 03:27 | PC.NURSE ---
Patient was pleasant throughout shift and rested well throughout shift. No complaints of pain. VSS. no further concerns voiced to RN.
[2021-02-14 04:00] VITALS: BP 120/73; PULSE 80; RESP 18; TEMP 36.6; O2SAT 97
[2021-02-14 05:10] VITALS: BMI 20.5
[2021-02-14 07:41] VITALS: BP 114/70; PULSE 84; RESP 18; TEMP 36.6; O2SAT 100
[2021-02-14 08:00] VITALS: PULSE 80
[2021-02-14 08:09] LABS: Basophils # 0.3 K/mm3 (0-0.2); Basophils % 1.6 % (0.1-2.0); Eosinophils # 1.1 K/mm3 (0.0-0.4); Eosinophils % 5.4 % (0.1-12.0); Hematocrit 34.1 % (42.0-52.0); Hemoglobin 11.3 g/dL (14.1-18.0); Lymphocytes # 3.4 K/mm3 (0.7-4.5); Lymphocytes % 16.2 % (10-50); Mean Corpuscular Hemoglobin 30.3 pg (27.0-31.2); Mean Corpuscular Volume 91.9 fl (80-94); Mean Platelet Volume 7.4 fl (7.4-10.4); Monocytes # 0.7 K/mm3 (0.1-1.0); Monocytes % 3.4 % (1.7-9.3); Neutrophils # 15.2 K/mm3 (1.8-7.8); Neutrophils % 73.4 % (37.0-80.0); Platelet Count 410 K/mm3 (142-424); Red Blood Count 3.71 M/mm3 (4.60-6.20); Red Cell Distribution Width 15.1 % (11.5-17.5); White Blood Count 20.7 K/mm3 (4.8-10.8)
[2021-02-14 08:11] LABS: MANUAL DIFFERENTIAL MANUAL DIFFERENTIAL (MANUAL DIFF)
--- NOTE | 2021-02-14 08:13 | P.PN_ITS ---
Subjective Narrative: Patient has had some occasional dizziness. He states that his strength is improving. No bowel movement since admission. Denies abdominal pain. Hemoglobin has shown some decrease since admission but stable for at least 24 hours. 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 Cardiology feels that it is reasonable to hold his clopidogrel for now. May be able to discharge home soon holding antiplatelet agent and on oral proton pump inhibitors. Would advocate follow-up for repeat upper en doscopy in several weeks to assess for healing Exam Vital signs and Labs for Last 24 Hours: Temp Pulse Resp BP Pulse Ox 97.8 F 84 18 114/70 100 02/14/21 07:41 02/14/21 07:41 02/14/21 07:41 02/14/21 07:41 02/14/21 07:41 Laboratory Results - last 24 hr 02/14/21 07:45: WBC 20.7 H*, RBC 3.71 L, Hgb 11.3 L, Hct 34.1 L, MCV 91.9, MCH 30.3, MCHC 33.0, RDW 15.1, Plt Count 410, MPV 7.4, Neut % (Auto) 73.4, Lymph % (Auto) 16.2, [place] % (Auto) 3.4, Eos % (Auto) 5.4, Baso % (Auto) 1.6, Neut # (Auto) 15.2 H, Lymph # (Auto) 3.4, [place] # (Auto) 0.7, Eos # (Auto) 1.1 H, Baso # (Auto) 0.3 H I & O for Last 24 hours: Intake & Output 02/11/21 02/12/21 02/13/21 07/02/21 11:59 11:59 11:59 11:59 Intake Total 480 / 480 720 / 720 2616 / 2616 Output Total 1625 / 1625 850 / 850 Balance 480 / 480 -905 / -905 1766 / 1766 Weight 151 lb 7 oz 146 lb 8 oz 151 lb 9 oz - *Routine Abdominal Exam Present: soft
[2021-02-14 08:23] LABS: Chloride 108 mmol/L (98-107); Potassium 3.9 mmoL/L (3.5-5.1); Sodium 142 mmol/L (136-145)
[2021-02-14 08:26] LABS: Anion Gap 8.9 mEq/L (5-15); Blood Urea Nitrogen 22 mg/dl (9-20); Calcium 8.6 mg/dl (8.4-10.2); Carbon Dioxide 29 mmol/L (22.0-30.0); Creatinine Clearance Estimated 54 mL/min (50-200); Estimated Glomerular Filt Rate 65 ml/min (>60); GFR (African American) 78 ML/MIN (>60); Glucose 94 mg/dl (74-100)
[2021-02-14 08:38] LABS: Eosinophils % 3 % (0-3); Lymphocytes % 23 % (10-50); Monocytes % 2 % (2-9); Neutrophils % 72 % (42-76); Platelet Estimate Normal; RBC Morphology Normal; Total Cells Counted 100
--- NOTE | 2021-02-14 08:41 | HMH.ACPN2 ---
Internal Medicine - PN: Subj *Date: 02/14/21 *Time: 08:41 Interval history: Patient states he still feels tired. He states therapy watched him get up and sit in a chair but he didn't even walk yesterday. Surgery has seen him this morning and plans to advance his diet. He states he is hungry and would like some food. He wants to go home. He denies any pain. Exam Vital signs and Labs for Last 24 Hours: Temp Pulse Resp BP Pulse Ox 97.8 F 84 18 114/70 100 02/14/21 07:41 02/14/21 07:41 02/14/21 07:41 02/14/21 07:41 02/14/21 07:41 Laboratory Results - last 24 hr 02/14/21 07:45: WBC 20.7 H*, RBC 3.71 L, Hgb 11.3 L, Hct 34.1 L, MCV 91.9, MCH 30.3, MCHC 33.0, RDW 15.1, Plt Count 410, MPV 7.4, Neut % (Auto) 73.4, Lymph % (Auto) 16.2, [place] % (Auto) 3.4, Eos % (Auto) 5.4, Baso % (Auto) 1.6, Neut # (Auto) 15.2 H, Lymph # (Auto) 3.4, [place] # (Auto) 0.7, Eos # (Auto) 1.1 H, Baso # (Auto) 0.3 H, Total Counted 100, Neutrophils % (Manual) 72, Lymphocytes % (Manual) 23, Monocytes % (Manual) 2, Eosinophils % (Manual) 3, Platelet Estimate Normal, RBC Morphology Normal 02/14/21 07:45: Sodium 142, Potassium 3.9, Chloride 108 H, Carbon Dioxide 29, Anion Gap 8.9, BUN 22 H D, Creatinine 1.10, Estimated Creat Clear 54, Estimated GFR 65, Est GFR ( Amer) 78, Glucose 94, Calcium 8.6 I & O for Last 24 hours: Intake & Output 02/11/21 02/12/21 02/13/21 02/14/21 11:59 11:59 11:59 11:59 Intake Total 480 / 480 720 / 720 3096 / 3096 Output Total 1625 / 1625 850 / 850 Balance 480 / 480 -905 / -905 2246 / 2246 Weight 151 lb 7 oz 146 lb 8 oz 151 lb 9 oz - Constitutional no acute distress - *Routine Respiratory Exam Present: CTA bilaterally - *Routine Cardiovascular Exam Present: RRR - *Routine Abdominal Exam Present: soft, normoactive bowel sounds. Absent: tenderness - *Routine Extremities Exam Absent: cyanosis, clubbing, edema - *Routine Skin Exam Present: warm. Absent: rash - *Routine Neurological Exam Present: alert, oriented X3 Assessment and Plan (1) Gastric hemorrhage Status: Acute Category: Medical Code(s): K92.2 - Gastrointestinal hemorrhage, unspecified (2) GI bleed Status: Acute Category: Medical Code(s): K92.2 - Gastrointestinal hemorrhage, unspecified (3) Melena Status: Acute Category: Medical Code(s): K92.1 - Melena (4) Leukemia Status: Chronic Qualifiers: Leukemia type: myeloid Myeloid leukemia type: unspecified myeloid Leukemia Active/Remission status: without remission Qualified Code(s): C92.90 - Myeloid leukemia, unspecified, not having achieved remission Category: Medical Code(s): C95.90 - Leukemia, unspecified not having achieved remission (5) Leukocytosis Status: Acute Qualifiers: Leukocytosis type: bandemia Qualified Code(s): D72.825 - Bandemia Category: Medical Code(s): D72.829 - Elevated white blood cell count, unspecified (6) 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 transplanted heart: [place] heart Associated angina: without angina Qualified Code(s): I25.10 - Atherosclerotic heart disease of [place] coronary artery without angina pectoris Category: Medical Code(s): I25.10 - Atherosclerotic heart disease of [place] coronary artery without angina pectoris (8) Status post coronary artery stent placement Status: Chronic Category: Surgical Code(s): Z95.5 - Presence of coronary angioplasty implant and graft (9) A-fib Status: Chronic Qualifiers: Atrial fibrillation type: unspecified chronic Qualified Code(s): I48.20 - Chronic atrial fibrillation, unspecified Category: Medical Code(s): I48.91 - Unspecified atrial fibrillation
[2021-02-14 10:14] VITALS: PULSE 79
--- NOTE | 2021-02-14 10:39 | SW/DCPLANNER ---
AN ORDER WAS RECEIVED FOR THIS PATIENT TO HAVE HOME HEALTH SERVICES POST HOSPITAL STAY... NURSE CALLED ME AND SAID PATIENT SAID TO NOT SET ANY SERVICES UP, HE WAS NOT INTERESTED IN HOME HEALTH AT THIS TIME.. DISCHARGING TO HOME TODAY....
--- NOTE | 2021-02-14 10:44 | PC.NURSE ---
spoke with lisandra villareal and stated to hold patient lisinopril until he followed up in the office
--- NOTE | 2021-02-14 10:49 | PC.NURSE ---
Pt denies a need/want for home health at this time.
--- NOTE | 2021-02-19 15:57 | HMH.DCSUM ---
General - General Admission date:: 02/11/21 Discharge date: 02/14/21 HPI HPI: 80 y.o. WM with Chronic Myeloid Leukemia noticed black tarry stools starting 2 days ago. Weak and does not feel well. States 10 pound weight loss since 02/03/2021. Presented in [facility] and was examined there. Rectal exam reveals black, tarry stool, soft abdomen with some RIGHT sided tenderness. Hgb=14.4/ Hct=43.3. Admitted for likely EGD and surgical consult. NOTE: 11/01/2020 Cologard NEGATIVE. 11/01/2020 Barium Swallow NEGATIVE. Hospital Course Hospital Course: The patient was admitted and surgery was consulted for an EGD. The patient was seen by Dr. Kasper who performed an EGD on 02/12/2021. He found a punctate area with active bleeding high in the cardia and hemostasis was achieved with injection of epinephrine and Hemoclip deployment. He also found diffuse gastritis and a moderate ulcer in the mid body of the stomach with no active bleeding. He did well following the procedure. His hemoglobin decreased slightly but was fairly stable. He was started on a PPI and a full liquid diet. Cardiology was consulted due to the patient's atrial fib and shortness of breath. They ordered an echocardiogram to reevaluate his ejection fraction as he had known cardiomyopathy and was status post an AICD placement. The patient did refuse oral anticoagulation and a watchman's device. Dr. Anthony recommended he be restarted on aspirin 81 mg daily. The patient's echo showed bilateral atrial enlargement with an EF of 50%. The patient continued to complain of some fatigue. He had lost a considerable amount of weight therefore dietary was consulted and physical therapy was consulted due to his weakness. Physical therapy thought the patient could return home once medically stable but would benefit from continued skilled PT at home. Dr. Kasper further advanced his diet and felt he would need a repeat EGD in several weeks. By 02/14/2021, he had been up in the chair and was tolerating food and wanted to go home. He was stable to be discharged and will follow up with Dr. Kasper and Dr. Watkins Objective Vital signs: Temp Pulse Resp BP Pulse Ox 97.8 F 79 18 114/70 100 02/14/21 07:41 02/14/21 10:14 02/14/21 07:41 02/14/21 07:41 02/14/21 07:41 Narrative: - Constitutional mild distress, thin - *Routine HEENT Exam Head: Present: normocephalic Eye: Present: PERRL ENT: Present: mucous membranes dry - *Routine Neck Exam Absent: JVD - Routine Chest/Breast/Axilla Exam Chest wall: Absent: tenderness Axillae: Absent: lymphadenopathy - *Routine Respiratory Exam Present: CTA bilaterally. Absent: respiratory distress - *Routine Cardiovascular Exam Present: RRR (paced, 72) - *Routine Abdominal Exam Present: soft, normoactive bowel sounds, tenderness (right flank area) - *Routine Rectal Exam Rectal:: normal sphincter tone, no hemorrhoids, no masses, no bleeding (black tarry stool) - *Routine Genitalia Exam Genitalia:: deferred - *Routine Extremities Exam Absent: edema - *Routine Skin Exam Present: dry, pallor - *Routine Neurological Exam Present: alert, oriented X3 - Routine Psychiatric Exam Present: anxious DS: Diagnosis - Discharge Diagnosis (1) Gastric hemorrhage Status: Acute (2) GI bleed Status: Acute (3) Melena Status: Acute (4) Leukemia Status: Chronic (5) Leukocytosis Status: Acute (6) 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
== END 2021-02-14 10:55 | disposition home health service (06) | DRG 378 ==
PROVIDERS: Surgery; Admitting Provider Family Medicine; PCP Family Medicine; Visit Provider Family Medicine
PROC: 0DJ08ZZ Inspection of Upper Intestinal Tract, Via Natural or Artificial Opening Endoscopic (ICD-10-PCS; CPT 43235; principal; 2021-02-12 10:30)
DX: K92.1 Melena (principal); I42.9 Cardiomyopathy, unspecified; C92.10 Chronic myeloid leukemia, BCR/ABL-positive, not having achieved remission; I50.22 Chronic systolic (congestive) heart failure; I48.20 Chronic atrial fibrillation, unspecified; K25.9 Gastric ulcer, unspecified as acute or chronic, without hemorrhage or perforation; K29.70 Gastritis, unspecified, without bleeding; Z95.810 Presence of automatic (implantable) cardiac defibrillator; I25.10 Atherosclerotic heart disease of native coronary artery without angina pectoris; Z95.5 Presence of coronary angioplasty implant and graft; N40.0 Benign prostatic hyperplasia without lower urinary tract symptoms; E78.5 Hyperlipidemia, unspecified; M19.90 Unspecified osteoarthritis, unspecified site; I25.2 Old myocardial infarction; Z85.828 Personal history of other malignant neoplasm of skin; I11.0 Hypertensive heart disease with heart failure
CPT/HCPCS: 43255; 36415; 71046; 80048; 80053; 83605; 83735; 85007; 85025; 85610; 86850; 93005; 93306; 97161; 97530; J2405; U0003

== ENCOUNTER → 2021-04-22 08:47 | Outpatient (CLI) | payer MEDICARE, OTHER, SELFPAY ==
[2021-04-22 09:23] LABS: Basophils # 0.8 K/mm3 (0-0.2); Basophils % 4.3 % (0.1-2.0); Eosinophils # 1.3 K/mm3 (0.0-0.4); Hematocrit 41.1 % (42.0-52.0); Hemoglobin 12.3 g/dL (14.1-18.0); Lymphocytes # 2.1 K/mm3 (0.7-4.5); Lymphocytes % 11.5 % (10-50); Mean Corpuscular Hemoglobin 25.9 pg (27.0-31.2); Mean Corpuscular Volume 86.4 fl (80-94); Mean Platelet Volume 8.5 fl (7.4-10.4); Monocytes # 0.7 K/mm3 (0.1-1.0); Monocytes % 3.7 % (1.7-9.3); Neutrophils # 13.6 K/mm3 (1.8-7.8); Neutrophils % 73.4 % (37.0-80.0); Platelet Count 753 K/mm3 (142-424); Red Blood Count 4.75 M/mm3 (4.60-6.20); Red Cell Distribution Width 15.2 % (11.5-17.5); White Blood Count 18.6 K/mm3 (4.8-10.8)
[2021-04-22 09:29] LABS: MANUAL DIFFERENTIAL MANUAL DIFFERENTIAL (MANUAL DIFF)
[2021-04-22 09:44] LABS: Eosinophils % 11 % (0-3); Lymphocytes % 9 % (10-50); Monocytes % 6 % (2-9); Neutrophils % 74 % (42-76); Nucleated Red Blood Cells 1; Total Cells Counted 100
[2021-04-22 09:45] LABS: Hypochromasia 3+; Microcytosis 1+; Platelet Estimate Normal
[2021-04-22 11:10] LABS: Chloride 105 mmol/L (98-107)
[2021-04-22 11:11] LABS: Potassium 3.9 mmoL/L (3.5-5.1); Sodium 144 mmol/L (136-145)
[2021-04-22 11:13] LABS: Alanine Aminotransferase 18 U/L (12-78); Aspartate Amino Transferase 30 U/L (17-59); Bilirubin,Total 1.9 mg/dl (0.2-1.3); Blood Urea Nitrogen 12 mg/dl (9-20); Estimated Glomerular Filt Rate 72 ml/min (>60); GFR (African American) 87 ML/MIN (>60)
[2021-04-22 11:14] LABS: Albumin Level 3.6 g/dl (3.5-5.0); Albumin/Globulin Ratio 1.3 (1.1-1.8); Alkaline Phosphatase 110 U/L (38-126); Anion Gap 12.9 mEq/L (5-15); Calcium 9.8 mg/dl (8.4-10.2); Carbon Dioxide 30 mmol/L (22.0-30.0); Globulin 2.7 g/dL (1.3-3.2); Glucose 118 mg/dl (74-100); Total Protein,Serum 6.3 g/dl (6.3-8.2)
[2021-04-24 20:33] LABS: Iron 38 ug/dL (49-181)
[2021-04-24 20:43] LABS: Total Iron Binding Capacity 463 ug/dL (261-462)
[2021-04-24 21:10] LABS: Ferritin 11.5 ng/ml (17.9-464)
[2021-04-26 00:07] LABS: Interpretation: Positive (.)
== END ==
PROVIDERS: Visit Provider Internal Medicine Medical Oncology
DX: K92.1 Melena (principal); C92.10 Chronic myeloid leukemia, BCR/ABL-positive, not having achieved remission
CPT/HCPCS: 36415; 80053; 81206; 82728; 83540; 83550; 85007; 85025

== ENCOUNTER 2021-06-23 23:47 | Inpatient (IN) | payer MEDICARE, OTHER, SELFPAY ==
[2021-06-23 23:48] VITALS: BP 171/113; PULSE 80; RESP 16; TEMP 36.4; O2SAT 98; BMI 21.7
[2021-06-24] VITALS (27 sets, daily range): BP systolic 109–160; BP diastolic 68–102; PULSE 77–88; RESP 16–19; TEMP 36.3–36.7; O2SAT 90–99; BMI 22.8; BMI 22.9
--- NOTE | 2021-06-24 00:05 | CT_ITS ---
PROCEDURE INFORMATION: Exam: CT Abdomen And Pelvis With Contrast Exam date and time: 06/24/2021 12:05 AM Age: 81 years old Clinical indication: Other: Blood in stool TECHNIQUE: Imaging protocol: Computed tomography of the abdomen and pelvis with contrast. Radiation optimization: All CT scans at this facility use at least one of these dose optimization techniques: automated exposure control; mA and/or kV adjustment per patient size (includes targeted exams where dose is matched to clinical indication); or iterative reconstruction. Contrast material: ISOVUE; Contrast volume: 70 ml; Contrast route: IV; COMPARISON: [facility] abdomen pelvis wo con 06/09/2018 2:05 PM FINDINGS: Lungs: Probable mild interstitial pulmonary edema visualized at the lung bases. Small to moderate right and small left layering pleural effusions with associated compressive atelectasis. Heart: Marked cardiomegaly partially visualized. Trace pericardial effusion. Partially visualized cardiac device leads. Coronary stents. Liver: Suggested micronodularity of the liver contour, suspicious for chronic hepatocellular disease, possibly cirrhosis. Gallbladder and bile ducts: Sludge or stones within the gallbladder fundus. There is diffuse gallbladder wall thickening, nonspecific in the setting of ascites and probable hepatocellular disease. Pancreas: Mild pancreatic atrophy. Spleen: Spleen is enlarged measuring 15 cm in craniocaudal dimension. Adrenal glands: Unremarkable. Kidneys and ureters: There are a few right renal cysts measuring up to 1.3 cm in size. No hydronephrosis. Stomach and bowel: Small hiatal hernia. There is a 1.8 cm linear metallic opacity within the proximal stomach, new since prior imaging, but visible on the rigging worker radiograph. Duodenal diverticulum. There is also a 4.3 x 3.4 cm diverticulum arising from a loop of small bowel in the left mid abdomen. No bowel dilation or obstruction. Colon is packed with solid stool. Appendix: Appendix within normal limits. Intraperitoneal space: No pneumoperitoneum. Small volume ascites. Mesenteric edema/congestion. Vasculature: No abdominal aortic aneurysm. Scattered atherosclerotic plaque. 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 Moderate left renal artery stenosis. Lymph nodes: Scattered subcentimeter mesenteric and retroperitoneal lymph nodes. No frankly enlarged lymph nodes by CT criteria. Urinary bladder: There is marked irregular wall thickening throughout the bladder, with several bladder diverticula. A few small calculi are seen within a dependent/posterior bladder diverticulum. Reproductive: Suggestive postsurgical changes of TURP. Bones/joints: Multilevel spondylosis with variable degrees of spinal canal stenosis and neural foraminal narrowing. Severe bilateral hip osteoarthrosis. Probable avascular necrosis, versus less likely a subchondral insufficiency fracture, within the right superior femoral head. There is no eyad articular surface collapse. Nonspecific presacral edema. Soft tissues: There is a small to moderate volume of fluid within the right iliopsoas bursa. Small to moderate size fat containing inguinal hernias, right side greater than left. Diffuse body wall edema. IMPRESSION: 1. Linear 1.8 cm metallic opacity present within the stomach, visible on the rigging worker image, is considered indeterminate. It could be a surgical/endoscopic clip, but the possibility of an ingested foreign body should also be considered. Correlate with any relevant procedural history. 2. No bowel obstruction. Large colonic stool burden could reflect constipation. Extensive colonic di
--- NOTE | 2021-06-24 00:07 | XR_ITS ---
PROCEDURE INFORMATION: Exam: XR Chest Exam date and time: 06/24/2021 12:07 AM Age: 81 years old Clinical indication: Other: Gi bleed; Prior surgery; Surgery type: Pacemaker TECHNIQUE: Imaging protocol: XR of the chest. Views: 2 views. COMPARISON: CR XR CHEST 2V 02/11/2021 5:50 PM FINDINGS: Tubes, catheters and devices: There is a left chest wall pacemaker/ICD. A 1.8 cm linear metallic opacity projects over the proximal stomach, correlating with the finding on CT. This is not seen on prior radiograph of 02/11/2021. Lungs: Mild interstitial pulmonary edema. Mild bibasilar atelectasis. Pleural spaces: Small right greater than left pleural effusions. No pneumothorax. Heart/Mediastinum: Cardiomegaly. Aortic atherosclerosis. Coronary stents. Bones/joints: Degenerative changes. IMPRESSION: 1. Mild interstitial pulmonary edema. 2. Small right greater than left pleural effusions with associated compressive atelectasis.
[2021-06-24 00:11] LABS: Coronavirus 19, PCR Not Detected (NotDetected); Influenza A, PCR Not Detected (NotDetected); Influenza B, PCR Not Detected (NotDetected)
[2021-06-24 00:14] LABS: Occult Blood,Stool Positive (Negative)
[2021-06-24 00:18] LABS: Basophils # 0.7 K/mm3 (0-0.2); Basophils % 3.7 % (0.1-2.0); Eosinophils # 0.9 K/mm3 (0.0-0.4); Hematocrit 46.7 % (42.0-52.0); Hemoglobin 14.1 g/dL (14.1-18.0); Lymphocytes # 3.5 K/mm3 (0.7-4.5); Lymphocytes % 18.8 % (10-50); Mean Corpuscular HGB Conc 30.1 g/dL (31.8-35.4); Mean Corpuscular Hemoglobin 26.8 pg (27.0-31.2); Mean Corpuscular Volume 89.1 fl (80-94); Mean Platelet Volume 8.6 fl (7.4-10.4); Monocytes # 0.8 K/mm3 (0.1-1.0); Monocytes % 4.1 % (1.7-9.3); Neutrophils # 13.5 K/mm3 (1.8-7.8); Neutrophils % 72.2 % (37.0-80.0); Platelet Count 596 K/mm3 (142-424); Red Blood Count 5.24 M/mm3 (4.60-6.20); Red Cell Distribution Width 19.8 % (11.5-17.5); White Blood Count 18.6 K/mm3 (4.8-10.8)
--- NOTE | 2021-06-24 00:18 | HMH.EDGIBL ---
ED Disposition Clinical Impression: Lower gastrointestinal hemorrhage, Automatic implantable cardioverter-defibrillator in situ, CML (chronic myelocytic leukemia), Celiac artery stenosis, Renal artery stenosis GI bleed Qualifiers: GI bleed type/associated pathology: melena Qualified Code(s): K92.1 - Melena Disposition: Admitted As Inpatient Condition on Discharge: Fair Instructions: DI for Gastrointestinal Bleeding Referrals: Shubham Watkins MD [Primary Care Provider] - - Critical Care Critical Care Time: No Attestation: On 06/23/21, the high probability of a clinically significant, sudden or life threatening deterioration of the following system(s) required my full and direct attention, intervention and personal management. The time I documented below is in addition to time spent performing reported procedures but includes the following listed in this critical care notation. Medical Decision Making - Medical Records Medical records reviewed: Yes: I reviewed the patient's medical records. - Mehul Inquiry Pt receiving controlled substance: No Vital Signs: 06/23/21 23:48 06/24/21 00:30 06/24/21 00:58 Temperature 97.5 F L Temperature Source Oral Pulse Rate 82 78 Pulse Rate [Right] 80 Respiratory Rate 16 Blood Pressure 155/99 H 154/90 H Blood Pressure [Right Arm] 171/113 H Blood Pressure Mean 125 111 Blood Pressure Mean [Right Arm] 132 02 Sat by Pulse Oximetry 98 96 96 06/24/21 01:00 Temperature Temperature Source Pulse Rate 81 Pulse Rate [Right] Respiratory Rate Blood Pressure 160/102 H Blood Pressure [Right Arm] Blood Pressure Mean 120 Blood Pressure Mean [Right Arm] 02 Sat by Pulse Oximetry 96 - Lab Data Lab results reviewed: Yes: I reviewed the patient's lab results. Lab Results 06/24/21 00:00: Stool Occult Blood Positive A 06/24/21 00:00: WBC 18.6 H, RBC 5.24, Hgb 14.1, Hct 46.7, MCV 89.1, MCH 26.8 L, MCHC 30.1 L, RDW 19.8 H, Plt Count 596 H, MPV 8.6, Neut % (Auto) 72.2, Lymph % (Auto) 18.8, [place] % (Auto) 4.1, Eos % (Auto) 5.0, Baso % (Auto) 3.7 H, Neut # (Auto) 13.5 H, Lymph # (Auto) 3.5, [place] # (Auto) 0.8, Eos # (Auto) 0.9 H, Baso # (Auto) 0.7 H 06/24/21 00:00: Sodium 145, Potassium 3.8, Chloride 106, Carbon Dioxide 29, Anion Gap 13.8, BUN 17, Creatinine 1.10, Estimated Creat Clear 56, Estimated GFR 65, Est GFR ( Amer) 78, Glucose 105 H, Calcium 9.7, Total Bilirubin 3.3 H, AST 35, ALT 18, Alkaline Phosphatase 106, C-Reactive Protein 2.7, Total Protein 6.9, Albumin 4.2, Globulin 2.7, Albumin/Globulin Ratio 1.6, Amylase 82, Lipase 289, Procalcitonin 0.034 06/24/21 00:00: Digoxin Cancelled 06/24/21 00:00: NT-Pro-B Natriuret Pep 4400 H 06/24/21 00:00: Digoxin 0.70 06/24/21 00:05: SARS-CoV-2 (PCR) Not detected, Influenza A Untype (PCR) Not detected, Influenza Type B (PCR) Not detected 06/24/21 00:58: Lactate 1.1 Result diagrams: 06/24/21 00:00 06/24/21 00:00 Orders (Tests/Meds): ED MEDICATIONS Generic Name Dose Route Start Last Admin Trade Name Freq PRN Reason Stop Dose Admin Sodium Chloride 1,000 mls @ 999 mls/hr 06/24/21 00:15 06/24/21 00:09 Sod Chlor 0.9% 1000ml Bag IV 06/24/21 01:15 999 mls/hr .Q1H1M AIXA Administration Discontinued Medications Generic Name Dose Route Start Last Admin Trade Name Freq PRN Reason Stop Dose Admin Pantoprazole Sodium 80 mg/ 100 mls @ 100 mls/hr 06/24/21 00:08 06/24/21 00:09 Sodium Chloride IV 06/24/21 01:07 100 mls/hr ONCE ONE Administration Iopamidol 70 ml 06/24/21 01:01 06/24/21 01:02 Iopamidol-370 (76%);100ml Bottle IV 06/24/21 01:02 70 ml ONCE ONE Administration Ondansetron HCl 4 mg 06/24/21 00:08 06/24/21 00:09 Ondansetron 4mg/2ml Vial IV 06/24/21 00:09 4 mg ONCE ONE Administration Sodium Chloride 10 ml 06/24/21 01:01 06/24/21 01:02 Sodium Chloride 0.9% 10ml Syr (Rad Only) IV 06/24/21 01:02 10 ml ONCE ONE Administration ORDERS Category Date T
[2021-06-24 00:23] LABS: MANUAL DIFFERENTIAL MANUAL DIFFERENTIAL (MANUAL DIFF)
[2021-06-24 00:24] LABS: Alanine Aminotransferase 18 U/L (12-78); Albumin Level 4.2 g/dl (3.5-5.0); Albumin/Globulin Ratio 1.6 (1.1-1.8); Alkaline Phosphatase 106 U/L (38-126); Amylase 82 U/L (30-110); Anion Gap 13.8 mEq/L (5-15); Aspartate Amino Transferase 35 U/L (17-59); Bilirubin,Total 3.3 mg/dl (0.2-1.3); Blood Urea Nitrogen 17 mg/dl (9-20); Calcium 9.7 mg/dl (8.4-10.2); Carbon Dioxide 29 mmol/L (22.0-30.0); Chloride 106 mmol/L (98-107); Creatinine Clearance Estimated 56 mL/min (50-200); Estimated Glomerular Filt Rate 65 ml/min (>60); GFR (African American) 78 ML/MIN (>60); Globulin 2.7 g/dL (1.3-3.2); Glucose 105 mg/dl (74-100); Lipase 289 U/L (23-300); Potassium 3.8 mmoL/L (3.5-5.1); Sodium 145 mmol/L (136-145); Total Protein,Serum 6.9 g/dl (6.3-8.2)
[2021-06-24 00:30] LABS: C-Reactive Protein 2.7 mg/L (0-4)
[2021-06-24 00:36] LABS: NT Pro Brain Natriuretic Pep. 4400 pg/mL (0-450)
[2021-06-24 00:40] LABS: Procalcitonin 0.034 ng/mL (0.0-2.0)
[2021-06-24 01:40] LABS: Lactic Acid 1.1 mmol/L (0.7-2.1)
[2021-06-24 02:04] LABS: Microscopic, Urine URINE MICROSCOPIC (MICROSCOPIC)
[2021-06-24 02:06] LABS: Appearance,Urine CLEAR (Clear); Bilirubin,Urine Negative (Negative); Blood, Urine TRACE-I (Negative); Color,Urine YELLOW (Yellow); Glucose,Urine (UA) Negative (Negative); Ketones,Urine Negative (Negative); Leukocyte Esterase,Urine Negative (Negative); Nitrate,Urine Negative (Negative); Protein,Urine Negative (Negative); Urobilinogen,Urine 0.2 EU/dl (0.2)
--- NOTE | 2021-06-24 02:07 | PC.NURSE ---
updated grandson on POC and admission.
[2021-06-24 02:13] LABS: Acanthocytes 1+; Eosinophils % 3 % (0-3); Lymphocytes % 13 % (10-50); Neutrophils % 79 % (42-76); Platelet Estimate Normal; Total Cells Counted 100
--- NOTE | 2021-06-24 02:13 | PC.NURSE ---
called supervisor [facility] for bed assignment
--- NOTE | 2021-06-24 02:16 | PC.NURSE ---
Lab at bedside for T&S
[2021-06-24 02:20] LABS: Bacteria,Urine Trace /lpf; WBC,Urine Occasional #/hpf (0-3)
--- NOTE | 2021-06-24 02:28 | PC.NURSE ---
attempted to call report, RN on break at this time. Was transferred to Charge nurse, however she was unavailable at this time.
[2021-06-24 03:16] LABS: Erythrocyte Sedimentation Rate 6 mm/hr (0-20)
--- NOTE | 2021-06-24 05:30 | PC.NURSE ---
patient up to floor via wheelchair @ 04:06.
[2021-06-24 07:18] LABS: Basophils # 0.5 K/mm3 (0-0.2); Basophils % 3.3 % (0.1-2.0); Eosinophils # 0.6 K/mm3 (0.0-0.4); Eosinophils % 4.2 % (0.1-12.0); Hematocrit 36.8 % (42.0-52.0); Lymphocytes # 2.2 K/mm3 (0.7-4.5); Lymphocytes % 14.4 % (10-50); Mean Corpuscular HGB Conc 30.1 g/dL (31.8-35.4); Mean Corpuscular Hemoglobin 26.6 pg (27.0-31.2); Mean Corpuscular Volume 88.4 fl (80-94); Mean Platelet Volume 8.8 fl (7.4-10.4); Monocytes # 0.7 K/mm3 (0.1-1.0); Monocytes % 4.3 % (1.7-9.3); Neutrophils # 11.1 K/mm3 (1.8-7.8); Neutrophils % 73.8 % (37.0-80.0); Platelet Count 449 K/mm3 (142-424); Red Blood Count 4.16 M/mm3 (4.60-6.20); Red Cell Distribution Width 19.9 % (11.5-17.5); White Blood Count 15.1 K/mm3 (4.8-10.8)
--- NOTE | 2021-06-24 07:21 | PC.NURSE ---
Dr. Millan notified of consult on patient.
[2021-06-24 07:23] LABS: Anion Gap 8.8 mEq/L (5-15); Blood Urea Nitrogen 16 mg/dl (9-20); Calcium 8.7 mg/dl (8.4-10.2); Carbon Dioxide 27 mmol/L (22.0-30.0); Chloride 111 mmol/L (98-107); Creatinine Clearance Estimated 65 mL/min (50-200); Estimated Glomerular Filt Rate 72 ml/min (>60); GFR (African American) 87 ML/MIN (>60); Glucose 81 mg/dl (74-100); Hemoglobin 11.1 g/dL (14.1-18.0); Magnesium 1.7 mg/dl (1.6-2.3); Potassium 3.8 mmoL/L (3.5-5.1); Sodium 143 mmol/L (136-145)
--- NOTE | 2021-06-24 07:47 | HMH.GSCON ---
*Admission Date: 06/24/21 *Reason for consult:: Gastrointestinal hemorrhage *History of present illness: This is a 81-year-old gentleman seen in consultation with a service of Dr. Watkins for evaluation regarding gastrointestinal hemorrhage. He presents the emergency department with increasing crampy abdominal pain and bright red blood per rectum. In January of this year he underwent esophagogastroduodenoscopy for significant hemorrhage and was found to have a punctate area of active bleeding in the gastric cardia requiring epinephrine injection and Hemoclip placement. Please see Dr. Kasper's procedure note for further detail. He was also found to have a mid gastric body ulceration that was not showing signs of active/recent hemorrhage. He has been on Carafate; however, proton pump inhibition has not been consistently taken over the past few months. Forwarded from emergency department evaluation: GI Bleed HPI - General Chief complaint: GI Bleed Stated complaint: blood in stools Time Seen by Provider: 06/24/21 00:18 Mode of Arrival: Ambulatory Source of Information: Patient, Medical Record Limitations: No Limitations Description of Symptoms (Recalled from ER Triage Doc. by RN): pt c/o bright red blood in BMs that started today. pt denies any abd pain, n/v/d - History of Present Illness HPI Narrative: crampy abd pain with reported blood in stool- - has hx of gi bleed - ulcer in 03/05-no vomiting blood MD complaint: gross hematochezia Onset (ago): hour(s) Consistency: intermittent Severity: moderate Context: history of GI bleed Associated symptoms: denies other symptoms Treatments Prior to Arrival: none Review of Systems - Constitutional Denies chills - Eyes Denies change in vision - ENT Denies difficulty swallowing - *Cardiovascular Denies chest pain - *Respiratory Denies cough - *Gastrointestinal Reports abdominal pain, Reports bright, red blood in stools, Denies vomiting - *Neurologic Denies localized weakness, Denies headache(s), Denies seizure-like activity [facility] History Medical History: Reports:: Arrhythmia, Atherosclerotic Heart Disease, Atrial Fibrillation, BPH, Cardiomyopathy, Coronary Artery Disease, Gastrointestinal Bleed, Hyperlipidemia, Hypertension, Internal Pacemaker, Myocardial Infarction Denies:: Cancer, Diabetes Mellitus Type 1, Diabetes Mellitus Type 2, Lung Disease, MRSA, Seizures *Have you ever received a pneumonia vaccine?: No *Have you received a flu vaccine this season?: No Other Medical History: Reports: Arthritis, Chemotherapy. Denies: Blood Transfusion Reaction Other Surgeries: Yes: Cancer Surgery, Cardiac Catheterization (2008, 11/10/2017 with 5 stents placed), Colonoscopy, Coronary Stent, EGD, Pacemaker, Skin Cancer Excision, Ureter Stent, Other (Cystoscopy, TURP 03/29/16, cystoscopy for bladder neck contracture 01/20/17) Amputation: No Fractures: No - *Social History Last grade of school completed: High school graduate Smoking Status: Current every day smoker Tobacco Type: smokeless tobacco #Yrs smoked (if former smoker): 50 Alcohol Intake: never Alcohol Intake Frequency:: other Substance Use Type: denies use *Occupational Status:: retired Housing: house Household Members: other *Travel in the last 8 weeks: None Family Hx:: No significant family history Meds Home Medications Medication Instructions Recorded Confirmed Type finasteride 5 mg tablet 5 mg PO HS 09/14/17 06/24/21 History nitroglycerin 0.4 mg sublingual 0.4 mg SUBLINGUAL Q5MINP PRN 09/14/17 06/24/21 History tablet Digoxin [Digoxin 0.125mg Tablet] 125 mcg PO DAILY 02/03/18 06/24/21 History bisoproloL fumarate [Zebeta 5mg 5 mg PO HS 02/03/18 06/24/21 History tablet] tamsulosin 0.4 mg capsule 0.4 mg PO BID cap 03/29/18 06/24/21 History imatinib 100 mg tablet 200 mg PO 1200 09/13/18 06/24/21 History Aspirin [Low Dose Aspirin EC] 81 mg PO DAILY 06/24/21 06/24/21 History Furosemide [Furosemide 20mg Tab*] See R
--- NOTE | 2021-06-24 07:48 | HMH.ANESCL ---
[facility] Anesthesia Checklist - Structural Data Admitted From: Inpatient Planned Operative Procedure/s: egd Consent for Planned Operative Procedure(s) Verified: Yes - Additional verifications Anesthesia Reactions: No Hx Blood Transfusions: No Blood Transfusion Reaction: No - Airway Assessment C-Spine Mobility Assessed: Yes TMJ Mobility Assessed: Yes Dentition: Edentulous - Neurological Assessment Level of Consciousness: Awake, Alert, Appropriate - Anesthesia Plan Anesthesia Risk discussed: Yes Anesthesia Plan: Verified ASA Class: III Anesthesia Type: MAC [facility] History I have reviewed the patient's past medical history: Yes Medical History: Reports:: Arrhythmia, Atherosclerotic Heart Disease, Atrial Fibrillation, BPH, Cardiomyopathy, Coronary Artery Disease, Gastrointestinal Bleed, Hyperlipidemia, Hypertension, Internal Pacemaker, Myocardial Infarction Denies:: Cancer, Diabetes Mellitus Type 1, Diabetes Mellitus Type 2, Lung Disease, MRSA, Seizures *Have you ever received a pneumonia vaccine?: No *Have you received a flu vaccine this season?: No Other Medical History: Reports: Arthritis, Chemotherapy. Denies: Blood Transfusion Reaction Anesthesia experience/problems:: none Other Surgeries: Yes: Cancer Surgery, Cardiac Catheterization (2008, 11/10/2017 with 5 stents placed), Colonoscopy, Coronary Stent, EGD, Pacemaker, Skin Cancer Excision, Ureter Stent, Other (Cystoscopy, TURP 03/29/16, cystoscopy for bladder neck contracture 01/20/17) Amputation: No Fractures: No - *Social History Last grade of school completed: High school graduate Smoking Status: Current every day smoker Tobacco Type: smokeless tobacco #Yrs smoked (if former smoker): 50 Alcohol Intake: never Alcohol Intake Frequency:: other Substance Use Type: denies use *Occupational Status:: retired Housing: house Household Members: other *Travel in the last 8 weeks: None Family Hx:: No significant family history
--- NOTE | 2021-06-24 08:01 | HMH.PHAVTE ---
[facility] Pharmacy VTE Monitoring - Patient Demographics Admission date: 06/23/21 Report Date: 06/24/21 Time: 08:01 Allergies/Adverse Reactions: Patient Allergies No Known Allergies Allergy (Verified 04/24/21 10:56) Height: 1.83 m Weight: 76.839 kg Patient Problems: Current Active Problems GI bleed (Acute) Gastric hemorrhage (Acute) Gastric ulcer (Acute) Lower gastrointestinal hemorrhage (Acute) CML (chronic myelocytic leukemia) (Acute) Celiac artery stenosis (Acute) Renal artery stenosis (Acute) Automatic implantable cardioverter-defibrillator in situ (Chronic) - VTE Risk Labs: VTE Related Lab Results Hgb 11.1 g/dL (14.1-18.0) L D 06/24/21 06:50 Hct 36.8 % (42.0-52.0) L 06/24/21 06:50 Plt Count 449 K/mm3 (142-424) H 06/24/21 06:50 BUN 16 mg/dl (9-20) 06/24/21 06:50 Creatinine 1.00 mg/dl (0.66-1.25) 06/24/21 06:50 Estimated Creat Clear 65 mL/min (50-200) 06/24/21 06:50 Was VTE Risk Assessment Performed: Yes VTE Score: 4 VTE Risk Level: Low Risk Clinical Trial Participant: No - Prophylaxis VTE Prophylaxis Ordered?: Yes Types of VTE Prophylaxis: TEDS Knee High
--- NOTE | 2021-06-24 08:11 | HMH.SCOPE ---
- Procedure: Date: 06/24/21 Patient Date of :: 1940 Procedure Performed:: Esophagogastroduodenoscopy with biopsy Indications:: Recurrent gastrointestinal hemorrhage (complaints of bright red blood per rectum) Recent upper gastrointestinal hemorrhage with bleeding from punctate area in gastric cardia requiring epinephrine and hemoclips. Mid gastric body ulceration also noted at prior EGD; although, no bleeding was noted from this ulceration. Performing Provider:: Bandar Millan MD Referring Provider:: Dr. Watkins Sedation:: Monitored anesthesia care Procedure:: After informed consent was obtained the patient was taken to the endoscopy suite. Sedation ensued after the patient was transferred to the left lateral decubitus position. Pulse, blood pressure, and oxygen saturation were monitored throughout the procedure. The endoscope was advanced beyond the duodenal bulb. Retroflexion within the gastric lumen was accomplished. The gastroscope was carefully removed and the patient was transferred to recovery in stable condition. Please see findings and specimens below for detail. Findings:: Hemoclip in position in gastric cardia No evidence of active or recent hemorrhage Mid gastric body ulceration essentially healed Specimens:: Antral biopsy Recommendations:: Continue proton pump inhibition and Carafate Discussion with regard to colonoscopy will be ongoing. I have recommended colonoscopy and the patient states that he will think about it . Ideally, colonoscopy can be performed in the near future as an outpatient. The patient claims that his bleeding is slowing down and undergoing bowel prep could interfere with this process. However, urgent colonoscopy (prepped or unprepped) may ultimately required. Complications:: No immediate Estimated blood obtained (mL): 1
--- NOTE | 2021-06-24 08:49 | SUR.PHASEII ---
0835- Dr Millan request to keep pt in postop for additional hour of observation after pt had moderate amt of dark red stool.
--- NOTE | 2021-06-24 10:19 | HMH.HP ---
*Admission Date: 06/23/21 *Chief complaint: Rectal bleeding *History of present illness: Mr. Petersen is a 80-year-old male with a history of hypertension, osteoarthritis, ASCVD, BPH, coronary artery disease with stents, prostate issues, chronic myeloid leukemia who presented to [facility] emergency room with rectal bleeding. He states he filled the toilet several times with bloody stool which started about 3 PM yesterday. He has had several stools since admission which were also bloody. He denies abdominal pain, nausea and vomiting. He states he has been eating as usual. He denies fever. With evaluation in the emergency room hemoglobin was found to be 14.1 with hematocrit of 46.7. White blood cell count was 18,600. Stool for occult blood was positive. Electrolytes were normal and renal function was normal. BNP was found to be elevated at 4400. Liver function studies were normal except for total bilirubin of 3.3. Chest x-ray revealed mild interstitial pulmonary edema and small right greater than left pleural effusion with associated compression atelectasis. He also had CT of the abdomen/pelvis with the following impression: IMPRESSION: 1. Linear 1.8 cm metallic opacity present within the stomach, visible on the [email or web address] programmer image, is considered indeterminate. It could be a surgical/endoscopic clip, but the possibility of an ingested foreign body should also be considered. Correlate with any relevant procedural history. 2. No bowel obstruction. Large colonic stool burden could reflect constipation. Extensive colonic diverticulosis. 3. Findings suggesting diffuse hepatocellular disease. 4. Possible gallstones versus radiopaque sludge. Nonspecific gallbladder wall thickening. If clinically appropriate, right upper quadrant ultrasound could further assess. 5. Constellation of findings suggesting volume overload, including mild interstitial pulmonary edema, right greater than left pleural effusions, small volume ascites, mesenteric edema, and diffuse body wall edema. 6. Marked irregular bladder wall thickening with numerous bladder diverticula. If not already evaluated, correlation with direct visualization should be considered to exclude malignancy. 7. Other chronic/ancillary findings as above. Patient was also seen by Dr. Teague who performed an EGD earlier this a.m.. He noted recent hemorrhage with bleeding from punctate area in gastric cardia requiring epinephrine and hemoclips. Mid gastric body ulceration also noted at prior EGD although no bleeding was noted from this ulceration. Findings were as follows with this EGD: Hemoclip in position in gastric cardia No evidence of active or recent hemorrhage Mid gastric body ulceration essentially healed Recommendation was to continue with proton pump inhibitors and Carafate. Colonoscopy was recommended and patient wanted to think about it. Laboratory data this morning showed white count of 15,100 with a hemoglobin of 11.1 hematocrit of 36.8. Blood chemistries remained stable. [facility] History Medical History: Reports:: Arrhythmia, Atherosclerotic Heart Disease, Atrial Fibrillation, BPH, Cancer (Chronic myeloid leukemia), Cardiomyopathy, Coronary Artery Disease, Gastrointestinal Bleed, Hyperlipidemia, Hypertension, Internal Pacemaker, Myocardial Infarction Denies:: Diabetes Mellitus Type 1, Diabetes Mellitus Type 2, Lung Disease, MRSA, Seizures *Have you ever received a pneumonia vaccine?: No *Have you received a flu vaccine this season?: No Other Medical History: Reports: Arthritis, Chemotherapy. Denies: Blood Transfusion Reaction Anesthesia experience/problems:: none Other Surgeries: Yes: Cancer Surgery, Cardiac Catheterization (2008, 11/10/2017 with 5 stents placed), Colonoscopy, Coronary Stent, EGD, Pacemaker, Skin Cancer Excision, Ureter Stent, Other (Cystoscopy, TURP 03/29/16, cystoscopy for bladder neck contracture 01/20/17) Amputation: No Fractures
--- NOTE | 2021-06-24 11:33 | HMH.ACPN2 ---
Internal Medicine - PN: Subj *Date: 06/24/21 *Time: 11:33 Interval history: EGD showed no evidence of recent or active gastric hemorrhage. Thus colonic source (Diverticulitis) is more likely. Will need outpatient colon evaluation, if current symptoms settle. Exam Vital signs and Labs for Last 24 Hours: Temp Pulse Resp BP Pulse Ox 97.7 F 80 18 143/97 H 99 06/24/21 08:05 06/24/21 09:30 06/24/21 09:30 06/24/21 09:30 06/24/21 09:30 Laboratory Results - last 24 hr 06/24/21 00:00: Stool Occult Blood Positive A 06/24/21 00:00: WBC 18.6 H, RBC 5.24, Hgb 14.1, Hct 46.7, MCV 89.1, MCH 26.8 L, MCHC 30.1 L, RDW 19.8 H, Plt Count 596 H, MPV 8.6, Neut % (Auto) 72.2, Lymph % (Auto) 18.8, [place] % (Auto) 4.1, Eos % (Auto) 5.0, Baso % (Auto) 3.7 H, Neut # (Auto) 13.5 H, Lymph # (Auto) 3.5, [place] # (Auto) 0.8, Eos # (Auto) 0.9 H, Baso # (Auto) 0.7 H, Total Counted 100, Neutrophils % (Manual) 79 H, Lymphocytes % (Manual) 13, Eosinophils % (Manual) 3, Basophils % (Manual) 5.0 H, Platelet Estimate Normal, Acanthocytes (Spur) 1+, ESR 6 06/24/21 00:00: Sodium 145, Potassium 3.8, Chloride 106, Carbon Dioxide 29, Anion Gap 13.8, BUN 17, Creatinine 1.10, Estimated Creat Clear 56, Estimated GFR 65, Est GFR ( Amer) 78, Glucose 105 H, Calcium 9.7, Total Bilirubin 3.3 H, AST 35, ALT 18, Alkaline Phosphatase 106, C-Reactive Protein 2.7, Total Protein 6.9, Albumin 4.2, Globulin 2.7, Albumin/Globulin Ratio 1.6, Amylase 82, Lipase 289, Procalcitonin 0.034 06/24/21 00:00: Digoxin Cancelled 06/24/21 00:00: NT-Pro-B Natriuret Pep 4400 H 06/24/21 00:00: Digoxin 0.70 06/24/21 00:05: SARS-CoV-2 (PCR) Not detected, Influenza A Untype (PCR) Not detected, Influenza Type B (PCR) Not detected 06/24/21 00:58: Lactate 1.1 06/24/21 02:00: Urine Color Yellow, Urine Appearance Clear, Urine pH 6.0, Ur Specific Ong 1.020, Urine Protein Negative, Urine Glucose (UA) Negative, Urine Ketones Negative, Urine Blood Trace-i, Urine Nitrate Negative, Urine Bilirubin Negative, Urine Urobilinogen 0.2, Ur Leukocyte Esterase Negative, Urine RBC 3-5, Urine WBC Occasional, Ur Squamous Epith Cells 3-5, Urine Bacteria Trace 06/24/21 02:15: Blood Type O Positive, Antibody Screen Negative 06/24/21 06:50: WBC 15.1 H, RBC 4.16 L, Hgb 11.1 L D, Hct 36.8 L, MCV 88.4, MCH 26.6 L, MCHC 30.1 L, RDW 19.9 H, Plt Count 449 H, MPV 8.8, Neut % (Auto) 73.8, Lymph % (Auto) 14.4, [place] % (Auto) 4.3, Eos % (Auto) 4.2, Baso % (Auto) 3.3 H, Neut # (Auto) 11.1 H, Lymph # (Auto) 2.2, [place] # (Auto) 0.7, Eos # (Auto) 0.6 H, Baso # (Auto) 0.5 H 06/24/21 06:50: Sodium 143, Potassium 3.8, Chloride 111 H, Carbon Dioxide 27, Anion Gap 8.8, BUN 16, Creatinine 1.00, Estimated Creat Clear 65, Estimated GFR 72, Est GFR ( Amer) 87, Glucose 81 D, Calcium 8.7, Magnesium 1.7 I & O for Last 24 hours: Intake & Output 06/21/21 06/22/21 06/23/21 06/24/21 12:59 11:59 11:59 11:59 Intake Total 1100 / 1100 Output Total 0 / 0 Balance 1100 / 1100 Weight 169 lb 6.4 oz Assessment and Plan (1) Lower gastrointestinal hemorrhage Status: Acute Category: Medical Code(s): K92.2 - Gastrointestinal hemorrhage, unspecified (2) Diverticulitis large intestine Status: Acute Category: Medical Code(s): K57.32 - Diverticulitis of large intestine without perforation or abscess without bleeding (3) CML (chronic myelocytic leukemia) Status: Chronic Category: Medical Code(s): C92.10 - Chronic myeloid leukemia, BCR/ABL-positive, not having achieved remission (4) ASCVD (arteriosclerotic cardiovascular disease) Status: Chronic Category: Medical Code(s): I25.10 - Atherosclerotic heart disease of [place] coronary artery without angina pectoris (5) BPH (benign prostatic hyperplasia) Status: Chronic Category: Medical Code(s): N40.0 - Benign prostatic hyperplasia without lower urinary tract symptoms (6) Automatic implantable cardioverter-defibrillator in situ Status: Chronic Category: Medical
[2021-06-24 13:26] LABS: Hematocrit 35.8 % (42.0-52.0); Hemoglobin 10.8 g/dL (14.1-18.0)
[2021-06-25] VITALS (7 sets, daily range): BP systolic 134–154; BP diastolic 82–94; PULSE 80–90; RESP 18–20; TEMP 36.3–36.8; O2SAT 96–100; BMI 23.1; BMI 23.0
--- NOTE | 2021-06-25 05:26 | PC.NURSE ---
pt a&ox4. reports he rested well throughout the night. remains on RA w/ no c/o soa. no c/o pain or discomfort voiced. resting in bed watching tv at this time. call light within reach.
--- NOTE | 2021-06-25 06:37 | HMH.GSPN ---
Subjective Patient reports: no new complaints Narrative: He states that he has noticed continued blood per rectum; however, the frequency/quantity has seemingly decreased. He also states that he is noticing more clot now . Progress Note: A&P (1) Lower gastrointestinal hemorrhage Status: Acute Assessment and plan: Recent significant gastrointestinal hemorrhage from upper source; however, EGD yesterday reveals no sign of recurrence. Massive upper gastrointestinal hemorrhage with brisk transit (lessening transition to melena) does not seem likely. Diverticular bleeding or possibly hemorrhoidal bleeding remain likely causative factors. Although he does continue to have blood per rectum that is a little bright but also with clot , he does seem to be clinically improving as he describes less frequent trips to the bathroom . Follow-up morning labs May require colonoscopy at this hospitalization; however, outpatient colonoscopy in the near future preferable if he continues to show signs of improvement. 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 (7) Cardiomyopathy Status: Chronic (8) HTN (hypertension) Status: Chronic Exam Vital signs and Labs for Last 24 Hours: Temp Pulse Resp BP Pulse Ox 98.1 F 80 18 134/87 96 06/25/21 04:00 06/25/21 04:00 06/25/21 04:00 06/25/21 04:00 06/25/21 04:00 Laboratory Results - last 24 hr 06/24/21 06:50: WBC 15.1 H, RBC 4.16 L, Hgb 11.1 L D, Hct 36.8 L, MCV 88.4, MCH 26.6 L, MCHC 30.1 L, RDW 19.9 H, Plt Count 449 H, MPV 8.8, Neut % (Auto) 73.8, Lymph % (Auto) 14.4, [place] % (Auto) 4.3, Eos % (Auto) 4.2, Baso % (Auto) 3.3 H, Neut # (Auto) 11.1 H, Lymph # (Auto) 2.2, [place] # (Auto) 0.7, Eos # (Auto) 0.6 H, Baso # (Auto) 0.5 H 06/24/21 06:50: Sodium 143, Potassium 3.8, Chloride 111 H, Carbon Dioxide 27, Anion Gap 8.8, BUN 16, Creatinine 1.00, Estimated Creat Clear 65, Estimated GFR 72, Est GFR ( Amer) 87, Glucose 81 D, Calcium 8.7, Magnesium 1.7 06/24/21 13:05: Hgb 10.8 L, Hct 35.8 L I & O for Last 24 hours: Intake & Output 06/22/21 06/23/21 06/24/21 06/25/21 11:59 11:59 11:59 11:59 Intake Total 1100 / 1100 720 / 720 Output Total 0 / 0 650 / 650 Balance 1100 / 1100 70 / 70 Weight 169 lb 6.4 oz 170 lb 5 oz Microbiology Reports for the Last 24 Hours: Microbiology 06/24/21 00:58 Blood Blood Culture - Preliminary 06/24/21 00:58 Blood Blood Culture - Preliminary - Constitutional no acute distress - *Routine Respiratory Exam Absent: respiratory distress - *Routine Cardiovascular Exam Absent: tachycardia - *Routine Abdominal Exam Present: soft
[2021-06-25 07:11] LABS: Basophils # 0.5 K/mm3 (0-0.2); Basophils % 4.1 % (0.1-2.0); Eosinophils # 0.8 K/mm3 (0.0-0.4); Eosinophils % 6.3 % (0.1-12.0); Lymphocytes # 2.3 K/mm3 (0.7-4.5); Lymphocytes % 18.8 % (10-50); Mean Corpuscular HGB Conc 30.3 g/dL (31.8-35.4); Mean Corpuscular Hemoglobin 26.7 pg (27.0-31.2); Mean Corpuscular Volume 88.3 fl (80-94); Mean Platelet Volume 7.7 fl (7.4-10.4); Monocytes # 0.9 K/mm3 (0.1-1.0); Monocytes % 7.3 % (1.7-9.3); Neutrophils # 8.5 K/mm3 (1.8-7.8); Neutrophils % 67.7 % (37.0-80.0); Platelet Count 409 K/mm3 (142-424); Red Blood Count 3.74 M/mm3 (4.60-6.20); Red Cell Distribution Width 19.6 % (11.5-17.5); White Blood Count 12.5 K/mm3 (4.8-10.8)
--- NOTE | 2021-06-25 08:04 | HMH.ACPN2 ---
Internal Medicine - PN: Subj *Date: 06/25/21 *Time: 08:16 Interval history: Patient states he feels about the same. He describes about 4 stools yesterday and 1 during the night. He states they remain bloody. He is voiding QS. He has been taking clear liquids and will be advanced to a soft diet for lunch as per Dr. Millan who has seen him this AM. He denies chest pain and shortness of breath. White blood cell count has decreased to 12,500 with a hemoglobin of 10 hematocrit of 33. Blood culture appears positive with staph species. Await final ID. Exam Vital signs and Labs for Last 24 Hours: Temp Pulse Resp BP Pulse Ox 98.1 F 80 18 134/87 96 06/25/21 04:00 06/25/21 04:00 06/25/21 04:00 06/25/21 04:00 06/25/21 04:00 Laboratory Results - last 24 hr 06/24/21 13:05: Hgb 10.8 L, Hct 35.8 L 06/25/21 06:11: WBC 12.5 H, RBC 3.74 L, Hgb 10.0 L, Hct 33.0 L, MCV 88.3, MCH 26.7 L, MCHC 30.3 L, RDW 19.6 H, Plt Count 409, MPV 7.7, Neut % (Auto) 67.7, Lymph % (Auto) 18.8, [place] % (Auto) 7.3, Eos % (Auto) 6.3, Baso % (Auto) 4.1 H, Neut # (Auto) 8.5 H, Lymph # (Auto) 2.3, [place] # (Auto) 0.9, Eos # (Auto) 0.8 H, Baso # (Auto) 0.5 H I & O for Last 24 hours: Intake & Output 06/22/21 06/23/21 06/24/21 06/25/21 11:59 11:59 11:59 11:59 Intake Total 1100 / 1100 1257 / 1257 Output Total 0 / 0 650 / 650 Balance 1100 / 1100 607 / 607 Weight 169 lb 6.4 oz 170 lb 5 oz Microbiology Reports for the Last 24 Hours: Microbiology 06/24/21 00:58 Blood Blood Culture - Preliminary 06/24/21 00:58 Blood Blood Culture - Preliminary - Constitutional no acute distress Comments: Sitting up in the bed and appears comfortable. Is consumed a clear liquid diet. - *Routine Respiratory Exam Present: CTA bilaterally, diminished air movement (Posteriorly) - *Routine Cardiovascular Exam Present: RRR, murmur - *Routine Abdominal Exam Present: soft, normoactive bowel sounds. Absent: tenderness - *Routine Extremities Exam Present: edema (1+ bilateral lower leg edema) - *Routine Neurological Exam Present: alert, oriented X3 Assessment and Plan (1) Lower gastrointestinal hemorrhage Status: Acute Category: Medical Code(s): K92.2 - Gastrointestinal hemorrhage, unspecified (2) Diverticulitis large intestine Status: Acute Category: Medical Code(s): K57.32 - Diverticulitis of large intestine without perforation or abscess without bleeding (3) CML (chronic myelocytic leukemia) Status: Chronic Category: Medical Code(s): C92.10 - Chronic myeloid leukemia, BCR/ABL-positive, not having achieved remission (4) ASCVD (arteriosclerotic cardiovascular disease) Status: Chronic Category: Medical Code(s): I25.10 - Atherosclerotic heart disease of [place] coronary artery without angina pectoris (5) BPH (benign prostatic hyperplasia) Status: Chronic Category: Medical Code(s): N40.0 - Benign prostatic hyperplasia without lower urinary tract symptoms (6) 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 Millan this morning. Diet will be advanced to soft for lunch.
[2021-06-26] VITALS (15 sets, daily range): BP systolic 119–157; BP diastolic 59–107; PULSE 76–87; RESP 16–18; TEMP 36.2–36.7; O2SAT 95–100; BMI 23.0
--- NOTE | 2021-06-26 06:29 | P.PN_ITS ---
Subjective Patient reports: no new complaints Narrative: He states that his last bowel movement was at 2 AM and still had some blood in it . He continues to believe that the overall amount is a little less . Progress Note: A&P (1) Lower gastrointestinal hemorrhage Status: Acute Assessment and plan: Most likely diverticular bleed that is seemingly resolving (albeit slowly). 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 (7) Cardiomyopathy Status: Chronic (8) HTN (hypertension) Status: Chronic Exam Vital signs and Labs for Last 24 Hours: Temp Pulse Resp BP Pulse Ox 97.7 F 82 18 124/72 95 06/26/21 04:00 06/26/21 04:00 06/26/21 04:00 06/26/21 04:00 06/26/21 04:00 Laboratory Results - last 24 hr 06/25/21 06:11: WBC 12.5 H, RBC 3.74 L, Hgb 10.0 L, Hct 33.0 L, MCV 88.3, MCH 26.7 L, MCHC 30.3 L, RDW 19.6 H, Plt Count 409, MPV 7.7, Neut % (Auto) 67.7, Lymph % (Auto) 18.8, [place] % (Auto) 7.3, Eos % (Auto) 6.3, Baso % (Auto) 4.1 H, Neut # (Auto) 8.5 H, Lymph # (Auto) 2.3, [place] # (Auto) 0.9, Eos # (Auto) 0.8 H, Baso # (Auto) 0.5 H I & O for Last 24 hours: Intake & Output 06/23/21 06/24/21 06/25/21 06/26/21 11:59 11:59 11:59 11:59 Intake Total 1100 / 1100 1857 / 1857 840 / 840 Output Total 0 / 0 650 / 650 Balance 1100 / 1100 1207 / 1207 840 / 840 Weight 169 lb 6.4 oz 170 lb 5 oz 170 lb - Constitutional no acute distress - *Routine Respiratory Exam Absent: respiratory distress - *Routine Cardiovascular Exam Absent: tachycardia - *Routine Abdominal Exam Present: soft
[2021-06-26 06:56] LABS: Hematocrit 28.1 % (42.0-52.0)
[2021-06-26 07:00] LABS: Hemoglobin 8.9 g/dL (14.1-18.0)
--- NOTE | 2021-06-26 08:59 | HMH.ACPN2 ---
Internal Medicine - PN: Subj *Date: 06/26/21 *Time: 09:09 Interval history: Patient states he is feeling well today. He has not noticed any blood since around 2 AM. He states his stomach is sore but is not exquisitely tender. He was able to sleep and eat yesterday. Exam Vital signs and Labs for Last 24 Hours: Temp Pulse Resp BP Pulse Ox 97.7 F 82 18 124/72 95 06/26/21 04:00 06/26/21 04:00 06/26/21 04:00 06/26/21 04:00 06/26/21 04:00 Laboratory Results - last 24 hr 06/24/21 02:15: Crossmatch (AHG) See Detail 06/26/21 06:09: Hgb 8.9 L D, Hct 28.1 L I & O for Last 24 hours: Intake & Output 06/23/21 06/24/21 06/25/21 06/26/21 11:59 11:59 11:59 11:59 Intake Total 1100 / 1100 1857 / 1857 840 / 840 Output Total 0 / 0 650 / 650 Balance 1100 / 1100 1207 / 1207 840 / 840 Weight 169 lb 6.4 oz 170 lb 5 oz 170 lb - Constitutional no acute distress - *Routine Respiratory Exam Present: CTA bilaterally - *Routine Cardiovascular Exam Present: RRR - *Routine Abdominal Exam Present: soft, normoactive bowel sounds. Absent: tenderness - *Routine Extremities Exam Present: edema (trace bilateral lower extremities). Absent: cyanosis, clubbing - *Routine Skin Exam Present: pallor, warm. Absent: rash - *Routine Neurological Exam Present: alert, oriented X3 Assessment and Plan (1) Lower gastrointestinal hemorrhage Status: Acute Category: Medical Code(s): K92.2 - Gastrointestinal hemorrhage, unspecified (2) Diverticulitis large intestine Status: Acute Category: Medical Code(s): K57.32 - Diverticulitis of large intestine without perforation or abscess without bleeding (3) CML (chronic myelocytic leukemia) Status: Chronic Category: Medical Code(s): C92.10 - Chronic myeloid leukemia, BCR/ABL-positive, not having achieved remission (4) ASCVD (arteriosclerotic cardiovascular disease) Status: Chronic Category: Medical Code(s): I25.10 - Atherosclerotic heart disease of [place] coronary artery without angina pectoris (5) BPH (benign prostatic hyperplasia) Status: Chronic Category: Medical Code(s): N40.0 - Benign prostatic hyperplasia without lower urinary tract symptoms (6) 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 He has been seen by Dr. Millan today who plans a colonoscopy tomorrow. Will discuss further care with Dr. Watkins.
--- NOTE | 2021-06-26 18:13 | PC.NURSE ---
Pt is alert and oriented x4. Lungs are clear, bowel sounds active x4. He remains on RA with no complaints. He has been up to the chair off and on throughout the shift and tolerated well. He has had multiple bowel movements, he reports eyad blood and some blood clots in his stool. He has received 1 unit of PRBC's this shift. Post HH has been collected and awaiting result. He is currently resting in his chair at this time.
[2021-06-26 18:15] LABS: Hemoglobin 10.8 g/dL (14.1-18.0)
[2021-06-27] VITALS (19 sets, daily range): BP systolic 85–141; BP diastolic 57–90; PULSE 64–84; RESP 15–97; TEMP 36.2–36.8; O2SAT 94–100; BMI 23.0
[2021-06-27 06:38] LABS: Hematocrit 33.5 % (42.0-52.0); Hemoglobin 10.5 g/dL (14.1-18.0)
--- NOTE | 2021-06-27 06:58 | HMH.GSPN ---
Subjective Narrative: The patient has had multiple bathroom trips because of the bowel prep . He states that his bowel movements are kind of red and very loose . His main concern today is of swelling . He states that he has been a little swollen for about a month...but worse now . He plans to discuss this with Dr. Watkins today. He states that he did fine with the blood yesterday . Progress Note: A&P (1) Lower gastrointestinal hemorrhage Status: Acute Assessment and plan: Good response (in terms of laboratory results) to one unit packed red blood cells yesterday. 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 (7) Cardiomyopathy Status: Chronic (8) HTN (hypertension) Status: Chronic Exam Vital signs and Labs for Last 24 Hours: Temp Pulse Resp BP Pulse Ox 97.8 F 81 16 141/88 H 100 06/27/21 04:00 06/27/21 04:00 06/27/21 04:00 06/27/21 04:00 06/27/21 04:00 Laboratory Results - last 24 hr 06/24/21 02:15: Blood Type O Positive, Antibody Screen Negative, Crossmatch (AHG) See Detail 06/26/21 06:09: Hgb 8.9 L D, Hct 28.1 L 06/26/21 17:15: Hgb 10.8 L D, Hct 35.0 L I & O for Last 24 hours: Intake & Output 06/24/21 06/25/21 06/26/21 06/27/21 11:59 11:59 11:59 11:59 Intake Total 1100 / 1100 1857 / 1857 1320 / 1320 930 / 930 Output Total 0 / 0 650 / 650 Balance 1100 / 1100 1207 / 1207 1320 / 1320 930 / 930 Weight 169 lb 6.4 oz 170 lb 5 oz 170 lb 170 lb 0.01 oz Microbiology Reports for the Last 24 Hours: Microbiology 06/24/21 00:58 Blood Blood Culture - Preliminary Gram Positive Cocci 06/24/21 00:58 Blood Blood Culture - Preliminary Gram Positive Cocci - Constitutional no acute distress - *Routine Respiratory Exam Absent: respiratory distress - *Routine Cardiovascular Exam Absent: tachycardia
[2021-06-27 06:59] LABS: Anion Gap 9.9 mEq/L (5-15); Blood Urea Nitrogen 11 mg/dl (9-20); Calcium 9.4 mg/dl (8.4-10.2); Carbon Dioxide 28 mmol/L (22.0-30.0); Chloride 112 mmol/L (98-107); Creatinine Clearance Estimated 65 mL/min (50-200); Estimated Glomerular Filt Rate 72 ml/min (>60); GFR (African American) 87 ML/MIN (>60); Glucose 92 mg/dl (74-100); Potassium 3.9 mmoL/L (3.5-5.1); Sodium 146 mmol/L (136-145)
--- NOTE | 2021-06-27 09:22 | HMH.ACPN2 ---
Internal Medicine - PN: Subj *Date: 06/27/21 *Time: 09:22 Interval history: Patient states he is feeling well this morning. He is getting ready go down for his colonoscopy. He states he has had some lower extremity edema and is concerned with this. He did rest fairly well last night. Exam Vital signs and Labs for Last 24 Hours: Temp Pulse Resp BP Pulse Ox 97.9 F 80 16 133/75 99 06/27/21 08:00 06/27/21 08:00 06/27/21 08:00 06/27/21 08:00 06/27/21 08:00 Laboratory Results - last 24 hr 06/24/21 02:15: Blood Type O Positive, Antibody Screen Negative, Crossmatch (AHG) See Detail 06/26/21 17:15: Hgb 10.8 L D, Hct 35.0 L 06/27/21 06:16: Hgb 10.5 L, Hct 33.5 L 06/27/21 06:16: Sodium 146 H, Potassium 3.9, Chloride 112 H, Carbon Dioxide 28, Anion Gap 9.9, BUN 11 D, Creatinine 1.00, Estimated Creat Clear 65, Estimated GFR 72, Est GFR ( Amer) 87, Glucose 92, Calcium 9.4 I & O for Last 24 hours: Intake & Output 06/24/21 06/25/21 06/26/21 06/27/21 11:59 11:59 11:59 11:59 Intake Total 1100 / 1100 1857 / 1857 1320 / 1320 1410 / 1410 Output Total 0 / 0 650 / 650 Balance 1100 / 1100 1207 / 1207 1320 / 1320 1410 / 1410 Weight 169 lb 6.4 oz 170 lb 5 oz 170 lb 170 lb 0.01 oz Microbiology Reports for the Last 24 Hours: Microbiology 06/24/21 00:58 Blood Blood Culture - Preliminary Gram Positive Cocci 06/24/21 00:58 Blood Blood Culture - Preliminary Gram Positive Cocci - Constitutional no acute distress - *Routine Respiratory Exam Present: CTA bilaterally - *Routine Cardiovascular Exam Present: RRR - *Routine Abdominal Exam Present: soft, normoactive bowel sounds. Absent: tenderness - *Routine Extremities Exam Present: edema (1+ bilateral lower extremity edema). Absent: cyanosis, clubbing - *Routine Skin Exam Present: pallor - *Routine Neurological Exam Present: alert, oriented X3 Assessment and Plan (1) Lower gastrointestinal hemorrhage Status: Acute Category: Medical Code(s): K92.2 - Gastrointestinal hemorrhage, unspecified (2) Diverticulitis large intestine Status: Acute Category: Medical Code(s): K57.32 - Diverticulitis of large intestine without perforation or abscess without bleeding (3) CML (chronic myelocytic leukemia) Status: Chronic Category: Medical Code(s): C92.10 - Chronic myeloid leukemia, BCR/ABL-positive, not having achieved remission (4) ASCVD (arteriosclerotic cardiovascular disease) Status: Chronic Category: Medical Code(s): I25.10 - Atherosclerotic heart disease of [place] coronary artery without angina pectoris (5) BPH (benign prostatic hyperplasia) Status: Chronic Category: Medical Code(s): N40.0 - Benign prostatic hyperplasia without lower urinary tract symptoms (6) 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 Will discuss further care with Dr. Watkins.
--- NOTE | 2021-06-27 10:27 | HMH.SCOPE ---
- Procedure: Date: 06/27/21 Patient Date of :: 1940 Procedure Performed:: Colonoscopy Indications:: Gastrointestinal hemorrhage Performing Provider:: Bandar Millan MD Referring Provider:: Dr. Watkins Sedation:: Monitored anesthesia care Procedure:: After informed consent was obtained the patient was taken to the endoscopy suite. Sedation ensued after the patient was transferred to the left lateral decubitus position. Pulse, blood pressure, and oxygen saturation were monitored throughout the procedure. Digital rectal exam revealed no significant abnormality. The colonoscope was placed in position. The entire colon was evaluated. The colonoscope was carefully removed and the patient was transferred to recovery in stable condition. Please see findings and specimens below for detail. Findings:: Large volume of old blood/blood clot throughout colon Pandiverticulosis No sign of definitive active bleeding Specimens:: None Recommendations:: Continue PPI May require repeat esophagogastroduodenoscopy as he had a definitive source of active upper gastrointestinal hemorrhage earlier this year. However, esophagogastroduodenoscopy earlier in this hospitalization revealed no sign of active/recent hemorrhage. The clip in the gastric cardia was in good position. Consider UGI/SBFT followed by capsule endoscopy. Consider tagged red blood cell scan. Repeat colonoscopy in near future as visualization was exceptionally limited on this exam. Complications:: No immediate Estimated blood obtained (mL): 0 Comment:: The source of the patient's gastrointestinal hemorrhage remains somewhat equivocal. He does have pandiverticulosis but no definitive evidence of active diverticular bleeding confirmed on colonoscopy (note limited visualization). He has a definitive/documented recent upper gastrointestinal hemorrhage from a punctate source in the gastric cardia; however, repeat EGD on this hospitalization revealed the gastric cardia clip to be in good position with no evidence of recent hemorrhage. Small bowel (possible AVM) remains a possible source as the patient's entire colon was found to have a large amount of old blood/clot during this evaluation.
--- NOTE | 2021-06-27 13:59 | DIET.NUTRFU ---
Pt had colonoscopy today which shows blood clot and Pandiverticulosis. He has tolerated his clear liquid diet well with 50% intakes. He is having a Breeze supplement once per day and may have additional (NO RED) by request. He does continue with bloody diarrhea.
--- NOTE | 2021-06-27 16:46 | PC.NURSE ---
Pt has been pleasant and cooperative this shift. A&O X4. No complaints of pain. Pt is on room air with sats. >90%. Lungs CTA. No edema noted. Skin is C/D/I. Pt ambulates independently to/from the bathroom and throughout the room. Urine is clear and yellow. Pt reports 4 episodes of loose, red stool thus far today. Appetite is good and pt is tolerating a clear liquid diet well. 20 G peripheral IV in the RT forearm is patent and infusing NS @ 50 ML/HR. VSS. Call light within reach. Will continue to monitor.
[2021-06-28] VITALS (24 sets, daily range): BP systolic 104–147; BP diastolic 44–84; PULSE 72–84; RESP 14–20; TEMP 36.4–36.9; O2SAT 95–100; BMI 23.0
--- NOTE | 2021-06-28 05:27 | PC.NURSE ---
No acute changes. Pt states he feels better and believes the bleeding has slowed down t/o night.
[2021-06-28 07:35] LABS: Hematocrit 25.8 % (42.0-52.0); Hemoglobin 8.1 g/dL (14.1-18.0)
--- NOTE | 2021-06-28 09:05 | HMH.ACPN2 ---
Internal Medicine - PN: Subj *Date: 06/28/21 *Time: 09:05 Interval history: Patient is complaining of lower extremity edema today. He states the swelling is even up into his thighs. He states he was feeling well and had not had any bowel movements throughout the night, but this morning he had a bowel movement that contained bright red blood. He states it was not a large amount, but there was blood present. His stomach is just sore. Exam Vital signs and Labs for Last 24 Hours: Temp Pulse Resp BP Pulse Ox 97.6 F 80 20 118/74 99 06/28/21 07:52 06/28/21 08:33 06/28/21 07:52 06/28/21 07:52 06/28/21 07:52 Laboratory Results - last 24 hr 06/28/21 06:21: Hgb 8.1 L, Hct 25.8 L I & O for Last 24 hours: Intake & Output 06/25/21 06/26/21 06/27/21 06/28/21 11:59 11:59 11:59 11:59 Intake Total 1857 / 1857 1320 / 1320 1410 / 1410 2831 / 2831 Output Total 650 / 650 Balance 1207 / 1207 1320 / 1320 1410 / 1410 2831 / 2831 Weight 170 lb 5 oz 170 lb 170 lb 0.01 oz 170 lb 1 oz Microbiology Reports for the Last 24 Hours: Microbiology 06/24/21 00:58 Blood Blood Culture - Final Staphylococcus epidermidis 06/24/21 00:58 Blood Blood Culture - Preliminary Staphylococcus epidermidis - Constitutional no acute distress - *Routine Respiratory Exam Present: CTA bilaterally - *Routine Cardiovascular Exam Present: RRR - *Routine Abdominal Exam Present: soft, normoactive bowel sounds, tenderness (diffuse) - *Routine Extremities Exam Present: edema (Bilateral lower extremities extending up into the bilateral thighs). Absent: cyanosis, clubbing - *Routine Skin Exam Present: warm. Absent: rash - *Routine Neurological Exam Present: alert, oriented X3 Assessment and Plan (1) Lower gastrointestinal hemorrhage Status: Acute Category: Medical Code(s): K92.2 - Gastrointestinal hemorrhage, unspecified (2) Diverticulitis large intestine Status: Acute Category: Medical Code(s): K57.32 - Diverticulitis of large intestine without perforation or abscess without bleeding (3) CML (chronic myelocytic leukemia) Status: Chronic Category: Medical Code(s): C92.10 - Chronic myeloid leukemia, BCR/ABL-positive, not having achieved remission (4) ASCVD (arteriosclerotic cardiovascular disease) Status: Chronic Category: Medical Code(s): I25.10 - Atherosclerotic heart disease of [place] coronary artery without angina pectoris (5) BPH (benign prostatic hyperplasia) Status: Chronic Category: Medical Code(s): N40.0 - Benign prostatic hyperplasia without lower urinary tract symptoms (6) 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 Millan yesterday and a large volume of old blood/blood clots were found throughout the colon. He had pandiverticulosis but no sign of an active bleed. Dr. Millan recommended continuing his PPI and felt he would need a repeat EGD due to his definitive source of active upper GI hemorrhage earlier this year. He also recommended considering an upper GI with small bowel follow-through followed by capsule endoscopy or tagged red blood cell scan. The patient's H&H has decreased again to 8.1 and 25.8. Will likely need more blood. Will discuss with Dr. Watkins.
[2021-06-28 10:16] LABS: Alanine Aminotransferase 13 U/L (12-78); Albumin Level 2.8 g/dl (3.5-5.0); Albumin/Globulin Ratio 1.4 (1.1-1.8); Alkaline Phosphatase 54 U/L (38-126); Anion Gap 8.6 mEq/L (5-15); Aspartate Amino Transferase 25 U/L (17-59); Bilirubin,Total 2.8 mg/dl (0.2-1.3); Blood Urea Nitrogen 10 mg/dl (9-20); Calcium 8.7 mg/dl (8.4-10.2); Carbon Dioxide 29 mmol/L (22.0-30.0); Chloride 109 mmol/L (98-107); Creatinine Clearance Estimated 65 mL/min (50-200); Estimated Glomerular Filt Rate 72 ml/min (>60); GFR (African American) 87 ML/MIN (>60); Glucose 97 mg/dl (74-100); Potassium 3.6 mmoL/L (3.5-5.1); Sodium 143 mmol/L (136-145); Total Protein,Serum 4.8 g/dl (6.3-8.2)
[2021-06-28 10:46] LABS: Activated Partial Thrombo Time 26.2 seconds (22.8-30.6); INR 1.24 (0.9-1.1); Prothrombin Time 13.8 seconds (10.1-12.5)
[2021-06-28 13:58] LABS: Hematocrit 28.6 % (42.0-52.0); Hemoglobin 8.7 g/dL (14.1-18.0)
--- NOTE | 2021-06-28 15:22 | PC.NURSE ---
Called lab @ this time to check on status of blood, no answer.
--- NOTE | 2021-06-28 15:24 | PC.NURSE ---
Spoke w/ lab after 4 attempts. States they are working on blood now and will give me a call back.
--- NOTE | 2021-06-28 16:41 | PC.NURSE ---
No acute changes. Remains on room air. Lungs CTA. HR regular. Abdomen soft, tender upon palpation, pt reports it being just a little sore . No BM reported since this AM. Voiding w/o difficulty. Urine clear, pale in color. Skin intact. Edema noted to BLE, lasix increased to BID by MD this AM. No complaints voiced. Tolerating clear liquid diet, eager for advancement of diet. He has sat up in chair multiple times this shift. He is independent w/ ADL's. He is currently sitting up in bed talking on cellphone while receiving unit of blood. PRBC's currently infusing w/o issue. Call claudia w/in reach. No needs voiced.
--- NOTE | 2021-06-28 22:30 | HMH.GSPN ---
Subjective Narrative: No new complaints over course of the day. No further BRBPR. AM Hgb @ 8.1 stable on PM Hgb. Now status transfusion 2 PRBC. Post transfusion H/H pending. No abdominal pain. No nausea or emesis. 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 GI Bleed. Suspected lower GI bleed. H/H stable. Has received 2 units PRBCs. Advance to soft diet. Likely will need no further endoscopic evaluation. Continue inpatient care. Exam Vital signs and Labs for Last 24 Hours: Temp Pulse Resp BP Pulse Ox 97.5 F L 80 16 138/83 100 06/28/21 22:19 06/28/21 22:19 06/28/21 22:19 06/28/21 22:19 06/28/21 22:19 Laboratory Results - last 24 hr 06/28/21 06:21: Hgb 8.1 L, Hct 25.8 L 06/28/21 06:21: Sodium 143, Potassium 3.6, Chloride 109 H, Carbon Dioxide 29, Anion Gap 8.6, BUN 10, Creatinine 1.00, Estimated Creat Clear 65, Estimated GFR 72, Est GFR ( Amer) 87, Glucose 97, Calcium 8.7, Total Bilirubin 2.8 H, AST 25, ALT 13, Alkaline Phosphatase 54, Total Protein 4.8 L D, Albumin 2.8 L, Globulin 2.0, Albumin/Globulin Ratio 1.4 06/28/21 10:19: PT 13.8 H, INR 1.24 H, APTT 26.2 06/28/21 10:19: Blood Type O Positive, Antibody Screen Negative, Crossmatch (AHG) See Detail 06/28/21 13:35: Hgb 8.7 L, Hct 28.6 L I & O for Last 24 hours: Intake & Output 06/26/21 06/27/21 06/28/2114/21 11:59 11:59 11:59 11:59 Intake Total 1320 / 1320 1410 / 1410 2831 / 2831 1220 / 1220 Balance 1320 / 1320 1410 / 1410 2831 / 2831 1220 / 1220 Weight 77.111 kg 77.111 kg 77.139 kg - Constitutional no acute distress - *Routine Abdominal Exam Present: soft Comments: Nontender.
[2021-06-28 23:20] LABS: Hematocrit 33.4 % (42.0-52.0)
[2021-06-29 04:00] VITALS: BP 120/64; PULSE 62; RESP 14; TEMP 36.8; O2SAT 100
[2021-06-29 05:00] VITALS: BMI 21.2
--- NOTE | 2021-06-29 06:04 | PC.NURSE ---
Pt tolerated blood infusion well. Pt states he has not passed any blood t/o shift at this time. Urine is clear and pale yellow. No complaints voiced to staff. Has slept majority of shift.
[2021-06-29 07:59] VITALS: BP 155/91; PULSE 80; RESP 20; TEMP 36.8; O2SAT 98
[2021-06-29 08:02] LABS: Basophils # 0.5 K/mm3 (0-0.2); Basophils % 3.1 % (0.1-2.0); Eosinophils # 0.7 K/mm3 (0.0-0.4); Eosinophils % 4.6 % (0.1-12.0); Hematocrit 33.5 % (42.0-52.0); Hemoglobin 10.8 g/dL (14.1-18.0); Lymphocytes # 1.9 K/mm3 (0.7-4.5); Lymphocytes % 12.9 % (10-50); Mean Corpuscular HGB Conc 32.3 g/dL (31.8-35.4); Mean Corpuscular Hemoglobin 28.6 pg (27.0-31.2); Mean Corpuscular Volume 88.6 fl (80-94); Mean Platelet Volume 9.4 fl (7.4-10.4); Monocytes # 0.7 K/mm3 (0.1-1.0); Monocytes % 4.7 % (1.7-9.3); Neutrophils # 11.1 K/mm3 (1.8-7.8); Neutrophils % 74.8 % (37.0-80.0); Platelet Count 523 K/mm3 (142-424); Red Blood Count 3.78 M/mm3 (4.60-6.20); Red Cell Distribution Width 18.4 % (11.5-17.5); White Blood Count 14.8 K/mm3 (4.8-10.8)
[2021-06-29 08:04] VITALS: PULSE 82
--- NOTE | 2021-06-29 09:59 | HMH.ACPN2 ---
Internal Medicine - PN: Subj *Date: 06/29/21 *Time: 09:59 Interval history: He is feeling better. He has had no stooling in the past 24 hours he reports. His swelling has improved. His hemoglobin this morning is 10.8. This has declined from a high of 11 yesterday. Surgery note is regarded. Dr. Schmidt states that he is likely not going to need additional endoscopy. Just to be cautious I will make him n.p.o. after midnight. He is tolerating his advancing diet very well at this point. Exam Vital signs and Labs for Last 24 Hours: Temp Pulse Resp BP Pulse Ox 98.2 F 82 20 155/91 H 98 06/29/21 07:59 06/29/21 08:04 06/29/21 07:59 06/29/21 07:59 06/29/21 07:59 Laboratory Results - last 24 hr 06/28/21 06:21: Sodium 143, Potassium 3.6, Chloride 109 H, Carbon Dioxide 29, Anion Gap 8.6, BUN 10, Creatinine 1.00, Estimated Creat Clear 65, Estimated GFR 72, Est GFR ( Amer) 87, Glucose 97, Calcium 8.7, Total Bilirubin 2.8 H, AST 25, ALT 13, Alkaline Phosphatase 54, Total Protein 4.8 L D, Albumin 2.8 L, Globulin 2.0, Albumin/Globulin Ratio 1.4 06/28/21 10:19: PT 13.8 H, INR 1.24 H, APTT 26.2 06/28/21 10:19: Blood Type O Positive, Antibody Screen Negative, Crossmatch (AHG) See Detail 06/28/21 13:35: Hgb 8.7 L, Hct 28.6 L 06/28/21 23:10: Hgb 11.0 L D, Hct 33.4 L 06/29/21 07:30: WBC 14.8 H, RBC 3.78 L, Hgb 10.8 L, Hct 33.5 L, MCV 88.6, MCH 28.6, MCHC 32.3, RDW 18.4 H, Plt Count 523 H, MPV 9.4, Neut % (Auto) 74.8, Lymph % (Auto) 12.9, [place] % (Auto) 4.7, Eos % (Auto) 4.6, Baso % (Auto) 3.1 H, Neut # (Auto) 11.1 H, Lymph # (Auto) 1.9, [place] # (Auto) 0.7, Eos # (Auto) 0.7 H, Baso # (Auto) 0.5 H I & O for Last 24 hours: Intake & Output 06/26/21 06/27/21 06/28/21 06/29/21 11:59 11:59 11:59 11:59 Intake Total 1320 / 1320 1410 / 1410 2831 / 2831 2134 / 2134 Output Total 1200 / 1200 Balance 1320 / 1320 1410 / 1410 2831 / 2831 934 / 934 Weight 170 lb 170 lb 0.01 oz 170 lb 1 oz 156 lb 6.4 oz - *Routine HEENT Exam Head: Present: normocephalic Eye: Present: EOMI, PERRL ENT: Present: mucous membranes moist - *Routine Neck Exam Absent: lymphadenopathy - *Routine Respiratory Exam Present: CTA bilaterally - *Routine Cardiovascular Exam Present: RRR - *Routine Abdominal Exam Present: soft, normoactive bowel sounds. Absent: tenderness, mass - *Routine Extremities Exam Present: edema (Much improved.). Absent: cyanosis, clubbing - *Routine Skin Exam Present: intact, warm. Absent: rash Assessment and Plan (1) Lower gastrointestinal hemorrhage Status: Acute Category: Medical Code(s): K92.2 - Gastrointestinal hemorrhage, unspecified (2) Diverticulitis large intestine Status: Acute Category: Medical Code(s): K57.32 - Diverticulitis of large intestine without perforation or abscess without bleeding (3) CML (chronic myelocytic leukemia) Status: Chronic Category: Medical Code(s): C92.10 - Chronic myeloid leukemia, BCR/ABL-positive, not having achieved remission (4) ASCVD (arteriosclerotic cardiovascular disease) Status: Chronic Category: Medical Code(s): I25.10 - Atherosclerotic heart disease of [place] coronary artery without angina pectoris (5) BPH (benign prostatic hyperplasia) Status: Chronic Category: Medical Code(s): N40.0 - Benign prostatic hyperplasia without lower urinary tract symptoms (6) 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
[2021-06-29 11:52] VITALS: BP 129/74; PULSE 80; RESP 20; TEMP 36.7; O2SAT 99
[2021-06-29 15:38] VITALS: BP 130/74; PULSE 80; RESP 18; TEMP 36.7; O2SAT 98
[2021-06-29 20:00] VITALS: BP 138/84; PULSE 80; RESP 14; TEMP 36.6; O2SAT 100
--- NOTE | 2021-06-29 22:00 | HMH.GSPN ---
Subjective Narrative: Mr. Petersen is a 81YM with GI bleed. Transfusion yesterday. H?H has remained stable and no significant blood per rectum. Remains without pain. No other changes or complaints. 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 GI Bleed. Remains hemodynamically stable, and H/H over course of past day has not decreased significantly after transfusion. Currently, resting well. Diet tolerated, and made NPO in case endoscopy is needed 06/30/21. At this time, continue to manage non-operatively. Exam Vital signs and Labs for Last 24 Hours: Temp Pulse Resp BP Pulse Ox 97.9 F 80 14 138/84 100 06/29/21 20:00 06/29/21 20:00 06/29/21 20:00 06/29/21 20:00 06/29/21 20:00 Laboratory Results - last 24 hr 06/28/21 10:19: Crossmatch (AHG) See Detail 06/28/21 23:10: Hgb 11.0 L D, Hct 33.4 L 06/29/21 07:30: WBC 14.8 H, RBC 3.78 L, Hgb 10.8 L, Hct 33.5 L, MCV 88.6, MCH 28.6, MCHC 32.3, RDW 18.4 H, Plt Count 523 H, MPV 9.4, Neut % (Auto) 74.8, Lymph % (Auto) 12.9, [place] % (Auto) 4.7, Eos % (Auto) 4.6, Baso % (Auto) 3.1 H, Neut # (Auto) 11.1 H, Lymph # (Auto) 1.9, [place] # (Auto) 0.7, Eos # (Auto) 0.7 H, Baso # (Auto) 0.5 H I & O for Last 24 hours: Intake & Output 06/27/21 06/28/21 06/29/21 06/30/21 11:59 11:59 11:59 11:59 Intake Total 1410 / 1410 2831 / 2831 2134 / 2134 840 / 840 Output Total 1200 / 1200 Balance 1410 / 1410 2831 / 2831 934 / 934 840 / 840 Weight 77.111 kg 77.139 kg 70.942 kg - *Routine Abdominal Exam Comments: Nontender.
[2021-06-30 04:00] VITALS: BP 111/64; PULSE 78; RESP 14; TEMP 36.6; O2SAT 96
--- NOTE | 2021-06-30 04:19 | PC.NURSE ---
No acute changes t/o night. Pt rested well. No BM thus far in shift. Pt can ambulate to bathroom independently. No complaints voiced this shift.
[2021-06-30 05:00] VITALS: BMI 21.1
[2021-06-30 08:00] VITALS: BP 104/57; PULSE 81; RESP 20; TEMP 36.8; O2SAT 96
--- NOTE | 2021-06-30 08:02 | HMH.GSPN ---
Subjective Patient reports: no new complaints Narrative: Not passing any blood. No complaints. Has not had blood draw this morning. 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 If stable may start diet. Exam Vital signs and Labs for Last 24 Hours: Temp Pulse Resp BP Pulse Ox 98 F 78 14 111/64 96 06/30/21 04:00 06/30/21 04:00 06/30/21 04:00 06/30/21 04:00 06/30/21 04:00 Laboratory Results - last 24 hr 06/29/21 07:30: WBC 14.8 H, RBC 3.78 L, Hgb 10.8 L, Hct 33.5 L, MCV 88.6, MCH 28.6, MCHC 32.3, RDW 18.4 H, Plt Count 523 H, MPV 9.4, Neut % (Auto) 74.8, Lymph % (Auto) 12.9, [place] % (Auto) 4.7, Eos % (Auto) 4.6, Baso % (Auto) 3.1 H, Neut # (Auto) 11.1 H, Lymph # (Auto) 1.9, [place] # (Auto) 0.7, Eos # (Auto) 0.7 H, Baso # (Auto) 0.5 H I & O for Last 24 hours: Intake & Output 06/27/21 06/28/21 06/29/21 06/30/21 11:59 11:59 11:59 11:59 Intake Total 1410 / 1410 2831 / 2831 2134 / 2134 840 / 840 Output Total 1200 / 1200 Balance 1410 / 1410 2831 / 2831 934 / 934 840 / 840 Weight 170 lb 0.01 oz 170 lb 1 oz 156 lb 6.4 oz 156 lb - *Routine Abdominal Exam Present: soft. Absent: tenderness
[2021-06-30 09:23] LABS: Basophils # 0.6 K/mm3 (0-0.2); Basophils % 3.8 % (0.1-2.0); Eosinophils # 0.8 K/mm3 (0.0-0.4); Eosinophils % 5.3 % (0.1-12.0); Hematocrit 32.7 % (42.0-52.0); Hemoglobin 10.8 g/dL (14.1-18.0); Lymphocytes # 1.9 K/mm3 (0.7-4.5); Lymphocytes % 12.7 % (10-50); Mean Corpuscular HGB Conc 33.1 g/dL (31.8-35.4); Mean Corpuscular Hemoglobin 28.6 pg (27.0-31.2); Mean Corpuscular Volume 86.5 fl (80-94); Mean Platelet Volume 8.5 fl (7.4-10.4); Monocytes # 0.6 K/mm3 (0.1-1.0); Monocytes % 4.2 % (1.7-9.3); Neutrophils # 11.1 K/mm3 (1.8-7.8); Neutrophils % 74.1 % (37.0-80.0); Platelet Count 611 K/mm3 (142-424); Red Blood Count 3.78 M/mm3 (4.60-6.20); Red Cell Distribution Width 18.2 % (11.5-17.5); White Blood Count 14.9 K/mm3 (4.8-10.8)
--- NOTE | 2021-06-30 10:00 | P.PN_ITS ---
Internal Medicine - PN: Subj *Date: 06/30/21 *Time: 10:00 Interval history: He is stable and ready for discharge. He may actually be a bit dry with the 40 mg of potassium twice daily. I will discharge him on 20 mg twice daily. His hemoglobin is stable at 10.8 same as it was yesterday. I will seen him in follow-up in the office Wednesday for recheck of blood count. Exam Vital signs and Labs for Last 24 Hours: Temp Pulse Resp BP Pulse Ox 98 F 78 14 111/64 96 06/30/21 04:00 06/30/21 04:00 06/30/21 04:00 06/30/21 04:00 06/30/21 04:00 Laboratory Results - last 24 hr 06/30/21 09:02: WBC 14.9 H, RBC 3.78 L, Hgb 10.8 L, Hct 32.7 L, MCV 86.5, MCH 28.6, MCHC 33.1, RDW 18.2 H, Plt Count 611 H, MPV 8.5, Neut % (Auto) 74.1, Lymph % (Auto) 12.7, [place] % (Auto) 4.2, Eos % (Auto) 5.3, Baso % (Auto) 3.8 H, Neut # (Auto) 11.1 H, Lymph # (Auto) 1.9, [place] # (Auto) 0.6, Eos # (Auto) 0.8 H, Baso # (Auto) 0.6 H I & O for Last 24 hours: Intake & Output 06/27/21 06/28/21 06/29/21 06/30/21 11:59 11:59 11:59 11:59 Intake Total 1410 / 1410 2831 / 2831 2134 / 2134 840 / 840 Output Total 1200 / 1200 Balance 1410 / 1410 2831 / 2831 934 / 934 840 / 840 Weight 170 lb 0.01 oz 170 lb 1 oz 156 lb 6.4 oz 156 lb - *Routine HEENT Exam Eye: Present: EOMI, PERRL ENT: Present: mucous membranes dry - *Routine Neck Exam Absent: lymphadenopathy - *Routine Respiratory Exam Present: CTA bilaterally - *Routine Abdominal Exam Present: soft (Scaphoid), normoactive bowel sounds. Absent: tenderness - *Routine Extremities Exam Absent: cyanosis, clubbing, edema - *Routine Skin Exam Present: warm. Absent: rash - *Routine Neurological Exam Present: alert, oriented X3 Assessment and Plan (1) Lower gastrointestinal hemorrhage Status: Acute Category: Medical Code(s): K92.2 - Gastrointestinal hem orrhage, unspecified (2) Diverticulitis large intestine Status: Acute Category: Medical Code(s): K57.32 - Diverticulitis of large intestine without perforation or abscess without bleeding (3) CML (chronic myelocytic leukemia) Status: Chronic Category: Medical Code(s): C92.10 - Chronic myeloid leukemia, BCR/ABL-positive, not having achieved remission (4) ASCVD (arteriosclerotic cardiovascular disease) Status: Chronic Category: Medical Code(s): I25.10 - Atherosclerotic heart disease of [place] coronary artery without angina pectoris (5) BPH (benign prostatic hyperplasia) Status: Chronic Category: Medical Code(s): N40.0 - Benign prostatic hyperplasia without lower urinary tract symptoms (6) 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 See medication list. Follow-up Wednesday MARCO A Bergeron.
[2021-06-30 10:35] VITALS: PULSE 69
--- NOTE | 2021-07-01 21:37 | HMH.DCSUM ---
General - General Admission date:: 06/26/21 Discharge date: 06/30/21 HPI HPI: Mr. Petersen is a 80-year-old male with a history of hypertension, osteoarthritis, ASCVD, BPH, coronary artery disease with stents, prostate issues, chronic myeloid leukemia who presented to [facility] emergency room with rectal bleeding. He states he filled the toilet several times with bloody stool which started about 3 PM yesterday. He has had several stools since admission which were also bloody. He denies abdominal pain, nausea and vomiting. He states he has been eating as usual. He denies fever. With evaluation in the emergency room hemoglobin was found to be 14.1 with hematocrit of 46.7. White blood cell count was 18,600. Stool for occult blood was positive. Electrolytes were normal and renal function was normal. BNP was found to be elevated at 4400. Liver function studies were normal except for total bilirubin of 3.3. Chest x-ray revealed mild interstitial pulmonary edema and small right greater than left pleural effusion with associated compression atelectasis. He also had CT of the abdomen/pelvis with the following impression: IMPRESSION: 1. Linear 1.8 cm metallic opacity present within the stomach, visible on the plasma center nurse image, is considered indeterminate. It could be a surgical/endoscopic clip, but the possibility of an ingested foreign body should also be considered. Correlate with any relevant procedural history. 2. No bowel obstruction. Large colonic stool burden could reflect constipation. Extensive colonic diverticulosis. 3. Findings suggesting diffuse hepatocellular disease. 4. Possible gallstones versus radiopaque sludge. Nonspecific gallbladder wall thickening. If clinically appropriate, right upper quadrant ultrasound could further assess. 5. Constellation of findings suggesting volume overload, including mild interstitial pulmonary edema, right greater than left pleural effusions, small volume ascites, mesenteric edema, and diffuse body wall edema. 6. Marked irregular bladder wall thickening with numerous bladder diverticula. If not already evaluated, correlation with direct visualization should be considered to exclude malignancy. 7. Other chronic/ancillary findings as above. Patient was also seen by Dr. Millan who performed an EGD earlier this a.m.. He noted recent hemorrhage with bleeding from punctate area in gastric cardia requiring epinephrine and hemoclips. Mid gastric body ulceration also noted at prior EGD although no bleeding was noted from this ulceration. Findings were as follows with this EGD: Hemoclip in position in gastric cardia No evidence of active or recent hemorrhage Mid gastric body ulceration essentially healed Recommendation was to continue with proton pump inhibitors and Carafate. Colonoscopy was recommended and patient wanted to think about it. Laboratory data this morning showed white count of 15,100 with a hemoglobin of 11.1 hematocrit of 36.8. Blood chemistries remained stable. Hospital Course Hospital Course: The patient was started on a PPI as well as Carafate and his home medications. His H&H was followed. EGD showed no evidence of recent or acute gastric hemorrhage thus a colonic source was most likely. It was felt the patient would need a colonoscopy. He noticed continued blood per rectum, however the frequency and quantity did decrease. He was taking clear liquids and was advanced to a soft diet. His H&H did decrease and Dr. Millan planned a colonoscopy. Packed red blood cells were ordered. He did begin complaining of more swelling in his legs and up into his thighs. He had a good response in terms of laboratory results to the packed red blood cells. Dr. Millan performed a colonoscopy on 06/27/2021 and found a large volume of old blood/blood clot throughout the colon and pandiverticulosis but no sign of active bleeding. He felt the patient should be continued on a PPI a
== END 2021-06-30 13:55 | disposition home or self-care (01) | DRG 378 ==
LOC: ER 06-24 02:11 → 2ND 06-24 02:19
PROVIDERS: Surgery; Admitting Provider Family Medicine; Emergency Provider Emergency Medicine; PCP Family Medicine; Visit Provider Family Medicine
PROC: 0DJ08ZZ Inspection of Upper Intestinal Tract, Via Natural or Artificial Opening Endoscopic (ICD-10-PCS; CPT 43235; principal; 2021-06-24 07:30)
PROC: 0DJD8ZZ Inspection of Lower Intestinal Tract, Via Natural or Artificial Opening Endoscopic (ICD-10-PCS; principal; 2021-06-27 09:00)
DX: K57.33 Diverticulitis of large intestine without perforation or abscess with bleeding (principal); C92.10 Chronic myeloid leukemia, BCR/ABL-positive, not having achieved remission; I70.1 Atherosclerosis of renal artery; N40.0 Benign prostatic hyperplasia without lower urinary tract symptoms; I25.5 Ischemic cardiomyopathy; I10 Essential (primary) hypertension; Z20.822 Contact with and (suspected) exposure to COVID-19; M19.90 Unspecified osteoarthritis, unspecified site; Z85.828 Personal history of other malignant neoplasm of skin; Z95.5 Presence of coronary angioplasty implant and graft; I25.2 Old myocardial infarction; F17.210 Nicotine dependence, cigarettes, uncomplicated; Z95.810 Presence of automatic (implantable) cardiac defibrillator; K57.91 Diverticulosis of intestine, part unspecified, without perforation or abscess with bleeding; R60.9 Edema, unspecified
CPT/HCPCS: 43239; 43255; 45378; 36415; 71046; 74177; 80048; 80053; 80162; 81001; 82150; 82272; 83605; 83690; 83735; 83880; 84145; 85007; 85014; 85018; 85025; 85610; 85651; 85730; 86140; 86850; 87040; 87077; 87186; 88305; 88342; 96365; 96366; 96375; 99284; C9803; G0328; G0378; J2405; P9016; Q9967; U0003; U0005

== ENCOUNTER → 2021-10-21 09:03 | Outpatient (CLI) | payer MEDICARE, OTHER, SELFPAY ==
[2021-10-21 09:43] LABS: Basophils # 1.3 K/mm3 (0-0.2); Eosinophils % 3.8 % (0.1-12.0); Hematocrit 46.9 % (42.0-52.0); Hemoglobin 14.3 g/dL (14.1-18.0); Lymphocytes # 3.1 K/mm3 (0.7-4.5); Lymphocytes % 11.8 % (10-50); Mean Corpuscular HGB Conc 30.4 g/dL (31.8-35.4); Mean Corpuscular Hemoglobin 27.6 pg (27.0-31.2); Mean Corpuscular Volume 90.8 fl (80-94); Mean Platelet Volume 8.5 fl (7.4-10.4); Monocytes # 1.5 K/mm3 (0.1-1.0); Monocytes % 5.7 % (1.7-9.3); Neutrophils # 20.9 K/mm3 (1.8-7.8); Neutrophils % 78.6 % (37.0-80.0); Platelet Count 878 K/mm3 (142-424); Red Blood Count 5.17 M/mm3 (4.60-6.20); Red Cell Distribution Width 16.4 % (11.5-17.5); White Blood Count 26.6 K/mm3 (4.8-10.8)
[2021-10-21 10:22] LABS: MANUAL DIFFERENTIAL MANUAL DIFFERENTIAL (MANUAL DIFF)
[2021-10-21 10:36] LABS: Potassium 4.2 mmoL/L (3.5-5.1); Sodium 138 mmol/L (136-145)
[2021-10-21 10:41] LABS: Alanine Aminotransferase 18 U/L (12-78); Alkaline Phosphatase 76 U/L (38-126); Aspartate Amino Transferase 30 U/L (17-59); Bilirubin,Total 2.2 mg/dl (0.2-1.3); Blood Urea Nitrogen 23 mg/dl (9-20); Calcium 9.9 mg/dl (8.4-10.2); Carbon Dioxide 30 mmol/L (22.0-30.0); Estimated Glomerular Filt Rate 49 ml/min (>60); GFR (African American) 59 ML/MIN (>60); Glucose 59 mg/dl (74-100); Total Protein,Serum 6.9 g/dl (6.3-8.2)
[2021-10-21 10:48] LABS: Total Iron Binding Capacity 363 ug/dL (261-462)
[2021-10-21 11:08] LABS: Eosinophils % 2 % (0-3); Lymphocytes % 9 % (10-50); Monocytes % 1 % (2-9); Neutrophils % 88 % (42-76); Platelet Estimate Normal; Total Cells Counted 100
[2021-10-21 11:14] LABS: Ferritin 28.5 ng/ml (17.9-464)
[2021-10-21 11:34] LABS: Anion Gap 10.2 mEq/L (5-15); Chloride 102 mmol/L (98-107); Iron 61 ug/dL (49-181)
[2021-10-21 11:35] LABS: Albumin Level 4.4 g/dl (3.5-5.0); Albumin/Globulin Ratio 1.8 (1.1-1.8); Globulin 2.5 g/dL (1.3-3.2)
[2021-10-30 08:17] LABS: Interpretation: Positive (.)
== END ==
PROVIDERS: Visit Provider Internal Medicine Medical Oncology
DX: C92.10 Chronic myeloid leukemia, BCR/ABL-positive, not having achieved remission (principal)
CPT/HCPCS: 36415; 80053; 81206; 82728; 83540; 83550; 85007; 85025

== ENCOUNTER 2022-01-29 11:27 | Day surgery (SDC) | payer MEDICARE, OTHER, SELFPAY ==
[2022-01-29] VITALS (11 sets, daily range): BP systolic 135–166; BP diastolic 86–109; PULSE 80–81; RESP 18–20; TEMP 36.6; O2SAT 95–99; BMI 21.1
--- NOTE | 2022-01-29 | IR_ITS ---
APPROVED REPORT Patient Location: Outpatient Business Relationship Manager: DARRIUS Tapia RT (R) PROCEDURES Selective coronary angiogram Drug-eluting stent deployment to the ostial proximal dominant right coronary INDICATION Accelerated angina pectoris, Coronary artery disease, Unstable angina, Informed consent was obtained prior to the procedure. COMPLICATIONS None Estimated Blood Loss: Less than 10 mls TECHNIQUE One percent lidocaine used to anesthetize the right anterior aspect of the wrist. The right radial artery was accessed via the Seldinger technique. A 6 [place] sheath was placed in the right radial artery. 2.5 mg of verapamil, 800 mcg of nitroglycerin, 1mg Lidocaine and 5000 U Heparin were given through the arterial sheath. The Eagle Alpha catheter was used to perform selective coronary angiography. At the end of the diagnostic angiogram therapeutic heparin was administered giving a therapeutic ACT and the guide catheter was placed in the right coronary artery followed by a Choice PT extra-support wire. A 3 mm x 18 mm resolute Soren stent was deployed initially at 20 and then 24 tayla. 3.75 x 8 mm balloon was deployed at 24 tayla in the ostium to help flare the ostium however this still did not reduce the lesion. A 4 mm x 8 mm resolute [place] stent was then deployed at 24 tayla to improve radial strength at the ostial segment and further post dilate. After achieving excellent angiographic results with wide patency the apparatus was removed the sheath was removed and hemostasis was achieved using TR banding patient was transferred to the postop putting in stable condition ANGIOGRAPHIC RESULTS The left main artery Has an ostial calcified 10% stenosis The left anterior descending artery Has a stent in the proximal to mid segment which is widely patent with minimal 30% in-stent restenosis. The circumflex artery Is a nondominant vessel and has proximal 30 to 40% stenoses The right coronary artery Is a dominant vessel and has an ostial greater than 90% stenosis followed by proximal stent which is widely patent with minimal in-stent restenosis. Distally there are 30 and 40% stenoses The FERNANDEZ ventriculogram reveals Not performed The left ventricular end-diastolic pressure Not measured IMPRESSION Critical stenosis in the ostial dominant right coronary artery Successful stenting the ostial proximal dominant right coronary severe disease reduced to 0% with 2 drug-eluting stents PLAN 1. Dual antiplatelet therapy 2. Risk factor modification 3. Cardiac rehabilitation 4. Avoidance of tobacco products 5. LDL less than 55 to be achieved with high intensity statin Electronically signed by : Eder Anthony MD 01/30/2022 11:44:07
[2022-01-29 11:34] LABS: Coronavirus 19, PCR Not Detected (NotDetected); Influenza A, PCR Not Detected (NotDetected); Influenza B, PCR Not Detected (NotDetected)
[2022-01-29 11:46] LABS: Basophils # 0.3 K/mm3 (0-0.2); Basophils % 2.3 % (0.1-2.0); Eosinophils # 0.2 K/mm3 (0.0-0.4); Eosinophils % 1.4 % (0.1-12.0); Hematocrit 44.9 % (42.0-52.0); Hemoglobin 14.5 g/dL (14.1-18.0); Lymphocytes # 1.2 K/mm3 (0.7-4.5); Lymphocytes % 10.7 % (10-50); Mean Corpuscular HGB Conc 32.3 g/dL (31.8-35.4); Mean Corpuscular Hemoglobin 30.6 pg (27.0-31.2); Mean Corpuscular Volume 94.7 fl (80-94); Mean Platelet Volume 8.2 fl (7.4-10.4); Monocytes % 9.2 % (1.7-9.3); Neutrophils # 8.5 K/mm3 (1.8-7.8); Neutrophils % 76.4 % (37.0-80.0); Platelet Count 204 K/mm3 (142-424); Red Blood Count 4.74 M/mm3 (4.60-6.20); Red Cell Distribution Width 16.3 % (11.5-17.5); White Blood Count 11.1 K/mm3 (4.8-10.8)
[2022-01-29 11:49] LABS: Chloride 103 mmol/L (98-107); Sodium 142 mmol/L (136-145)
[2022-01-29 11:52] LABS: Anion Gap 11.7 mEq/L (5-15); Blood Urea Nitrogen 15 mg/dl (9-20); Carbon Dioxide 31 mmol/L (22.0-30.0); Creatinine Clearance Estimated 43 mL/min (50-200); Estimated Glomerular Filt Rate 49 ml/min (>60); GFR (African American) 59 ML/MIN (>60); Potassium 3.7 mmoL/L (3.5-5.1)
[2022-01-29 11:53] LABS: Calcium 9.5 mg/dl (8.4-10.2); Glucose 116 mg/dl (74-100)
[2022-01-29 13:29] LABS: CATHL Activated Clotting Time 322 SEC (74-125)
--- NOTE | 2022-01-29 16:02 | HMH.PHACLD ---
Michael Petersen has received discharge medication counseling on the following medications: PATIENT IS CURRENTLY TAKING BISOPROLOL 5 MG HS. MD ADDING ASPIRIN 81 MG DAILY, BRILINTA 90 MG BID, AND ATORVASTATIN 40 MG HS. MD NOT WANTING TO STARTING EMA/ARB AT THIS TIME.
== END 2022-01-29 16:41 | disposition home or self-care (01) ==
LOC: CATHLAB 02-03 16:55
PROVIDERS: PCP Family Medicine; Visit Provider Internal Medicine
DX: I25.110 Atherosclerotic heart disease of native coronary artery with unstable angina pectoris (principal); E78.5 Hyperlipidemia, unspecified; T82.855A Stenosis of coronary artery stent, initial encounter; Z79.899 Other long term (current) drug therapy; I48.20 Chronic atrial fibrillation, unspecified; I70.1 Atherosclerosis of renal artery; I77.4 Celiac artery compression syndrome; C92.10 Chronic myeloid leukemia, BCR/ABL-positive, not having achieved remission; I10 Essential (primary) hypertension; I34.0 Nonrheumatic mitral (valve) insufficiency; Z95.810 Presence of automatic (implantable) cardiac defibrillator; I42.9 Cardiomyopathy, unspecified; Z87.891 Personal history of nicotine dependence; Z20.822 Contact with and (suspected) exposure to COVID-19; Y83.1 Surgical operation with implant of artificial internal device as the cause of abnormal reaction of the patient, or of later complication, without mention of misadventure at the time of the procedure
CPT/HCPCS: 36415; 80048; 85025; 85347; 92928; 99152; C1725; C1760; C1769; C1876; C9600; C9803; J1644; J2405; Q9967; U0003; U0005

== ENCOUNTER → 2022-02-04 11:01 | Outpatient (CLI) | payer MEDICARE, OTHER, SELFPAY ==
--- NOTE | 2022-02-04 11:13 | CA_ITS ---
FINAL REPORT CLINICAL HISTORY: Right wrist pain 6 days post cardiac cath FINDINGS: DUPLEX SCAN UPPER EXTREMITY Limited duplex color Doppler and grayscale sonography of the right wrist for evaluation of right radial artery. The right radial artery is patent. There is no evidence of pseudoaneurysm. There is an 8.4 mm hypoechoic structure superficial to the radial artery which likely represents a hematoma. IMPRESSION: No evidence of pseudoaneurysm. Hematoma as above. Reviewed, Interpreted and Dictated by Jose Núñez III, MD Transcribed by Alice Turner Authenticated and [facility]
[2022-02-04 12:31] LABS: Basophils # 0.3 K/mm3 (0-0.2); Basophils % 2.8 % (0.1-2.0); Eosinophils # 0.2 K/mm3 (0.0-0.4); Eosinophils % 1.7 % (0.1-12.0); Hematocrit 46.8 % (42.0-52.0); Hemoglobin 14.7 g/dL (14.1-18.0); Lymphocytes # 1.3 K/mm3 (0.7-4.5); Lymphocytes % 11.9 % (10-50); Mean Corpuscular HGB Conc 31.5 g/dL (31.8-35.4); Mean Corpuscular Hemoglobin 30.4 pg (27.0-31.2); Mean Corpuscular Volume 96.5 fl (80-94); Mean Platelet Volume 7.9 fl (7.4-10.4); Monocytes # 1.2 K/mm3 (0.1-1.0); Monocytes % 11.2 % (1.7-9.3); Neutrophils # 7.7 K/mm3 (1.8-7.8); Neutrophils % 72.4 % (37.0-80.0); Platelet Count 273 K/mm3 (142-424); Red Blood Count 4.85 M/mm3 (4.60-6.20); Red Cell Distribution Width 16.2 % (11.5-17.5); White Blood Count 10.7 K/mm3 (4.8-10.8)
[2022-02-04 13:08] LABS: Chloride 102 mmol/L (98-107); Potassium 4.6 mmoL/L (3.5-5.1); Sodium 139 mmol/L (136-145)
[2022-02-04 13:10] LABS: Blood Urea Nitrogen 16 mg/dl (9-20); Estimated Glomerular Filt Rate 53 ml/min (>60); GFR (African American) 64 ML/MIN (>60)
[2022-02-04 13:11] LABS: Alanine Aminotransferase 19 U/L (12-78); Albumin Level 4.4 g/dl (3.5-5.0); Albumin/Globulin Ratio 1.7 (1.1-1.8); Alkaline Phosphatase 88 U/L (38-126); Anion Gap 11.6 mEq/L (5-15); Aspartate Amino Transferase 32 U/L (17-59); Bilirubin,Total 2.6 mg/dl (0.2-1.3); Calcium 10.1 mg/dl (8.4-10.2); Carbon Dioxide 30 mmol/L (22.0-30.0); Globulin 2.6 g/dL (1.3-3.2); Glucose 104 mg/dl (74-100)
[2022-02-08 14:08] LABS: Interpretation: Positive (.)
== END ==
PROVIDERS: PCP Internal Medicine Medical Oncology; Visit Provider Internal Medicine
DX: I77.0 Arteriovenous fistula, acquired (principal); C92.10 Chronic myeloid leukemia, BCR/ABL-positive, not having achieved remission
CPT/HCPCS: 36415; 80053; 81206; 85025; 93931

== ENCOUNTER 2022-02-27 10:23 | Outpatient (CLI) | payer MEDICARE, OTHER, SELFPAY ==
[2022-02-27] VITALS (9 sets, daily range): BP systolic 154–220; BP diastolic 80–114; PULSE 80–83; RESP 15–19; O2SAT 99–100
--- NOTE | 2022-02-27 | CA_ITS ---
FINAL REPORT CLINICAL HISTORY: Patient had a right wrist pseudo ultrasound done earlier today with resolving pseudoaneurysm found. Patient was treated with manual and band compression for 45 minutes. Pseudo was rechecked. Manual pressure was held for 50 more minutes. Pseudo was checked again. FINDINGS: UPPER EXTREMITY ARTERIAL DUPLEX Spectral and Doppler waveform evaluations of the right wrist were performed. Spectral analysis was performed. There is a hematoma adjacent to the right radial artery measuring 1.2 x 0.7 cm. No internal flow is present. IMPRESSION: Resolved pseudoaneurysm of the right radial artery. Reviewed, Interpreted and Dictated by Jorge Mccann MD Transcribed by Emmanuel Becker Authenticated and [facility]
--- NOTE | 2022-02-27 10:30 | CA_ITS ---
FINAL REPORT CLINICAL HISTORY: heart cath 01/29/22. Patient presents with a palpable knot with pulse. CAD, smoker, CLL, HTN, hyperlipidemia, AFIB. FINDINGS: UPPER EXTREMITY ARTERIAL DUPLEX Spectral and Doppler waveform evaluations of the right wrist were performed. Spectral analysis was performed. There is an ovoid hematoma measuring approximate 2.2 x 1.0 cm adjacent to the right radial artery. There is mild mass effect on the right radial artery. There is minimal flow within the hematoma consistent with near completely resolved pseudoaneurysm. IMPRESSION: Near completely resolved pseudoaneurysm adjacent to the right radial artery. The patient's nurse was notified by the neurodiagnostic technologist of these findings. Reviewed, Interpreted and Dictated by Jorge Mccann MD Transcribed by Emmanuel Becker Authenticated and [facility]
== END 2022-02-27 14:54 | disposition home or self-care (01) ==
PROVIDERS: Internal Medicine; PCP Family Medicine; Visit Provider Internal Medicine Cardiovascular Disease
DX: I77.0 Arteriovenous fistula, acquired (principal); I72.4 Aneurysm of artery of lower extremity
CPT/HCPCS: 93931

== ENCOUNTER → 2022-03-18 11:01 | Outpatient (CLI) | payer MEDICARE, OTHER, SELFPAY ==
--- NOTE | 2022-03-18 11:06 | CA_ITS ---
FINAL REPORT CLINICAL HISTORY: Patient presents to cardiology today with a visible knot at the right wrist site of previous pseudoaneurysm. He had a heart cath 01/29/22 with right wrist access. Vascular ultrasound done 02/27/22 showed a pseudoaneurysm at the right wrist. Multiple scans were done 02/27 with pseduoaneursym improving after manual compression. He states a knot popped up the very next morning. FINDINGS: Spectral and Doppler waveform evaluations of the right wrist was performed. Spectral analysis was performed. There is a pseudoaneurysm of the right radial artery measuring 1.6 x 0.8 cm. IMPRESSION: Pseudoaneurysm of the right radial artery. Reviewed, Interpreted and Dictated by Jose Núñez III, MD Transcribed by Nel Rollins Authenticated and [facility]
== END ==
PROVIDERS: PCP Family Medicine; Visit Provider Internal Medicine Cardiovascular Disease
DX: M11.231 Other chondrocalcinosis, right wrist (principal); R09.89 Other specified symptoms and signs involving the circulatory and respiratory systems
CPT/HCPCS: 93931

== ENCOUNTER 2022-03-18 11:36 | Day surgery (SDC) | payer MEDICARE, OTHER, SELFPAY ==
--- NOTE | 2022-03-18 | CA_ITS ---
FINAL REPORT CLINICAL HISTORY: Scan is done 45 minutes post band compression for treatment of right pseudoaneurysm. FINDINGS: Spectral and Doppler waveform evaluations of the right wrist was performed. Spectral analysis was performed. There is a partially improved pseudoaneurysm but with persistent flow. IMPRESSION: Partially improved pseudoaneurysm. Reviewed, Interpreted and Dictated by Jose Núñez III, MD Transcribed by Nel Rollins Authenticated and . [facility]
[2022-03-18 11:38] VITALS: BMI 21.7
[2022-03-18 11:47] VITALS: BP 163/106; PULSE 83; RESP 20; O2SAT 99
[2022-03-18 13:19] VITALS: BP 177/130; PULSE 80; RESP 20; O2SAT 99
--- NOTE | 2022-03-18 13:25 | SUR.PHASEII ---
Yuniel Zambrano informed of patients elevated blood pressure, new orders recieved, prescriptions called in to [facility] pharmacy[facility].
== END 2022-03-18 14:01 | disposition home or self-care (01) ==
LOC: CATHLAB 11:37
PROVIDERS: PCP Family Medicine; Visit Provider Internal Medicine
DX: I25.10 Atherosclerotic heart disease of native coronary artery without angina pectoris (principal); I10 Essential (primary) hypertension; I72.8 Aneurysm of other specified arteries; Z53.09 Procedure and treatment not carried out because of other contraindication
CPT/HCPCS: 93931

== ENCOUNTER → 2022-04-07 09:50 | Outpatient (CLI) | payer MEDICARE, OTHER, SELFPAY ==
--- NOTE | 2022-04-07 | CA_ITS ---
FINAL REPORT CLINICAL HISTORY: Patient rt wrist scanned 03/18/22 showed pseudoaneurysm. Patient had previous scan 02/27/22 with pseudoaneurysm resolved after manual compression. Patient following up today. Right wrist knot appears smaller than previous visits. FINDINGS: Spectral and Doppler waveform evaluations of the right wrist was performed. Spectral analysis was performed. There has been progressive interval thrombosis of the pseudoaneurysm. There is mild persistent flow at the periphery. 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 Reviewed, Interpreted and Dictated by Jorge Mccann MD Transcribed by Nel Rollins Authenticated and [facility]
== END ==
PROVIDERS: PCP Family Medicine; Visit Provider Internal Medicine
DX: I72.1 Aneurysm of artery of upper extremity (principal); T81.718D Complication of other artery following a procedure, not elsewhere classified, subsequent encounter
CPT/HCPCS: 93931

== ENCOUNTER → 2022-05-04 14:13 | Outpatient (CLI) | payer MEDICARE, OTHER, SELFPAY ==
[2022-05-04 16:01] LABS: Basophils # 0.2 K/mm3 (0-0.2); Basophils % 2.1 % (0.1-2.0); Eosinophils # 0.2 K/mm3 (0.0-0.4); Eosinophils % 1.4 % (0.1-12.0); Hematocrit 42.2 % (42.0-52.0); Hemoglobin 13.8 g/dL (14.1-18.0); Lymphocytes # 1.5 K/mm3 (0.7-4.5); Lymphocytes % 12.3 % (10-50); Mean Corpuscular HGB Conc 32.7 g/dL (31.8-35.4); Mean Corpuscular Hemoglobin 32.5 pg (27.0-31.2); Mean Corpuscular Volume 99.4 fl (80-94); Monocytes # 1.3 K/mm3 (0.1-1.0); Neutrophils # 8.6 K/mm3 (1.8-7.8); Neutrophils % 73.3 % (37.0-80.0); Platelet Count 276 K/mm3 (142-424); Red Blood Count 4.25 M/mm3 (4.60-6.20); Red Cell Distribution Width 14.9 % (11.5-17.5); White Blood Count 11.8 K/mm3 (4.8-10.8)
[2022-05-04 16:20] LABS: Chloride 101 mmol/L (98-107); Potassium 3.9 mmoL/L (3.5-5.1); Sodium 143 mmol/L (136-145)
[2022-05-04 16:22] LABS: Blood Urea Nitrogen 17 mg/dl (9-20); Estimated Glomerular Filt Rate 65 ml/min (>60); GFR (African American) 78 ML/MIN (>60)
[2022-05-04 16:23] LABS: Alanine Aminotransferase 26 U/L (12-78); Albumin Level 4.4 g/dl (3.5-5.0); Albumin/Globulin Ratio 1.7 (1.1-1.8); Alkaline Phosphatase 82 U/L (38-126); Anion Gap 15.9 mEq/L (5-15); Aspartate Amino Transferase 37 U/L (17-59); Calcium 9.4 mg/dl (8.4-10.2); Carbon Dioxide 30 mmol/L (22.0-30.0); Globulin 2.6 g/dL (1.3-3.2); Glucose 136 mg/dl (74-100)
[2022-05-19 21:08] LABS: Interpretation: Positive (.)
== END ==
PROVIDERS: PCP Family Medicine; Visit Provider Internal Medicine Medical Oncology
DX: C92.10 Chronic myeloid leukemia, BCR/ABL-positive, not having achieved remission (principal)
CPT/HCPCS: 36415; 80053; 81206; 85025

== ENCOUNTER → 2022-08-18 11:19 | Outpatient (CLI) | payer MEDICARE, OTHER, SELFPAY ==
[2022-08-18 12:15] LABS: Basophils # 0.2 K/mm3 (0-0.2); Basophils % 1.4 % (0.1-2.0); Eosinophils # 0.6 K/mm3 (0.0-0.4); Eosinophils % 3.6 % (0.1-12.0); Hematocrit 44.1 % (42.0-52.0); Hemoglobin 14.1 g/dL (14.1-18.0); Lymphocytes # 1.5 K/mm3 (0.7-4.5); Lymphocytes % 9.6 % (10-50); Mean Corpuscular Hemoglobin 31.5 pg (27.0-31.2); Mean Corpuscular Volume 98.4 fl (80-94); Mean Platelet Volume 8.7 fl (7.4-10.4); Monocytes # 2.4 K/mm3 (0.1-1.0); Monocytes % 15.2 % (1.7-9.3); Neutrophils # 11.2 K/mm3 (1.8-7.8); Neutrophils % 70.2 % (37.0-80.0); Platelet Count 323 K/mm3 (142-424); Red Blood Count 4.49 M/mm3 (4.60-6.20); Red Cell Distribution Width 14.1 % (11.5-17.5); White Blood Count 15.9 K/mm3 (4.8-10.8)
[2022-08-18 12:20] LABS: MANUAL DIFFERENTIAL MANUAL DIFFERENTIAL (MANUAL DIFF)
[2022-08-18 12:46] LABS: Chloride 103 mmol/L (98-107)
[2022-08-18 12:47] LABS: Potassium 4.6 mmoL/L (3.5-5.1); Sodium 142 mmol/L (136-145)
[2022-08-18 12:49] LABS: Alanine Aminotransferase 17 U/L (12-78); Aspartate Amino Transferase 30 U/L (17-59); Blood Urea Nitrogen 17 mg/dl (9-20); Estimated Glomerular Filt Rate 45 ml/min (>60); GFR (African American) 54 ML/MIN (>60)
[2022-08-18 12:50] LABS: Albumin Level 4.4 g/dl (3.5-5.0); Albumin/Globulin Ratio 1.8 (1.1-1.8); Alkaline Phosphatase 70 U/L (38-126); Anion Gap 14.6 mEq/L (5-15); Bilirubin,Total 2.1 mg/dl (0.2-1.3); Calcium 9.8 mg/dl (8.4-10.2); Carbon Dioxide 29 mmol/L (22.0-30.0); Globulin 2.5 g/dL (1.3-3.2); Glucose 97 mg/dl (74-100); Total Protein,Serum 6.9 g/dl (6.3-8.2)
[2022-08-18 13:12] LABS: Eosinophils % 3 % (0-3); Lymphocytes % 11 % (10-50); Monocytes % 16 % (2-9); Neutrophils % 69 % (42-76); Total Cells Counted 100
[2022-08-18 13:13] LABS: Platelet Estimate Normal; RBC Morphology Normal
[2022-08-25 03:40] LABS: Interpretation: Positive (.); e1a2 transcript 0.0251 % (.)
== END ==
PROVIDERS: PCP Family Medicine; Visit Provider Internal Medicine Medical Oncology
DX: C92.10 Chronic myeloid leukemia, BCR/ABL-positive, not having achieved remission (principal)
CPT/HCPCS: 36415; 80053; 81206; 85007; 85025

== ENCOUNTER → 2022-12-02 10:50 | Outpatient (CLI) | payer MEDICARE, OTHER, SELFPAY ==
[2022-12-02 11:09] LABS: Basophils # 0.1 K/mm3 (0-0.2); Basophils % 0.5 % (0.1-2.0); Eosinophils # 0.2 K/mm3 (0.0-0.4); Eosinophils % 1.7 % (0.1-12.0); Hematocrit 43.1 % (42.0-52.0); Hemoglobin 13.8 g/dL (14.1-18.0); Lymphocytes # 1.7 K/mm3 (0.7-4.5); Lymphocytes % 12.9 % (10-50); Mean Corpuscular HGB Conc 31.9 g/dL (31.8-35.4); Mean Corpuscular Hemoglobin 31.5 pg (27.0-31.2); Mean Corpuscular Volume 98.8 fl (80-94); Mean Platelet Volume 8.1 fl (7.4-10.4); Monocytes # 1.8 K/mm3 (0.1-1.0); Monocytes % 13.9 % (1.7-9.3); Neutrophils # 9.2 K/mm3 (1.8-7.8); Platelet Count 200 K/mm3 (142-424); Red Blood Count 4.36 M/mm3 (4.60-6.20); Red Cell Distribution Width 13.8 % (11.5-17.5); White Blood Count 12.9 K/mm3 (4.8-10.8)
[2022-12-02 11:42] LABS: Chloride 100 mmol/L (98-107)
[2022-12-02 11:43] LABS: Potassium 4.1 mmoL/L (3.5-5.1); Sodium 139 mmol/L (136-145)
[2022-12-02 11:45] LABS: Alanine Aminotransferase 19 U/L (12-78); Albumin Level 4.3 g/dl (3.5-5.0); Albumin/Globulin Ratio 1.9 (1.1-1.8); Alkaline Phosphatase 59 U/L (38-126); Anion Gap 11.1 mEq/L (5-15); Aspartate Amino Transferase 29 U/L (17-59); Bilirubin,Total 2.2 mg/dl (0.2-1.3); Blood Urea Nitrogen 19 mg/dl (9-20); Carbon Dioxide 32 mmol/L (22.0-30.0); Estimated Glomerular Filt Rate 49 ml/min (>60); GFR (African American) 59 ML/MIN (>60); Globulin 2.3 g/dL (1.3-3.2); Total Protein,Serum 6.6 g/dl (6.3-8.2)
[2022-12-02 11:46] LABS: Calcium 9.2 mg/dl (8.4-10.2); Glucose 87 mg/dl (74-100)
[2022-12-07 19:15] LABS: Interpretation: Positive (.); e1a2 transcript 0.0298 % (.)
== END ==
PROVIDERS: PCP Family Medicine; Visit Provider Internal Medicine Medical Oncology
DX: C92.10 Chronic myeloid leukemia, BCR/ABL-positive, not having achieved remission (principal)
CPT/HCPCS: 36415; 80053; 81206; 85025

== ENCOUNTER → 2023-03-01 10:36 | Outpatient (CLI) | payer MEDICARE, OTHER, SELFPAY ==
[2023-03-01 11:18] LABS: Basophils % 1.6 % (0.1-2.0); Eosinophils # 0.4 K/mm3 (0.0-0.4); Eosinophils % 0.6 % (0.1-12.0); Hematocrit 42.5 % (42.0-52.0); Hemoglobin 13.6 g/dL (14.1-18.0); Lymphocytes % 5.1 % (10-50); Mean Corpuscular HGB Conc 31.9 g/dL (31.8-35.4); Mean Corpuscular Hemoglobin 30.6 pg (27.0-31.2); Mean Corpuscular Volume 95.7 fl (80-94); Mean Platelet Volume 8.7 fl (7.4-10.4); Monocytes # 7.1 K/mm3 (0.1-1.0); Neutrophils % 80.7 % (37.0-80.0); Platelet Count 357 K/mm3 (142-424); Red Blood Count 4.44 M/mm3 (4.60-6.20); Red Cell Distribution Width 13.7 % (11.5-17.5)
[2023-03-01 12:11] LABS: Alanine Aminotransferase 34 U/L (12-78); Albumin/Globulin Ratio 1.5 (1.1-1.8); Alkaline Phosphatase 93 U/L (38-126); Anion Gap 12.9 mEq/L (5-15); Aspartate Amino Transferase 44 U/L (17-59); Blood Urea Nitrogen 19 mg/dl (9-20); Calcium 9.6 mg/dl (8.4-10.2); Carbon Dioxide 28 mmol/L (22.0-30.0); Chloride 106 mmol/L (98-107); Estimated Glomerular Filt Rate 42 ml/min (>60); GFR (African American) 51 ML/MIN (>60); Globulin 2.6 g/dL (1.3-3.2); Glucose 89 mg/dl (74-100); Potassium 3.9 mmoL/L (3.5-5.1); Sodium 143 mmol/L (136-145); Total Protein,Serum 6.6 g/dl (6.3-8.2)
[2023-03-01 12:16] LABS: White Blood Count 59.5 K/mm3 (4.8-10.8)
[2023-03-01 12:18] LABS: MANUAL DIFFERENTIAL MANUAL DIFFERENTIAL (MANUAL DIFF)
[2023-03-01 12:28] LABS: Lymphocytes % 4 % (10-50); Monocytes % 19 % (2-9); Myelocytes % 1 (0-1); Neutrophils % 63 % (42-76); Nucleated Red Blood Cells 1; Promyelocytes % 6 %; Total Cells Counted 100
[2023-03-01 12:29] LABS: Platelet Estimate Normal; RBC Morphology Normal
[2023-03-04 18:15] LABS: Interpretation: Positive (.); e13a2 (b2a2) transcript Comment: % (.); e14a2 (b3a2) transcript Comment: % (.); e1a2 transcript 0.6676 % (.)
== END ==
PROVIDERS: PCP Family Medicine; Visit Provider Internal Medicine Medical Oncology
DX: C92.12 Chronic myeloid leukemia, BCR/ABL-positive, in relapse (principal)
CPT/HCPCS: 36415; 80053; 81206; 85007; 85025

== ENCOUNTER 2023-03-26 13:02 | Outpatient (CLI) | payer MEDICARE, OTHER, SELFPAY ==
[2023-03-26 13:06] VITALS: BMI 20.9
[2023-03-26 13:50] LABS: Chloride 103 mmol/L (98-107); Potassium 3.3 mmoL/L (3.5-5.1); Sodium 140 mmol/L (136-145)
[2023-03-26 13:53] LABS: Alanine Aminotransferase 30 U/L (12-78); Albumin Level 3.7 g/dl (3.5-5.0); Albumin/Globulin Ratio 1.3 (1.1-1.8); Alkaline Phosphatase 252 U/L (38-126); Anion Gap 12.3 mEq/L (5-15); Aspartate Amino Transferase 77 U/L (17-59); Bilirubin,Total 2.4 mg/dl (0.2-1.3); Blood Urea Nitrogen 14 mg/dl (9-20); Calcium 10.6 mg/dl (8.4-10.2); Carbon Dioxide 28 mmol/L (22.0-30.0); Creatinine Clearance Estimated 34 mL/min (50-200); Estimated Glomerular Filt Rate 39 ml/min (>60); GFR (African American) 47 ML/MIN (>60); Globulin 2.9 g/dL (1.3-3.2); Glucose 109 mg/dl (74-100); Total Protein,Serum 6.6 g/dl (6.3-8.2)
[2023-03-26 14:07] LABS: Basophils # 50.2 K/mm3 (0-0.2); Basophils % 17.7 % (0.1-2.0); Eosinophils # 0.8 K/mm3 (0.0-0.4); Eosinophils % 0.3 % (0.1-12.0); Hematocrit 38.2 % (42.0-52.0); Hemoglobin 11.6 g/dL (14.1-18.0); Lymphocytes % 4.6 % (10-50); Mean Corpuscular HGB Conc 30.5 g/dL (31.8-35.4); Mean Corpuscular Volume 95.1 fl (80-94); Mean Platelet Volume 9.5 fl (7.4-10.4); Monocytes # 14.9 K/mm3 (0.1-1.0); Monocytes % 5.3 % (1.7-9.3); Neutrophils # 254.8 K/mm3 (1.8-7.8); Neutrophils % 89.9 % (37.0-80.0); Platelet Count 423 K/mm3 (142-424); Red Blood Count 4.01 M/mm3 (4.60-6.20); Red Cell Distribution Width 14.5 % (11.5-17.5)
[2023-03-26 14:10] LABS: White Blood Count 283.5 K/mm3 (4.8-10.8)
[2023-03-26 14:11] LABS: MANUAL DIFFERENTIAL MANUAL DIFFERENTIAL (MANUAL DIFF)
[2023-03-26 14:33] LABS: Anisocytosis 1+; Eosinophils % 1 % (0-3); Hypochromasia 1+; Lymphocytes % 2 % (10-50); Macrocytosis 1+; Monocytes % 1 % (2-9); Myelocytes % 9 (0-1); Neutrophils % 50 % (42-76); Platelet Estimate Slight Increase; Poikilocytosis 1+; Promyelocytes % 12 %; Total Cells Counted 100
--- NOTE | 2023-03-26 14:39 | PC.NURSE ---
Becca Patel called RN at [id number] to report [id number]. RN repeated and verified pt name, , and lab value. Result called to Dr. Rebeca Jackson, no new orders noted at this time. Pt is going to be transferred for further treatment at .
== END 2023-03-26 13:20 ==
PROVIDERS: PCP Family Medicine; Visit Provider Internal Medicine Medical Oncology
DX: C95.90 Leukemia, unspecified not having achieved remission (principal)
CPT/HCPCS: 36415; 80053; 85007; 85025